=== PATIENT | male | born 1970 | race Caucasian/White ===

== ENCOUNTER 2023-12-13 17:15 | Inpatient (IN) ==
--- NOTE | 2023-12-13 17:50 | Emergency Department Note ---
Impression & Plan Acute upper GI bleed, Abdominal pain, Anemia ED Provider Note NAME: LAVERN COHEN AGE: 53 SEX: M : 1970 ARRIVES VIA: Walk-In INFORMANT: Patient ED PROVIDER(S): Luis Orantes DO CHIEF COMPLAINT: abdominal pain HPI: Patient is a 53-year-old male with a past medical history of alcohol abuse and he drinks 6-10 beers per day for the past 30 years that presents the to ER for nausea, vomiting, or diarrhea which has been present for the past 2 days associated with black/dark tarry stools. Additional history is obtained from who notes that he has been vomiting up dark material as well. No headache or change in vision. No chest pain or shortness of breath. No dysuria urgency or frequency. No history of varices that he is aware of. He has not seen a GI doctor recently. No blood thinners. No other exacerbating or remitting factors. ADDITIONAL HISTORY OBTAINED: Per HPI Chronic Medical/Social Conditions Affecting Care: Per HPI PAST MEDICAL HISTORY:See Below PAST SURGICAL HISTORY:See Below FAMILY HISTORY:See Below SOCIAL HISTORY:See Below HOME MEDICATIONS:See Below ALLERGIES:See Below VITALS:See Below PHYSICAL EXAMINATION: GENERAL: Sitting up in bed, alert, well appearing, well nourished, no distress, non-toxic EYE EXAM: normal conjunctiva. OROPHARYNX: no exudate, no erythema, lips, buccal mucosa, and tongue normal and mucous membranes are moist NECK: supple, no nuchal rigidity, no adenopathy, non-tender LUNGS: Clear to auscultation. Normal chest wall mechanics HEART: no murmurs, S1 normal and S2 normal ABDOMEN: abdomen soft, non-tender, normo-active bowel sounds, no masses, no rebound or guarding. RECTAL: Dark/tarry heme positive UPPER EXTREMITIES: upper extremities are grossly normal. LOWER EXTREMITIES: No pitting edema. NEURO EXAM: Normal sensorium, cranial nerves II-XII grossly intact, normal speech, no gross weakness of arms, no gross weakness of legs. MEDICAL DECISION MAKING: Patient is a 53-year-old male who presents ER for above-stated complaint. IV was established blood was obtained. Labs show no significant leukocytosis but a mild anemia at 11.8. This is a small drop from 14 which was his previous. Rectally heme positive. He was given IV fluids and heart rate trended down. BMP with mild hyponatremia. LFTs bilirubin was unremarkable. BUN was elevated consistent with an upper GI bleed. He was given 2 L of IV fluids, Protonix drip and bolus and typed and screened. CT abdomen pelvis was unremarkable. He was discussed with the hospitalist admitted for further workup of his upper GI bleed. He remained hemodynamically stable in the ER. No history of varices. He was also given IV thiamine, folate and Ativan. Consults/Care Managements Discussions: Per [facility] Triage Nursing notes reviewed. Limited review of prior medical records performed Vital Signs: reviewed and remarkable for no significant abnormalities Differential diagnosis: Differential diagnoses includes but is not limited to gastritis, peptic ulcer disease, GERD, gallbladder disease, pancreatitis, small bowel obstruction, appendicitis, diverticulitis, hernia, urinary tract infection, torsion, perforation, trauma, infectious. ER treatment provided: See below Diagnostics interpreted by me include EKG and cardiac monitoring as listed below: -Cardiac Monitoring: An order was placed for continuous cardiac monitoring. The monitor shows a rate of 120 with sinus rhythm. -ECG: none -Laboratory studies:Interpreted by me as stated above in MDM and shown below. Imaging studies: Xrays: As interpreted by me:none CTs show: CT abdomen pelvis showed no acute pathology per radiology Procedures:none Critical Care: None Past Med/Surg History Medical History (Updated 12/13/23 @ 22:15 by Luis Orantes DO) Hemochromatosis Open fracture of left toe Family History (Updated 09/19/18 @ 21:55 by Tiffany Alex) Other Kidney stones Social History (Updated 09/19/18 @ 21:56 by Tiffany Alex) Smoking Status: Never smoker Preferred Language: Palauan marital status: Current Living Situation: Family current occupational status: employed Feels Safe at Home: Yes Allergies Allergies Allergy/AdvReac Type Severity Reaction Status Date / Time No Known Allergies Allergy Verified 12/13/23 21:31 Home Meds Home Medications Medication Instructions Recorded Confirmed naproxen sodium 220 mg tablet 440 mg PO BID PRN Pain 12/13/23 12/13/23 (Aleve) Results & Data (ED) Vital Signs Vital Signs - 24 hr 12/13/23 17:23 12/13/23 17:37 12/13/23 20:00 Pulse Rate 129 H Pulse Rhythm Regular Pulse Strength Normal Respiratory Rate 20 Respiratory Effort / Characteristics Non-Labored Spontaneous Respiratory Depth Normal Respiratory Pattern Regular Blood Pressure 111/81 139/92 Blood Pressure Mean 91 107 Pulse Oximetry 99 97 Oxygen Delivery Method Room Air Room Air Sepsis Recent Fever Within 48 Hours No Sepsis New/Unexplained Change in Mental Status No Sepsis Action Taken by Nursing No Action Required 12/13/23 21:00 12/13/23 21:10 Pulse Rate 95 H 93 H Pulse Rhythm Pulse Strength Respiratory Rate 23 Respiratory Effort / Characteristics Respiratory Depth Respiratory Pattern Blood Pressure 87/58 L Blood Pressure Mean 67 Pulse Oximetry Oxygen Delivery Method Sepsis Recent Fever Within 48 Hours Sepsis New/Unexplained Change in Mental Status Sepsis Action Taken by Nursing Laboratory Data 12/13/23 21:34 12/13/23 17:35 Lab Results 12/13/23 12/13/23 12/13/23 Range/Units 17:35 18:47 21:34 WBC 9.72 (4.8-10.8) K/ul RBC 3.52 L (4.70-6.10) M/uL Hgb 11.8 L 9.6 L (14.0-18.0) g/dl Hct 34.3 L 28.2 L (42.0-52.0) % MCV 97.4 (80.0-100.0) fL MCH 33.5 (25.0-34.0) pg MCHC 34.4 (32.0-36.0) g/dL RDW Std Deviation 43.2 (36.4-46.3) fL RDW Coeff of Edith 12.1 (11.5-14.5) % Plt Count 323 (130-400) K/uL MPV 8.7 L (9.4-12.4) fL Immature Gran % (Auto) 1.0 % Neut % (Auto) 72.0 % Lymph % (Auto) 18.5 % [place] % (Auto) 7.8 % Eos % (Auto) 0.3 % Baso % (Auto) 0.4 % Neut # (Auto) 6.99 H (1.40-6.50) K/uL Lymph # (Auto) 1.80 (1.20-3.40) K/uL [place] # (Auto) 0.76 H (0.11-0.59) K/uL Eos # (Auto) 0.03 (0.00-0.50) K/uL Baso # (Auto) 0.04 (0.00-0.20) K/uL Immature Gran # (Auto) 0.10 (0.01-0.20) K/uL PT 10.5 (9.0-12.0) Seconds INR 1.0 (0.9-1.1) Sodium 132 L (136-145) mmol/L Potassium 3.9 (3.5-5.1) mmol/L Chloride 98 (98-107) mmol/L Carbon Dioxide 25 (21-32) mmol/L Anion Gap 9 (3-11) BUN 32 H (6-23) mg/dl Creatinine 0.83 (0.6-1.4) mg/dl Est Cr Clr Drug Dosing 99.6 ml/min Est GFR ( Amer) 116.4 ml/min Est GFR (Non-Af Amer) 100.5 ml/min BUN/Creatinine Ratio 38.6 H (10-20) Glucose 107 H (70-99(Fasting)) mg/dl Osmolality 294 (280-300) mOsm/kg Lactate (0.4-2.0) mmol/L Calcium 9.0 (8.6-10.3) mg/dl Magnesium 2.2 (1.7-2.4) mg/dl Total Bilirubin 0.6 (0.2-1.0) mg/dl AST 43 H (13-39) U/L ALT 62 H (7-52) U/L Alkaline Phosphatase 50 (34-104) U/L Total Protein 6.7 (6.0-8.3) gm/dl Albumin 4.6 (3.4-5.0) gm/dl Globulin 2.1 L (2.5-4.0) gm/dl Albumin/Globulin Ratio 2.2 H (0.9-2) Lipase 8 L (11-82) U/L TSH 2.147 (0.300-4.500) uIu/ml Blood Type O Negative Antibody Screen NEGATIVE 12/13/23 Range/Units 21:45 WBC (4.8-10.8) K/ul RBC (4.70-6.10) M/uL Hgb (14.0-18.0) g/dl Hct (42.0-52.0) % MCV (80.0-100.0) fL MCH (25.0-34.0) pg MCHC (32.0-36.0) g/dL RDW Std Deviation (36.4-46.3) fL RDW Coeff of Edith (11.5-14.5) % Plt Count (130-400) K/uL MPV (9.4-12.4) fL Immature Gran % (Auto) % Neut % (Auto) % Lymph % (Auto) % [place] % (Auto) % Eos % (Auto) % Baso % (Auto) % Neut # (Auto) (1.40-6.50) K/uL Lymph # (Auto) (1.20-3.40) K/uL [place] # (Auto) (0.11-0.59) K/uL Eos # (Auto) (0.00-0.50) K/uL Baso # (Auto) (0.00-0.20) K/uL Immature Gran # (Auto) (0.01-0.20) K/uL PT (9.0-12.0) Seconds INR (0.9-1.1) Sodium (136-145) mmol/L Potassium (3.5-5.1) mmol/L Chloride (98-107) mmol/L Carbon Dioxide (21-32) mmol/L Anion Gap (3-11) BUN (6-23) mg/dl Creatinine (0.6-1.4) mg/dl Est Cr Clr Drug Dosing ml/min Est GFR ( Amer) ml/min Est GFR (Non-Af Amer) ml/min BUN/Creatinine Ratio (10-20) Glucose (70-99(Fasting)) mg/dl Osmolality (280-300) mOsm/kg Lactate 0.8 (0.4-2.0) mmol/L Calcium (8.6-10.3) mg/dl Magnesium (1.7-2.4) mg/dl Total Bilirubin (0.2-1.0) mg/dl AST (13-39) U/L ALT (7-52) U/L Alkaline Phosphatase (34-104) U/L Total Protein (6.0-8.3) gm/dl Albumin (3.4-5.0) gm/dl Globulin (2.5-4.0) gm/dl Albumin/Globulin Ratio (0.9-2) Lipase (11-82) U/L TSH (0.300-4.500) uIu/ml Blood Type Antibody Screen Administered Medications Pantoprazole Sodium 40 mg/ (Dextrose) 100 mls @ 20 mls/hr IV Q5H DELORES Stop: 01/12/24 18:14 Last Admin: 12/13/23 18:34 Dose: 8 mg/hr, 20 mls/hr Documented By: OSWALD Discontinued Medications Pantoprazole Sodium 80 mg/ (Dextrose) 120 mls @ 480 mls/hr IV NOW ONE Stop: 12/13/23 18:00 Last Infusion: 12/13/23 18:38 Dose: Infused Documented By: Admin: 12/13/23 18:17 Dose: 480 mls/hr Documented By: OSWALD Sodium Chloride (Nss) 1,000 mls @ 999 mls/hr IV .Q1H1M [facility] Stop: 12/13/23 20:00 Last Admin: 12/13/23 21:21 Dose: 999 mls/hr Documented By: Infusion: 12/13/23 21:01 Dose: Infused Documented By: Admin: 12/13/23 18:10 Dose: 999 mls/hr Documented By: OSWALD Thiamine HCl 100 mg/ Syringe 10 mls @ 2 mls/min IV NOW STA Stop: 12/13/23 17:50 Last Admin: 12/13/23 18:16 Dose: 2 mls/min Documented By: OSWALD Folic Acid 1 mg/ Syringe 10 mls @ 5 mls/min IV NOW STA Stop: 12/13/23 17:47 Last Admin: 12/13/23 18:13 Dose: 5 mls/min Documented By: OSWALD Ioversol (Optiray 320 100ml) 92 ml IV ONCE ONE Stop: 12/13/23 18:41 Last Admin: 12/13/23 18:40 Dose: 92 ml Documented By: ZACK Lorazepam (Lorazepam 1 Mg/1 Ml Syr Ed Inj Use) 1 mg IV ONE STA Stop: 12/13/23 17:47 Last Admin: 12/13/23 18:12 Dose: 1 mg Documented By: OSWALD Pantoprazole Sodium (Pantoprazole Bolus/Drip) 1 each IV NOW STA Stop: 12/13/23 17:47 Last Admin: 12/13/23 18:36 Dose: Not Given Documented By: OSWALD Imaging Data Radiologist's Impression: Abdomen/Pelvis CT 12/13/23 17:46 CT abd pelvis IV con only CLINICAL HISTORY: abd pain gi bleed TECHNIQUE: Helical axial images of the abdomen and pelvis were obtained and displayed. Automated dose lowering techniques and/or adjustment according to patient size were utilized for this exam. This exam was performed with intravenous contrast. CT DOSE: 677.59 mGy.cm COMPARISON: Comparison is made to CT abdomen pelvis 09/19/2018 FINDINGS: Lower chest: No acute abnormality. Liver: Hepatic steatosis is noted. Gallbladder and biliary tree: Density seen in the gallbladder likely represent tiny polyps. No intra- or extrahepatic biliary ductal dilation. Pancreas: Unremarkable, no focal lesions. Spleen: Splenule is incidentally noted. Adrenals: Unremarkable. Kidneys and ureters: Unremarkable. Bladder: Diffuse homogeneous wall thickening is seen. Reproductive organs: Unremarkable. Bowel: The appendix is normal. Lymph nodes Retroperitoneal: Unremarkable. Pelvic: Unremarkable. Mesenteric: Unremarkable. Peritoneum: Normal. Vessels: Unremarkable. Abdominal wall: Right fat-containing inguinal hernia. Bones: Degenerative changes in the visualized spine. IMPRESSION: 1. Hepatic steatosis is seen. 2. No acute abnormalities to explain GI bleed. 3. Likely tiny gallbladder polyps, stable from prior exam. ACT 112: Negative or not required by law. Electronically signed by: Niko Orona M.D. 12/13/2023 7:14 PM Chest X-Ray 12/13/23 19:43 XR chest 1V portable CLINICAL HISTORY: hyponatremia TECHNIQUE: Single frontal radiograph of the chest was obtained. Comparison: None available at the time of this dictation. FINDINGS: No lines and tubes are seen. The cardiomediastinal silhouette is normal. The lungs are clear. No evidence of pleural effusion or pneumothorax. IMPRESSION: No acute chest disease. ACT 112: Negative or not required by law. Electronically signed by: Niko Orona M.D. 12/13/2023 7:59 PM Discharge Plan Visit Data Chief Complaint: GI Assessment Stated Complaint: VOMITING,BLACK STOOL,WEAKNESS,CLAMMY ED Provider: Luis Orantes Discharge Problem: Acute upper GI bleed, Abdominal pain, Anemia Forms Stand Alone Forms: [facility] Prescriptions Prescriptions: No Action naproxen sodium [Aleve] 220 mg Tablet 440 mg PO BID PRN (Reason: Pain) Referrals Referrals: PCP,NO [Primary Care Provider] - Discharge Problem: Abdominal pain Qualifiers: Abdominal location: unspecified location Qualified Code(s): R10.9 - Unspecified abdominal pain Anemia Qualifiers: Anemia type: unspecified type Qualified Code(s): D64.9 - Anemia, unspecified
[2023-12-13 17:54] LABS: Basophils # (auto) 0.04 K/uL (0.00-0.20); Basophils % (auto) 0.4 %; Eosinophils # (auto) 0.03 K/uL (0.00-0.50); Eosinophils % (auto) 0.3 %; Hematocrit (blood only) 34.3 % (42.0-52.0); Hemoglobin 11.8 g/dl (14.0-18.0); Lymphocytes % (auto) 18.5 %; Mean Corpuscular Hemoglobin 33.5 pg (25.0-34.0); Mean Corpuscular Hgb Conc 34.4 g/dL (32.0-36.0); Mean Corpuscular Volume 97.4 fL (80.0-100.0); Mean Platelet Volume 8.7 fL (9.4-12.4); Monocytes # (auto) 0.76 K/uL (0.11-0.59); Monocytes % (auto) 7.8 %; Neutrophils # (auto) 6.99 K/uL (1.40-6.50); Platelet Count 323 K/uL (130-400); RDW Coefficient of Variation 12.1 % (11.5-14.5); RDW Standard Deviation 43.2 fL (36.4-46.3); Red Blood Count 3.52 M/uL (4.70-6.10); White Blood Count 9.72 K/ul (4.8-10.8)
[2023-12-13 18:06] LABS: Albumin Globulin Ratio 2.2 (0.9-2); Albumin Level 4.6 gm/dl (3.4-5.0); BUN Creatinine Ratio 38.6 (10-20); Bilirubin,Total 0.6 mg/dl (0.2-1.0); Creatinine Clr Calc Pharmacy 99.6 ml/min; Est GFR (African American) 116.4 ml/min; Est GFR (Non-African American) 100.5 ml/min; Globulin 2.1 gm/dl (2.5-4.0); Potassium 3.9 mmol/L (3.5-5.1); Total Protein 6.7 gm/dl (6.0-8.3)
[2023-12-13] MEDS: SODIUM CHLORIDE 0.9% 1,000 ML IV SCH (18:10)
[2023-12-13] MEDS: LORazepam 1 MG/1 ML SYR ED Inj Use IV STA (18:12)
[2023-12-13] MEDS: FOLIC ACID 1 MG in SYRINGE 9.8 ML IV STA (18:13)
[2023-12-13] MEDS: THIAMINE HCL 100 MG in SYRINGE 9 ML IV STA (18:16)
[2023-12-13 18:17] LABS: Prothrombin Time 10.5 Seconds (9.0-12.0)
[2023-12-13] MEDS: PANTOprazole 80 MG in DEXTROSE 5% 100 ML IV ONE (18:17)
[2023-12-13] MEDS: PANTOprazole 40 MG in DEXTROSE 5% MINI-B 100 ML IV SCH (18:34)
[2023-12-13] MEDS: PANTOPRAZOLE BOLUS/DRIP IV STA (18:36)
[2023-12-13] MEDS: OPTIRAY 320 100ml IV ONE (18:40)
--- NOTE | 2023-12-13 19:16 | CT Scan Report ---
CT abd pelvis IV con only CLINICAL HISTORY: abd pain gi bleed TECHNIQUE: Helical axial images of the abdomen and pelvis were obtained and displayed. Automated dose lowering techniques and/or adjustment according to patient size were utilized for this exam. This e xam was performed with intravenous contrast. CT DOSE: 677.59 mGy.cm COMPARISON: Comparison is made to CT abdomen pelvis 09/19/2018 FINDINGS: Lower chest: No acute abnormality. Liver: Hepatic steatosis is noted. Gallbladder and biliary tree: Density seen in the gallbladder likely represent tiny polyps. No intra- or extrahepatic biliary ductal dilation. Pancreas: Unremarkable, no focal lesions. Spleen: Splenule is incidentally noted. Adrenals: Unremarkable. Kidneys and ureters: Unremarkable. Bladder: Diffuse homogeneous wall thickening is seen. Reproductive organs: Unremarkable. Bowel: The appendix is normal. Lymph nodes Retroperitoneal: Unremarkable. Pelvic: Unremarkable. Mesenteric: Unremarkable. Peritoneum: Normal. Vessels: Unremarkable. Abdominal wall: Right fat-containing inguinal hernia. Bones: Degenerative changes in the visualized spine. IMPRESSION: 1. Hepatic steatosis is seen. 2. No acute abnormalities to explain GI bleed. 3. Likely tiny gallbladder polyps, stable from prior exam. ACT 112: Negative or not required by law. Electronically signed by: Niko Orona M.D. 12/13/2023 7:14 PM
--- NOTE | 2023-12-13 20:01 | XRay Report ---
XR chest 1V portable CLINICAL HISTORY: hyponatremia TECHNIQUE: Single frontal radiograph of the chest was obtained. Comparison: None available at the time of this dictation. FINDINGS: No lines and tubes are seen. The cardiomediastinal silhouette is normal. The lungs are clear. No evid ence of pleural effusion or pneumothorax. IMPRESSION: No acute chest disease. ACT 112: Negative or not required by law. Electronically signed by: Niko Orona M.D. 12/13/2023 7:59 PM
[2023-12-13 20:05] LABS: Magnesium 2.2 mg/dl (1.7-2.4)
[2023-12-13 20:21] LABS: Thyroid Stimulating Hormone 2.147 uIu/ml (0.300-4.500)
--- NOTE | 2023-12-13 20:33 | History & Physical Report ---
Date of Service December 13, 2023 Assessment & Plan (1) UGIB (upper gastrointestinal bleed): Plan: History of alcohol abuse Differentials include esophagitis, gastritis, PUD, tumor Anemia secondary to above Hyponatremia, history of alcohol abuse Abnormal LFTs, hepatic steatosis on imaging in the setting of alcohol abuse, hereditary hemochromatosis Past tobacco abuse Medical telemetry IV PPI GI consult re: UGIB N.p.o. in anticipation of endoscopy Follow H&H, transfuse PRBC if hemoglobin less than 7 and or from symptomatic anemia IGNAICO S at risk protocol for now, DT precautions Hyponatremia workup DVT prophylaxis. SCDs Re: GI bleed Full code Patient requesting updates providers. Ms. Ama Warner, contact #[phone]. Text document was generated using [employer] voice recognition software. It may contain grammatical or spelling errors. Kindly contact undersigned for clarification of any documentation item in question. History of Present Illness Chief Complaint: Melena Primary Care Provider: NO PCP Patient would like patient to see Dr. Yumiko Peter of [facility] upon discharge. History obtained from patient, family, and records. Medical history significant for hereditary hemochromatosis, alcohol use, past tobacco abuse. 2 days history of coffee-ground emesis, melena and achy central abdominal pain. No prior episodes. Admits to daily EtOH intake which patient family thinks is excessive. No inordinate OTC NSAID intake. No fever, no chills. Headache, dizziness from vomiting. No chest pain, no SOB. IV Protonix initiated at the ER for UGIB. 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 Allergies Allergy/AdvReac Type Severity Reaction Status Date / Time No Known Allergies Allergy Verified 09/19/18 20:38 Home Medications Medication Instructions Recorded Confirmed Type dicyclomine 20 mg tablet 20 mg PO TID PRN abdominal 09/19/18 Rx discomfort #10 tabs Past Med/Surg History Medical History (Updated 12/13/23 @ 21:07 by Nick Mclain MD) Hemochromatosis Open fracture of left toe Family History (Updated 09/19/18 @ 21:55 by Tiffany Alex) Other Kidney stones Social History (Updated 09/19/18 @ 21:56 by Tiffany Alex) Smoking Status: Never smoker Preferred Language: Irish marital status: Current Living Situation: Family current occupational status: employed Feels Safe at Home: Yes Review of Systems Review of Systems: As per HPI, all other systems reviewed and negative Physical Exam Physical Exam: GENERAL: Slightly uncomfortable, no respiratory distress SKIN: Pallor, warm HEENT: Partial alopecia, pale palpebral conjunctivae, no ptosis, dry buccal mucosa NECK : Supple, no tenderness CHEST : CTA, no tenderness HEART : Tachycardic, no obvious murmurs ABDOMEN: Some distention, minimal epigastric tenderness EXTREMITIES : No LE swelling/tenderness, no other conspicuous deformities noted NEUROLOGIC : Coherent, no facial asymmetry, no other gross focality Results & Data Results & Data Vital Signs (Past 12 Hours) Vital Signs Pulse Resp BP Pulse Ox O2 Del Method 12/13/23 17:37 97 Room Air 12/13/23 17:23 129 H 20 111/81 99 Room Air Laboratory Results Laboratory Results WBC 9.72 K/ul (4.8-10.8) 12/13/23 17:35 RBC 3.52 M/uL (4.70-6.10) L 12/13/23 17:35 Hgb 11.8 g/dl (14.0-18.0) L 12/13/23 17:35 Hct 34.3 % (42.0-52.0) L 12/13/23 17:35 MCV 97.4 fL (80.0-100.0) 12/13/23 17:35 MCH 33.5 pg (25.0-34.0) 12/13/23 17:35 MCHC 34.4 g/dL (32.0-36.0) 12/13/23 17:35 RDW Std Deviation 43.2 fL (36.4-46.3) 12/13/23 17:35 RDW Coeff of Edith 12.1 % (11.5-14.5) 12/13/23 17:35 Plt Count 323 K/uL (130-400) 12/13/23 17:35 MPV 8.7 fL (9.4-12.4) L 12/13/23 17:35 Immature Gran % (Auto) 1.0 % 12/13/23 17:35 Neut % (Auto) 72.0 % 12/13/23 17:35 Lymph % (Auto) 18.5 % 12/13/23 17:35 [place] % (Auto) 7.8 % 12/13/23 17:35 Eos % (Auto) 0.3 % 12/13/23 17:35 Baso % (Auto) 0.4 % 12/13/23 17:35 Neut # (Auto) 6.99 K/uL (1.40-6.50) H 12/13/23 17:35 Lymph # (Auto) 1.80 K/uL (1.20-3.40) 12/13/23 17:35 [place] # (Auto) 0.76 K/uL (0.11-0.59) H 12/13/23 17:35 Eos # (Auto) 0.03 K/uL (0.00-0.50) 12/13/23 17:35 Baso # (Auto) 0.04 K/uL (0.00-0.20) 12/13/23 17:35 Immature Gran # (Auto) 0.10 K/uL (0.01-0.20) 12/13/23 17:35 PT 10.5 Seconds (9.0-12.0) 12/13/23 17:35 INR 1.0 (0.9-1.1) 12/13/23 17:35 Sodium 132 mmol/L (136-145) L 12/13/23 17:35 Potassium 3.9 mmol/L (3.5-5.1) 12/13/23 17:35 Chloride 98 mmol/L (98-107) 12/13/23 17:35 Carbon Dioxide 25 mmol/L (21-32) 12/13/23 17:35 Anion Gap 9 (3-11) 12/13/23 17:35 BUN 32 mg/dl (6-23) H 12/13/23 17:35 Creatinine 0.83 mg/dl (0.6-1.4) 12/13/23 17:35 Est Cr Clr Drug Dosing 99.6 ml/min 12/13/23 17:35 Est GFR ( Amer) 116.4 ml/min 12/13/23 17:35 Est GFR (Non-Af Amer) 100.5 ml/min 12/13/23 17:35 BUN/Creatinine Ratio 38.6 (10-20) H 12/13/23 17:35 Glucose 107 mg/dl (70-99(Fasting)) H 12/13/23 17:35 Osmolality 294 mOsm/kg (280-300) 12/13/23 17:35 Calcium 9.0 mg/dl (8.6-10.3) 12/13/23 17:35 Magnesium 2.2 mg/dl (1.7-2.4) 12/13/23 17:35 Total Bilirubin 0.6 mg/dl (0.2-1.0) 12/13/23 17:35 AST 43 U/L (13-39) H 12/13/23 17:35 ALT 62 U/L (7-52) H 12/13/23 17:35 Alkaline Phosphatase 50 U/L (34-104) 12/13/23 17:35 Total Protein 6.7 gm/dl (6.0-8.3) 12/13/23 17:35 Albumin 4.6 gm/dl (3.4-5.0) 12/13/23 17:35 Globulin 2.1 gm/dl (2.5-4.0) L 12/13/23 17:35 Albumin/Globulin Ratio 2.2 (0.9-2) H 12/13/23 17:35 Lipase 8 U/L (11-82) L 12/13/23 17:35 TSH 2.147 uIu/ml (0.300-4.500) 12/13/23 17:35 Blood Type O Negative 12/13/23 18:47 Antibody Screen NEGATIVE 12/13/23 18:47 Impressions Abdomen/Pelvis CT 12/13/23 17:46 CT abd pelvis IV con only CLINICAL HISTORY: abd pain gi bleed TECHNIQUE: Helical axial images of the abdomen and pelvis were obtained and displayed. Automated dose lowering techniques and/or adjustment according to patient size were utilized for this exam. This exam was performed with intravenous contrast. CT DOSE: 677.59 mGy.cm COMPARISON: Comparison is made to CT abdomen pelvis 09/19/2018 FINDINGS: Lower chest: No acute abnormality. Liver: Hepatic steatosis is noted. Gallbladder and biliary tree: Density seen in the gallbladder likely represent tiny polyps. No intra- or extrahepatic biliary ductal dilation. Pancreas: Unremarkable, no focal lesions. Spleen: Splenule is incidentally noted. Adrenals: Unremarkable. Kidneys and ureters: Unremarkable. Bladder: Diffuse homogeneous wall thickening is seen. Reproductive organs: Unremarkable. Bowel: The appendix is normal. Lymph nodes Retroperitoneal: Unremarkable. Pelvic: Unremarkable. Mesenteric: Unremarkable. Peritoneum: Normal. Vessels: Unremarkable. Abdominal wall: Right fat-containing inguinal hernia. Bones: Degenerative changes in the visualized spine. IMPRESSION: 1. Hepatic steatosis is seen. 2. No acute abnormalities to explain GI bleed. 3. Likely tiny gallbladder polyps, stable from prior exam. ACT 112: Negative or not required by law. Electronically signed by: Niko Orona M.D. 12/13/2023 7:14 PM Chest X-Ray 12/13/23 19:43 XR chest 1V portable CLINICAL HISTORY: hyponatremia TECHNIQUE: Single frontal radiograph of the chest was obtained. Comparison: None available at the time of this dictation. FINDINGS: No lines and tubes are seen. The cardiomediastinal silhouette is normal. The bartolome gs are clear. No evidence of pleural effusion or pneumothorax. IMPRESSION: No acute chest disease. ACT 112: Negative or not required by law. Electronically signed by: Niko Orona M.D. 12/13/2023 7:59 PM Diagnostic Findings EKG as per my interpretation :
[2023-12-13] MEDS ORDERED: ACETAMINOPHEN 500 MG TAB PO PRN (20:36)
[2023-12-13] MEDS ORDERED: LORazepam 1 MG in SYRINGE 0.5 ML IV PRN (20:36)
[2023-12-13] MEDS ORDERED: PROMETHAZINE HCL 6.25 MG in SODIUM CHLORIDE 0.9% 50 ML IV PRN (20:36)
[2023-12-13] MEDS ORDERED: oxyCODONE HCL IR 5 MG TAB (IMMEDIATE RELEASE) PO PRN (20:36)
[2023-12-13 22:03] LABS: Hematocrit (blood only) 28.2 % (42.0-52.0); Hemoglobin 9.6 g/dl (14.0-18.0)
[2023-12-13 23:44] LABS: Appearance Urine Clear (Clear); Bilirubin Urine Negative (Negative); Blood Urine Negative (Negative); Color Urine Yellow; Glucose Urine UA Negative (Negative); Ketones Urine Negative (Negative); Leukocyte Esterase Urine Negative (Negative); Nitrite Urine Negative (Negative); Protein Urine Negative (Negative); Specific Gravity Urine 1.039 (1.000-1.030); Urobilinogen Urine Negative (Negative)
[2023-12-14] MEDS: NSS + 20MEQ KCL 20 MEQ/1,000 ML BAG IV STA (00:06)
[2023-12-14 01:09] LABS: Hematocrit (blood only) 26.7 % (42.0-52.0)
[2023-12-14 06:36] LABS: Basophils # (auto) 0.04 K/uL (0.00-0.20); Basophils % (auto) 0.6 %; Eosinophils % (auto) 1.5 %; Hematocrit (blood only) 25.1 % (42.0-52.0); Hemoglobin 8.6 g/dl (14.0-18.0); Immature Granulocytes # (auto) 0.07 K/uL (0.01-0.20); Immature Granulocytes % (auto) 1.1 %; Lymphocytes # (auto) 2.46 K/uL (1.20-3.40); Lymphocytes % (auto) 37.7 %; Mean Corpuscular Hemoglobin 33.1 pg (25.0-34.0); Mean Corpuscular Hgb Conc 34.3 g/dL (32.0-36.0); Mean Corpuscular Volume 96.5 fL (80.0-100.0); Mean Platelet Volume 8.8 fL (9.4-12.4); Monocytes % (auto) 7.7 %; Neutrophils # (auto) 3.35 K/uL (1.40-6.50); Neutrophils % (auto) 51.4 %; Platelet Count 222 K/uL (130-400); RDW Standard Deviation 42.3 fL (36.4-46.3); White Blood Count 6.52 K/ul (4.8-10.8)
[2023-12-14 06:55] LABS: Albumin Globulin Ratio 2.5 (0.9-2); Albumin Level 3.5 gm/dl (3.4-5.0); Bilirubin,Total 0.7 mg/dl (0.2-1.0); Calcium 7.9 mg/dl (8.6-10.3); Creatinine Clr Calc Pharmacy 110.2 ml/min; Est GFR (African American) 121.4 ml/min; Est GFR (Non-African American) 104.7 ml/min; Globulin 1.4 gm/dl (2.5-4.0); Potassium 4.1 mmol/L (3.5-5.1); Total Protein 4.9 gm/dl (6.0-8.3)
--- NOTE | 2023-12-14 08:07 | Electrocardiogram Report ---
Test Reason : Blood Pressure : / mmHG Vent. Rate : 094 BPM Atrial Rate : 094 BPM P-R Int : 170 ms QRS Dur : 094 ms QT Int : 366 ms P-R-T Axes : 060 009 014 degrees QTc Int : 457 ms Normal sinus rhythm Incomplete right bundle branch block Borderline ECG No previous ECGs available Confirmed by Mehdi Gilmore ([id number]) on 12/14/2023 8:07:07 AM Referred By: REFERRED SELF Confirmed By:Mehdi Gilmore
[2023-12-14] MEDS: FOLIC ACID 1 MG TAB PO SCH (08:19)
[2023-12-14] MEDS: THIAMINE HCL 100 MG TAB PO SCH (08:20)
[2023-12-14] MEDS: MULTIVITAMIN TAB PO SCH (08:20)
--- NOTE | 2023-12-14 10:38 | Gastrointestinal Consultation ---
Date of Consultation December 14, 2023 Assessment & Plan (1) Acute upper GI bleed: Upper GI bleeding with hematemesis and melena that has resolved. He has had a significant drop in his H/H but that seems to be leveling off as well. He does need EGD. Since he is drinking liquids as I am talking to him we will plan EGD for tomorrow. CT does not show worrisome changes to worry about varices. I suspect he has alcoholic gastritis or perhaps NSAID induced ulcer disease if he takes more aleve than he lets on. If he does have hemochromatosis and on top of that drinks as much or more than he says it is possible he has varices although his labs do not look worrisome for cirrhosis. History of Present Illness Reason for Consultation: gi bleed Attending Physician: Teena Coulter MD History of Present Illness 53 year old man who tells me he started having problems with his bowels on Friday. He describes having multiple black stools that day. He said he also "vomited coffee grounds". He was having some pain in his stomach on Friday but that pain is gone now. He vomited once yesterday and none since. He had black stools yesterday but his bowel movement today he said is clearing up. He has never had problems like this before. He says he has never had an EGD or a colonoscopy. He admits to taking aleve on occasion and said he probably took it 4 times last week but that is more than normal. He does admit to drinking 6-10 beers per day. He carries the diagnosis of hemochromatosis. Allergies Allergy/AdvReac Type Severity Reaction Status Date / Time No Known Allergies Allergy Verified 12/13/23 21:31 Home Medications Medication Instructions Recorded Confirmed Type naproxen sodium 220 mg tablet 440 mg PO BID PRN Pain 12/13/23 12/13/23 History (Aleve) Patient History Medical History Hemochromatosis Open fracture of left toe Family History Other Kidney stones Social History Smoking Status: Never smoker Tobacco Type: Smokeless Tobacco (Dip or Chew) Second Hand Exposure: No; Do You Dip or Chew Tobacco: Yes; Tobacco Cessation Education Requested by Patient: No Hx Alcohol Use: Yes Alcohol type: beer Hx Substance Use: No Preferred Language: Persian Communication Ability: Effective Logistics 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 Required: No Beliefs That Will Affect Care: None marital status: Current Living Situation: Alone current occupational status: employed Other Information That Helps Us Care for You: No Feels Safe at Home: Yes Safety Concerns: Feels Safe At This Time Review of Systems Review of Systems: All systems reviewed & are unremarkable except as noted in HPI & below Physical Exam Constitutional: WD/WN, vitals as above no acute distress Eyes: PERRL, conjunctivae normal, anicteric sclerae ENMT: external ear and nose normal, oropharynx normal Neck: trachea midline, no thyromegaly Respiratory: normal respiratory effort, lungs clear to auscultation Cardiovascular: RRR, no murmur, no edema Gastrointestinal (Abdomen): normal bowel sounds, soft, nontender, no hepatosplenomegaly Musculoskeletal: Extremities: no cyanosis and no clubbing Skin: no rashes, warm and dry Neurologic: PERRL, EOMI, accommodation nl, no face palsy, no dysarthria Psychiatric: Orientation: alert and oriented x 3 Results & Data Vital Signs (Past 12 Hours) Vital Signs Temp Pulse Pulse Resp BP Pulse Ox O2 Del Method 12/14/23 09:42 104/63 12/14/23 08:10 99/72 L 12/14/23 07:46 72 12/14/23 07:45 36.3 C L 85 21 98/65 L 99 Room Air 12/14/23 03:03 36.9 C 88 20 120/65 96 Room Air 12/14/23 00:11 90 12/13/23 23:18 36.9 C 96 H 18 105/67 98 Room Air 12/13/23 22:23 Room Air Laboratory Results 12/14/23 12/14/23 12/13/23 Range/Units 06:06 00:34 23:30 WBC 6.52 (4.8-10.8) K/ul RBC 2.60 L (4.70-6.10) M/uL Hgb 8.6 L 9.0 L (14.0-18.0) g/dl Hct 25.1 L 26.7 L (42.0-52.0) % MCV 96.5 (80.0-100.0) fL MCH 33.1 (25.0-34.0) pg MCHC 34.3 (32.0-36.0) g/dL RDW Std Deviation 42.3 (36.4-46.3) fL RDW Coeff of Edith 12.0 (11.5-14.5) % Plt Count 222 (130-400) K/uL MPV 8.8 L (9.4-12.4) fL Immature Gran % (Auto) 1.1 % Neut % (Auto) 51.4 % Lymph % (Auto) 37.7 % Evangeline % (Auto) 7.7 % Eos % (Auto) 1.5 % Baso % (Auto) 0.6 % Neut # (Auto) 3.35 (1.40-6.50) K/uL Lymph # (Auto) 2.46 (1.20-3.40) K/uL Evangeline # (Auto) 0.50 (0.11-0.59) K/uL Eos # (Auto) 0.10 (0.00-0.50) K/uL Baso # (Auto) 0.04 (0.00-0.20) K/uL Immature Gran # (Auto) 0.07 (0.01-0.20) K/uL PT (9.0-12.0) Seconds INR (0.9-1.1) Sodium 137 (136-145) mmol/L Potassium 4.1 (3.5-5.1) mmol/L Chloride 110 H (98-107) mmol/L Carbon Dioxide 23 (21-32) mmol/L Anion Gap 4 (3-11) BUN 21 (6-23) mg/dl Creatinine 0.75 (0.6-1.4) mg/dl Est Cr Clr Drug Dosing 110.2 ml/min Est GFR ( Amer) 121.4 ml/min Est GFR (Non-Af Amer) 104.7 ml/min BUN/Creatinine Ratio 28.0 H (10-20) Glucose 96 (70-99(Fasting)) mg/dl Osmolality (280-300) mOsm/kg Lactate (0.4-2.0) mmol/L Calcium 7.9 L (8.6-10.3) mg/dl Magnesium (1.7-2.4) mg/dl Total Bilirubin 0.7 (0.2-1.0) mg/dl AST 26 (13-39) U/L ALT 41 (7-52) U/L Alkaline Phosphatase 37 (34-104) U/L Total Protein 4.9 L D (6.0-8.3) gm/dl Albumin 3.5 (3.4-5.0) gm/dl Globulin 1.4 L (2.5-4.0) gm/dl Albumin/Globulin Ratio 2.5 H (0.9-2) Lipase (11-82) U/L TSH (0.300-4.500) uIu/ml Urine Color Yellow Urine Appearance Clear (Clear) Urine pH 6.0 (4.5-7.5) Ur Specific [place] 1.039 H (1.000-1.030) Urine Protein Negative (Negative) Urine Glucose (UA) Negative (Negative) Urine Ketones Negative (Negative) Urine Blood Negative (Negative) Urine Nitrite Negative (Negative) Urine Bilirubin Negative (Negative) Urine Urobilinogen Negative (Negative) Ur Leukocyte Esterase Negative (Negative) Urine Osmolality 582 (500-800) mOsm/kg Ur Random Sodium 39 mmol/L Ethyl Alcohol mg/dL (<10.0) mg/dl Blood Type Antibody Screen 12/13/23 12/13/23 12/13/23 Range/Units 21:45 21:34 18:47 WBC (4.8-10.8) K/ul RBC (4.70-6.10) M/uL Hgb 9.6 L (14.0-18.0) g/dl Hct 28.2 L (42.0-52.0) % MCV (80.0-100.0) fL MCH (25.0-34.0) pg MCHC (32.0-36.0) g/dL RDW Std Deviation (36.4-46.3) fL RDW Coeff of Edith (11.5-14.5) % Plt Count (130-400) K/uL MPV (9.4-12.4) fL Immature Gran % (Auto) % Neut % (Auto) % Lymph % (Auto) % Evangeline % (Auto) % Eos % (Auto) % Baso % (Auto) % Neut # (Auto) (1.40-6.50) K/uL Lymph # (Auto) (1.20-3.40) K/uL Evangeline # (Auto) (0.11-0.59) K/uL Eos # (Auto) (0.00-0.50) K/uL Baso # (Auto) (0.00-0.20) K/uL Immature Gran # (Auto) (0.01-0.20) K/uL PT (9.0-12.0) Seconds INR (0.9-1.1) Sodium 135 L (136-145) mmol/L Potassium (3.5-5.1) mmol/L Chloride (98-107) mmol/L Carbon Dioxide (21-32) mmol/L Anion Gap (3-11) BUN (6-23) mg/dl Creatinine (0.6-1.4) mg/dl Est Cr Clr Drug Dosing ml/min Est GFR ( Amer) ml/min Est GFR (Non-Af Amer) ml/min BUN/Creatinine Ratio (10-20) Glucose (70-99(Fasting)) mg/dl Osmolality (280-300) mOsm/kg Lactate 0.8 (0.4-2.0) mmol/L Calcium (8.6-10.3) mg/dl Magnesium (1.7-2.4) mg/dl Total Bilirubin (0.2-1.0) mg/dl AST (13-39) U/L ALT (7-52) U/L Alkaline Phosphatase (34-104) U/L Total Protein (6.0-8.3) gm/dl Albumin (3.4-5.0) gm/dl Globulin (2.5-4.0) gm/dl Albumin/Globulin Ratio (0.9-2) Lipase (11-82) U/L TSH (0.300-4.500) uIu/ml Urine Color Urine Appearance (Clear) Urine pH (4.5-7.5) Ur Specific [place] (1.000-1.030) Urine Protein (Negative) Urine Glucose (UA) (Negative) Urine Ketones (Negative) Urine Blood (Negative) Urine Nitrite (Negative) Urine Bilirubin (Negative) Urine Urobilinogen (Negative) Ur Leukocyte Esterase (Negative) Urine Osmolality (500-800) mOsm/kg Ur Random Sodium mmol/L Ethyl Alcohol mg/dL < 10.0 (<10.0) mg/dl Blood Type O Negative Antibody Screen NEGATIVE 12/13/23 Range/Units 17:35 WBC 9.72 (4.8-10.8) K/ul RBC 3.52 L (4.70-6.10) M/uL Hgb 11.8 L (14.0-18.0) g/dl Hct 34.3 L (42.0-52.0) % MCV 97.4 (80.0-100.0) fL MCH 33.5 (25.0-34.0) pg MCHC 34.4 (32.0-36.0) g/dL RDW Std Deviation 43.2 (36.4-46.3) fL RDW Coeff of Edith 12.1 (11.5-14.5) % Plt Count 323 (130-400) K/uL MPV 8.7 L (9.4-12.4) fL Immature Gran % (Auto) 1.0 % Neut % (Auto) 72.0 % Lymph % (Auto) 18.5 % Evangeline % (Auto) 7.8 % Eos % (Auto) 0.3 % Baso % (Auto) 0.4 % Neut # (Auto) 6.99 H (1.40-6.50) K/uL Lymph # (Auto) 1.80 (1.20-3.40) K/uL Evangeline # (Auto) 0.76 H (0.11-0.59) K/uL Eos # (Auto) 0.03 (0.00-0.50) K/uL Baso # (Auto) 0.04 (0.00-0.20) K/uL Immature Gran # (Auto) 0.10 (0.01-0.20) K/uL PT 10.5 (9.0-12.0) Seconds INR 1.0 (0.9-1.1) Sodium 132 L (136-145) mmol/L Potassium 3.9 (3.5-5.1) mmol/L Chloride 98 (98-107) mmol/L Carbon Dioxide 25 (21-32) mmol/L Anion Gap 9 (3-11) BUN 32 H (6-23) mg/dl Creatinine 0.83 (0.6-1.4) mg/dl Est Cr Clr Drug Dosing 99.6 ml/min Est GFR ( Amer) 116.4 ml/min Est GFR (Non-Af Amer) 100.5 ml/min BUN/Creatinine Ratio 38.6 H (10-20) Glucose 107 H (70-99(Fasting)) mg/dl Osmolality 294 (280-300) mOsm/kg Lactate (0.4-2.0) mmol/L Calcium 9.0 (8.6-10.3) mg/dl Magnesium 2.2 (1.7-2.4) mg/dl Total Bilirubin 0.6 (0.2-1.0) mg/dl AST 43 H (13-39) U/L ALT 62 H (7-52) U/L Alkaline Phosphatase 50 (34-104) U/L Total Protein 6.7 (6.0-8.3) gm/dl Albumin 4.6 (3.4-5.0) gm/dl Globulin 2.1 L (2.5-4.0) gm/dl Albumin/Globulin Ratio 2.2 H (0.9-2) Lipase 8 L (11-82) U/L TSH 2.147 (0.300-4.500) uIu/ml Urine Color Urine Appearance (Clear) Urine pH (4.5-7.5) Ur Specific [place] (1.000-1.030) Urine Protein (Negative) Urine Glucose (UA) (Negative) Urine Ketones (Negative) Urine Blood (Negative) Urine Nitrite (Negative) Urine Bilirubin (Negative) Urine Urobilinogen (Negative) Ur Leukocyte Esterase (Negative) Urine Osmolality (500-800) mOsm/kg Ur Random Sodium mmol/L Ethyl Alcohol mg/dL (<10.0) mg/dl Blood Type Antibody Screen Diagnostic Findings Abdomen/Pelvis CT 12/13/23 17:46 CT abd pelvis IV con only CLINICAL HISTORY: abd pain gi bleed TECHNIQUE: Helical axial images of the abdomen and pelvis were obtained and displayed. Automated dose lowering techniques and/or adjustment according to patient size were utilized for this exam. This exam was performed with intravenous contrast. CT DOSE: 677.59 mGy.cm COMPARISON: Comparison is made to CT abdomen pelvis 09/19/2018 FINDINGS: Lower chest: No acute abnormality. Liver: Hepatic steatosis is noted. Gallbladder and biliary tree: Density seen in the gallbladder likely represent tiny polyps. No intra- or extrahepatic biliary ductal dilation. Pancreas: Unremarkable, no focal lesions. Spleen: Splenule is incidentally noted. Adrenals: Unremarkable. Kidneys and ureters: Unremarkable. Bladder: Diffuse homogeneous wall thickening is seen. Reproductive organs: Unremarkable. Bowel: The appendix is normal. Lymph nodes Retroperitoneal: Unremarkable. Pelvic: Unremarkable. Mesenteric: Unremarkable. Peritoneum: Normal. Vessels: Unremarkable. Abdominal wall: Right fat-containing inguinal hernia. Bones: Degenerative changes in the visualized spine. IMPRESSION: 1. Hepatic steatosis is seen. 2. No acute abnormalities to explain GI bleed. 3. Likely tiny gallbladder polyps, stable from prior exam. ACT 112: Negative or not required by law. Electronically signed by: Niko Orona M.D. 12/13/2023 7:14 PM Chest X-Ray 12/13/23 19:43 XR chest 1V portable CLINICAL HISTORY: hyponatremia TECHNIQUE: Single frontal radiograph of the chest was obtained. Comparison: None available at the time of this dictation. FINDINGS: No lines and tubes are seen. The cardiomediastinal silhouette is normal. The lungs are clear. No evidence of pleural effusion or pneumothorax. IMPRESSION: No acute chest disease. ACT 112: Negative or not required by law. Electronically signed by: Niko Orona M.D. 12/13/2023 7:59 PM
[2023-12-14 12:45] LABS: Hematocrit (blood only) 25.1 % (42.0-52.0); Hemoglobin 8.6 g/dl (14.0-18.0)
--- NOTE | 2023-12-14 13:27 | Hospitalist Progress Note ---
Date of Service December 14, 2023 Assessment & Plan (1) UGIB (upper gastrointestinal bleed): Plan: 53-year-old male with PMH of hereditary hemochromatosis, alcohol abuse, past tobacco abuse presented to the ED 12/12 with complaint of 2-day history of coffee- ground emesis and melena associated with abdominal pain. Denies any febrile illness. He is being managed for the following: UGI bleed: Presented with coffee-ground emesis and melena iso ongoing alc abuse status. Associated abdominal pain present at presentation. Acute blood loss anemia: Likely secondary to upper GI bleed. Differential diagnosis include esophagitis, gastritis, PUD, tumor, varices. Admitting hemoglobin of 11.8, admitting CTAP with no acute abnormalities to explain GI bleed. Tiny gallbladder polyp is stable from prior exam. 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 Hemoglobin has a stalled around 8.6. Monitor H&H every 6 hours. N.p.o., IV PPI. Avoid NSAID. GI evaluated, likely scope tomorrow. Follow H&H, transfuse PRBC if hemoglobin less than 7 or for symptomatic anemia. Hold any form of anticoagulation for now. Continue telemetry. Alcohol abuse: Admits to daily EtOH intake which patient family thinks is excessive. Patient counseled about alcohol cessation and rehab possibility, patient denies rehab. Risks of delirium/seizure. IGNACIO S protocol. Thiamine and folic acid. Hyponatremia: Likely secondary to poor solute intake secondary to alcoholic history. Resolved. Abnormal LFT: Likely secondary to alcohol use and hepatic steatosis on imaging. Resolved. Other chronic medical conditions: Continue with/resume home meds as and when able History of hemochromatosis Past tobacco abuse DVT prophylaxis. SCDs Re: GI bleed Full code Patient's Ms. Ama Warner, contact #[phone]. Patient's would like patient to see Dr. Yumiko Peter of [facility] upon discharge. Text document was generated using [employer] voice recognition software. It may contain grammatical or spelling errors. Kindly contact undersigned for clarification of any documentation item in question. Admission and Anticipated Discharge Date Admission Date: December 13, 2023 Subjective Patient was seen and examined at bedside. Patient was lying in bed, on room air, NAD, reports no new acute event overnight. 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 Patient denies any abdominal pain or febrile illness or chest pain or lightheadedness. He is n.p.o., for possible scope tomorrow. GI following. Physical Exam Physical Exam: GENERAL: On room air, NAD, alert and oriented. SKIN: Pallor, warm HEENT: Partial alopecia, pale palpebral conjunctivae, no ptosis, dry buccal mucosa NECK : Supple, no tenderness CHEST : CTA, no tenderness HEART : RRR, no obvious murmurs ABDOMEN: Some distention, minimal epigastric tenderness EXTREMITIES : No LE swelling/tenderness, no other conspicuous deformities noted NEUROLOGIC : Coherent, no facial asymmetry, no other gross focality Results & Data Results & Data Vital Signs (Past 12 Hours) Vital Signs Temp Pulse Pulse Resp BP Pulse Ox O2 Del Method 12/14/23 10:55 36.5 C 84 21 121/81 100 Room Air 12/14/23 09:42 104/63 12/14/23 08:10 99/72 L 12/14/23 07:46 72 12/14/23 07:45 36.3 C L 85 21 98/65 L 99 Room Air 12/14/23 03:03 36.9 C 88 20 120/65 96 Room Air
[2023-12-14] MEDS: FOLIC ACID 1 MG in SYRINGE 9.8 ML IV STA (13:43)
[2023-12-14] MEDS: SODIUM CHLORIDE 0.9% 1,000 ML IV SCH (14:31)
[2023-12-14 19:15] LABS: Hematocrit (blood only) 27.5 % (42.0-52.0); Hemoglobin 9.3 g/dl (14.0-18.0)
[2023-12-15 00:41] LABS: Hematocrit (blood only) 25.1 % (42.0-52.0); Hemoglobin 8.5 g/dl (14.0-18.0)
[2023-12-15 07:18] LABS: Hematocrit (blood only) 23.1 % (42.0-52.0)
--- NOTE | 2023-12-15 08:08 | History & Physical Report ---
Date of Service December 15, 2023 Assessment & Plan (1) Anemia: Plan: Proceed with planned EGD. Admission and Anticipated Discharge Date Admission Date: December 13, 2023 History of Present Illness Chief Complaint: here for EGD Primary Care Provider: NO PCP 53 y/o M here today for EGD for hematemesis and melena. Allergies Allergy/AdvReac Type Severity Reaction Status Date / Time No Known Allergies Allergy Verified 12/13/23 21:31 Home Medications Medication Instructions Recorded Confirmed Type naproxen sodium 220 mg tablet 440 mg PO BID PRN Pain 12/13/23 12/13/23 History (Aleve) Past Med/Surg History Medical History Hemochromatosis Open fracture of left toe Family History Other Kidney stones Social History Smoking Status: Never smoker Tobacco Type: Smokeless Tobacco (Dip or Chew) Second Hand Exposure: No; Do You Dip or Chew Tobacco: Yes; Tobacco Cessation Education Requested by Patient: No Hx Alcohol Use: Yes Alcohol type: beer Hx Substance Use: No Preferred Language: Kinyarwanda Communication Ability: Effective Embedder Required: No Beliefs That Will Affect Care: None marital status: Current Living Situation: Alone current occupational status: employed Other Information That Helps Us Care for You: No Feels Safe at Home: Yes Safety Concerns: Feels Safe At This Time Review of Systems All systems reviewed & are unremarkable except as noted in HPI & below Physical Exam Constitutional: WD/WN, vitals as above Respiratory: normal respiratory effort, lungs clear to auscultation Cardiovascular: RRR, no murmur, no edema Gastrointestinal (Abdomen): normal bowel sounds, soft, nontender, no hepatosplenomegaly Psychiatric: A+Ox3, euthymic affect Results & Data Vital Signs (Past 12 Hours) Vital Signs Temp Pulse Pulse Resp BP Pulse Ox O2 Del Method 12/15/23 07:25 76 12/15/23 04:11 36.7 C 96 H 18 118/83 98 Room Air 12/14/23 23:29 36.5 C 94 H 18 121/90 98 Room Air 12/14/23 23:12 84 Code Status & VTE Plan VTE Prophylaxis Plan VTE Prophylaxis will be ordered: Yes (1) Anemia Anemia type: unspecified type Qualified Code(s): D64.9 - Anemia, unspecified
--- NOTE | 2023-12-15 08:43 | Anesthesiology Consultation ---
Date of Service December 15, 2023 History Surgery Operation Date: 12/15/23 16:30 Proposed Procedures p Esophagogastroduodenoscopy Jj Gardner, Height/Weight Height: 5 ft 8 in Weight: 69.853 kg Allergies Allergy/AdvReac Type Severity Reaction Status Date / Time No Known Allergies Allergy Verified 12/13/23 21:31 Medications Home Medications Medication Instructions Recorded Confirmed Last Taken naproxen sodium 220 mg tablet 440 mg PO BID PRN Pain 12/13/23 12/13/23 12/12/23 (Aleve) Active Medications Generic Name Dose Route Start Last Admin Trade Name Freq PRN Reason Stop Dose Admin Pantoprazole Sodium 40 mg/ 100 mls @ 20 mls/hr 12/13/23 18:15 12/15/23 08:05 Dextrose IV 01/12/24 18:14 0 mg/hr Q5H DELORES 0 mls/hr Infusion 8 MG/HR Sodium Chloride 1,000 mls @ 65 mls/hr 12/14/23 14:30 12/15/23 08:05 Nss IV 12/15/23 21:16 0 mls/hr .[id number] DELORES Infusion Multivitamins 1 tab 12/14/23 09:00 12/14/23 08:20 Multivitamin Tab PO 01/13/24 08:59 1 tab QAM DELORES Administration NPO Date Last Intake of Fluids: 12/14/23 Time Last Intake of Fluids: 23:55 Date Last Intake of Solids: 12/18/23 Time Last Intake of Solids: 18:00 Past Medical History Medical History Hemochromatosis Open fracture of left toe Past Family History Family History Other Kidney stones Social History Smoking Status: Never smoker Do You Dip or Chew Tobacco: Yes Hx Alcohol Use: Yes Alcohol type: beer alcohol intake frequency: 3 or more drinks per day Hx Substance Use: No substance use type: does not use Physical Exam Vital Signs Last Vital Signs Temp 36.5 C 12/15/23 08:23 Pulse 88 12/15/23 08:23 Resp 16 12/15/23 08:23 BP 124/82 03/11/24 08:23 Pulse Ox 99 12/15/23 08:23 O2 Del Method Room Air 12/15/23 08:23 Testing Laboratory Results 12/15/23 06:48 12/14/23 06:06 PT 10.5 Seconds (9.0-12.0) 12/13/23 17:35 INR 1.0 (0.9-1.1) 12/13/23 17:35 Urine Color Yellow 12/13/23 23:30 Urine Appearance Clear (Clear) 12/13/23 23:30 Urine pH 6.0 (4.5-7.5) 12/13/23 23:30 Ur Specific [place] 1.039 (1.000-1.030) H 12/13/23 23:30 Urine Protein Negative (Negative) 12/13/23 23:30 Urine Glucose (UA) Negative (Negative) 12/13/23 23:30 Urine Ketones Negative (Negative) 12/13/23 23:30 Urine Nitrite Negative (Negative) 12/13/23 23:30 Ur Leukocyte Esterase Negative (Negative) 12/13/23 23:30 Blood Type O Negative 12/13/23 18:47 Antibody Screen NEGATIVE 12/13/23 18:47
--- NOTE | 2023-12-15 09:01 | GI REPORT ---
Patient Name: Johnathon Warner Procedure Date: 12/15/2023 8:48 AM Date of : 1970 Admit Type: Inpatient Age: 53 Gender: Male Attending MD: Sherita Gardner DO, Procedure: Upper GI endoscopy Providers: Sherita Gardner DO Referring MD: Referred Self Indications: Coffee-ground emesis, Melena Patient Profile: This is a 53 year old male. Refer to note in patient chart for documentation of history and physical. Medicines: Monitored Anesthesia Care Complications: No immediate complications. Estimated Blood Loss: Estimated blood loss was minimal. Procedure: Pre-Anesthesia Assessment: - Prior to the procedure, a History and Physical was performed, and patient medications and allergies were reviewed. The risks and benefits of the procedure and the sedation options and risks were discussed with the patient. All questions were answered and informed consent was obtained. Patient identification and proposed procedure were verified by the physician, the nurse and the engineering mathematician in the procedure room. Mental Status Examination: alert and oriented. Airway Examination: Mallampati Class II (the uvula but not tonsillar pillars visualized). Respiratory Examination: clear to auscultation. CV Examination: RRR, no murmurs, no S3 or S4. Prophylactic Antibiotics: The patient does not require prophylactic antibiotics. Prior Anticoagulants: The patient has taken no anticoagulant or antiplatelet agents. ASA Grade Assessment: III - A patient with severe systemic disease. After reviewing the risks and benefits, the patient was deemed in satisfactory condition to undergo the procedure. The anesthesia plan was to use monitored anesthesia care (MAC). Immediately prior to administration of medications, the patient was re-assessed for adequacy to receive sedatives. The physical status of the patient was re-assessed after the procedure. After obtaining informed consent, the endoscope was passed under direct vision. Throughout the procedure, the patient's blood pressure, pulse, and oxygen saturations were monitored continuously. The Endoscope was introduced through the mouth, and advanced to the second part of duodenum. The upper GI endoscopy was accomplished without difficulty. The patient tolerated the procedure well. Findings: The Z-line was regular and was found 38 cm from the incisors. The examined esophagus was normal. Moderate inflammation characterized by erythema was found in the gastric body. Biopsies were taken with a cold forceps for Helicobacter pylori testing. Verification of patient identification for the specimen was done by the physician and nurse using the patient's name and date. One non-bleeding cratered gastric ulcer with a clean ulcer base (Kin Class III) was found in the gastric body. The lesion was 3 mm in largest dimension. Mildly erythematous mucosa without active bleeding and with no stigmata of bleeding was found in the duodenal bulb. The exam of the duodenum was otherwise normal. Impression: - Z-line regular, 38 cm from the incisors. - Normal esophagus. - Gastritis. Biopsied. - Non-bleeding gastric ulcer with a clean ulcer base (Kin Class III). - Erythematous duodenopathy. Recommendation: - Return patient to [facility] for ongoing care. - Resume previous diet. - Continue present medications. - Await pathology results. - Repeat EGD in 12 weeks to assess for gastric ulcer healing. Suspect ulcer is related to NSAID use (report he was taking ibuprofen 3-4 x weekly) or possibly alcohol as he drinks 6-10 beers daily. Recommend avoiding all NSAIDs and complete cessation of alcohol moving forward. - He has a history of hereditary hemochromatosis and has not followed up or had phlebotomy in 5 years. Needs to follow back up with Dr. Sargent in hematology. Sherita Gardner, 12/15/2023 9:00:18 AM Note Initiated On: 12/15/2023 8:48 AM Number of Addenda: 0 I attest to the content of the Intraoperative Record and orders documented therein, exceptions below {[id number]}
--- NOTE | 2023-12-15 09:05 | Communication Note ---
Date of Service: December 15, 2023 EGD completed today with findings below: Impression: - Z-line regular, 38 cm from the incisors. - Normal esophagus. - Gastritis. Biopsied. - Non-bleeding gastric ulcer with a clean ulcer base (Kin Class III). This is the likely source of his hematemesis and melena. - Erythematous duodenopathy. Recommendation: - Return patient to hospital reese for ongoing care. - Resume previous diet. Ok to start diet from GI standpoint. - Continue present medications. He will need to be on PPI 40 mg BID until follow up EGD to ensure gastric ulcer heals. - Await pathology results. - Repeat EGD in 12 weeks to assess for gastric ulcer healing. We have already ordered this and our office will call him to schedule. Suspect ulcer is related to NSAID use (report he was taking ibuprofen 3-4 x weekly) or possibly alcohol as he drinks 6-10 beers daily. Recommend avoiding all NSAIDs and complete cessation of alcohol moving forward. - He has a history of hereditary hemochromatosis and has not followed up or had phlebotomy in 5 years. Needs to follow back up with Dr. Sargent in hematology. GI will sign off. Call back with questions. Sherita Gardner, DO Gastroenterology and Hepatology
--- NOTE | 2023-12-15 09:23 | Anesthesiology Progress Note ---
Date of Service December 15, 2023 Anesthesia Post Procedure Vital Signs Vital Signs: Temp Pulse Pulse Pulse Resp BP Pulse Ox 12/15/23 09:14 71 16 99/66 L 96 12/15/23 08:59 74 14 109/72 99 12/15/23 08:23 36.5 C 88 16 124/82 99 12/15/23 08:10 36.5 C 83 19 131/83 97 12/15/23 07:25 76 12/15/23 04:11 36.7 C 96 H 18 118/83 98 12/14/23 23:29 36.5 C 94 H 18 121/90 98 12/14/23 23:12 84 12/14/23 19:47 36.5 C 86 18 103/82 100 12/14/23 15:54 36.6 C 87 20 113/80 100 12/14/23 14:55 85 12/14/23 10:55 36.5 C 84 21 121/81 100 12/14/23 09:42 104/63 O2 Del Method 12/15/23 09:14 Room Air 12/15/23 08:59 Room Air 12/15/23 08:23 Room Air 12/15/23 08:10 Room Air 12/15/23 07:25 12/15/23 04:11 Room Air 12/14/23 23:29 Room Air 12/14/23 23:12 12/14/23 19:47 Room Air 12/14/23 15:54 Room Air 12/14/23 14:55 12/14/23 10:55 Room Air 12/14/23 09:42 Transfer of Care Handoff Completed per policy Notes Mental Status: alert / awake / arousable and participated in evaluation Nausea / Vomiting: adequately controlled Pain: adequately controlled Airway Patency, RR, SpO2: stable & adequate BP & HR: stable & adequate Hydration State: stable & adequate Anesthetic Complications: no major complications apparent and Pt Satisfied with anesthetic care
[2023-12-15] MEDS: THIAMINE HCL 100 MG in SYRINGE 9 ML IV SCH (09:45)
--- NOTE | 2023-12-15 14:40 | Hospitalist Progress Note ---
Date of Service December 15, 2023 Assessment & Plan (1) UGIB (upper gastrointestinal bleed): Plan: 53-year-old male with PMH of hereditary hemochromatosis, alcohol abuse, past tobacco abuse presented to the ED 12/12 with complaint of 2-day history of coffee- ground emesis and melena associated with abdominal pain. Denies any febrile illness. He is being managed for the following: UGI bleed: Presented with coffee-ground emesis and melena iso ongoing alc abuse status. Associated abdominal pain present at presentation. Acute blood loss anemia: Likely secondary to upper GI bleed. Differential diagnosis include esophagitis, gastritis, PUD, tumor, varices. Admitting hemoglobin of 11.8, admitting CTAP with no acute abnormalities to explain GI bleed. Tiny gallbladder polyp is stable from prior exam. Patient with no further hematemesis, reports stools getting remote coders in color. Hemoglobin has a stalled around 8.0. Monitor H&H in the afternoon and daily/prn. GI evaluated, status post EGD 12/14normal esophagus, gastritis noted and biopsied, nonbleeding gastric ulcer with a clean ulcer base noted, erythematous duodenopathy noted. Diet resumed, will continue to monitor H&H, patient to be on p.o. PPI 40 mg twice daily until follow-up EGD to ensure gastric ulcer heals. Patient will need repeat EGD in 12 weeks to assess for gastric ulcer. Avoid NSAIDs, avoid alcohol. Follow H&H, transfuse PRBC if hemoglobin less than 7 or for symptomatic anemia. Hold any form of anticoagulation for now. Continue telemetry. Encourage ambulation. Alcohol abuse: Admits to daily EtOH intake which patient family thinks is excessive. Patient counseled about alcohol cessation and rehab possibility, patient denies rehab. Risks of delirium/seizure. IGNACIO S protocol. Thiamine and folic acid. Pt states he would like to speak w/ CM regarding alc rehab. Hyponatremia: Likely secondary to poor solute intake secondary to alcoholic history. Resolved. Abnormal LFT: Likely secondary to alcohol use and hepatic steatosis on imaging. Resolved. Other chronic medical conditions: Continue with/resume home meds as and when able History of hemochromatosis - f/u w/ hematology upon DC Past tobacco abuse DVT prophylaxis. ambulation, SCDs Re: GI bleed Full code Patient's Ms. Ama Warner, contact #[phone]. Patient's would like patient to see Dr. Yumiko Peter of [facility] upon discharge. Text document was generated using [employer] voice recognition software. It may contain grammatical or spelling errors. Kindly contact undersigned for clarification of any documentation item in question. Admission and Anticipated Discharge Date Admission Date: December 13, 2023 Subjective Patient was seen and examined at bedside. Patient was lying in bed, on room air, NAD, reports no new acute event overnight. Patient denies any further hematemesis since presentation, reports more remote coders colored stools now. Patient denies any abdominal pain or febrile illness or chest pain or lightheadedness. Status post EGD today, will advance diet as tolerated, will repeat H&H in the afternoon. If H&H is stable, RN communicated to advance the diet to soft diet. Physical Exam Physical Exam: GENERAL: On room air, NAD, alert and oriented. SKIN: Pallor, warm HEENT: Partial alopecia, pale palpebral conjunctivae, no ptosis, moist buccal mucosa NECK : Supple, no tenderness CHEST : CTA, no tenderness HEART : RRR, no obvious murmurs ABDOMEN: Some distention, no epigastric tenderness EXTREMITIES : No LE swelling/tenderness, no other conspicuous deformities noted NEUROLOGIC : Coherent, no facial asymmetry, no other gross focality Results & Data Results & Data Vital Signs (Past 12 Hours) Vital Signs Temp Pulse Pulse Pulse Resp BP Pulse Ox 12/15/23 10:57 36.6 C 81 21 105/73 100 12/15/23 09:29 78 16 110/73 97 12/15/23 09:14 71 16 99/66 L 96 12/15/23 08:59 74 14 109/72 99 12/15/23 08:23 36.5 C 88 16 124/82 99 12/15/23 08:10 36.5 C 83 19 131/83 97 12/15/23 07:25 76 12/15/23 04:11 36.7 C 96 H 18 118/83 98 O2 Del Method 12/15/23 10:57 Room Air 12/15/23 09:29 Room Air 12/15/23 09:14 Room Air 12/15/23 08:59 Room Air 12/15/23 08:23 Room Air 12/15/23 08:10 Room Air 12/15/23 07:25 12/15/23 04:11 Room Air
[2023-12-15 14:48] LABS: Hematocrit (blood only) 26.5 % (42.0-52.0); Hemoglobin 9.3 g/dl (14.0-18.0)
[2023-12-15] MEDS: PROPOFOL IV EMULSION 10 MG/ML 20 ML VIAL IV ONE (19:43)
[2023-12-15] MEDS: LIDOCAINE 2% 2 ML VIAL/AMP(20MG/ML) INFIL ONE (19:43)
[2023-12-15] MEDS: fentaNYL citrate PF 100 MCG/2 ML VIAL ONE (19:43)
[2023-12-16 06:40] LABS: Hematocrit (blood only) 25.1 % (42.0-52.0); Hemoglobin 8.8 g/dl (14.0-18.0); Mean Corpuscular Hemoglobin 34.2 pg (25.0-34.0); Mean Corpuscular Hgb Conc 35.1 g/dL (32.0-36.0); Mean Corpuscular Volume 97.7 fL (80.0-100.0); Mean Platelet Volume 8.7 fL (9.4-12.4); Platelet Count 268 K/uL (130-400); RDW Coefficient of Variation 12.2 % (11.5-14.5); RDW Standard Deviation 43.2 fL (36.4-46.3); Red Blood Count 2.57 M/uL (4.70-6.10); White Blood Count 4.51 K/ul (4.8-10.8)
[2023-12-16 06:58] LABS: BUN Creatinine Ratio 8.2 (10-20); Calcium 8.6 mg/dl (8.6-10.3); Creatinine Clr Calc Pharmacy 97.2 ml/min; Est GFR (African American) 115.3 ml/min; Est GFR (Non-African American) 99.5 ml/min; Magnesium 2.1 mg/dl (1.7-2.4); Phosphorus 4.5 mg/dl (2.5-4.9); Potassium 3.8 mmol/L (3.5-5.1)
[2023-12-16] MEDS: PANTOprazole 40 MG TAB PO SCH (08:56)
--- NOTE | 2023-12-16 12:05 | Discharge Summary ---
Date of Service December 16, 2023 Admission HPI Per Admitting Provider NO PCP Patient would like patient to see Dr. Yumiko Peter of [facility] upon discharge. History obtained from patient, family, and records. Medical history significant for hereditary hemochromatosis, alcohol use, past tobacco abuse. 2 days history of coffee-ground emesis, melena and achy central abdominal pain. No prior episodes. Admits to daily EtOH intake which patient family thinks is excessive. No inordinate OTC NSAID intake. No fever, no chills. Headache, dizziness from vomiting. No chest pain, no SOB. IV Protonix initiated at the ER for UGIB. 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 Allergies Admission Exam Per Admitting Provider GENERAL: Slightly uncomfortable, no respiratory distress SKIN: Pallor, warm HEENT: Partial alopecia, pale palpebral conjunctivae, no ptosis, dry buccal mucosa NECK : Supple, no tenderness CHEST : CTA, no tenderness HEART : Tachycardic, no obvious murmurs ABDOMEN: Some distention, minimal epigastric tenderness EXTREMITIES : No LE swelling/tenderness, no other conspicuous deformities noted NEUROLOGIC : Coherent, no facial asymmetry, no other gross focality Principal Diagnosis alcohol intoxication GI bleed Discharge Exam GENERAL: On room air, NAD, alert and oriented. SKIN: Pallor, warm HEENT: Partial alopecia, pale palpebral conjunctivae, no ptosis, moist buccal mucosa NECK : Supple, no tenderness CHEST : CTA, no tenderness HEART : RRR, no obvious murmurs ABDOMEN: Some distention, no epigastric tenderness EXTREMITIES : No LE swelling/tenderness, no other conspicuous deformities noted NEUROLOGIC : Coherent, no facial asymmetry, no other gross focality Discharge Data Allergies Allergy/AdvReac Type Severity Reaction Status Date / Time No Known Allergies Allergy Verified 12/13/23 21:31 Consultations 12/13/23 19:24 ED Decision to Admit Stat 12/13/23 23:18 Consult Gastroenterology Routine Procedures Performed Operation Date: 12/15/23 16:30 Actual Procedures p EGD Biopsy Cytology - Sherita Gardner, Ordered Studies 12/13/23 17:46 CT Abd and Pelvis [CT abd pelvis IV con only] Stat Hospital Course (1) UGIB (upper gastrointestinal bleed): 53-year-old male with PMH of hereditary hemochromatosis, alcohol abuse, past tobacco abuse presented to the ED 12/12 with complaint of 2-day history of coffee- ground emesis and melena associated with abdominal pain. Denies any febrile illness. He was managed for the following: UGI bleed: Presented with coffee-ground emesis and melena iso ongoing alc abuse status. Associated abdominal pain present at presentation. Acute blood loss anemia: Likely secondary to upper GI bleed. Differential diagnosis include esophagitis, gastritis, PUD, tumor, varices. Admitting hemoglobin of 11.8, admitting CTAP with no acute abnormalities to explain GI bleed. Tiny gallbladder polyp is stable from prior exam. 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 Hemoglobin has been stable. GI evaluated, status post EGD 12/14normal esophagus, gastritis noted and biopsied, nonbleeding gastric ulcer with a clean ulcer base noted, erythematous duodenopathy noted. Tolerating advancement of diet well, H&H has been stable. Patient to continue pantoprazole 40 mg twice daily until repeat EGD is done to ensure gastric ulcer healing. Patient has been made aware of this, patient has been made aware to follow-up with GI office in about a month time to set up the test. Patient will need repeat EGD in 12 weeks to assess for gastric ulcer. Avoid NSAIDs, avoid alcohol. Patient was made aware of this. Patient was also made aware to follow-up with PCP in a week time upon leaving hospital. Alcohol abuse/risk of worse withdrawal reaction: Admits to daily EtOH intake which patient family thinks is excessive. Last drink was Friday morning on the day of arrival. Patient counseled about alcohol cessation and rehab possibility, patient denies inpatient rehab. Risks of delirium/seizure higher. IGNACIO S protocol. Thiamine and folic acid. Patient would like to go home today, he has been explained regarding risks of severe alcohol withdrawal including arrhythmia/seizures/. Communicated by discussion with the patient to pt's RN. Pt understands the risks and he will sign AMA to leave. Patient's brother Sergio was present at bedside. Patient is alert and oriented and can make his own decision. Patient made aware that if he has any concerns/worsening withdrawal symptoms he can report back to emergency immediately. Patient states that he is not going to drink any alcohol moving forward. Though he is leaving AMA, will prescribe him tapering dose of Librium to prevent any severe withdrawal reaction. But patient has been made aware and has been reemphasized multiple times that if he has worsening withdrawal symptoms/tremor/chest pain/sweating/nausea/anxiety/hallucinations/seizure, he need to report to emergency immediately. Hyponatremia: Likely secondary to poor solute intake secondary to alcoholic history. Resolved. Abnormal LFT: Likely secondary to alcohol use and hepatic steatosis on imaging. Resolved. Other chronic medical conditions: Continue with/resume home meds as and when able History of hemochromatosis - f/u w/ hematology upon DC. Pt has been made aware. Past tobacco abuse DVT prophylaxis. ambulation, SCDs Re: GI bleed Full code Patient's Ms. Ama Warner, contact #[phone]. Patient's would like patient to see Dr. Yumiko Peter of [facility] upon discharge. Patient is signing out AMA. Text document was generated using [employer] voice recognition software. It may contain grammatical or spelling errors. Kindly contact undersigned for clarification of any documentation item in question. Home Health Attestation I certify that this patient is under my care and that I, or a physicians printer floor covering assistant working with me, had a face to-face encounter that meets the home health huia-ho-gysl encounter requirements with this patient. The encounter with the patient was in whole, or in part, for the following medical condition, which is the primary reason for home health care (list medical condition): I certify that, based on my findings, the following services are medically necessary home health services: My clinical findings support the need for the above services because: Further, I certify that my clinical findings support that this patient is homebound (i.e. absences from home require considerable and taxing effort and are for medical reasons or jain services or infrequently or of short duration when for other reasons) because: Certification for Home Health Services: Based on the above findings, I certify that this patient is confined to the home and needs intermittent long term care, physical therapy and/or speech therapy or continues to need occupational therapy. The patient is under my care, and I have initiated the establishment of the plan of care. This patient will be followed by a physician who will periodically review the plan of care. Total Time Total Time Spent Total Time Spent (In Minutes): 45 Discharge Plan Discharge Items Patient Disposition: Against Medical Advice Reason For Visit: UGIB Activity: Resume your previous activity Non-emergency contact: Primary Care Provider Follow-up/Referrals: PCP,AARON [Primary Care Provider] - Pending Studies at Discharge: No Stand-Alone Forms: [facility], Smoking Cessation Medications and DC Order Prescriptions: New pantoprazole 40 mg Tablet,Delayed Release (Dr/Ec) 40 mg PO BID Qty: 60 0RF multivitamin with folic acid [Daily-Lila (with folic acid)] 400 mcg Tablet 1 tab PO QAM Qty: 30 0RF thiamine mononitrate (vit B1) 100 mg tablet 100 mg PO DAILY Qty: 30 0RF chlordiazepoxide HCl 25 mg capsule 25 mg PO UD Qty: 7 0RF Rx Instructions: 1 cap every 8 hours x 1 day, then 1 cap every 12 hrs x 1 day, then 1 tab at bedtime x 2 days. Discontinued naproxen sodium [Aleve] 220 mg Tablet 440 mg PO BID PRN (Reason: Pain) Discharge Orders: Left Against Medical Advice (Routine); Ordered 12/16/23 Ordered By: Teena Coulter Admission Data Admit Date/Time: 12/13/23 20:34 Attending Provider: Teena Coulter Admit Provider: Nick Mclain Primary Care Provider: PCP,NO Other Providers: Nick Mclain; Eugenio Fontenot; Natan Ellington; Marlen Crawford; Brenda Daniel; Alessandra Broderick; Elis Allen; Marah,Toro; Paresh Cha; Nakia Clements; Charley Cain; Simon Zelaya; Anum Shearer; Bárbara Robles; Enma Durán; Nicci Langston; Yeny Case; Johnathon Kaplan; Kalyan Mendoza; Sherita Gardner; Tatiana Corbin Jr
== END 2023-12-16 12:50 | disposition left against medical advice (07) | DRG 378 ==
LOC: ED 17:15 → 2E 20:34 → SUATTDRO 20:34 → 2E 22:23

== ENCOUNTER 2024-07-16 12:06 | Inpatient (IN) ==
[2024-07-16 13:29] LABS: Appearance Urine Clear (Clear); Bilirubin Urine Negative (Negative); Blood Urine Negative (Negative); Color Urine Yellow; Glucose Urine UA Negative (Negative); Ketones Urine Negative (Negative); Leukocyte Esterase Urine Negative (Negative); Nitrite Urine Negative (Negative); Protein Urine Negative (Negative); Specific Gravity Urine 1.013 (1.000-1.030); Urobilinogen Urine Negative (Negative); pH Urine 6.5 (4.5-7.5)
[2024-07-16 14:05] LABS: Albumin Globulin Ratio 1.4 (0.9-2); Albumin Level 3.3 gm/dl (3.4-5.0); BUN Creatinine Ratio 8.6 (10-20); Bilirubin,Total 1.2 mg/dl (0.2-1.0); Creatinine Clr Calc Pharmacy 82.9 ml/min; Globulin 2.3 gm/dl (2.5-4.0); Total Protein 5.6 gm/dl (6.0-8.3)
[2024-07-16 14:12] LABS: Hematocrit (blood only) 35.5 % (42.0-52.0); Hemoglobin 13.4 g/dl (14.0-18.0); Mean Corpuscular Hemoglobin 33.8 pg (25.0-34.0); Mean Corpuscular Hgb Conc 37.7 g/dL (32.0-36.0); Mean Corpuscular Volume 89.6 fL (80.0-100.0); Mean Platelet Volume 9.2 fL (9.4-12.4); Platelet Count 213 K/uL (130-400); RDW Coefficient of Variation 11.8 % (11.5-14.5); RDW Standard Deviation 38.5 fL (36.4-46.3); Red Blood Count 3.96 M/uL (4.70-6.10); White Blood Count 5.36 K/ul (4.8-10.8)
[2024-07-16 14:16] LABS: INR 1.2 (0.9-1.1); Prothrombin Time 12.8 Seconds (9.0-12.0)
[2024-07-16 14:17] LABS: Basophils # (auto) 0.03 K/uL (0.00-0.20); Basophils % (auto) 0.6 %; Immature Granulocytes # (auto) 0.03 K/uL (0.01-0.20); Immature Granulocytes % (auto) 0.6 %; Lymphocytes # (auto) 1.41 K/uL (1.20-3.40); Lymphocytes % (auto) 26.3 %; Monocytes # (auto) 0.41 K/uL (0.11-0.59); Monocytes % (auto) 7.6 %; Neutrophils # (auto) 3.48 K/uL (1.40-6.50); Neutrophils % (auto) 64.9 %
[2024-07-16 14:23] LABS: Adenovirus PCR Not Detected (NotDetected); Bordetella parapertussis PCR Not Detected (NotDetected); Bordetella pertussis PCR Not Detected (NotDetected); Chlamydia pneumoniae PCR Not Detected (NotDetected); Coronavirus 229E PCR Not Detected (NotDetected); Coronavirus CoV-2 (COVID19)PCR Not Detected (NotDetected); Coronavirus HKU1 PCR Not Detected (NotDetected); Coronavirus NL63 PCR Not Detected (NotDetected); Coronavirus OC43PCR Not Detected (NotDetected); Human Metapneumovirus PCR Not Detected (NotDetected); Influenza A PCR Not Detected (NotDetected); Influenza B PCR Not Detected (NotDetected); Mycoplasma pneumoniae PCR Not Detected (NotDetected); Parainfluenza Virus 1 PCR Not Detected (NotDetected); Parainfluenza Virus 2 PCR Not Detected (NotDetected); Parainfluenza Virus 3 PCR Not Detected (NotDetected); Parainfluenza Virus 4 PCR Not Detected (NotDetected); Respiratory Syncytial VirusPCR Not Detected (NotDetected); Rhinovirus/Enterovirus PCR Not Detected (NotDetected)
[2024-07-16 14:35] LABS: Potassium 3.5 mmol/L (3.5-5.1)
[2024-07-16 14:39] LABS: Bilirubin Direct 0.4 mg/dl (0-0.2)
[2024-07-16] MEDS: OPTIRAY 320 100ml IV ONE (14:41)
--- NOTE | 2024-07-16 14:58 | Electrocardiogram Report ---
Test Reason : Blood Pressure : */* mmHG Vent. Rate : 95 BPM Atrial Rate : 95 BPM P-R Int : 164 ms QRS Dur : 80 ms QT Int : 336 ms P-R-T Axes : 44 -8 37 degrees QTcB Int : 422 ms Normal sinus rhythm Normal ECG When compared with ECG of 13-Dec-2023 21:36, Incomplete right bundle branch block is no longer Present Confirmed by Nhan Moss ([id number]) on 07/16/2024 2:58:20 PM Referred By: Confirmed By: Nhan Moss
--- NOTE | 2024-07-16 15:04 | CT Scan Report ---
ABDOMEN AND PELVIS CT WITH IV CONTRAST CT DOSE: 718.21 mGy.cm HISTORY: Acute onset abdominal pain with diarrhea abd pain, diarrhea, hemochromatosis, etoh depend TECHNIQUE: Multiaxial CT images of the abdomen and pelvis were performed following the IV administrat ion of 94 cc of Optiray, A dose lowering technique was utilized adhering to the principles of ALARA. COMPARISON STUDY: 12/13/2023 FINDINGS: Clear lung bases. No free air. Unremarkable spleen, pancreas and adrenal glands. There are numerous subcentimeter foci of increased attenuation within the gallbladder which involve both the de pendent and nondependent margins measuring up to [address] evidence of acute cholecystitis. Severe hepatic steatosis. Mild hepatomegaly with patency of the hepatic and portal veins. Unremarkable kidneys without hydronephrosis. Decompressed bladder with wall thickening and mucosal hy peremia. Mild prostatomegaly. No abdominal aortic aneurysm or lymphadenopathy. Small moderate fat bertin led right inguinal hernia. No bowel obstruction. No definite bowel wall thickening identified. Normal appendix. 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 No acute fracture. IMPRESSION: 1. No bowel obstruction or bowel wall thickening. Normal appendix. 2. Hepatomegaly with severe hepatic steatosis. 3. Urinary bladder wall thickening with partial distention. Correlate with urinalysis. ACT 112: Negative or not required by law. The above report was generated using voice recognition software. It may contain grammatical, syntax o r spelling errors. Electronically signed by: Noah Flores M.D. 07/16/2024 3:02 PM
--- NOTE | 2024-07-16 15:12 | Emergency Department Note ---
Impression & Plan Transaminitis, Alcoholism, Hyponatremia, Hemochromatosis ED Provider Note NAME: LAVERN COHEN AGE: 53 SEX: M : 1970 ARRIVES VIA: Walk-In INFORMANT: Patient ED PROVIDER(S): Gee Foley MD CHIEF COMPLAINT: Hemochromatosis, elevated LFTs, diarrhea. PLAN: Disposition: Admit MEDICAL DECISION MAKING: The patient is a 53-year-old gentleman with a past medical history of alcoholism/dependence, hemochromatosis who presents to the Emergency Department via walk-in referred by his oncology office for worsening liver function testing in the setting of recent outpatient blood work that demonstrated ferritin in the 7000 range where he was treated with phlebotomy 2 days ago on initial assessment. The patient was seen in follow-up for symptoms of abdominal cramping and diarrhea that has been ongoing for the past month. He reports up to 10 episodes of watery brown stool daily. Reports his has had similar "GI bug symptoms". [facility] discussed lab results with the patient's who are described that the patient often will have no recollection of certain events. She does acknowledge that he continues to drink alcohol daily which the patient also corroborates and reports drinking 8 beers or hard ice teas a day. He admits he does have a history of withdrawal but denies history of alcohol drawl seizures. He denies any recent cough, congestion, chest pain, shortness of breath. He denies any urinary symptoms. On evaluation patient no distress, afebrile with heart in the 100s and vital signs otherwise stable. Abdomen is nontender. He exhibits no tremulousness. Speech is fluent without overt evidence of intoxication despite medical alcohol of 159. WBC 5K wnl without neutrophilia or left shift. H/H 13.4/35.5 improved from prior. Platelets within normal limits. INR is 1.2. Sodium is 129 with glucose of 174. Chemistry with bicarbonate of 20 and anion gap of 21. Serum osmolality is 321 and so suggestive of component of dehydration in setting of the patient's hemochromatosis. AST and ALT are elevated at 1.2 and 0.4, respectively. AST and ALT are 372 and 178, respectively. Alk phos is 183. Results are increased from baseline values. Lipase is not elevated. UA without evidence of infection. CT of the on pelvis was performed and demonstrates no evidence of obstruction or acute intra-abdominal process otherwise. Hepatomegaly and severe hepatic steatosis is described. Of note, while the patient did have negative stool studies earlier this week through his outpatient provider repeat stool studies were ordered and are pending. The patient does agree with plan for admission for further management. Case was discussed with Mell [facility] who will evaluate the patient for admission. Of note, subsequently stool studies were collected and resulted positive for Campylobacter and EPEC. Further management per admitting team. Triage Nursing notes reviewed and agree them. Prior/external medical records reviewed Vital Signs: reviewed Differential diagnosis: Gastroenteritis, food borne illness, infections, appendicitis, diverticulitis, inflammatory bowel disease, obstruction, GI bleed, biliary pathology, volvulus, as well as other pathologies. ER treatment provided: See below. Diagnostics interpreted by me: ECG: Normal sinus rhythm, 95 bpm, no ectopy, no overt ST ovation or depression, QTc 422, QRS 80. Cardiac Monitoring: An order for continuous cardiac monitoring was placed and demonstrated sinus tachycardia, 102 bpm, no ectopy. Laboratory studies: See below Imaging studies: See below Consultation(s): Mell [facility] HPI: The patient is a 53-year-old gentleman with a past medical history of alcoholism/dependence, hemochromatosis who presents to the Emergency Department via walk-in referred by his oncology office for worsening liver function testing in the setting of recent outpatient blood work that demonstrated ferritin in the 7000 range where he was treated with phlebotomy 2 days ago on initial assessment. The patient was seen in follow-up for symptoms of abdominal cramping and diarrhea that has been ongoing for the past month. He reports up to 10 episodes of watery brown stool daily. Reports his has had similar "GI bug symptoms". Per review of [facility] record RN discussed lab results with the patient's who are described that the patient often will have no recollection of certain events. She does acknowledge that he continues to drink alcohol daily which the patient also corroborates and reports drinking 8 beers or hard ice teas a day. He admits he does have a history of withdrawal but denies history of alcohol drawl seizures. He denies any recent cough, congestion, chest pain, shortness of breath. He denies any urinary symptoms. ROS: See above HPI for pertinent positives & negatives. A total of 10 systems reviewed and were otherwise negative. VITALS:See Below PHYSICAL EXAMINATION: GENERAL: Awake, alert, in no distress HENT: Normocephalic, atraumatic. Oropharynx with dry mucous membranes and otherwise unremarkable. EYES: Normal conjunctiva. Sclera non-icteric. EOMI. No nystamgus. PEARRL. NECK: Supple. No nuchal rigidity. FROM. No JVD. RESPIRATORY: Clear to auscultation. CARDIAC: Regular rate, normal rhythm. Extremities warm and well perfused. Pulses equal. ABDOMEN: Soft, non-distended. No tenderness to palpation. No rebound or guarding. No masses. MUSCULOSKELETAL: Chest examination reveals no tenderness. The back is symmetrical on inspection without obvious abnormality. There is no CVA tenderness to palpation. No joint edema. LOWER EXTREMITIES: Calves are equal size bilaterally and non-tender. No edema. No discoloration. NEURO: Normal sensorium. No sensory or motor deficits noted. No tremulousness. SKIN: No rash or jaundice noted. Gee Foley MD Past Med/Surg History Problem List (Updated 07/18/24 @ 12:53 by Gee Foley MD) Transaminitis (Acute) Elevated transaminase level Hyponatremia (Acute) Alcoholism (Acute) Hereditary hemochromatosis Anemia (Acute) Abdominal pain (Acute) Acute upper GI bleed (Acute) UGIB (upper gastrointestinal bleed) Hemochromatosis (Acute) Open fracture of left toe (Acute) Toe fracture, left (Acute) Family History Other Kidney stones Social History Smoking Status: Never smoker Tobacco Type: Smokeless Tobacco (Dip or Chew) Second Hand Exposure: No; Do You Dip or Chew Tobacco: Yes; Hx Alcohol Use: Yes Alcohol type: beer Hx Substance Use: No Preferred Language: Irish Communication Ability: Effective Chain Offbearer Required: No Beliefs That Will Affect Care: None marital status: Current Living Situation: Spouse and Family current occupational status: employed Feels Safe at Home: Yes Safety Concerns: Feels Safe At This Time Assistive Devices: None Allergies Allergies Allergy/AdvReac Type Severity Reaction Status Date / Time No Known Allergies Allergy Verified 12/13/23 21:31 Home Meds Home Medications Medication Instructions Recorded Confirmed pantoprazole 40 mg tablet,delayed 40 mg PO DAILY 07/16/24 07/16/24 release Previous Rx's Medication Instructions Recorded thiamine mononitrate (vit B1) 100 100 mg PO DAILY #30 tabs 12/16/23 mg tablet Results & Data (ED) Vital Signs Vital Signs - 24 hr 07/16/24 12:06 07/16/24 12:06 07/16/24 12:30 Temperature 36.6 C Temperature Source Temporal Artery Scan Pulse Rate 119 H 102 H Pulse Rate from SpO2 Sensor Respiratory Rate 18 18 14 Blood Pressure 133/89 136/105 H Blood Pressure Mean 103 115 Pulse Oximetry 97 97 Oxygen Delivery Method Sepsis Recent Fever Within 48 Hours No Sepsis New/Unexplained Change in Mental Status N/A Sepsis Action Taken by Nursing No Action Required 07/16/24 12:34 07/16/24 13:00 07/16/24 13:30 Temperature Temperature Source Pulse Rate 102 H 101 H 101 H Pulse Rate from SpO2 Sensor 100 H Respiratory Rate 20 22 Blood Pressure 147/110 H 134/98 Blood Pressure Mean 120 110 Pulse Oximetry 97 96 Oxygen Delivery Method Sepsis Recent Fever Within 48 Hours Sepsis New/Unexplained Change in Mental Status Sepsis Action Taken by Nursing 07/16/24 13:42 07/16/24 15:00 Temperature Temperature Source Pulse Rate 111 H 91 H Pulse Rate from SpO2 Sensor Respiratory Rate 15 18 Blood Pressure 131/101 H Blood Pressure Mean 114 Pulse Oximetry 98 96 Oxygen Delivery Method Room Air Sepsis Recent Fever Within 48 Hours Sepsis New/Unexplained Change in Mental Status Sepsis Action Taken by Nursing Laboratory Data Attestation: I reviewed the patient's lab results. 07/18/24 05:34 07/18/24 05:34 Lab Results 07/16/24 07/16/24 Range/Units 12:25 13:13 WBC 5.36 (4.8-10.8) K/ul RBC 3.96 L (4.70-6.10) M/uL Hgb 13.4 L (14.0-18.0) g/dl Hct 35.5 L (42.0-52.0) % MCV 89.6 (80.0-100.0) fL MCH 33.8 (25.0-34.0) pg MCHC 37.7 H (32.0-36.0) g/dL RDW Std Deviation 38.5 (36.4-46.3) fL RDW Coeff of Edith 11.8 (11.5-14.5) % Plt Count 213 (130-400) K/uL MPV 9.2 L (9.4-12.4) fL Immature Gran % (Auto) 0.6 % Neut % (Auto) 64.9 % Lymph % (Auto) 26.3 % Steele % (Auto) 7.6 % Eos % (Auto) 0.0 % Baso % (Auto) 0.6 % Neut # (Auto) 3.48 (1.40-6.50) K/uL Lymph # (Auto) 1.41 (1.20-3.40) K/uL Steele # (Auto) 0.41 (0.11-0.59) K/uL Eos # (Auto) 0.00 (0.00-0.50) K/uL Baso # (Auto) 0.03 (0.00-0.20) K/uL Immature Gran # (Auto) 0.03 (0.01-0.20) K/uL PT 12.8 H (9.0-12.0) Seconds INR 1.2 H (0.9-1.1) Sodium 129 L (136-145) mmol/L Potassium 3.5 (3.5-5.1) mmol/L Chloride 88 L (98-107) mmol/L Carbon Dioxide 20 L (21-32) mmol/L Anion Gap 21 H (3-11) BUN 8 (6-23) mg/dl Creatinine 0.93 (0.6-1.4) mg/dl Est Cr Clr Drug Dosing 82.9 ml/min eGFR 98.18 BUN/Creatinine Ratio 8.6 L (10-20) Glucose 174 H (70-99(Fasting)) mg/dl Osmolality 321 H (280-300) mOsm/kg Calcium 8.0 L (8.6-10.3) mg/dl Total Bilirubin 1.2 H (0.2-1.0) mg/dl Direct Bilirubin 0.4 H (0-0.2) mg/dl AST 372 H (13-39) U/L ALT 178 H (7-52) U/L Alkaline Phosphatase 183 H (34-104) U/L Troponin I High Sens 12.0 (0-20) pg/ml Total Protein 5.6 L (6.0-8.3) gm/dl Albumin 3.3 L (3.4-5.0) gm/dl Globulin 2.3 L (2.5-4.0) gm/dl Albumin/Globulin Ratio 1.4 (0.9-2) Lipase 82 (11-82) U/L Urine Color Yellow Urine Appearance Clear (Clear) Urine pH 6.5 (4.5-7.5) Ur Specific [place] 1.013 (1.000-1.030) Urine Protein Negative (Negative) Urine Glucose (UA) Negative (Negative) Urine Ketones Negative (Negative) Urine Blood Negative (Negative) Urine Nitrite Negative (Negative) Urine Bilirubin Negative (Negative) Urine Urobilinogen Negative (Negative) Ur Leukocyte Esterase Negative (Negative) Urine Osmolality 393 L (500-800) mOsm/kg Ur Random Sodium 27 mmol/L Ethyl Alcohol mg/dL 159.4 H (<10.0) mg/dl Adenovirus (PCR) Not Detected (NotDetected) B. pertussis DNA (PCR) Not Detected (NotDetected) B.parapertussis DNA PCR Not Detected (NotDetected) C. pneumoniae DNA (PCR) Not Detected (NotDetected) Coronavirus OC43 (PCR) Not Detected (NotDetected) Coronavirus HKU1 (PCR) Not Detected (NotDetected) Coronavirus 229E (PCR) Not Detected (NotDetected) SARS-CoV-2 (PCR) Not Detected (NotDetected) Coronavirus NL63 (PCR) Not Detected (NotDetected) Human Metapneumovir PCR Not Detected (NotDetected) Influenza Type A (PCR) Not Detected (NotDetected) Influenza Type B (PCR) Not Detected (NotDetected) M. pneumoniae (PCR) Not Detected (NotDetected) Parainfluenza 1 (PCR) Not Detected (NotDetected) Parainfluenza 2 (PCR) Not Detected (NotDetected) Parainfluenza 3 (PCR) Not Detected (NotDetected) Parainfluenza 4 (PCR) Not Detected (NotDetected) RSV (PCR) Not Detected (NotDetected) Entero/Rhino (PCR) Not Detected (NotDetected) Administered Medications Azithromycin (Azithromycin 250 Mg Tab) 500 mg PO QPM DELORES Stop: 07/19/24 19:59 Last Admin: 07/17/24 22:05 Dose: 500 mg Documented By: MARGO Folic Acid (Folic Acid 1 Mg Tab) 1 mg PO QAM DELORES Stop: 08/16/24 08:59 Last Admin: 07/18/24 09:03 Dose: 1 mg Documented By: Admin: 07/17/24 08:33 Dose: 1 mg Documented By: NAINA Lactobacillus Acidophilus (Advanced Probiotic 625 Mg Capsule) 1,250 mg PO DAILY DELORES Stop: 08/16/24 11:44 Last Admin: 07/18/24 09:03 Dose: 1,250 mg Documented By: Admin: 07/17/24 12:11 Dose: 1,250 mg Documented By: NAINA Pantoprazole Sodium (Pantoprazole 40 Mg Tab) 40 mg PO DAILY DELORES Stop: 08/16/24 08:59 Last Admin: 07/18/24 09:02 Dose: 40 mg Documented By: Admin: 07/17/24 08:34 Dose: 40 mg Documented By: NAINA Potassium Phosphate (Pot Phosphate Monobasic W/ Sod Tab) 1 tab PO Q8H DELORES Stop: 07/18/24 19:46 Last Admin: 07/18/24 11:17 Dose: 1 tab Documented By: Admin: 07/18/24 03:44 Dose: 1 tab Documented By: Admin: 07/17/24 20:20 Dose: 1 tab Documented By: MARGO Thiamine HCl (Thiamine Hcl 100 Mg Tab) 100 mg PO DAILY DELORES Stop: 08/16/24 08:59 Last Admin: 07/18/24 09:03 Dose: 100 mg Documented By: Admin: 07/17/24 08:34 Dose: 100 mg Documented By: NAINA Discontinued Medications Azithromycin (Azithromycin 250 Mg Tab) 500 mg PO NOW ONE Stop: 07/16/24 21:15 Last Admin: 07/16/24 21:52 Dose: 500 mg Documented By: MARGO Gabapentin (Gabapentin 600 Mg Tab) 1,200 mg PO NOW ONE Stop: 07/16/24 18:01 Last Admin: 07/16/24 20:48 Dose: 1,200 mg Documented By: MARGO Gabapentin (Gabapentin 600 Mg Tab) 600 mg PO Q6H DELORES Stop: 07/17/24 06:01 Last Admin: 07/17/24 06:19 Dose: 600 mg Documented By: Admin: 07/17/24 00:19 Dose: 600 mg Documented By: MARGO Gabapentin (Gabapentin 600 Mg Tab) 600 mg PO Q8H DELOR[facility] Stop: 07/18/24 06:01 Last Admin: 07/18/24 05:43 Dose: 600 mg Documented By: Admin: 07/17/24 22:05 Dose: 600 mg Documented By: Admin: 07/17/24 13:25 Dose: 600 mg Documented By: NAINA Sodium Chloride (Nss) 1,000 mls @ 125 mls/hr IV .Q8H [facility] Stop: 07/17/24 15:22 Last Infusion: 07/17/24 19:25 Dose: Infused Documented By: Infusion: 07/17/24 18:13 Dose: 125 mls/hr Documented By: Infusion: 07/17/24 18:10 Dose: 0 mls/hr Documented By: Admin: 07/17/24 06:20 Dose: 80 mls/hr Documented By: Infusion: 07/17/24 06:20 Dose: Infused Documented By: Admin: 07/16/24 17:54 Dose: 80 mls/hr Documented By: XANDER Thiamine HCl 200 mg/ Sodium (Chloride) 52 mls @ 210 mls/hr IV NOW STA Stop: 07/16/24 19:01 Last Infusion: 07/16/24 21:09 Dose: Infused Documented By: Admin: 07/16/24 20:41 Dose: 210 mls/hr Documented By: MARGO Magnesium Sulfate/Dextrose (Magnesium Sulfate / D5w) 1 gm in 100 mls @ 50 mls/hr IV ONE ONE Stop: 07/17/24 12:58 Last Infusion: 07/17/24 13:24 Dose: Infused Documented By: Infusion: 07/17/24 13:24 Dose: 0 mls/hr Documented By: Admin: 07/17/24 11:30 Dose: 50 mls/hr Documented By: NAINA Magnesium Sulfate/Dextrose (Magnesium Sulfate / D5w) 1 gm in 100 mls @ 50 mls/hr IV ONE ONE Stop: 07/18/24 09:14 Last Infusion: 07/18/24 11:17 Dose: Infused Documented By: Admin: 07/18/24 09:12 Dose: 50 mls/hr Documented By: NAINA Ioversol (Optiray 320 100ml) 94 ml IV ONCE ONE Stop: 07/16/24 14:42 Last Admin: 07/16/24 14:41 Dose: 94 ml Documented By: ZACK Lorazepam (Lorazepam 0.5 Mg Tab) 0.5 mg PO NOW STA Stop: 07/17/24 13:04 Last Admin: 07/17/24 13:22 Dose: 0.5 mg Documented By: NAINA Lorazepam (Lorazepam 1 Mg Tab) 1 mg PO NOW STA Stop: 07/17/24 17:16 Last Admin: 07/17/24 17:25 Dose: 1 mg Documented By: NAINA Magnesium Oxide (Magnesium Oxide 400 Mg Tab) 400 mg PO BID [facility]OR[facility] Stop: 07/21/24 20:59 Last Admin: 07/17/24 22:05 Dose: 400 mg Documented By: MARGO Metoprolol Tartrate (Metoprolol Tartrate 1 Mg/Ml Vial) 5 mg IV NOW STA Stop: 07/17/24 19:27 Last Admin: 07/17/24 20:18 Dose: 5 mg Documented By: MARGO Potassium Chloride (Potassium Chloride Crtab 20 Meq Tabcr) 40 meq PO NOW STA Stop: 07/17/24 19:27 Last Admin: 07/17/24 20:20 Dose: 40 meq Documented By: MARGO Potassium Chloride (Potassium Chloride Crtab 20 Meq Tabcr) 40 meq PO NOW STA Stop: 07/18/24 07:16 Last Admin: 07/18/24 09:12 Dose: 40 meq Documented By: NAINA Imaging Data Radiologist's Impression: Abdomen/Pelvis CT 07/16/24 14:[address] WITH IV CONTRAST CT DOSE: 718.21 mGy.cm HISTORY: Acute onset abdominal pain with diarrhea abd pain, diarrhea, hemochromatosis, etoh depend TECHNIQUE: Multiaxial CT images of the abdomen and pelvis were performed following the IV administration of 94 cc of Optiray, A dose lowering technique was utilized adhering to the principles of ALARA. COMPARISON STUDY: 12/13/2023 FINDINGS: Clear lung bases. No free air. Unremarkable spleen, pancreas and adrenal glands. There are numerous subcentimeter foci of increased attenuation within the gallbladder which involve both the dependent and nondependent margins measuring up to [address] evidence of acute cholecystitis. Severe hepatic steatosis. Mild hepatomegaly with patency of the hepatic and portal veins. Unremarkable kidneys without hydronephrosis. Decompressed bladder with wall thickening and mucosal hyperemia. Mild prostatomegaly. No abdominal aortic aneurysm or lymphadenopathy. Small moderate fat filled right inguinal hernia. No bowel obstruction. No definite bowel wall thickening identified. Normal appendix. 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 No acute fracture. IMPRESSION: 1. No bowel obstruction or bowel wall thickening. Normal appendix. 2. Hepatomegaly with severe hepatic steatosis. 3. Urinary bladder wall thickening with partial distention. Correlate with urinalysis. ACT 112: Negative or not required by law. The above report was generated using voice recognition software. It may contain grammatical, syntax or spelling errors. Electronically signed by: Noah Flores M.D. 07/16/2024 3:02 PM Discharge Plan Visit Data Chief Complaint: Abnormal Labs/Diagnostic Testing Stated Complaint: ABN LAB RESULTS ED Provider: Gee Foley Discharge Problem: Transaminitis, Alcoholism, Hyponatremia, Hemochromatosis Patient Disposition: Admitted As Inpatient Discharge Instructions Interventions: ED Discharge Assessment Last Done: 07/16/24 16:38 Discharge Problem: Hemochromatosis Qualifiers: Hemochromatosis type: unspecified Qualified Code(s): E83.119 - Hemochromatosis, unspecified
--- NOTE | 2024-07-16 15:14 | History & Physical Report ---
Date of Service July 16, 2024 Assessment & Plan (1) Hereditary hemochromatosis: (2) Alcoholism: (3) Hyponatremia: (4) Elevated transaminase level: Plan: Hereditary Hemochromatosis - Ad[facility] to [facility] -Outpatient ferritin of 7776 on 07/13, pt following with hematology as outpt. Underwent phelbotomy on 07/13, was scheduled to have weekly phlebotomy x 1 hr for the next 4 weeks per outpatient EPIC -Elevated liver transaminases: 07/13 vs on admission AST: 559 --> 376 ALT: 224--> 178 Alk phos: 189-->183 Bili 1.3 -->1.2, direct 0.4 INR 1.2 - Consult GI for hepatology involvement - outpatient appointment has already been requested - Stool cultures and c diff were negative on recent outpatient workup, repeat pending - Reports diarrhea upwards of 10x per day associated with abdominal cramping - Check A1C with am labs Alcoholism -Reported that he drinks 6-8beers per day, last drink was last evening around midnight and 3am, EtOH level was 159.4 on admission -Cessation encouraged at bedside -Noted that increased alcohol use increases mortality risk associated with hereditary hemochromatosis -Interested in inpatient rehab- previously stayed in [place] at [facility] - to assist with dc planning Hyponatremia -129 on admission, trend with BMPs Q6H, NSS -Urine osm 393, serum blood osmolarity 321 -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 with excess drinking 6-8 beers daily - Allow diet and encourage po intake DVT ppx: teds, scds Lines: PIV x 1 FEN/GI: Heart healthy for now CODE: Full code Dispo: From home, likely to remain in the hospital x 1-2 days A total of 77 minutes were spent with greater than 50% of that time face to face with the patient, personally reviewing all current laboratories, imaging studies, past medication reconciliation, outpatient chart review, and discussion with specialists to collaborate care for the patient with attending. Please see attending documentation for corrections and/or additions. History of Present Illness Chief Complaint: Abnormal labs Primary Care Provider: Selina Miller MD This is a 53-year-old male with PMHx of hereditary hemochromatosis, active alcoholism, who was seen at [facility] hematology clinic on 07/13. There he had iron panel, ferritin, CBC with differential drawn and CMP. Results showed his ferritin is elevated at 7776, AST 559, ALT 224, alk phos 189. He was referred today after reviewing results to the ER. Patient has been following with hematology as an outpatient but has been referred to hepatology. Patient reports that he has had approximately 6-week timeframe of issues with bowel habits. Initially patient's spouse caught GI bug from her job, and then he did, however his symptoms have continued over the past 6 weeks with sometimes 10 times bowel movements daily along with abdominal cramping. This has been slightly improved in the past 3 to 4 days. He denies any blood, dark tarry sticky bowel movements, denies nausea, but has occasionally vomited, last time was last evening x 1. He denies any hematemesis and states that vomitus was clear. He states that he was seen and underwent phlebotomy x 1 hour on 07/13 and has been set up for outpatient phlebotomy on a weekly basis for the next 4 weeks. He was previously referred to hematology in April however due to scheduling conflicts did not actually get seen by their team. Patient admits that he did leave one of his appointments due to prolonged wait time in May. Patient is taking pantoprazole daily, along with B1 vitamin routinely. Family history: Patient reports has 2 brothers with hereditary hematochromatosis as well. Social: Admits to daily alcohol use, denies smoking, admits to chewing tobacco use, no illicit drug use. Currently unemployed, was looking into obtaining disability. Previously worked with [email or web address]. Allergies Allergy/AdvReac Type Severity Reaction Status Date / Time No Known Allergies Allergy Verified 12/13/23 21:31 Home Medications Medication Instructions Recorded Confirmed Type thiamine mononitrate (vit B1) 100 100 mg PO DAILY #30 tabs 12/16/23 07/16/24 Rx mg tablet pantoprazole 40 mg tablet,delayed 40 mg PO DAILY 07/16/24 07/16/24 History release Past Med/Surg History Problem List (Updated 07/16/24 @ 16:06 by Gee Foley MD) Transaminitis (Acute) Elevated transaminase level Hyponatremia (Acute) Alcoholism (Acute) Hereditary hemochromatosis Anemia (Acute) Abdominal pain (Acute) Acute upper GI bleed (Acute) UGIB (upper gastrointestinal bleed) Hemochromatosis (Acute) Open fracture of left toe (Acute) Toe fracture, left (Acute) Medical History Hemochromatosis Open fracture of left toe Family History Other Kidney stones Social History Smoking Status: Never smoker Tobacco Type: Smokeless Tobacco (Dip or Chew) Second Hand Exposure: No; Do You Dip or Chew Tobacco: Yes; Hx Alcohol Use: Yes Alcohol type: beer Hx Substance Use: No Preferred Language: Hebrew Communication Ability: Effective Quotation Clerk Required: No Beliefs That Will Affect Care: None marital status: Current Living Situation: Spouse and Family current occupational status: employed Feels Safe at Home: Yes Safety Concerns: Feels Safe At This Time Assistive Devices: None Review of Systems Review of Systems: Constitutional: No fever, sweats or chills Eyes: No diplopia, no worsening or blurred vision ENT: normal hearing, no trouble swallowing Respiratory: No cough, sputum, dyspnea at rest or on exertion Cardiovascular: No chest pain, tightness or palpitations Abdomen: As per HPI Musculoskeletal: No joint pain, calf pain, swelling Neurologic: No weakness, numbness/tingling, or balance problems Psychiatric: No anxiety or depression Skin: No rash or itch Physical Exam Physical Exam: General: awake, alert, no apparent distress Head: Normocephalic, atraumatic ENT: PERRL, EOMI, no pharyngeal exudate, mucous membranes moist Chest: Clear to auscultation, on room air, no adventitious breath sounds Cardiac: Regular rate and rhythm, HR in mid 90s at bedside, no murmur, no JVD, normal peripheral pulses, good capillary refill Abdominal: NABS x 4 quadrants, soft, nondistended, nontender to palpation, no rebound or guarding Extremities: Normal inspection, no peripheral edema or erythema, calfs nontender to palpation Psych: Normal mood and affect Skin: hyperpigmentation throughout Neuro: AAO x 3, strength intact bilaterally and rated 5/5, no motor deficits, speech is clear, no peripheral sensory deficits Results & Data Results & Data Vital Signs (Past 12 Hours) Vital Signs Temp Pulse Resp BP Pulse Ox O2 Del Method 07/16/24 15:00 91 H 18 131/101 H 96 07/16/24 13:42 111 H 15 98 Room Air 07/16/24 13:30 101 H 22 134/98 96 07/16/24 13:00 101 H 20 147/110 H 97 07/16/24 12:34 102 H 07/16/24 12:30 102 H 14 136/105 H 97 07/16/24 12:06 18 07/16/24 12:06 36.6 C 119 H 18 133/89 97 Laboratory Results 07/16/24 07/16/24 13:13 12:25 WBC 5.36 RBC 3.96 L Hgb 13.4 L Hct 35.5 L MCV 89.6 MCH 33.8 MCHC 37.7 H RDW Std Deviation 38.5 RDW Coeff of Edith 11.8 Plt Count 213 MPV 9.2 L Immature Gran % (Auto) 0.6 Neut % (Auto) 64.9 Lymph % (Auto) 26.3 Gibson % (Auto) 7.6 Eos % (Auto) 0.0 Baso % (Auto) 0.6 Neut # (Auto) 3.48 Lymph # (Auto) 1.41 Gibson # (Auto) 0.41 Eos # (Auto) 0.00 Baso # (Auto) 0.03 Immature Gran # (Auto) 0.03 PT 12.8 H INR 1.2 H Sodium 129 L Potassium 3.5 Chloride 88 L Carbon Dioxide 20 L Anion Gap 21 H BUN 8 Creatinine 0.93 Est Cr Clr Drug Dosing 82.9 eGFR 98.18 BUN/Creatinine Ratio 8.6 L Glucose 174 H Osmolality 321 H Calcium 8.0 L Total Bilirubin 1.2 H Direct Bilirubin 0.4 H AST 372 H ALT 178 H Alkaline Phosphatase 183 H Troponin I High Sens 12.0 Total Protein 5.6 L Albumin 3.3 L Globulin 2.3 L Albumin/Globulin Ratio 1.4 Lipase 82 Urine Color Yellow Urine Appearance Clear Urine pH 6.5 Ur Specific [place] 1.013 Urine Protein Negative Urine Glucose (UA) Negative Urine Ketones Negative Urine Blood Negative Urine Nitrite Negative Urine Bilirubin Negative Urine Urobilinogen Negative Ur Leukocyte Esterase Negative Urine Osmolality 393 L Ur Random Sodium 27 Ethyl Alcohol mg/dL 159.4 H Adenovirus (PCR) Not Detected B. pertussis DNA (PCR) Not Detected B.parapertussis DNA PCR Not Detected C. pneumoniae DNA (PCR) Not Detected Coronavirus OC43 (PCR) Not Detected Coronavirus HKU1 (PCR) Not Detected Coronavirus 229E (PCR) Not Detected SARS-CoV-2 (PCR) Not Detected Coronavirus NL63 (PCR) Not Detected Human Metapneumovir PCR Not Detected Influenza Type A (PCR) Not Detected Influenza Type B (PCR) Not Detected M. pneumoniae (PCR) Not Detected Parainfluenza 1 (PCR) Not Detected Parainfluenza 2 (PCR) Not Detected Parainfluenza 3 (PCR) Not Detected Parainfluenza 4 (PCR) Not Detected RSV (PCR) Not Detected Entero/Rhino (PCR) Not Detected Diagnostic Findings Abdomen/Pelvis CT 07/16/24 14:[address] WITH IV CONTRAST CT DOSE: 718.21 mGy.cm HISTORY: Acute onset abdominal pain with diarrhea abd pain, diarrhea, hemochromatosis, etoh depend TECHNIQUE: Multiaxial CT images of the abdomen and pelvis were performed following the IV administration of 94 cc of Optiray, A dose lowering technique was utilized adhering to the principles of ALARA. COMPARISON STUDY: 12/13/2023 FINDINGS: Clear lung bases. No free air. Unremarkable spleen, pancreas and adrenal glands. There are numerous subcentimeter foci of increased attenuation within the gallbladder which involve both the dependent and nondependent margins measuring up to [address] evidence of acute cholecystitis. Severe hepatic steatosis. Mild hepatomegaly with patency of the hepatic and portal veins. Unremarkable kidneys without hydronephrosis. Decompressed bladder with wall thickening and mucosal hyperemia. Mild prostatomegaly. No abdominal aortic aneurysm or lymphadenopathy. Small moderate fat filled right inguinal hernia. No bowel obstruction. No definite bowel wall thickening identified. Normal appendix. 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 No acute fracture. IMPRESSION: 1. No bowel obstruction or bowel wall thickening. Normal appendix. 2. Hepatomegaly with severe hepatic steatosis. 3. Urinary bladder wall thickening with partial distention. Correlate with urinalysis. ACT 112: Negative or not required by law. The above report was generated using voice recognition software. It may contain grammatical, syntax or spelling errors. Electronically signed by: Noah Flores M.D. 07/16/2024 3:02 PM ECG Additional Comments: Reviewed personally, showing NSR, no acute ST wave changes Code Status & VTE Plan Code Status Full code - discussed with pt at bedside Supervising Physician Co-Signing Physician Notes 53-year-old male with PMHx of hereditary hemochromatosis, active alcoholism (last drink last evening) who has recently evaled at hematology office, labs were obtained which showed elevated liver enzymes and high level of ferritin and low Na level. Hence he was referred to the ED. His last alcohol was last night around 3 am, he drinks 6-12 bottles of beer a day. He reports loose stools 5-10 x /day for about 6 weeks, reports poor appetite about the same time. He denies pain or burn w/ urine, denies fever/sore throat/cough/chest pain/palpitation. Labs reviewed, Hb 12.4, Na 129, LFT elevated, UA neg for UTI, alc level elevated. Resp panel neg. CTAP w/ hepatic steatosis. Problems: Hereditary hemochromatosis: Hb 13.4, recently had phebotomy as OP. f/u OP for freq phlebotomy, f/u OP hematology for ongoing w/u. Loose stool: repeat stool studies. ivf. Transaminitis: labs in AM, gi consult. Alc intoxication: thiamine, folic acid, awss protocol and gabapentin protocol. Hyponatremia: mild, likely d/t decrease solute intake iso chronic alcoholism. expect to improve w/ nutrition while in hospital. On Exam: GENERAL: Alert and oriented x3. NAD, on RA. flushed face. HEENT: No pallor, no icterus. Pupils equal, round and reactive to light. Oral mucosa moist. NECK: No JVD, no neck masses. HEART: S1 and S2 heard. Regular rate and rhythm. tachy in low 100s. No murmur, no gallop. RESPIRATORY SYSTEM: Normal AP diameter. No accessory muscle use. No wheezing, no crackles. ABDOMEN: Soft, bowel sounds present, nontender, no distention. CENTRAL NERVOUS SYSTEM: No facial droop. Speech is clear. Obeys simple commands. Moves extremities. EXTREMITIES: No edema, no erythema seen. I have seen and examined the patient and have discussed the case with the provider above. I agree with the assessment and plan as stated. Time spent: 35 min.
[2024-07-16] MEDS ORDERED: ACETAMINOPHEN 325 MG TAB PO PRN (17:01)
[2024-07-16] MEDS ORDERED: ONDANSETRON INJ 2 MG/ML 2 ML VIAL IV PRN (17:01)
[2024-07-16] MEDS ORDERED: GABAPENTIN 1200MG ALCOHOL WITHDRAWAL LOAD PO STA (17:29)
[2024-07-16] MEDS: SODIUM CHLORIDE 0.9% 1,000 ML IV SCH (17:54)
[2024-07-16] MEDS: THIAMINE HCL 200 MG in SODIUM CHLORIDE 0.9% 50 ML IV STA (20:41)
[2024-07-16 20:42] LABS: Adenovirus F 40/41 PCR Not Detected (NotDetected); Astrovirus PCR Not Detected (NotDetected); Cryptosporidium PCR Not Detected (NotDetected); Cyclospora cayetanensis PCR Not Detected (NotDetected); Entamoeba histolytica PCR Not Detected (NotDetected); Enteroaggregative E.coli(EAEC) Not Detected (NotDetected); Enterotoxigenic E.coli (ETEC) Not Detected (NotDetected); Giardia lamblia PCR Not Detected (NotDetected); Norovirus GI/GII PCR Not Detected (NotDetected); Plesiomonas shigelloides PCR Not Detected (NotDetected); Rotavirus A PCR Not Detected (NotDetected); Salmonella PCR Not Detected (NotDetected); Sapovirus PCR Not Detected (NotDetected); Shiga-like Toxin E.coli (STEC) Not Detected (NotDetected); Shigella/Enteroinvasive E.coli Not Detected (NotDetected); Vibrio cholerae PCR Not Detected (NotDetected); Vibrio species PCR Not Detected (NotDetected); Yersinia enterocolitica PCR Not Detected (NotDetected)
[2024-07-16] MEDS: GABAPENTIN 600 MG TAB PO ONE (20:48)
[2024-07-16 21:00] LABS: Campylobacter PCR DETECTED (NotDetected); Enteropathogenic E.coli (EPEC) DETECTED (NotDetected)
[2024-07-16] MEDS: AZITHROMYCIN 250 MG TAB PO ONE (21:52)
[2024-07-16 22:02] LABS: Anion Gap 10 (3-11); Calcium 7.9 mg/dl (8.6-10.3); Carbon Dioxide 26 mmol/L (21-32); Chloride 93 mmol/L (98-107); Creatinine Clr Calc Pharmacy 76.3 ml/min; Glucose 189 mg/dl (70-99(Fasting)); Sodium 129 mmol/L (136-145)
[2024-07-16 23:11] LABS: Potassium 3.2 mmol/L (3.5-5.1)
[2024-07-17] MEDS: GABAPENTIN 600 MG TAB PO SCH ×2 (00:19→13:25)
--- OUTSIDE RECORDS SUMMARY | 2024-07-17 00:42 | External Medical Summary | Summary of Care ---
Author Name Unknown Organization [facility] Address [address] [place] [address] Phone [phone] Care Team Providers Care Health Safety Specialist Name Role Phone Selina Miller MD Primary Care Provider [phone] Reason for Visit * Reason Onset Date Comments Test Results Lab 07/15/2024 Encounter Details Date Type Department Care Team (Late st Contact Info) Description 07/15/2024 Telephone Hematology/Oncology [facility] [place] [address] [facility] [place] [address] Olivia Fontenot CRNP [address] [place] [address] Test Results Lab Allergies No known active allergiesdocumented as of this encounter (statuses as of 07/15/2024) Medications Medication Sig Dispensed Refills Start Date End Date Status Thiamine HCl 100 MG Oral Tablet (vitamin B-1)Indications:Alc ohol use disorder,Macrocytos is without anemia Take 1 Tablet by mouth in the morning. 90 Tablet 1 05/05/2024 Active Selenium Sulfide 2.25 % External ShampooIndications: Tinea versicolor Apply to affected areas , leave on for 10 minutes then rinse off , use daily x 7 days, then as needed 180 mL 1 05/05/2024 Active Additional Information Patient not taking.Reported on 07/13/2024 Pantoprazole Sodium 20 MG Oral Tablet Delayed Release (Protonix)Indicatio ns:History of gastric ulcer,Alcohol use disorder Take 1 Tablet by mouth in the morning. 90 Tablet 06/14/2024 Active documented as of this encounter (statuses as of 07/15/2024) Active Problems Problem Noted Date Diagnosed Date FH: prostate cancer 05/05/2024 Screening for prostate cancer 05/05/2024 Tinea versicolor 05/05/2024 Macrocytosis without anemia 05/05/2024 Abnormal AST and ALT 05/05/2024 Hereditary hemochromatosis 11/26/2016 Overview: HFE 08/21-Homozygosity for C282Y , neg H63D an dS 65C--st phlebotomy 08/30/16 FH: hemochromatosis 2016 Tobacco use disorder 2016 Overview: 07/21-smoked 1p q2wks x 1yr, chews 2 can/d x 34 yrs Alcohol use disorder 2016 Overview: 08/21-none since 07/21--4-6beers daily x 15 yrs, cut back to 3-6 beers 2/wk-is getting counseling at [facility] 05/21, had DUI 02/18 documented as of this encounter (statuses as of 07/15/2024) Immunizations Name Administration Dates Next Due Hepatitis B, 20+ yrs 01/28/2024 Pneumococcal Conjugate Vaccine, 20-valent (Prevn ar20) 05/05/2024 Seasonal Influenza, Quadrivalent, No Preserve, I M 08/20/2016 TDAP (age 10 and older)(Boostrix) 01/28/2024 Zoster Vaccine Recombinant (Shingrix) 05/05/2024 documented as of this encounter Social History Tobacco Use Types Packs/Day Years Used Date Smoking Tobacco: Former Smokeless Tobacco: Current Chew Comments:11/22-1.5c/d;07/21-s moked 1p q2wks x 1yr, chews 2 can/d x 34 yrs Alcohol Use Standard Drinks/Week Comments Yes 20 (1 standard drink = 0.6 oz pure alcohol) quit mid aug 2016>07/21--4-6 beers daily x 15 yrs, cut back to 3-6 beers 2/wk-is getting counseling at [facility] 05/21 Utilities Answer Date Recorded Do you have trouble paying y our heating, water, or electric bill? (Adult - for ages 18 years and over) Not on file 03/23/2024 Is your family able to pay t he heat, water, or electric bill? (Household - for ages 0-17 years) Not on file 03/23/2024 Does your family have access to good internet? (Household - for ages 0-17 years) Not on file 03/23/2024 Social Connections Answer Date Recorded How often do you feel lonely or isolated from those around you? (Adult - for ages 18 years and over) Not on file 03/23/2024 Sex and Gender Information Value Date Recorded Sex Assigned at Not on file Gender Identity Not on file Sexual Orientation Not on file Job Start Date Occupation Industry Not on file Not on file Not on file documented as of this encounter Miscellaneous Notes * Telephone Encounter - Olivia Fontenot CRNP - 07/15/2024 10:51 AM EDT Results for orders placed or performed in visit on 07/13/24 FERRITIN Result Value Ref Range Ferritin 7,776 (H) 30 - 400 ng/mL CBC Result Value Ref Range WBC 4.71 4.00 - 10.80 K/uL RBC 4.66 4.50 - 5.25 M/uL HGB 16.1 14.0 - 16.8 g/dL HCT 44.7 40.0 - 48.4 % MCV 95.9 82.0 - 99.5 fL MCH 34.5 27.0 - 34.0 pg MCHC 36.0 32.0 - 36.0 g/dL RDW 12.5 11.5 - 15.5 % PLT 239 140 - 400 K/uL MPV 8.5 6.6 - 11.1 fL DIFFERENTIAL, AUTOMATED Result Value Ref Range WBC 4.71 4.00 - 10.80 K/uL Neutrophils % 57.0 40.0 - 75.0 % Lymphocytes % 29.1 18.0 - 42.0 % Monocytes % 12.7 (H) 1.0 - 11.0 % Eosinophils % 0.4 0.0 - 6.0 % Basophils % 0.8 0.0 - 2.0 % Absolute Neutrophils 2.68 1.80 - 7.70 K/uL Absolute Lymphocytes 1.37 1.00 - 4.80 K/ul Absolute Monocytes 0.60 0.00 - 1.10 K/uL Absolute Eosinophils 0.02 0.00 - 0.70 K/uL Absolute Basophils 0.04 0.00 - 0.20 K/uL Component Latest Ref Rng 07/13/2024 BUN 6 - 20 mg/dL 9 CREATININE 0.6 - 1.2 mg/dL 0.9 EGFR >=60 mL/min >90 SODIUM 135 - 146 mmol/L 125 (L) POTASSIUM 3.5 - 5.1 mmol/L 3.7 CHLORIDE 98 - 107 mmol/L 86 (L) CO2 22 - 32 mmol/L 26 ANION GAP 7 - 15 mmol/L 13 GLUCOSE 70 - 120 mg/dL 110 Albumin 3.8 - 5.0 g/dL 3.6 (L) AST 10 - 50 U/L 559 (H) Alkaline Phosphatase 35 - 130 U/L 189 (H) Bilirubin, Total <=1.2 mg/dL 1.3 (H) CALCIUM 8.4 - 10.2 mg/dL 8.4 Protein 6.0 - 8.3 g/dL 6.2 ALT 10 - 50 U/L 224 (H) Concerned about hyponatremia and increasing LFTs in the setting of active alcoholism. Would recommend patient present to [facility] ED. Left message for patient and spouse to return call. documented in this encounter Plan of Treatment Upcoming Encounters Date Type Department Care Team (Late st Contact Info) Description 07/19/2024 11:00 AM EDT Laboratory Laboratory [facility] [place] [address] [place] [address] Darcie Lab Scen[address] [facility] [place] [address] 07/20/2024 9:00 AM EDT Hem/Onc Treatment Hematology/Oncology Treatment, [place] [address] [place] [address] Darcie Chair 9 Hem Onc Scene [address] [place] [address] 07/26/2024 11:00 AM EDT Laboratory Laboratory [facility] [address] [place], [place] [address] [place], Lab Scenery [address] [place] [address] 07/27/2024 11:00 AM EDT [facility] [address] [place] [address] Darcie, Chair 11 Hem Onc Scenery [address] [place], [place] [address] 08/02/2024 11:00 AM EDT Laboratory Laboratory [facility] [place] [address] [place], [place] [address] Darcie, Lab Scenery [address] [facility] [place] [address] 08/03/2024 11:00 AM EDT [facility] [address] [facility] [place] [address] Darcie, Chair 5 Hem Onc Scenery [address] [place], [place] [address] 08/09/2024 11:00 AM EST Laboratory Laboratory [facility] [address] [place], [place] [address] Darcie, Lab Scenery [address] [place] [address] 08/10/2024 11:15 AM EST Hem/Onc Treatment Hematology/Oncology Treatment, [place] [address] [place] [address] Darcie, Chair 8 Hem Onc Scenery [address] [place] [address] 08/10/2024 4:00 PM EST Office Visit General Internal Medicine [facility] [address] [place], [place] [address] Selina Miller MD [address] [place] [address] 10/12/2024 3:00 PM EST Office Visit Hematology/Oncology [facility] [address] [place] [address] [phone] Olivia Fontenot CRNP [address] [facility] [place] [address] Scheduled Procedures Name Priority Associated Diagnoses Date/Ti me COLONOSCOPY FLEXIBLE PROXIMA L DIAGNOSTIC Recall History of colonic polyps Health Maintenance Due Date Last Done Comments HIV Screening 1985 Cologuard 2015 Fecal Occult Blood Test 2015 Sigmoidoscopy 2015 Depression Screening 04/24/2018 04/24/2017 Hepatitis B Vaccine (2 of 3 - 19+ 3-dose series) 02/25/2024 01/28/2024 COVID-19 Vaccine (1 - 2023-2 5 season) 2024 Influenza Vaccine (FLU shot) (#1) 2024 08/20/2016 Zoster Vaccines (2 of 2) 06/30/2024 05/05/2024 Lipid Panel 04/13/2029 04/13/2024, 08/01/2016 Colonoscopy 04/14/2029 04/14/2024, 04/14/2024 Colorectal Cancer Screening 04/14/2029 DTap/Tdap Vaccines (2 - Td o r Tdap) 01/27/2034 01/28/2024 Pneumococcal Vaccine: Pediatrics (0 to 5 Years) and At-Risk Patients (6 to 64 Years) Aged Out 05/05/2024 No longer eligible b ased on patient's age to complete this topic Hepatitis C Screening Completed 07/13/2024 HPV (Gardasil) Vaccine Aged Out No lo nger eligible based on patient's age to complete this topic MENINGOCOCCAL (MENACTRA/MENVEO) Aged Out No longer eligible b ased on patient's age to complete this topic documented as of this encounter Medical Devices Not on filedocumented as of this encounter Care Teams Health Safety Specialist Relationship Specialty Start Date End Date Selina Miller MD [address] [place] [address] [address] PCP - General Internal Medicine 08/22/16 documented as of this encounter
--- OUTSIDE RECORDS SUMMARY | 2024-07-17 00:42 | External Medical Summary | Summary of Care ---
Author Name Unknown Organization [facility] Address [address] [place] [address] Phone [phone] Care Team Providers Care School Secretary Name Role Phone Selina Miller MD Primary Care Provider [phone] Reason for Visit * Reason Onset Date Comments Test Results Lab 07/15/2024 Encounter Details Date Type Department Care Team (Late st Contact Info) Description 07/15/2024 Telephone Hematology/Oncology [facility] [place] 200 [facility] [place] [address] Olivia Fontenot CRNP [address] [place] [address] Test Results Lab Allergies No [...] active alcoholism. Would recommend patient present to [facility] ED. Left message for patient and spouse to return call. documented in this encounter Plan of Treatment Upcoming Encounters Date Type Department Care Team (Late st Contact Info) Description 07/19/2024 11:00 AM EDT Laboratory Laboratory [facility] [place] [address] [place] [address] Darcie Lab Scenery [address] [facility] [place] [address] 07/20/2024 9:00 AM EDT Hem/Onc Treatment Hematology/Oncology Treatment, [place] [address] [place] [address] Darcie Chair 9 Hem Onc Scene [address] [place] [address] 07/26/2024 11:00 AM EDT Laboratory Laboratory [facility] [address] [place], [place] [address] Park, Lab Scenery [address] [place] [address] 07/27/2024 11:00 AM EDT [facility] 200 [facility] [address] Darcie, Chair 11 Hem Onc Scenery [address] [place], [place] [address] 08/02/2024 11:00 AM EDT Laboratory Laboratory [facility] [place] [address] [place], [place] [address] Darcie, Lab Scenery [address] [facility] [place], [place] [address] 08/03/2024 11:00 AM EDT [facility] 200 [facility], [place] [address] Darcie, Chair 5 Hem Onc Scenery [address] [place], [place] [address] 08/09/2024 11:00 AM EST Laboratory Laboratory [facility] [address] [place], [place] [address] Darcie, Lab Scenery [address] [facility] [place] [address] 08/10/2024 11:15 AM EST Hem/Onc Treatment Hematology/Oncology Treatment, [place] 200 [facility] [address] Darcie, Chair 8 Hem Onc Scenery 200 [place] [address] 08/10/2024 4:00 PM EST Office Visit General Internal Medicine [facility] [address] [place], [place] [address] Selina Miller MD [address] [place] [address] [address] 10/12/2024 3:00 PM EST Office Visit Hematology/Oncology [facility] [address] [place] [phone] [facility] [place] [address] Scheduled Procedures Name Priority Associated Diagnoses Date/Ti [...] filedocumented as of this encounter Care Teams School Secretary Relationship Specialty Start Date End Date Selina Miller MD [address] [place] [address] PCP - General Internal Medicine 08/22/16 documented as of this encounter
--- OUTSIDE RECORDS SUMMARY | 2024-07-17 00:42 | External Medical Summary | Summary of Care ---
Author Name Unknown Organization [facility] Address [address] [place] [address] Phone [phone] Care Team Providers Care Mobile Application Tester Name Role Phone Selina Miller MD Primary Care Provider [phone] Reason for Visit * Reason Onset Date Comments Test Results Lab 07/15/2024 Encounter Details Date Type Department Care Team (Late st Contact Info) Description 07/15/2024 Telephone Hematology/Oncology [facility] [place] 200 [facility] [place] [address] Olivia Fontenot CRNP [address] [place] [address] Test Results Lab Allergies No [...] encounter Miscellaneous Notes * Telephone Encounter - Alessandra Balderrama RN - 07/15/2024 1:46 PM EDT Left message #2 for return call. Also called patients alternate listed mobile number- no answer. * Telephone Encounter - Olivia Fontenot CRNP [...] active alcoholism. Would recommend patient present to [facility] ED. Left message for patient and spouse to return call. documented in this encounter Plan of Treatment Upcoming Encounters Date Type Department Care Team (Late st Contact Info) Description 07/19/2024 11:00 AM EDT Laboratory Laboratory [facility] Darcie [place] [address] [place], [place] [phone] Darcie Lab Scenery [address] [place], [place] [address] 07/20/2024 9:00 AM EDT Hem/Onc Treatment Hematology/Oncology Treatment, [place] 200 [place] [address] Park, Chair 9 Hem Onc Scenery [address] [place] [address] 07/26/2024 11:00 AM EDT Laboratory Laboratory Scenery [facility] [address] [place] [address] Darcie, Lab Scenery [address] [place] [address] 07/27/2024 11:00 AM EDT Hem/Onc Treatment Hematology/Oncology Treatment, [place] 200 [place] [address] Darcie, Chair 11 Hem Onc Scenery [address] [place] [address] 08/02/2024 11:00 AM EDT Laboratory Laboratory Scenery [facility] [address] [place] [address] Darcie, Lab Scenery [address] [place] [address] 08/03/2024 11:00 AM EDT Hem/Onc Treatment Hematology/Oncology Treatment, [place] 200 [place] [address] Darcie, Chair 5 Hem Onc Scenery [address] [place] [address] 08/09/2024 11:00 AM EST Laboratory Laboratory Scenery [facility] [address] [place] [address] Darcie, Lab Scenery [address] [place] [address] 08/10/2024 11:15 AM EST Hem/Onc Treatment Hematology/Oncology Treatment, [place] 200 [place] [address] Darcie, Chair 8 Hem Onc Scenery [address] [place] [address] 08/10/2024 4:00 PM EST Office Visit General Internal Medicine [facility] 200 [facility] [place] [address] Selina Miller MD 200 [facility] [place] [address] 10/12/2024 3:00 PM EST Office Visit Hematology/Oncology [facility] 200 [facility] [place] [phone] Olivia Fontenot CRNP 400 [facility] [place] [address] Scheduled Procedures Name Priority Associated Diagnoses Date/Ti [...] filedocumented as of this encounter Care Teams Mobile Application Tester Relationship Specialty Start Date End Date Selina Miller MD 200 [facility] [place] [address] PCP - General Internal Medicine 08/22/16 documented as of this encounter
--- OUTSIDE RECORDS SUMMARY | 2024-07-17 00:42 | External Medical Summary | Summary of Care ---
Author Name Unknown Organization [facility] Address [address] [place] [address] Phone [phone] Care Team Providers Care Histotechnologist Supervisor Name Role Phone Selina Miller MD Primary Care Provider [phone] Reason for Visit * Reason Onset Date Comments Test Results Lab 07/15/2024 Encounter Details Date Type Department Care Team (Late st Contact Info) Description 07/15/2024 Telephone Hematology/Oncology [facility] [place] 200 [facility] [place] [address] Olivia Fontenot CRNP [address] [place] [address] Test Results Lab Allergies No known active allergiesdocumented as of this encounter (statuses as of 07/16/2024) Medications Medication Sig Dispensed Refills Start Date [...] as of this encounter (statuses as of 07/16/2024) Active Problems Problem Noted Date Diagnosed Date [...] as of this encounter (statuses as of 07/16/2024) Immunizations Name Administration Dates Next Due Hepatitis [...] encounter Miscellaneous Notes * Telephone Encounter - Raman [place] RN - 07/16/2024 9:28 AM EDT Tried calling mobile # [phone], no answer, LMOM with return #. * Telephone Encounter - Alessandra Balderrama RN - 07/16/2024 9:21 AM EDT Left message for patient/ to call back, advised in message that this is regarding urgent test results. Again could not get through on alternate listed number. * Telephone Encounter - Alessandra Balderrama RN - 07/15/2024 1:46 PM EDT Left message #2 for return call. Also called patients alternate listed mobile number- no answer. * Telephone Encounter - Olivia Fontenot CRNP - 07/15/2024 10:51 AM EDT Results for orders placed or performed in visit on 10/08/24 FERRITIN Result Value Ref Range Ferritin 7,776 [...] 0.00 - 0.20 K/uL Component Latest Ref Rn 07/13/2024 BUN 6 - 20 mg/dL 9 [...] active alcoholism. Would recommend patient present to [facility] ED. Left message for patient and spouse to return call. documented in this encounter Plan of Treatment Upcoming Encounters Date Type Department Care Team (Late st Contact Info) Description 07/19/2024 11:00 AM EDT Laboratory Laboratory [facility] [place] [address] [place], [place] [address] Darcie, Lab Scenery [address] [place] [address] 07/20/2024 9:00 AM EDT Hem/Onc Treatment Hematology/Oncology Treatment, [address], [place] [address] Darcie, Chair 9 Hem Onc Scenery [address] [place], [place] [address] 07/26/2024 11:00 AM EDT Laboratory Laboratory [facility] [place] [address] [place], [place] [address] Darcie, Lab Scenery [address] [place] [address] 07/27/2024 11:00 AM EDT Hem/Onc Treatment Hematology/Oncology Treatment, [place] 200 [facility], [place] [address] Darcie, Chair 11 Hem Onc Scenery [address] [place] [address] 08/02/2024 11:00 AM EDT Laboratory Laboratory [facility] [place] [address] [place], [place] [address] Darcie, Lab Scenery [address] [place] [address] 08/03/2024 11:00 AM EDT Hem/Onc Treatment Hematology/Oncology Treatment, [address], [place] [phone] Darcie, Chair 5 Hem Onc [facility] 200 [facility] [place] [address] 08/09/2024 11:00 AM EST Laboratory Laboratory [facility] [place] [address] [place] [phone] Darcie, Lab [facility] 200 [facility] [place] [address] 08/10/2024 11:15 AM EST [facility] [address] Darcie, Chair 8 Hem Onc [facility] 200 [facility] [place] [address] 08/10/2024 4:00 PM EST Office Visit General Internal Medicine [facility] [place] 200 [facility] [place] [address] Selina Miller MD [address] [facility] [address] [place], [place] [address] 10/12/2024 3:00 PM EST Office Visit Hematology/Oncology [facility] [place] 200 [facility] [place] [phone] Olivia Fontenot CRNP [address] [place] [address] Scheduled Procedures Name Priority Associated Diagnoses Date/Ti me COLONOSCOPY FLEXIBLE PROXIMA L DIAGNOSTIC Recall History of colonic polyps Health Maintenance Due Date Last Done Comments HIV Screening 1985 Cologuard 2015 Fecal Occult Blood Test 2015 Sigmoidoscopy 2015 Depression Screening 04/24/2018 04/24/2017 Hepatitis B Vaccine (2 of 3 - 19+ 3-dose series) 02/25/2024 01/28/2024 COVID-19 Vaccine ( - 2023-2 5 season) 2024 Influenza Vaccine [...] filedocumented as of this encounter Care Teams Histotechnologist Supervisor Relationship Specialty Start Date End Date Selina Miller MD [address] [place] [address] PCP - General Internal Medicine 08/22/16 documented as of this encounter
--- OUTSIDE RECORDS SUMMARY | 2024-07-17 00:42 | External Medical Summary | Summary of Care ---
Author Name Unknown Organization [facility] Address [address] [place] [address] Phone [phone] Care Team Providers Care Sand Operator Name Role Phone Selina Miller MD Primary Care Provider [phone] Reason for Visit * Reason Onset Date Comments Test Results Lab 07/15/2024 Encounter Details Date Type Department Care Team (Late st Contact Info) Description 07/15/2024 Telephone Hematology/Oncology [facility] [place] 200 [facility] [place] [address] Olivia Fontenot CRNP 400 [place] [address] Test Results Lab Allergies No [...] active alcoholism. Would recommend patient present to [facility]. Left message for patient and spouse to return call. documented in this encounter Plan of Treatment Upcoming Encounters Date Type Department Care Team (Late st Contact Info) Description 07/19/2024 11:00 AM EDT Laboratory Laboratory [facility] [place] [address] [place], [place] [address] Darcie, Lab Scenery [address] [facility] [place] [address] 07/20/2024 9:00 AM EDT Hem/Onc Treatment Hematology/Oncology Treatment, [place] 200 [facility], [place] [address] Darcie, Chair 9 Hem Onc Scenery [address] [place] [address] 07/26/2024 11:00 AM EDT Laboratory Laboratory [facility] [place] [address] [place], [place] [address] Darcie, Lab Scenery [address] [facility] [place] [address] 07/27/2024 11:00 AM EDT Hem/Onc Treatment Hematology/Oncology Treatment, [place] 200 [facility] [place], [place] [address] Darcie, Chair 11 Hem Onc Scenery [address] [place], [place] [address] 08/02/2024 11:00 AM EDT Laboratory Laboratory [facility] Darcie [place] [address] [place], [place] [address] Darcie, Lab Scenery [address] [place] [address] 08/03/2024 11:00 AM EDT Hem/Onc Treatment Hematology/Oncology Treatment, [place] 200 [facility], [place] [address] Darcie, Chair 5 Hem Onc Scenery [address] [place], [place] [address] 08/09/2024 11:00 AM EST Laboratory Laboratory [facility] [place] [address] [place] [address] Darcie, Lab Scenery 200 [facility] [place] [address] 08/10/2024 11:15 AM EST Hem/Onc Treatment Hematology/Oncology Treatment, [place] [address] [place] [address] Darcie, Chair 8 Hem Onc [facility] 200 [facility] [place] [address] 08/10/2024 4:00 PM EST Office Visit General Internal Medicine [facility] [place] 200 [facility] [place] [address] Selina Miller MD 200 [facility] [place] [address] 10/12/2024 3:00 PM EST Office Visit Hematology/Oncology [facility] [place] [address] [place] [phone] Olivia Fontenot [facility]NP 400 [facility] [place] [address] Scheduled Procedures Name Priority Associated Diagnoses Date/Ti [...] filedocumented as of this encounter Care Teams Sand Operator Relationship Specialty Start Date End Date Selina Miller MD 200 [facility] [place] [address] PCP - General Internal Medicine 08/22/16 documented as of this encounter
--- OUTSIDE RECORDS SUMMARY | 2024-07-17 00:43 | External Medical Summary ---
Author Name Unknown Address Unknown Organization K01:[facility] - [address] [place] [address] Laboratory Report Ordering Provider Test Date Status KIP HARDING 07/13/2024 10:30:41 Final Observation Date Value Abnormality Reference (Units ) Status Ferritin 07/13/2024 10:30:41 7776 Above high normal 30 -400 (ng/mL) Final Performing Location [facility] - [address] [place] [address]
--- OUTSIDE RECORDS SUMMARY | 2024-07-17 00:43 | External Medical Summary | Summary of Care ---
Author Name Unknown Organization [facility] Address [address] [place] [address] Phone [phone] Care Team Providers Care Material Loader Name Role Phone Selina Miller MD Primary Care Provider [phone] Reason for Visit * Reason Onset Date Comments No Show 05/18/2024 Encounter Details Date Type Department Care Team (Late st Contact Info) Description 05/18/2024 Telephone Hematology/Oncology [facility] [place] 200 [facility] [place] [address] Olivia Fontenot CRNP [address] [place] [address] No Show Allergies No known active allergiesdocumented as of this encounter (statuses as of 05/19/2024) Medications Medication Sig Dispensed Refills Start Date End Date Status Pantoprazole Sodium 40 MG Oral Tablet Delayed Release (Protonix)Indication s:History of gastric ulcer,Alcohol use disorder Take 1 Tablet by mouth in the morning. One pill by mouth once a day 1 hour before the first meal of the day--till done with 40 mg and then dec to 20mg daily. 05/05/2024 Active Thiamine HCl 100 MG Oral Tablet (vitamin B-1)Indications:Alco hol use disorder,Macrocytosi s without anemia Take 1 Tablet by mouth in the morning. 90 Tablet 1 05/05/2024 Active Selenium Sulfide 2.25 % External ShampooIndications:T inea versicolor Apply to affected areas , leave on for 10 minutes then rinse off , use daily x 7 days, then as needed 180 mL 1 05/05/2024 Active documented as of this encounter (statuses as of 05/19/2024) Active Problems Problem Noted Date Diagnosed Date [...] to 3-6 beers 2/wk-is getting counseling at [facility] 05/21, had DUI 02/18 documented as of this encounter (statuses as of 05/19/2024) Immunizations Name Administration Dates Next Due Hepatitis [...] encounter Miscellaneous Notes * Telephone Encounter - Sherita Moreira OSA - 05/19/2024 10:03 AM EDT Left message * Telephone Encounter - Anna Arreaga MED ASSIST - 05/18/2024 1:41 PM EDT Please contact patient in regards to no show appt today with Olivia Fontenot. Thank you. documented in this encounter Plan of Treatment Upcoming Encounters Date Type Department Care Team (Late st Contact Info) Description 08/10/2024 4:40 PM EST Office Visit General Internal Medicine [facility] [place] [address] [place] [address] Selina Miller MD [address] [place] [address] Scheduled Procedures Name Priority Associated Diagnoses Date/Ti me COLONOSCOPY FLEXIBLE PROXIMA L DIAGNOSTIC Recall History of colonic polyps Health Maintenance Due Date Last Done Comments HIV Screening 1985 Hepatitis C Screening 1988 Cologuard 2015 Fecal Occult Blood Test 2015 Sigmoidoscopy 2015 Depression Screening 04/24/2018 04/24/2017 COVID-19 Vaccine (1 - 2022-2 4 season) 2023 Hepatitis B Vaccine (2 of 3 - 19+ 3-dose series) 02/25/2024 01/28/2024 Influenza Vaccine (FLU shot) (#1) 2024 08/20/2016 Zoster Vaccines (2 of 2) 06/30/2024 05/05/2024 Diabetes Screening 04/13/2027 04/13/2024, 09/22/2018, 08/01/2016 Lipid Panel 04/13/2029 04/13/2024, 08/01/2016 Colonoscopy 04/14/2029 04/14/2024, 04/14/2024 Colorectal Cancer Screening 04/14/2029 DTaP,Tdap,and Td Vaccines (2 - Td or Tdap) 01/27/2034 01/28/2024 Pneumococcal Vaccine: Pediatrics (0 to 5 Years) and At-Risk Patients (6 to 64 Years) Aged Out 05/05/2024 No longer eligible b ased on patient's age to complete this topic HPV (Gardasil) Vaccine Aged Out No lo nger eligible based on patient's age to complete this topic MENINGOCOCCAL (MENACTRA/MENVEO) Aged Out No longer eligible b ased on patient's age to complete this topic documented as of this encounter Medical Devices Not on filedocumented as of this encounter Care Teams Material Loader Relationship Specialty Start Date End Date Selina Miller MD [address] [place] [address] PCP - General Internal Medicine 08/22/16 documented as of this encounter
--- OUTSIDE RECORDS SUMMARY | 2024-07-17 00:43 | External Medical Summary | Summary of Care ---
Author Name Unknown Organization [facility] Address [address] [place] [address] Phone [phone] Care Team Providers Care Retail Furniture Sales Name Role Phone Selina Miller MD Primary Care Provider [phone] Reason for Visit * Reason Onset Date Comments No Show 05/18/2024 Encounter Details Date Type Department Care Team (Late st Contact Info) Description 05/18/2024 Telephone Hematology/Oncology [facility] [place] 200 [facility] [place] [address] Olivia Fontenot CRNP [address] [place] [address] No Show Allergies No known active allergiesdocumented as of this encounter (statuses as of 05/20/2024) Medications Medication Sig Dispensed Refills Start Date [...] as of this encounter (statuses as of 05/20/2024) Active Problems Problem Noted Date Diagnosed Date [...] to 3-6 beers 2/wk-is getting counseling at [facility] 05/21, had DUI 02/18 documented as of this encounter (statuses as of 05/20/2024) Immunizations Name Administration Dates Next Due Hepatitis [...] Telephone Encounter - Sherita Moreira OSA - 05/20/2024 8:24 AM EDT My g sent and left another VM * Telephone Encounter - Sherita Moreira OSA [...] Office Visit General Internal Medicine [facility] [place] [address] [place] [address] Selina Miller MD [address] [place] [address] Scheduled Procedures Name Priority Associated Diagnoses Date/Ti [...] filedocumented as of this encounter Care Teams Retail Furniture Sales Relationship Specialty Start Date End Date Selina Miller MD 200 [facility] [place] [address] PCP - General Internal Medicine 08/22/16 documented as of this encounter
--- OUTSIDE RECORDS SUMMARY | 2024-07-17 00:43 | External Medical Summary | Summary of Care ---
Author Name Unknown Organization [facility] Address [address] [place] [address] Phone [phone] Care Team Providers Care Stove Mechanic Name Role Phone Selina Miller MD Primary Care Provider [phone] Reason for Visit * Reason Comments Procedure Infusion IV hydration/Phlebot rush Encounter Details Date Type Department Care Team (Latest Contact Info) Description 07/13/2024 11:00 AM EDT Hem/Onc Treatment Hematology/Oncolog y Treatment, [place] [address] [place] [address] Darcie, Chair 1 Hem On[address] [address] Hereditary hemochromatosis (HCC)*; Dehydration; Diarrhea, unspecified type Allergies No known active allergiesdocumented as of this encounter (statuses as of 07/13/2024) Medications Medication Sig Dispensed Refills Start Date [...] as of this encounter (statuses as of 07/13/2024) Active Problems Problem Noted Date Diagnosed Date [...] to 3-6 beers 2/wk-is getting counseling at [facility] 05/21, had DUI 02/18 documented as of this encounter (statuses as of 07/13/2024) Immunizations Name Administration Dates Next Due Hepatitis [...] on file documented as of this encounter Last Filed Vital Signs Vital Sign Reading Time Taken Comments Blood Pressure 145/99 07/13/2024 2:14 PM EDT Pulse - - Temperature - - Respiratory Rate - - Oxygen Saturation - - Inhaled Oxygen Concentration - - Weight - - Height - - Body Mass Index - - documented in this encounter Nursing Notes * Eda Solorzano RN - 07/13/2024 12:46 PM EDT Patient ambulatory to chair 1 Patient states she has had abdomen pain with diarrhea for the last 6 weeks, Olivia aware and ordered fluids with phlebotomy Safety and Risk for Injury Patient will remain free from injury. Ensure appropriate safety devices are available. Provide and maintain safe environment. Patient instructed on use of heat and massage functions where applicable. Patient shown how to operate the heat function of the chair and to alert nursing staff if the chair feels too warm. Patient instructed on the risk of potential guerra while using the heat function. Goals: patient will remain free of injury Possible barriers to meeting goals: weakness due to fluid and blood loss, increase risk of fall Stability of the patient: Moderately stable - low risk of patient condition declining or worsening Summary regarding today's goals: Met: patient remained free of injury #18G Instye with t-extension inserted into the left AC without difficulty. Therapeutic phlebotomy performed per order. Patient tolerated procedure well. Drank cup of fluid post procedure plus 500 ml NSS IV per order. Encouraged to increase fluid intake. IV discontinued intact and patient discharged in stable condition. Patient gave stool specimen specimen, walked to lab. documented in this encounter Plan of Treatment Upcoming Encounters Date Type Department Care Team (Late st Contact Info) Description 07/19/2024 11:00 AM EDT Laboratory Laboratory [place] [address] [place] [address] Darcie, Lab [place] [address] [facility] [place] [address] 07/20/2024 9:00 AM EDT Hem/Onc Treatment Hematology/Oncology Treatment, [place] 200 [facility] [address] Darcie, Chair 9 Hem Onc [place] [address] [place] [address] 07/26/2024 11:00 AM EDT Laboratory Laboratory [facility] [place]ie [place] [address] [place] [address] Darcie, Lab [place]enery [address] [facility] [place] [address] 07/27/2024 11:00 AM EDT Hem/Onc Treatment Hematology/Oncology Treatment, [place] 200 [facility] [place] [address] Darcie, Chair 11 Hem Onc [place] [address] [place] [address] 08/02/2024 11:00 AM EDT Laboratory Laboratory [facility] Darcie [place] [address] [place] [address] Darcie, Lab [place]enery [address] [place] [address] 08/03/2024 11:00 AM EDT Hem/Onc Treatment Hematology/Oncology Treatment, [place] 200 [facility] [address] Darcie, Chair 5 Hem Onc [place] [address] [place], [place] [address] 08/09/2024 11:00 AM EST Laboratory Laboratory [facility] [place] [address] [place] [phone] Darcie, Lab [facility] 200 [facility] [place] [address] 08/10/2024 11:15 AM EST [facility] [address] [place], [place] [phone] Darcie, Chair 8 Hem Onc [place] 200 [facility] [place] [address] 08/10/2024 4:00 PM EST Office Visit General Internal Medicine [facility] [place] [address] [place] [address] Selina Miller MD [address] [place] [address] 10/12/2024 3:00 PM EST Office Visit Hematology/Oncology [facility] [place] 200 [facility] [place] [address] Olivia Fontenot CRNP [address] [place] [address] Pending Results Name Type Priority Associated Diagnoses Date /Time GASTROINTESTINAL PATHOGEN PANEL, STOOL Lab Routine Diarrhea, unspecified type 07/13/2024 1:49 PM EDT CLOSTRIDIUM DIFFICILE, PCR Lab Routine Diarrhea, unspecified type 07/13/2024 1:49 PM EDT GASTROINTESTINAL PATHOGEN PANEL PCR Lab Routine Diarrhea, unspecified type 07/13/2024 1:49 PM EDT GASTROINTESTINAL PATHOGEN PANEL CULTURE Lab Routine Diarrhea, unspecified type 07/13/2024 1:49 PM EDT Scheduled Procedures Name Priority Associated Diagnoses Date/Ti [...] Not on filedocumented as of this encounter Visit Diagnoses Diagnosis Hereditary hemochromatosis (HCC)- Primary Hereditary hemochromatosis Dehydration Diarrhea, unspecified type documented in this encounter Administered Medications Active Administered Medications - up to 3 most recent administrations Medication Order MAR Action Action Date Dose Rate Site NSS infusion 500 mL, Intravenous, at 1,000 mL/hr Administer over 30 Minutes, PRN, Starting on Fri07/13/24 at 1232, Until Discontinued, Hypotension Start Infusion 07/13/2024 12:35 PM EDT 500 mL 1000 mL/hr documented in this encounter Additional Health Concerns Infection Onset Date Last Indicated Resolved Time Gastrointestinal Rule-Out 07/13/2024 07/13/2024 C. difficile Rule-Out 07/13/2024 07/13/2024 documented as of this encounter Care Teams Stove Mechanic Relationship Specialty Start Date End Date Selina Miller MD [address] [facility] [place] [address] PCP - General Internal Medicine 08/22/16 documented as of this encounter
--- OUTSIDE RECORDS SUMMARY | 2024-07-17 00:43 | External Medical Summary | Summary of Care ---
Author Name Unknown Organization [facility] Address [address] [place] [address] Phone [phone] Care Team Providers Care Biometrics Consultant Name Role Phone Selina Miller MD Primary Care Provider [phone] Reason for Visit * Reason Onset Date Comments Appointment 07/13/2024 Encounter Details Date Type Department Care Team (Late st Contact Info) Description 07/13/2024 Telephone Hematology/Oncology [facility] [place] 200 [facility] [place] [address] Olivia Fontenot CRNP [address] [place] [address] Appointment Allergies No known active allergiesdocumented as of [...] encounter Miscellaneous Notes * Telephone Encounter - Paul Myers OSA - 07/13/2024 11:41 AM EDT Pt needs to schedule Hepatology Associated Diagnoses Hereditary hemochromatosis (HCC) [E83.110] - Primary Please contact patient to schedule. documented in this encounter Plan of Treatment Upcoming Encounters Date Type Department Care Team (Latest Contact Info) Description 07/13/2024 12:00 PM EDT Laboratory [place] [address] Rosalba Sprague [place] [address] [place] [address] Hereditary hemochromatosis (HCC) 08/10/2024 4:00 PM EST Office Visit General Internal Medicine Carm[facility] Spr[place] [address] [place] [address] Selina Miller MD 200 [facility] [place] [address] Scheduled Procedures Name Priority Associated Diagnoses Date/Ti [...] filedocumented as of this encounter Care Teams Biometrics Consultant Relationship Specialty Start Date End Date Selina Miller MD 200 [facility] [place] [address] PCP - General Internal Medicine 08/22/16 documented as of this encounter
--- OUTSIDE RECORDS SUMMARY | 2024-07-17 00:43 | External Medical Summary ---
Author Name Unknown Address Unknown Organization [id number][facility] [place] [address] Laboratory Report Ordering Provider Test Date Status KIP HARDING 05/19/2024 13:01:22 Final Observation Date Value Abnormality Reference (Units ) Status WBC, Total 05/19/2024 13:01:22 4.41 4.00-10.8 0 (K/uL) Final RBC 05/19/2024 13:01:22 4.70 4.50-5.25 (M/uL) Final Hemoglobin 05/19/2024 13:01:22 16.5 14.0-16.8 (g/dL) Final HCT 05/19/2024 13:01:22 46.7 40.0-48.4 (%) Final MCV 05/19/2024 13:01:22 99.4 82.0-99.5 (fL) Final MCH 05/19/2024 13:01:22 35.1 27.0-34.0 (pg) Final MCHC 05/19/2024 13:01:22 35.3 32.0-36.0 (g/dL) Final RDW 05/19/2024 13:01:22 12.3 11.5-15.5 (%) Final Platelets 05/19/2024 13:01:22 275 140-400 (K /uL) Final MPV 05/19/2024 13:01:22 8.6 6.6-11.1 ( fL) Final Performing Location [facility] [place] [address]
--- OUTSIDE RECORDS SUMMARY | 2024-07-17 00:43 | External Medical Summary | Summary of Care ---
Author Name Unknown Organization [facility] Address [address] [place] [address] Phone [phone] Care Team Providers Care New Patient Escort Name Role Phone Selina Miller MD Primary Care Provider [phone] Reason for Visit * Reason Onset Date Comments Advice 06/12/2024 Encounter Details Date Type Department Care Team (Late st Contact Info) Description 06/12/2024 Telephone General Internal Medicine 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 90 Tablet 1 05/05/2024 Active Selenium Sulfide 2.25 % External ShampooIndication s:Tinea versicolor Apply to affected areas , leave on for 10 minutes then rinse off , use daily x 7 days, then as needed 180 mL 1 05/05/2024 Active Pantoprazole Sodium 40 MG Oral Tablet Delayed Release (Protonix)Indicat ions:History of gastric ulcer,Alcohol use disorder Take 1 Tablet by mouth in the morning. One pill by mouth once a day 1 hour before the first meal of the day--till done with 40 mg and then dec to 20mg daily. 05/05/2024 06/14/2024 Discontinued documented as of this encounter (statuses as of 06/15/2024) Active Problems Problem Noted Date Diagnosed Date [...] as of this encounter (statuses as of 06/15/2024) Immunizations Name Administration Dates Next Due Hepatitis [...] encounter Miscellaneous Notes * Telephone Encounter - Vy Guillen LPN - 06/15/2024 10:02 AM EDT Sent my g * Telephone Encounter - Aniyah Pollard CRNP - 06/12/2024 4:05 PM EDT Agree with advice given-ER if s/s of dehydration or severe pain or inability to tolerate fluids. Ifrecurrent issue needs follow up with pcp * Telephone Encounter - Brianna Pérez RN - 06/12/2024 3:20 PM EDT Called and spoke with pt's . She had similar virus a few weeks ago. Pt has been having diarrhea and fatigue. No fever mentioned. He is drinking small amounts and keeping broth down. Still urinating well. We discussed concern about dehydration. Instructed her to take pt to ER if he is not able to keep fluids down or urinary output decreases. said she will take to ER for fluids if no improvement soon. * Telephone Encounter - Alda Gordon OSA - 06/12/2024 1:36 PM EDT Patient called stated patient is currently having severe stomach pain lethargy no energy vomiting diarrhea. Patient would would like to speak with a medical professional before scheduling acute appt. documented in this encounter Plan of Treatment Upcoming Encounters Date Type Department Care Team (Late st Contact Info) Description 08/10/2024 4:40 PM EST Office Visit General Internal Medicine [facility] Spr[place] [facility] [place] [address] Selina Miller MD 200 [facility] [place] [address] Scheduled Procedures Name Priority Associated Diagnoses Date/Ti me COLONOSCOPY FLEXIBLE PROXIMA L DIAGNOSTIC Recall History of colonic polyps Health Maintenance Due Date Last Done Comments HIV Screening 1985 Hepatitis C Screening 1988 Cologuard 2015 Fecal Occult Blood Test 2015 Sigmoidoscopy 2015 Depression Screening 04/24/2018 04/24/2017 Hepatitis B Vaccine (2 of 3 - 19+ 3-dose series) 02/25/2024 01/28/2024 COVID-19 Vaccine (1 - 2022-2 4 season) 2024 Influenza Vaccine (FLU shot) (#1) [...] filedocumented as of this encounter Care Teams New Patient Escort Relationship Specialty Start Date End Date Selina Miller MD 200 [facility] [place] [address] PCP - General Internal Medicine 08/22/16 documented as of this encounter
--- OUTSIDE RECORDS SUMMARY | 2024-07-17 00:43 | External Medical Summary ---
Author Name Unknown Address Unknown Organization [id number][facility] [place] [address] [place] [address] Laboratory Report Ordering Provider Test Date Status KIP HARDING 07/13/2024 10:30:41 Final Observation Date Value Abnormality Reference (Units ) Status BUN 07/13/2024 10:30:41 9 6-20 (mg/dL) Final Creatinine 07/13/2024 10:30:41 0.9 0.6-1.2 (mg/dL) Final Glomerular filtration rate/1.73 sq M.predicted [Volume Rate/Area] in Serum, Plasma or Blood by Creatinine-based formula (CKD-EPI) 07/13/2024 10:30:41 >90 >=60 (mL/min) Final eGFR is calculated based on the CKD-EPI 2020 equation. Sodium 07/13/2024 10:30:41 125 Below low normal 135 -146 (mmol/L) Final Potassium 07/13/2024 10:30:41 3.7 3.5-5.1 (m mol/L) Final Results may be falsely eleva ghassan due to hemolysis. Cl 07/13/2024 10:30:41 86 Below low normal 98- 107 (mmol/L) Final CO2 07/13/2024 10:30:41 26 22-32 (mmo l/L) Final Anion gap 07/13/2024 10:30:41 13 7-15 (mmol /L) Final Glucose 07/13/2024 10:30:41 110 70-120 (mg /dL) Final Albumin 07/13/2024 10:30:41 3.6 Below low normal 3.8 -5.0 (g/dL) Final AST (Aspartate aminotransferase) 07/13/2024 10:30:41 559 Above high normal 10-50 (U/L) Final Results may be falsely eleva ghassan due to hemolysis. Alk Phos 07/13/2024 10:30:41 189 Above high normal 35 -130 (U/L) Final Bilirubin, Total 07/13/2024 10:30:41 1.3 Above high no rmal <=1.2 (mg/dL) Final Calcium 07/13/2024 10:30:41 8.4 8.4-10.2 ( mg/dL) Final Protein 07/13/2024 10:30:41 6.2 6.0-8.3 (g /dL) Final ALT (Alanine aminotransferase) 07/13/2024 10:30:41 224 Above high normal 10-50 (U/L) Final Results may be falsely eleva ghassan due to hemolysis. Performing Location [facility] [address] [facility] [address]
--- OUTSIDE RECORDS SUMMARY | 2024-07-17 00:43 | External Medical Summary ---
Author Name Unknown Address Unknown Organization [id number]:[facility] [place] - [address] [facility] [address] Laboratory Report Ordering Provider Test Date Status KIP HARDING 07/13/2024 10:30:41 Final Observation Date Value Abnormality Reference (Units ) Status Iron 07/13/2024 10:30:41 147 45-176 (ug/dL) Final Iron-binding capacity 07/13/2024 10:30:41 188 Below low normal 250-425 (ug/dL) Final Transferrin Sat % 07/13/2024 10:30:41 78 Above high normal 15-55 (%) Final Performing Location [facility] - [address] [facility] [address]
--- OUTSIDE RECORDS SUMMARY | 2024-07-17 00:43 | External Medical Summary | Summary of Care ---
Author Name Unknown Organization [facility] Address [address] [place] [address] Phone [phone] Care Team Providers Care Wall Covering Contractor Name Role Phone Selina Miller MD Primary Care Provider [phone] Reason for Visit * Reason Comments Outpatient Testing Encounter Details Date Type Department Care Team (Latest Contact Info) Description 07/13/2024 12:00 PM EDT Laboratory Laboratory [facility] [address] [place] [address] [facility] Lab [facility] 200 [facility] [place] [address] Hereditary hemochromatosis (HCC) Allergies No known active allergiesdocumented as of [...] 180 mL 1 05/05/2024 Active Pantoprazole Sodium 20 MG Oral Tablet Delayed Release (Protonix)Indication s:History [...] to 3-6 beers 2/wk-is getting counseling at [facility] 05/21, had DUI 02/18 documented as of [...] on file documented as of this encounter Plan of Treatment Upcoming Encounters Date Type Department Care Team (Late st Contact Info) Description 07/13/2024 11:00 AM EDT Hem/Onc Treatment Hematology/Oncology Treatment, [place] 200 [place] [address] Darcie, Chair [address] Hem On[address] [place] [address] Arrived 08/10/2024 4:00 PM EST Office Visit General Internal Medicine [facility] [place] 200 [facility] [place] [address] Selina Miller MD 200 [facility] [place] [address] Pending Results Name Type Priority Associated Diagnoses Date /Time FERRITIN Lab STAT Hereditary hemochromatosis (HCC) 07/13/2024 10:30 AM EDT Scheduled Procedures Name Priority Associated Diagnoses [...] Not on filedocumented as of this encounter Procedures Procedure Name Priority Date/Time Associated Diagnosis Comments DIFFERENTIAL, AUTOMATED STAT 07/13/2024 10:30 AM EDT Hereditary hemochromatosis (HCC) CBC STAT 07/13/2024 10:30 AM EDT Hereditary hemochromatosis (HCC) CBC STAT 07/13/2024 10:30 AM EDT Hereditary hemochromatosis (HCC) documented in this encounter Results * (ABNORMAL) DIFFERENTIAL, AUTOMATED (07/13/2024 10:30 AM EDT) WBC 4.71 4.00 - 10.80 K/uL 07/13/2024 10:36 AM EDT [facility] 56-02 Neutrophils % 57.0 40.0 - 75.0 % 07/13/2024 10:36 AM EDT [facility] 56-02 Lymphocytes % 29.1 18.0 - 42.0 % 07/13/2024 10:36 AM EDT [facility] 56-02 Monocytes % 12.7(H) 1.0 - 11.0 % 07/13/2024 10:36 AM EDT [facility] 56- Eosinophils % 0.4 0.0 - 6.0 % 07/13/2024 10:36 AM EDT [facility] 56 Basophils % 0.8 0.0 - 2.0 % 07/13/2024 10:36 AM EDT [facility] 56- Absolute Neutrophils 2.68 1.80 - 7.70 K/uL 07/13/2024 10:36 AM EDT [facility] 56 Absolute Lymphocytes 1.37 1.00 - 4.80 K/ul 07/13/2024 10:36 AM EDT [facility] 56- Absolute Monocytes 0.60 0.00 - 1.10 K/uL 07/13/2024 10:36 AM EDT [facility] 56- Absolute Eosinophils 0.02 0.00 - 0.70 K/uL 07/13/2024 10:36 AM EDT [facility] 56- Absolute Basophils 0.04 0.00 - 0.20 K/uL 07/13/2024 10:36 AM EDT [facility] 56 Blood Venous blood specimen / Unknown Venipuncture / Unknown 07/13/2024 10:30 AM EDT 07/13/2024 10:30 AM EDT Olivia DWYER LAB BLOOD ORDER MAX [facility] [address] [place] [address] * CBC (07/13/2024 10:30 AM EDT) WBC 4.71 4.00 - 10.80 K/uL 07/13/2024 10:36 AM EDT [facility] 56- RBC 4.66 4.50 - 5.25 M/uL 07/13/2024 10:36 AM EDT [facility] 56 HGB 16.1 14.0 - 16.8 g/dL 07/13/2024 10:36 AM EDT [facility] 56- HCT 44.7 40.0 - 48.4 % 07/13/2024 10:36 AM EDT [facility] 56 MCV 95.9 82.0 - 99.5 fL 07/13/2024 10:36 AM EDT [facility] 56 MCH 34.5 27.0 - 34.0 pg 07/13/2024 10:36 AM EDT [facility] 56 MCHC 36.0 32.0 - 36.0 g/dL 07/13/2024 10:36 AM EDT [facility] 56 RDW 12.5 11.5 - 15.5 % 07/13/2024 10:36 AM EDT [facility] 56 PLT 239 140 - 400 K/uL 07/13/2024 10:36 AM T [facility] 56 MPV 8.5 6.6 - 11.1 fL 07/13/2024 10:36 AM T [facility] 56 Blood Venous blood specimen / Unknown Venipuncture / Unknown 07/13/2024 10:30 AM EDT 07/13/2024 10:30 AM EDT Olivia DWYER LAB BLOOD ORDER MAX [facility] 56 200 [place] [address] documented in this encounter Visit Diagnoses Diagnosis Hereditary hemochromatosis (HCC) Hereditary hemochromatosis documented in this encounter Care Teams Wall Covering Contractor Relationship Specialty Start Date End Date [facility]ina Miller MD [facility] [address] PCP - General Internal Medicine 08/22/16 documented as of this encounter
--- OUTSIDE RECORDS SUMMARY | 2024-07-17 00:43 | External Medical Summary ---
Author Name Unknown Address Unknown Organization K01:[facility] - [address] [place] [address] Laboratory Report Ordering Provider Test Date Status KIP HARDING 07/13/2024 10:30:41 Final Observation Date Value Abnormality Reference (Units ) Status Hep A IgM 07/13/2024 10:30:41 Negative Negative Final Hep B Core IgM 07/13/2024 10:30:41 Negative Negat alvaro Final Hep B surface Ag 07/13/2024 10:30:41 Negative Neg ative Final Hep C Ab 07/13/2024 10:30:41 Negative Negative Final Performing Location [facility] - [address] [place] [address]
--- OUTSIDE RECORDS SUMMARY | 2024-07-17 00:43 | External Medical Summary | Summary of Care ---
Author Name Unknown Organization [facility] Address [address] [place] [address] Phone [phone] Care Team Providers Care Upper And Bottom Lacer Hand Name Role Phone Selina Miller MD Primary Care Provider [phone] Reason for Visit * Reason Onset Date Comments No Show 05/18/2024 Encounter Details Date Type Department Care Team (Late st Contact Info) Description 05/18/2024 Telephone Hematology/Oncology [facility] [place] 200 [facility] [place] [address] Olivia Fontenot CRNP [address] [place] [address] No Show Allergies No known [...] to 3-6 beers 2/wk-is getting counseling at [facility] 05/21, had DUI 02/18 documented as of [...] My g sent and left another VM This is 3rd attempt Letter sent and this is 2nd no show * Telephone Encounter - Sherita Moreira OSA [...] Office Visit General Internal Medicine Carmen Spr[place] [address] [place] [place] [address] Selina Miller MD [address] [place] [place] [address] Scheduled Procedures Name Priority Associated Diagnoses Date/Ti [...] filedocumented as of this encounter Care Teams Upper And Bottom Lacer Hand Relationship Specialty Start Date End Date Selina Miller MD [address] [place] [address] PCP - General Internal Medicine 08/22/16 documented as of this encounter
--- OUTSIDE RECORDS SUMMARY | 2024-07-17 00:43 | External Medical Summary ---
Author Name Unknown Address Unknown Organization [id number]:[facility] [place] [address] Laboratory Report Ordering Provider Test Date Status KIP HARDING 07/13/2024 10:30:41 Final Observation Date Value Abnormality Reference (Units ) Status SYNC LEUKOCYTES IN BLOOD BY AUTOMATED COUNT 07/13/2024 10:30:41 4.71 4.00-10.80 (K/uL) Final Segs 07/13/2024 10:30:41 57.0 40.0-75.0 (%) Final Lymphs % 07/13/2024 10:30:41 29.1 18.0-42.0 (%) Final Monos 07/13/2024 10:30:41 12.7 Above high normal 1.0-11.0 (%) Final Eosinophils 07/13/2024 10:30:41 0.4 0.0-6.0 (%) Final Basos 07/13/2024 10:30:41 0.8 0.0-2.0 (%) Final Absolute Segs 07/13/2024 10:30:41 2.68 1.80-7.70 (K/uL) Final Lymphs, absolute 07/13/2024 10:30:41 1.37 1.00-4.80 (K/ul) Final Monos, Abs 07/13/2024 10:30:41 0.60 0.00-1.10 (K/uL) Final Eos, Abs 07/13/2024 10:30:41 0.02 0.00-0.70 (K/uL) Final Basos, Abs 07/13/2024 10:30:41 0.04 0.00-0.20 (K/uL) Final Performing Location [facility] [place] [address]
--- OUTSIDE RECORDS SUMMARY | 2024-07-17 00:43 | External Medical Summary ---
Author Name Unknown Address Unknown Organization [id number]:[facility] [place] [address] [facility] [address] Laboratory Report Ordering Provider Test Date Status KIP HARDING 07/13/2024 13:49:49 Final Observation Date Value Abnormality Reference (Units ) Status Campylobacter sp DNA.diarrheagenic [Presence] in Stool by CRISTINA with probe detection 07/13/2024 13:49:49 Negative Negative Final Salmonella sp rpoD gene [Presence] in Stool by CRISTINA with probe detection 07/13/2024 13:49:49 Negative Negative Final Shigella species+EIEC invasion plasmid antigen H ipaH gene [Presence] in Stool by CRISTINA with probe detection 07/13/2024 13:49:49 Negative Negative Final Vibrio sp DNA [Identifier] in Specimen by CRISTINA with probe detection 07/13/2024 13:49:49 Negative Negative Final Yersinia enterocolitica recN gene [Presence] in Stool by CRISTINA with probe detection 07/13/2024 13:49:49 Negative Negative Final Escherichia coli Stx1 toxin stx1 gene [Presence] in Stool by CRISTINA with probe detection 07/13/2024 13:49:49 Negative Negative Final Escherichia coli Stx2 toxin stx2 gene [Presence] in Stool by CRISTINA with probe detection 07/13/2024 13:49:49 Negative Negative Final Norovirus genogroups I and II RNA panel - Stool by CRISTINA with probe detection 07/13/2024 13:49:49 Negative Negative Final Rotavirus A RNA [Presence] in Stool by CRISTINA with probe detection 07/13/2024 13:49:49 Negative Negative Final Performing Location [facility] [place] [address] [facility] [address]
--- OUTSIDE RECORDS SUMMARY | 2024-07-17 00:43 | External Medical Summary ---
Author Name Unknown Address Unknown Organization [id number]:[facility] [place] [address] [place] [address] Laboratory Report Ordering Provider Test Date Status KIP HARDING 07/13/2024 13:49:49 Final Observation Date Value Abnormality Reference (Units) Status Bacteria identified in Specimen by Culture 07/13/2024 13:49:49 No Aeromonas species or Plesiomonas species isolated. Final Test: Gastrointestinal Patho gen Panel Culture
Specimen Source: Stool
Specimen Type: Stool
Specimen Date: 07/13/2024 1349
Result Date: 07/16/2024 1134
Result Status: Final result
Resulting Lab: [facility] [place]
[address]
[place] [id number]

CULTURE

No Aeromonas species or Plesiomonas species isolated.

null Performing Location [facility] [place] [address] [place] [phone]
--- OUTSIDE RECORDS SUMMARY | 2024-07-17 00:43 | External Medical Summary ---
Author Name Unknown Address Unknown Organization K09:[facility] [place] [address] Laboratory Report Ordering Provider Test Date Status KIP HARDING 07/13/2024 10:30:41 Final Observation Date Value Abnormality Reference (Units ) Status WBC, Total 07/13/2024 10:30:41 4.71 4.00-10.8 0 (K/uL) Final RBC 07/13/2024 10:30:41 4.66 4.50-5.25 (M/uL) Final Hemoglobin 07/13/2024 10:30:41 16.1 14.0-16.8 (g/dL) Final HCT 07/13/2024 10:30:41 44.7 40.0-48.4 (%) Final MCV 07/13/2024 10:30:41 95.9 82.0-99.5 (fL) Final MCH 07/13/2024 10:30:41 34.5 27.0-34.0 (pg) Final MCHC 07/13/2024 10:30:41 36.0 32.0-36.0 (g/dL) Final RDW 07/13/2024 10:30:41 12.5 11.5-15.5 (%) Final Platelets 07/13/2024 10:30:41 239 140-400 (K /uL) Final MPV 07/13/2024 10:30:41 8.5 6.6-11.1 ( fL) Final Performing Location [facility] [place] [address]
--- OUTSIDE RECORDS SUMMARY | 2024-07-17 00:43 | External Medical Summary ---
Author Name Unknown Address Unknown Organization K01:[facility] [place] - [address] [place] [address] Laboratory Report Ordering Provider Test Date Status KIP HARDING 07/13/2024 10:30:41 Final Observation Date Value Abnormality Reference (Units ) Status Alpha-Fetoprotein 07/13/2024 10:30:41 6.7 0. 0-8.3 (ng/mL) Final Performing Location [facility] - [address] [place] [address]
--- OUTSIDE RECORDS SUMMARY | 2024-07-17 00:43 | External Medical Summary | Summary of Care ---
Author Name Unknown Organization [facility] Address [address] [place] [address] Phone [phone] Care Team Providers Care Loss Prevention Research Engineer Name Role Phone Selina Miller MD Primary Care Provider [phone] Reason for Visit * Reason Onset Date Comments Appointment 07/07/2024 Phlebotomy Encounter Details Date Type Department Care Team (Late st Contact Info) Description 07/07/2024 Telephone Hematology/Oncology [facility] [place] [address] [place] [address] Services, Scheduling [address] [place] [address] Appointment (Phlebotomy) Allergies No known active allergiesdocumented as of this encounter (statuses as of 07/08/2024) Medications Medication Sig Dispensed Refills Start Date [...] as of this encounter (statuses as of 07/08/2024) Active Problems Problem Noted Date Diagnosed Date [...] as of this encounter (statuses as of 07/08/2024) Immunizations Name Administration Dates Next Due Hepatitis [...] Telephone Encounter - Paul Myers OSA - 07/08/2024 8:12 AM EDT Patient scheduled. aware * Telephone Encounter - Raman [place] RN - 07/07/2024 4:02 PM EDT Scheduling- please call patients to reschedule follow up with Gabriela pascual to schedule phlebotomy the same day or separate day per patient preference --- 1 hour treatment "phlebotomy" (Fátima Fontenot). * Telephone Encounter - Melvi Seymour OSA - 07/07/2024 3:47 PM EDT We received a call from Johnathon's Ama. She was asking him to get rescheduled for his New Returnappointment as well has the Phlebotomy he missed back on 05/18/24. Please give Ama a call back at your earliest convenience. She can be reached at [phone]. Thank you! documented in this encounter Plan of Treatment Upcoming Encounters Date Type Department Care Team (Late st Contact Info) Description 07/13/2024 10:00 AM EDT Office Visit Hematology/Oncology [address] [place] [phone] Olivia Fontenot CRNP [address] [facility] [place] [address] 07/13/2024 11:00 AM EDT Hem/Onc Treatment Hematology/Oncology Treatment, [place] [address] [place] [phone] Darcie, Chair 1 Hem Onc [facility] [address] [facility] [place] [address] 08/10/2024 4:00 PM EST Office Visit General Internal Medicine [facility] [place] [address] [facility] [address] [place] [address] Selina Miller MD [address] [facility] [place] [id number] Scheduled Procedures Name Priority Associated Diagnoses Date/Ti [...] filedocumented as of this encounter Care Teams Loss Prevention Research Engineer Relationship Specialty Start Date End Date Selina Miller MD [address] [facility] [place] [address] PCP - General Internal Medicine 08/22/16 documented as of this encounter
--- OUTSIDE RECORDS SUMMARY | 2024-07-17 00:43 | External Medical Summary | Summary of Care ---
Author Name Unknown Organization [facility] Address [address] [place] [address] Phone [phone] Care Team Providers Care Roastmaster Name Role Phone Selina Miller MD Primary Care Provider [phone] Reason for Visit * Reason Comments Physical-Exam Encounter Details Date Type Department Care Team (Latest Contact Info) Description 05/05/2024 3:20 PM EDT Office Visit General Internal Medicine [address] [address] [place] [address] [place] [address] Selina Miller MD [address] [place] [address] Routine medical exam*; History of gastric ulcer; Alcohol use disorder; Hereditary hemochromatosis (HCC); FH: hemochromatosis; History of colonoscopy with polypectomy; Need for hepatitis C screening test; Tobacco use disorder; FH: prostate cancer; Screening for prostate cancer; Need for pneumococcal vaccination; Need for shingles vaccine; Hepatitis B vaccination status unknown; Hyponatremia; Abnormal AST and ALT; Macrocytosis without anemia; Tinea versicolor; Abnormal breath sounds; Multiple joint pain Allergies No known active allergiesdocumented as of this encounter (statuses as of 05/23/2024) Medications Medication Sig Dispensed Refills Start Date End Date Status Pantoprazole Sodium 40 MG Oral Tablet Delayed Release (Protonix)Indica tions:History of gastric ulcer,Alcohol use disorder Take 1 Tablet by mouth in the morning. One pill by mouth once a day 1 hour before the first meal of the day--till done with 40 mg and then dec to 20mg daily. 05/05/2024 Active Thiamine HCl 100 MG Oral Tablet (vitamin B-1)Indications: Alcohol use disorder,Macrocy tosis without anemia Take 1 Tablet by mouth in the morning. 90 Tablet 1 05/05/2024 Active Selenium Sulfide 2.25 % External ShampooIndicatio ns:Tinea versicolor Apply to affected areas , leave on for 10 minutes then rinse off , use daily x 7 days, then as needed 180 mL 1 05/05/2024 Active Pantoprazole Sodium 40 MG Oral Tablet Delayed Release (Protonix) TAKE 1 TABLET BY MOUTH TWICE DAILY 60 Tablet 1 03/21/2024 4 Discontinued Thiamine HCl 100 MG Oral Tablet (vitamin B-1) Take 1 Tablet by mouth in the morning. 30 Tablet 04/09/2024 4 Discontinued(Refi ll) documented as of this encounter (statuses as of 05/23/2024) Active Problems Problem Noted Date Diagnosed Date [...] as of this encounter (statuses as of 05/23/2024) Immunizations Name Administration Dates Next Due Hepatitis [...] to 3-6 beers 2/wk-is getting counseling at [facility] 05/21 Utilities Answer Date Recorded Do you [...] Sign Reading Time Taken Comments Blood Pressure 118/78 05/05/2024 3:13 PM EDT Pulse 89 05/05/2024 3:13 PM EDT Temperature 36.7 C (98 F) 05/05/2024 3:13 PM EDT Respiratory Rate 18 05/05/2024 3:13 PM EDT Oxygen Saturation 97% 05/05/2024 3:13 PM EDT Inhaled Oxygen Concentration - - Weight 73 kg (161 lb) 05/05/2024 3:13 PM EDT Height - - Body Mass Index 25.6 04/01/2024 2:55 PM EDT documented in this encounter Progress Notes * Selina Miller MD - 05/05/2024 3:24 PM EDT SUBJECTIVE: Johnathon Warner is a 53 year old male. Chief Complaint Patient presents with Physical-Exam HPI: Patient presents today for reestablish care Wt Readings from Last 4 Encounters: 05/05/24 73 kg (161 lb) 04/01/24 79.4 kg (175 lb) 01/28/24 73.3 kg (161 lb 8 oz) 09/22/18 68.2 kg (150 lb 6.4 oz) BP Readings from Last 4 Encounters: 05/05/24 118/78 04/14/24 126/84 01/28/24 130/80 09/22/18 139/95 Patient was last seen by me in November 2016. Seen 01/28/24 hospital f/u 12/13/2023-12/16/2023 for alcohol intoxication, GI bleed Patient with a history of hemochromatosis, family history of hemochromatosis;alcohol abuse disorder, tobacco use disorder, history of hypertriglyceridemia. Presented to the hospital with 2 days of coffee-ground emesis, melena, abdominal pain. He had been drinking from 6-10 beers a day, was also taking ibuprofen for some back pain, not had a phlebotomy in the last 5 years Initial hemoglobin was 11.8 dropped to 7, CT abdomen and pelvis showed no acute findings, tiny gallbladder polyp unchanged from prior, elevated LFT and hyponatremia which resolved at the time of leaving the hospital,he left AMA . EGD 12/15/2023 esophagus was normal, evidence of gastritis which was biopsied, nonbleeding gastric ulcer and erythema of the duodenum, recommended GI follow-up in one-month, repeat EGD in 12 weeks- biopsy showed mild chronic gastritis H pylori negative. Also to follow up with Hematology Oncology after discharge Discharged on Protonix 40 mg twice a day, multivitamin folic acid, thiamine 100 mg, Librium 25 mg three times daily for 1 day twice a day for 1 day and 1 for 2 days. Alcohol cessation counseling was given, patient had refused inpatient rehab. She is self-pay but states currently in the process of applying for assistance. Currently with no abdominal pain, tolerating a regular diet no blood in the stool or black stools discussed joining AA and attending meetings, to also call the local drug and alcohol rehab for additional assistance. 04/14/2024-Colonoscopy- 5 mm polyp transverse colon,-TAP- internal hemorrhoids, repeat in 5 years 04/14/2425-KDP-cclasj, may reduce Protonix to 20 mg daily 04/13/24-Iron stores very very high with ferritin 2037, saturation iron 100%, abnormal AST/ALT 118/102,-appointment with Hematology Oncology was canceled in February, reschedule [facility] and schedule phlebotomy. Normal CBC with MCV 100.9,nml B12, folate, lipids, - BMP with sodium 134 Was in rehab in 2019 and had followed up with [facility], advised to reschedule appointment there Appetite is good.Weight stable No headache,URI symptoms, vision changes No neck pain/swelling, chest pain, palpitations, shortness of breath, leg edema No nausea,vomiting,heartburn, constipation or diarrhea, blood in the stool or black stool, abdominal pain. No blood in the urine, no urinary problems. No night sweats, no unusual bleeding/bruising, and no swollen nodes. No excessive thirst Or urination . Noted skin lesion during exam, says had for many yrs, worsens in summer C/o joint pain or swelling. -hands, knees.-likely from untreated HC, discussed risk of CM Denies feelings of depression or anxiety, sleeps good. No snoring/ physician office specialist headache/excessive daytime sleepiness or fatigue Hemoglobin Results: Lab Results Component Value Date/Time HGB 15.2 04/13/2024 11:38 AM HGB 15.3 09/22/2018 01:43 PM HGB 14.6 09/16/2017 03:22 PM HGB 14.1 08/19/2017 03:29 PM TSH Results: Lab Results Component Value Date/Time TSH - [facility] 1.28 08/01/2016 04:00 PM Lipid Panel Results: Results for orders placed or performed in visit on 08/01/16 LIPID PANEL Result Value Ref Range HOURS FASTING 12 hours Triglycerides 211 (H) <200 mg/dL Cholesterol 213 (H) <200 mg/dL HDL Cholesterol 89 >39 mg/dL Cholesterol-HDL Ratio 2.4 LDL Cholesterol 82 0 - 129 mg/dL Results for orders placed or performed in visit on 04/13/24 LIPID PANEL WITH DIRECT LDL IF TG IS HIGH Result Value Ref Range Triglycerides 95 <=174 mg/dL Cholesterol 179 <200 mg/dL HDL Cholesterol 100 >39 mg/dL Non-HDL Cholesterol 79 <=159 mg/dL LDL Cholesterol 60 <=129 mg/dL ALT Results: Lab Results Component Value Date/Time ALT - [facility] 102 (H) 04/13/2024 11:38 AM ALT - [facility] 9 (L) 09/22/2018 01:43 PM ALT - [facility] 31 08/01/2016 04:00 PM AST Results: Lab Results Component Value Date/Time AST - [facility] 118 (H) 04/13/2024 11:38 AM AST - [facility] 20 09/22/2018 01:43 PM AST - [facility] 42 08/01/2016 04:00 PM Component Latest Ref Rng 09/22/2018 04/13/2024 BUN 6 - 20 mg/dL 5 (L) Creatinine 0.6 - 1.2 mg/dL 0.8 Estimated Glomerular Filtration Rate >=60 mL/min >90 Sodium 135 - 146 mmol/L 134 (L) Potassium 3.5 - 5.1 mmol/L 4.5 Chloride 98 - 107 mmol/L 94 (L) CO2 22 - 32 mmol/L 24 Anion Gap 7 - 15 mmol/L 16 (H) Glucose 70 - 120 mg/dL 93 Albumin 3.8 - 5.0 g/dL 4.8 AST 10 - 50 U/L 118 (H) Alkaline Phosphatase 35 - 130 U/L 103 Bilirubin, Total <=1.2 mg/dL 1.0 Calcium 8.4 - 10.2 mg/dL 9.9 Protein 6.0 - 8.3 g/dL 7.3 ALT 10 - 50 U/L 102 (H) Iron 45 - 176 ug/dL 249 (H) Iron Binding Capacity 250 - 425 ug/dL 249 (L) Transferrin Saturation Percent 15 - 55 % 100 (H) Ferritin 30 - 400 ng/mL 183.8 2,038 (H) Vitamin B12 232 - 1,245 pg/mL 802 Folic Acid >4.5 ng/mL >20.0 CBC Results: Results for orders placed or performed in visit on 04/13/24 CBC Result Value Ref Range WBC 5.89 4.00 - 10.80 K/uL RBC 4.43 4.50 - 5.25 M/uL HGB 15.2 14.0 - 16.8 g/dL HCT 44.7 40.0 - 48.4 % MCV 100.9 82.0 - 99.5 fL MCH 34.3 27.0 - 34.0 pg MCHC 34.0 32.0 - 36.0 g/dL RDW 12.6 11.5 - 15.5 % PLT 345 140 - 400 K/uL MPV 8.9 6.6 - 11.1 fL nRBCs 0 <=0 /100 WBCs Discussed reg shingrix vaccine- -it is a series of 2 shots -1 now and 2nd in 60- 180 days. ---willing to get Discussed prevnar-willing Discussed about covid booster, flu vaccine this fall. Willing to have hep B S Ab, HCV screening Immunization History Administered Date(s) Administered Hepatitis B, 20+ yrs 01/28/2024 Seasonal Influenza, Quadrivalent, No Preserve, IM 08/20/2016 TDAP (age 10 and older)(Boostrix) 01/28/2024 Patient Active Problem List Diagnosis FH: hemochromatosis Tobacco use disorder Alcohol use disorder Hereditary hemochromatosis (HCC) Current Outpatient Medications Medication Sig Dispense Refill Pantoprazole Sodium 40 MG Oral Tablet Delayed Release (Protonix) TAKE 1 TABLET BY MOUTH TWICE DAILY(Patient taking differently: Take 1 Tablet by mouth in the morning.) 60 Tablet 1 Thiamine HCl 100 MG Oral Tablet (vitamin B-1) Take 1 Tablet by mouth in the morning. 30 Tablet 0 No current facility-administered medications for this visit. Review of patient's allergies indicates: No Known Allergies --per nursing notes patient had refused hepatitis-B vaccine, to correct immunization history Immunization History Administered Date(s) Administered Hepatitis B, 20+ yrs 01/28/2024 Seasonal Influenza, Quadrivalent, No Preserve, IM 08/20/2016 TDAP (age 10 and older)(Boostrix) 01/28/2024 OBJECTIVE: BP 118/78 | Pulse 89 | Temp 36.7 C (98 F) (Tympanic) | Resp 18 | Wt 73 kg (161 lb) | SpO2 97% |BMI 25.60 kg/m | BSA 1.85 m PHYSICAL EXAM: General: alert, healthy, no distress, well nourished and well developed Head: Normocephalic, atraumatic Eye Exam: PERRLA, EOMI, Conjunctiva are pink and non-injected, sclera clear Ears: External ears normal, Canal clear, TM nml Nose: no mucosal erythema, no mucosal edema, no purulent discharge Oropharynx: no exudate and no erythema Neck: supple, no adenopathy, no bruits, no JVD, thyroid normal size, non-tender, without nodularity Lymph: No palpable lymphadenopathy. Heart: regular Rhythm and rate, no murmurs. Lungs: lungs clear to auscultation ex dec BS rt lower lung Abdomen: soft, non-tender, normal bowel sounds, no masses or organomegaly, no bruits Extremities: no edema, no clubbing, no cyanosis Sl enlarged swelling 2,3rd MCP jts Neuro Exam: alert & oriented x 3 with fluent speech, no focal motor/sensory deficits, gait normal Skin: skin color, texture, turgor are normal, Rash c/w TV upper back, mid chest, cubital fossa ASSESSMENT/PLAN: Routine medical exam History of gastric ulcer (Primary) Alcohol use disorder - BASIC METABOLIC PANEL; Future; Expected date: 05/12/2024 - AST; Future; Expected date: 05/12/2024 - ALT; Future; Expected date: 05/12/2024 - HEPATITIS B SURFACE ANTIBODY; Future; Expected date: 05/12/2024 - HEPATITIS C ANTIBODY SCREEN WITH PROGRESSION TO HEPATITIS C RNA QUANTITATIVE; Future; Expected date: 05/12/2024 - Thiamine HCl 100 MG Oral Tablet (vitamin B-1); Take 1 Tablet by mouth in the morning. Hereditary hemochromatosis (HCC) FH: hemochromatosis History of colonoscopy with polypectomy Need for hepatitis C screening test - HEPATITIS C ANTIBODY SCREEN WITH PROGRESSION TO HEPATITIS C RNA QUANTITATIVE; Future; Expected date: 05/12/2024 Tobacco use disorder FH: prostate cancer - PSA; Future; Expected date: 05/12/2024 Screening for prostate cancer - PSA; Future; Expected date: 05/12/2024 Need for pneumococcal vaccination - PNEUMOCOCCAL VACC, PCV20, IM ([id number]); Future; Expected date: 05/12/2024 Need for shingles vaccine - ZOSTER VACCINE RECOMB, 2 DOSE, IM (SHINGRIX); Future; Expected date: 05/12/2024 Hepatitis B vaccination status unknown - HEPATITIS B SURFACE ANTIBODY; Future; Expected date: 05/12/2024 Hyponatremia - BASIC METABOLIC PANEL; Future; Expected date: 05/12/2024 Abnormal AST and ALT - BASIC METABOLIC PANEL; Future; Expected date: 05/12/2024 - AST; Future; Expected date: 05/12/2024 - ALT; Future; Expected date: 05/12/2024 Macrocytosis without anemia - Thiamine HCl 100 MG Oral Tablet (vitamin B-1); Take 1 Tablet by mouth in the morning. Tinea versicolor - Selenium Sulfide 2.25 % External Shampoo; Apply to affected areas , leave on for 10 minutes thenrinse off , use daily x 7 days, then as needed Abnormal breath sounds - XR CHEST 2 VIEWS; Future; Expected date: 05/05/2024 Multiple joint pain Advised to follow healthy diet, and to exercise regularly atleast 30 minutes 3 x/wk . Apply suncreen SPF>30; 30 min prior to going out in sun Recommend annual flu vaccine in the fall and being uptodate on adult immunizations. Vaccines as above Ct PPI daily, thiamine, to stop drinking etoh, f/u at [facility] to consider medications for alc abuse and ongoing counseling Jt pain Likely sec to untreated HC, discussed importance of phlebotomy and f/u hem onc Labs in 1 week. Cxr today Rx TV as above Follow Up: Return in about 3 months (around 08/05/2024), or if symptoms worsen or fail to improve, for Return with Physician. | For: Return with Physician | Check-out note: NF labs in 1 week Nohelia appt hemonc COURTNEY Sign ROR all labs, CT scan, EKG tracing [facility] december admission (This note was completed using the dictation program Fluency Direct. As such, there may be misspellings, word substitutions, or other variations that should not change the essence of the clinical content of this encounter note. If there is need for further clarification, please direct questions to the provider listed above.) Patient and / caregiver verbalizes understanding of above instructions and agrees with plan of care. Selina Miller MD 05/05/2024 documented in this encounter Nursing Notes * Alessandra Albright LPN - 05/05/2024 3:10 PM EDT Johnathon Warner presents for annual physical exam. Medications & HM reviewed. Discuss if there is any health maintenance things he needs to do now being over 50 Parents and several aunts and uncles have had different forms of cancer. He is wondering if he soulbe concerned about cancer as he gets older. documented in this encounter Plan of Treatment Upcoming Encounters Date Type Department Care Team (Late st Contact Info) Description 08/10/2024 4:40 PM EST Office Visit General Internal Medicine [facility] [place] [address] [place] [address] Selina Miller MD [address] [facility] [place] [address] Scheduled Orders Name Type Priority Associated Diagnoses Orde r Schedule BASIC METABOLIC PANEL Lab Routine Alcohol use disorder Hyponatremia Abnormal AST and ALT Expected: 05/12/2024 (Approximate), Expires: 05/05/2025 PSA Lab Routine FH: prostate cancer Screening for prostate cancer Expected: 05/12/2024 (Approximate), Expires: 05/05/2025 AST Lab Routine Alcohol use disorder Abnormal AST and ALT Expected: 05/12/2024 (Approximate), Expires: 05/05/2025 ALT Lab Routine Alcohol use disorder Abnormal AST and ALT Expected: 05/12/2024 (Approximate), Expires: 05/05/2025 HEPATITIS B SURFACE ANTIBODY Lab Routine Alcohol use disorder Hepatitis B vaccination status unknown Expected: 05/12/2024 (Approximate), Expires: 05/05/2025 HEPATITIS C ANTIBODY SCREEN WITH PROGRESSION TO HEPATITIS C RNA QUANTITATIVE Lab Routine Alcohol use disorder Need for hepatitis C screening test Expected: 05/12/2024 (Approximate), Expires: 06/05/2025 Scheduled Procedures Name Priority Associated Diagnoses Date/Ti me COLONOSCOPY FLEXIBLE PROXIMA L DIAGNOSTIC Recall History of colonic polyps Health Maintenance Due Date Last Done Comments HIV Screening 1985 Hepatitis C Screening 1988 Cologuard 2015 Fecal Occult Blood Test 2015 Sigmoidoscopy 2015 Depression Screening 04/24/2018 04/24/2017 COVID-19 Vaccine (2022-2 4 season) 2023 Hepatitis B Vaccine (2 [...] Not on filedocumented as of this encounter Results * XR CHEST 2 VIEWS (05/05/2024 4:43 PM EDT) Anatomical Region Laterality Modality Chest Computed Radiogr aphy 05/06/2024 6:17 PM EDT Impressions 05/06/2024 6:14 PM EDT IMPRESSION No active disease. Narrative 05/06/2024 6:14 PM EDT EXAM XR CHEST 2 VIEWS - 05/05/2024 4:43 pm HISTORY "dec bs rt base" TECHNIQUE Frontal and lateral views of the chest were obtained. COMPARISON None. FINDINGS The lungs are clear. There is no pleural effusion or pneumothorax. The cardiomediastinal silhouette is within normal limits. Procedure Note René Acharya MD - 05/06/2024 EXAM XR CHEST 2 VIEWS - 05/05/2024 4:43 pm HISTORY "dec bs rt base" TECHNIQUE Frontal and lateral views of the chest were obtained. COMPARISON None. FINDINGS The lungs are clear. There is no pleural effusion or pneumothorax. Thecardiomediastinal silhouette is within normal limits. IMPRESSION IMPRESSION No active disease. Selina Miller MD RADIOLOGY (RAD GENER AL) documented in this encounter Visit Diagnoses Diagnosis Routine medical exam- Primary Routine general medical examination at a health care facility History of gastric ulcer Personal history of other diseases of digestive system Alcohol use disorder Hereditary hemochromatosis (HCC) Hereditary hemochromatosis FH: hemochromatosis Family history of other endocrine and metabolic diseases History of colonoscopy with polypectomy Other postprocedural status Need for hepatitis C screening test Special screening examination for other specified viral diseases Tobacco use disorder FH: prostate cancer Family history of malignant neoplasm of prostate Screening for prostate cancer Special screening for malignant neoplasm of prostate Need for pneumococcal vaccination Need for prophylactic vaccination against streptococcus pneumoniae (pneumococcus) Need for shingles vaccine Need for prophylactic vaccination and inoculation against other viral diseases Hepatitis B vaccination status unknown Hyponatremia Hyposmolality and/or hyponatremia Abnormal AST and ALT Nonspecific elevation of levels of transaminase or lactic acid dehydrogenase (LDH) Macrocytosis without anemia Other specified diseases of blood and blood-forming organs Tinea versicolor Pityriasis versicolor Abnormal breath sounds Abnormal chest sounds Multiple joint pain Pain in joint, multiple sites Abnormal breath sounds Abnormal chest sounds documented in this encounter Care Teams Roastmaster Relationship Specialty Start Date End Date Selina Miller MD [address] [place] [address] [place] [address] PCP - General Internal Medicine 08/22/16 documented as of this encounter
--- OUTSIDE RECORDS SUMMARY | 2024-07-17 00:43 | External Medical Summary | Summary of Care ---
Author Name Unknown Organization [facility] Address [address] [place] [address] Phone [phone] Care Team Providers Care Panel Installer Name Role Phone Selina Miller MD Primary Care Provider [phone] Reason for Visit * Reason Comments Outpatient Testing Encounter Details Date Type Department Care Team (Latest Contact Info) Description 05/19/2024 1:00 PM EDT Laboratory Laboratory [facility] [address] [place] [id number] [facility] Lab [facility] [address] [facility] [place] [address] Hereditary hemochromatosis (HCC) Allergies No known active [...] Office Visit General Internal Medicine [address] [place] [address] [facility] [place] [address] Selina Miller MD 200 [facility] [place] [address] Pending Results Name Type Priority Associated Diagnoses Date /Time FERRITIN Lab STAT Hereditary hemochromatosis (HCC) 05/19/2024 1:01 PM EDT Scheduled Procedures Name Priority Associated [...] Date/Time Associated Diagnosis Comments DIFFERENTIAL, AUTOMATED STAT 05/19/2024 1:01 PM EDT Hereditary hemochromatosis (HCC) CBC STAT 05/19/2024 1:01 PM EDT Hereditary hemochromatosis (HCC) CBC STAT 05/19/2024 1:01 PM EDT Hereditary hemochromatosis (HCC) documented in this encounter Results * (ABNORMAL) DIFFERENTIAL, AUTOMATED (05/19/2024 1:01 PM EDT) WBC 4.41 4.00 - 10.80 K/uL 05/19/2024 1:09 PM EDT [facility] 56-02 Neutrophils % 55.3 40.0 - 75.0 % 05/19/2024 1:09 PM EDT [facility] 56-02 Lymphocytes % 25.2 18.0 - 42.0 % 05/19/2024 1:09 PM EDT [facility] 56-02 Monocytes % 18.1(H) 1.0 - 11.0 % 05/19/2024 1:09 PM EDT [facility] 56-02 Eosinophils % 0.5 0.0 - 6.0 % 05/19/2024 1:09 PM EDT [facility] 56- Basophils % 0.9 0.0 - 2.0 % 05/19/2024 1:09 PM EDT [facility] 56- Absolute Neutrophils 2.44 1.80 - 7.70 K/uL 05/19/2024 1:09 PM EDT [facility] 56- Absolute Lymphocytes 1.11 1.00 - 4.80 K/ul 05/19/2024 1:09 PM EDT [facility] 56- Absolute Monocytes 0.80 0.00 - 1.10 K/uL 05/19/2024 1:09 PM EDT [facility] 56- Absolute Eosinophils 0.02 0.00 - 0.70 K/uL 05/19/2024 1:09 PM EDT [facility] 56- Absolute Basophils 0.04 0.00 - 0.20 K/uL 05/19/2024 1:09 PM EDT [facility] 56 Blood Venous blood specimen / Unknown Venipuncture / Unknown 05/19/2024 1:01 PM EDT 05/19/2024 1:01 PM EDT Olivia [facility] LAB BLOOD ORDER MAX [facility] [address] [place] [address] * CBC (05/19/2024 1:01 PM EDT) WBC 4.41 4.00 - 10.80 K/uL 05/19/2024 1:09 PM EDT [facility] 56 RBC 4.70 4.50 - 5.25 M/uL 05/19/2024 1:09 PM EDT [facility] 56- HGB 16.5 14.0 - 16.8 g/dL 05/19/2024 1:09 PM EDT [facility] 56 HCT 46.7 40.0 - 48.4 % 05/19/2024 1:09 PM EDT [facility] 56 MCV 99.4 82.0 - 99.5 fL 05/19/2024 1:09 PM EDT [facility] 56- MCH 35.1 27.0 - 34.0 pg 05/19/2024 1:09 PM EDT [facility] 56 MCHC 35.3 32.0 - 36.0 g/dL 05/19/2024 1:09 PM EDT [facility] 56 RDW 12.3 11.5 - 15.5 % 05/19/2024 1:09 PM EDT [facility] 56 PLT 275 140 - 400 K/uL 05/19/2024 1:09 PM EDT [facility] 56 MPV 8.6 6.6 - 11.1 fL 05/19/2024 1:09 PM EDT [facility] 56 Blood Venous blood specimen / Unknown Venipuncture / Unknown 05/19/2024 1:01 PM EDT 05/19/2024 1:01 PM EDT Olivia [facility]ER LAB BLOOD ORDER MAX [facility] [address] [facility] [address] documented in this encounter Visit Diagnoses Diagnosis Hereditary hemochromatosis (HCC) Hereditary hemochromatosis documented in this encounter Care Teams Panel Installer Relationship Specialty Start Date End Date Selina Miller MD [address] [facility] [place] [address] PCP - General Internal Medicine 08/22/16 documented as of this encounter
--- OUTSIDE RECORDS SUMMARY | 2024-07-17 00:43 | External Medical Summary | Summary of Care ---
Author Name Unknown Organization [facility] Address [address] [place] [address] Phone [phone] Care Team Providers Care Clinic Office Assistant Name Role Phone Selina Miller MD Primary Care Provider [phone] Reason for Visit * Reason Comments Procedure Infusion IV hydration/Phlebot rush Encounter Details Date Type Department Care Team (Latest Contact Info) Description 07/13/2024 11:00 AM EDT Hem/Onc Treatment Hematology/Oncolog y Treatment, [place] [address] [place] [address] Darcie, Chair [address] [address] Hereditary hemochromatosis (HCC)*; Dehydration; Diarrhea, [...] to 3-6 beers 2/wk-is getting counseling at [facility] 05/21, had DUI 02/18 documented as [...] 07/19/2024 11:00 AM EDT Laboratory Laboratory [facility] [place] [address] [place] [address] Darcie, Lab Scenery [address] [facility] [place] [address] 07/20/2024 9:00 AM EDT Hem/Onc Treatment [facility], [place] [facility] [address] Darcie, Chair 9 Hem Onc Scenery [address] [place] [address] 07/26/2024 11:00 AM EDT Laboratory Laboratory [facility] Darcie [place] [address] [place] [address] Darcie, Lab Scenery [address] [facility] [place], [place] [address] 07/27/2024 11:00 AM EDT Hem/Onc Treatment Hematology/Oncology Treatment, [place] 200 [facility] [place] [address] Darcie, Chair 11 Hem Onc Scenery [address] [place] [address] 08/02/2024 11:00 AM EDT Laboratory Laboratory [facility] Darcie [place] [address] [place] [address] Darcie, Lab Scenery [address] [facility] [address] 08/03/2024 11:00 AM EDT Hem/Onc Treatment Hematology/Oncology Treatment, [place] [facility] [address] Darcie, Chair 5 Hem Onc Scenery [address] [place], [place] [address] 08/09/2024 11:00 AM EST Laboratory Laboratory [facility] [place] [address] [place] [phone] Darcie, Lab [facility] 200 [facility] [place] [address] 08/10/2024 11:15 AM EST [facility] [address] [place], [place] [address] Darcie, Chair 8 Hem Onc Scenery 200 [facility] [place] [address] 08/10/2024 4:00 PM EST Office Visit General Internal Medicine [facility] [place] [address] [place] [address] Selina Miller MD [address] [place] [address] 10/12/2024 3:00 PM EST Office Visit Hematology/Oncology [facility] [place] 200 [facility] [place] [address] Olivia Fontenot CRNP [address] [place] [address] Pending Results Name Type Priority Associated Diagnoses [...] documented as of this encounter Care Teams Clinic Office Assistant Relationship Specialty Start Date End Date Selina Miller MD [address] [facility] [place] [address] PCP - General Internal Medicine 08/22/16 documented as of this encounter
--- OUTSIDE RECORDS SUMMARY | 2024-07-17 00:43 | External Medical Summary ---
Author Name Unknown Address Unknown Organization K01:[facility] - [address] [place] [place] [address] Laboratory Report Ordering Provider Test Date Status KIP HARDING 07/13/2024 13:49:49 Final Observation Date Value Abnormality Reference (Units) Status Source 07/13/2024 13:49:49 Liquid Final Clostridioides difficile toxin and [id number] strain DNA panel - Stool by CRISTINA with probe detection 07/13/2024 13:49:49 Negative. No C. difficile toxin B gene DNA detected by PCR (Amplified Probe). Negative Final Performing Location [facility] - [address] [place] [address]
--- OUTSIDE RECORDS SUMMARY | 2024-07-17 00:43 | External Medical Summary | Summary of Care ---
Author Name Unknown Organization [facility] Address [address] [facility] [address] Phone [phone] Care Team Providers Care Toolroom Checker Name Role Phone Selina Miller MD Primary Care Provider [phone] Reason for Visit * Reason Onset Date Comments Pre Op Discussion 02/23/2024 Encounter Details Date Type Department Care Team (Late st Contact Info) Description 02/23/2024 Telephone OR [facility], Operating Room [facility] [address] [place] [phone] Nakia Clements DO [address] [place] [address] Pre Op Discussion Allergies No known active allergiesdocumented as of this encounter (statuses as of 05/24/2024) Medications No known medicationsdocumented as of this encounter (statuses as of 05/24/2024) Active Problems Problem Noted Date Diagnosed Date [...] as of this encounter (statuses as of 05/24/2024) Immunizations Name Administration Dates Next Due Hepatitis B, 20+ yrs 01/28/2024 Seasonal Influenza, Quadrivalent, No Preserve, I M 08/20/2016 TDAP (age 10 and older)(Boostrix) 01/28/2024 documented as of this encounter Social History Tobacco Use Types Packs/Day Years Used Date Smoking Tobacco: Former Smokeless Tobacco: Current Chew Comments:11/22-1.5c/d;07/21-s moked 1p q2wks x 1yr, chews 2 can/d x 34 yrs Alcohol Use Standard Drinks/Week Comments No 0 (1 standard drink = 0.6 oz pure [...] encounter Miscellaneous Notes * Telephone Encounter - Doris Bhatti RN - 02/23/2024 3:30 PM EDT Called patient for pre anesthesia evaluation for upcoming procedure ,no answer. Left message on machine /request return call documented in this encounter Plan of Treatment Upcoming Encounters Date Type Department Care Team (Late st Contact Info) Description 08/10/2024 4:40 PM EST Office Visit General Internal Medicine [facility] [place] [place] 200 [facility] [place] [address] Selina Miller MD 200 [place] [address] Scheduled Procedures Name Priority Associated Diagnoses Date/Ti [...] filedocumented as of this encounter Care Teams Toolroom Checker Relationship Specialty Start Date End Date Selina Miller MD 200 [facility] [place] [address] PCP - General Internal Medicine 08/22/16 documented as of this encounter
--- OUTSIDE RECORDS SUMMARY | 2024-07-17 00:43 | External Medical Summary | Summary of Care ---
Author Name Unknown Organization [facility] Address [address] [facility] [address] Phone [phone] Care Team Providers Care Account Executive Healthcare Name Role Phone Selina Miller MD Primary Care Provider [phone] Reason for Visit * Reason Onset Date Comments Pre Op Discussion 04/01/2024 Encounter Details Date Type Department Care Team (Late st Contact Info) Description 04/01/2024 Telephone OR [facility], Operating Room [facility] [address] [place] [phone] Nakia Clements DO [address] [place] [address] Pre Op Discussion Allergies No known active allergiesdocumented as of this encounter (statuses as of 07/01/2024) Medications No known medicationsdocumented as of this encounter (statuses as of 07/01/2024) Active Problems Problem Noted Date Diagnosed Date [...] as of this encounter (statuses as of 07/01/2024) Immunizations Name Administration Dates Next Due Hepatitis [...] Telephone Encounter - Doris Bhatti RN - 04/01/2024 12:21 PM EDT Called patient for pre anesthesia evaluation for upcoming procedure ,no answer. Left message on machine /request return call /sent My G documented in this encounter Plan of Treatment Upcoming Encounters Date Type Department Care Team (Late st Contact Info) Description 08/10/2024 4:00 PM EST Office Visit General Internal Medicine [place] 200 [place] [address] Selina Miller MD 200 [facility] [place] [address] Scheduled Procedures Name Priority Associated Diagnoses Date/Ti [...] filedocumented as of this encounter Care Teams Account Executive Healthcare Relationship Specialty Start Date End Date Selina Miller MD 200 [facility] [place] [address] PCP - General Internal Medicine 08/22/16 documented as of this encounter
--- OUTSIDE RECORDS SUMMARY | 2024-07-17 00:44 | External Medical Summary | Summary of Care ---
Author Name Unknown Organization [facility] Address [address] [place] [address] Phone [phone] Care Team Providers Care Reaming Machine Operator For Plastic Name Role Phone Selina Miller MD Primary Care Provider [phone] Reason for Visit * Reason Onset Date Comments No Show 05/07/2024 Encounter Details Date Type Department Care Team (Late st Contact Info) Description 05/07/2024 Telephone Hematology/Oncology [facility] [place] 200 [facility] [place] [address] Olivia Fontenot CRNP [address] [place] [address] No Show Allergies No known active allergiesdocumented as of this encounter (statuses as of 05/10/2024) Medications Medication Sig Dispensed Refills Start Date [...] as of this encounter (statuses as of 05/10/2024) Active Problems Problem Noted Date Diagnosed Date [...] to 3-6 beers 2/wk-[facility], had DUI 02/18 documented as of this encounter (statuses as of 05/10/2024) Immunizations Name Administration Dates Next Due Hepatitis [...] encounter Miscellaneous Notes * Telephone Encounter - Sandy Arenas OSA - 05/10/2024 11:19 AM EDT Giselle pt returning call to schedule his phlebotomy appt Please give him a return call at [phone] Thank you * Telephone Encounter - Sherita Moreira OSA - 05/10/2024 9:17 AM EDT Called number in chart and spouse answered and stated" I am pissed that he thinks he can just walk in for this, please call Him to reschedule" She gave me his number Called number provided [phone] Left message * Telephone Encounter - Sherita Moreira OSA - 05/07/2024 11:50 AM EDT My g sent Pt also needs scheduled for Phleb * Telephone Encounter - Anna Arreaga MED ASSIST - 05/07/2024 10:40 AM EDT Please contact patient to reschedule no show appt today with Olivia Fontenot. Thank you. documented in this encounter Plan of Treatment Upcoming Encounters Date Type Department Care Team (Late st Contact Info) Description 08/10/2024 4:40 PM EST Office Visit General Internal Medicine [place] [address] [place] [address] Selina Miller MD 200 [facility] [place] [address] Scheduled Procedures Name Priority Associated Diagnoses Date/Ti [...] filedocumented as of this encounter Care Teams Reaming Machine Operator For Plastic Relationship Specialty Start Date End Date Selina Miller MD 200 [facility] [place] [address] PCP - General Internal Medicine 08/22/16 documented as of this encounter
--- OUTSIDE RECORDS SUMMARY | 2024-07-17 00:44 | External Medical Summary | Summary of Care ---
Author Name Unknown Organization [facility] Address [address] [place] [address] Phone [phone] Care Team Providers Care Crushing Mill Operator Name Role Phone Selina Miller MD Primary Care Provider [phone] Reason for Referral * Evaluate & Treat - Unlimited Visits (Within 10 days (routine)) - Pending Review Specialty Diagnoses / Procedures Referred By Contac t Referred To Contact Hematology/Oncology / Hematology Oncology Diagnoses Hereditary hemochromatosis (HCC) FH: hemochromatosis Selina Miller MD [address] [place] [address] Referral ID Status Reason Start Date Expiration Date Visits Requested Visits Authorized [id number] Pending Review Specialty Services Required 05/03/[phone] Question Answer Referral Priority Within 10 days (routine) Where should this appointment be scheduled? [facility] Reason for Referral Elevated or Low Iron Reason for Visit * Reason Onset Date Comments Appointment 04/17/2024 Encounter Details Date Type Department Care Team (Late st Contact Info) Description 04/17/2024 Telephone Family Practice [facility] 132 [facility] [place] [address] Selina Miller MD [address] [place] [address] Appointment Allergies No known active allergiesdocumented as of this encounter (statuses as of 05/06/2024) Medications Medication Sig Dispensed Refills Start Date End Date Status Pantoprazole Sodium 40 MG Oral Tablet Delayed Release (Protonix) TAKE 1 TABLET BY MOUTH TWICE DAILY 60 Tablet 1 03/21/2024 4 Discontinued Thiamine HCl 100 MG Oral Tablet (vitamin B-1) Take 1 Tablet by mouth in the morning. 30 Tablet 04/09/2024 4 Discontinued(Refi ll) documented as of this encounter (statuses as of 05/06/2024) Active Problems Problem Noted Date Diagnosed Date [...] beers 2/wk-is [facility] 05/21, had DUI 02/18 documented as of this encounter (statuses as of 05/06/2024) Immunizations Name Administration Dates Next Due Hepatitis [...] encounter Miscellaneous Notes * Telephone Encounter - Selina Miller MD - 05/06/2024 11:24 AM EDT Thanks Alessandra. He and his were advised when seen yesterday to schedule appointment with Heme-Onc COURTNEY at checkout. Routing to [facility] * Telephone Encounter - Alessandra Balderrama RN - 05/06/2024 9:[address] Miller: REENA. If patient wants to schedule, he can call us at [phone]. * Telephone Encounter - Sherita Moreira OSA - 05/05/2024 9:23 AM EDT Left message x 3 Again unable to reach pt * Telephone Encounter - Sherita Moreira OSA - 05/04/2024 8:34 AM EDT Left message on both numbers in chart and emergency contact My g sent as well * Telephone Encounter - Sherita Moreira OSA - 05/03/2024 1:50 PM EDT Left message * Addendum Note - Selina Miller MD - 05/03/2024 11:48 AM EDTAddended by: SELINA MILLER on: 05/03/2024 11:48 AM Modules accepted: Orders * Telephone Encounter - Selina Miller MD - 05/03/2024 11:48 AM EDT New referral placed, please try again to schedule * Telephone Encounter - Sherita Moreira OSA - 04/21/2024 8:52 AM EDT 3rd attempt my g sent Letter sent * Telephone Encounter - Sherita Moreira OSA - 04/20/2024 9:03 AM EDT Left message * Telephone Encounter - Sherita Faulkner OSA - 04/19/2024 9:10 AM EDT lmom * Telephone Encounter - Alessandra Balderrama RN - 04/19/2024 7:56 AM EDT Patient last seen 2017. This will need to be scheduled as new patient appt. Scheduling: please call patient to schedule new patient appt- can be with Olivia or any MD (used to see Dr Sargetn, so if MD please offer with him first). Thanks! Patient will need new consent/ phlebotomy order before phlebotomy can be scheduled. * Telephone Encounter - Selina Miller MD - 04/17/2024 3:45 PM EDT Iron stores very very high with ferritin 2037, saturation iron 100%, abnormal AST/ALT-appointment with Hematology Oncology was canceled in February, reschedule COURTNEY and schedule phlebotomy. Normal CBC with MCV 100.9,nml B12, folate, lipids, - BMP with sodium 134, check if he is still drinking alcohol. documented in this encounter Plan of Treatment Upcoming Encounters Date Type Department Care Team (Late st Contact Info) Description 08/10/2024 4:40 PM EST Office Visit General Internal Medicine [facility] 200 [facility] [place] [address] Selina Miller MD 200 [place] [address] Scheduled Procedures Name Priority Associated Diagnoses Date/Ti me COLONOSCOPY FLEXIBLE PROXIMA L DIAGNOSTIC Recall History of colonic polyps Scheduled Referrals Name Type Priority Associated Diagnoses Orde r Schedule HEMATOLOGY/ONCOLOG Y REFERRAL OP Referral Within 10 days (routine) Hereditary hemochromatosis (HCC) FH: hemochromatosis Ordered: 05/03/2024 Health Maintenance Due Date Last Done Comments [...] Diagnosis Hereditary hemochromatosis (HCC)- Primary Hereditary hemochromatosis FH: hemochromatosis Family history of other endocrine and metabolic diseases documented in this encounter Care Teams Crushing Mill Operator Relationship Specialty Start Date End Date Selina Miller MD [address] [place] [address] PCP - General Internal Medicine 08/22/16 documented as of this encounter
--- OUTSIDE RECORDS SUMMARY | 2024-07-17 00:44 | External Medical Summary | Summary of Care ---
Author Name Unknown Organization [facility] Address [address] [place] [address] Phone [phone] Care Team Providers Care Rubber Calender Helper Name Role Phone Selina Miller MD Primary Care Provider [phone] Reason for Visit * Reason Onset Date Comments No Show 05/07/2024 Encounter Details Date Type Department Care Team (Late st Contact Info) Description 05/07/2024 Telephone Hematology/Oncology [facility] [place] 200 [facility] [place] [address] Olivia Fontenot CRNP [address] [place] [address] No Show Allergies No known active allergiesdocumented as of this encounter (statuses as of 05/11/2024) Medications Medication Sig Dispensed Refills Start Date [...] as of this encounter (statuses as of 05/11/2024) Active Problems Problem Noted Date Diagnosed Date [...] to 3-6 beers 2/wk-is getting counseling at [facility] 05/21, had DUI 02/18 documented as of this encounter (statuses as of 05/11/2024) Immunizations Name Administration Dates Next Due Hepatitis [...] Telephone Encounter - Sherita Moreira OSA - 05/11/2024 10:16 AM EDT Pt called back and scheduled provider apt and tx * Telephone Encounter - Sherita Moreira OSA - 05/11/2024 9:18 AM EDT Left message x2 * Telephone Encounter - Sherita Moreira OSA - 05/10/2024 11:50 AM EDT Left message * Telephone Encounter - Sandy Arenas OSA - 05/10/2024 11:19 AM EDT Giselle pt returning call to schedule his phlebotomy appt Please give him a return call at [phone] Thank you * Telephone Encounter - Sherita Moreira OSA - 05/10/2024 9:17 AM EDT Called number in chart and spouse answered and stated" I am pissed that he thinks he can just walk in for this, please call Him to reschedule" She gave me his number Called number provided [phone] Left message * Telephone Encounter - Sherita [...] Team (Late st Contact Info) Description 05/18/2024 1:00 PM EDT Office Visit Hematology/Oncology [address] [place] [phone] Olivia Fontenot CRNP [address] [place] [address] [place] [address] 05/18/2024 2:30 PM EDT Hem/Onc Treatment Hematology[facility], [place] [facility] [address] Darcie, Chair [address] Hem On[address] [place] [address] 08/10/2024 4:40 PM EST Office Visit General Internal Medicine [address] [place] [address] Selina Miller MD [address] [place], [place] [address] [address] Scheduled Procedures Name Priority Associated Diagnoses Date/Ti [...] filedocumented as of this encounter Care Teams Rubber Calender Helper Relationship Specialty Start Date End Date Selina Miller MD [address] [place] [address] PCP - General Internal Medicine 08/22/16 documented as of this encounter
--- OUTSIDE RECORDS SUMMARY | 2024-07-17 00:44 | External Medical Summary | Summary of Care ---
Author Name Unknown Organization [facility] Address [address] [place] [address] Phone [phone] Care Team Providers Care Plumber Supervisor Name Role Phone Selina Miller MD Primary Care Provider [phone] Reason for Visit * Reason Onset Date Comments No Show 05/07/2024 Encounter Details Date Type Department Care Team (Late st Contact Info) Description 05/07/2024 Telephone Hematology/Oncology [facility] [place] [address] [place] [address] Olivia Fontenot CRNP [address] [place] [address] No Show Allergies No known active allergiesdocumented as of this encounter (statuses as of 05/07/2024) Medications Medication Sig Dispensed Refills Start Date [...] as of this encounter (statuses as of 05/07/2024) Active Problems Problem Noted Date Diagnosed Date [...] as of this encounter (statuses as of 05/07/2024) Immunizations Name Administration Dates Next Due Hepatitis [...] encounter Miscellaneous Notes * Telephone Encounter - Anna Arreaga MED ASSIST - 05/07/2024 10:40 AM EDT Please contact patient to reschedule no show appt today with Olivia Fontenot. Thank you. documented in this encounter Plan of Treatment Upcoming Encounters Date Type Department Care Team (Late st Contact Info) Description 05/07/2024 11:00 AM EDT Hem/Onc Treatment Hematology/Oncology Treatment, [address] [place] [address] [place], Chair 4 Hem On[address] [place] [address] 08/10/2024 4:40 PM EST Office Visit General Internal Medicine [facility] [address] [place] [address] Selina Miller MD [address] [place] [address] [place] [address] Scheduled Procedures Name Priority Associated Diagnoses Date/Ti [...] filedocumented as of this encounter Care Teams Plumber Supervisor Relationship Specialty Start Date End Date Selina Miller MD 200 [facility] [place] [address] PCP - General Internal Medicine 08/22/16 documented as of this encounter
--- OUTSIDE RECORDS SUMMARY | 2024-07-17 00:44 | External Medical Summary | Summary of Care ---
Author Name Unknown Organization [facility] Address [address] [place] [address] Phone [phone] Care Team Providers Care Employee Benefits Specialist Name Role Phone Selina Miller MD Primary Care Provider [phone] Reason for Visit * Reason Onset Date Comments Referral 05/03/2024 SP 10-Day Encounter Details Date Type Department Care Team (Late st Contact Info) Description 05/03/2024 New Patient Triage (KEYSEATING MACHINE SET UP OPERATOR USE ONLY) Hematology/Oncology [facility] [address] [place] [address] Olivia Fontenot CRNP [address] [place] [address] Referral (SP 10-Day) Allergies No known active allergiesdocumented as of [...] on file documented as of this encounter Progress Notes * Bettye Roman LPN - 05/06/2024 12:04 PM EDT 2nd attempt to contact patient; unable to leave a message today due to the voicemail box "being full". My G sent. * Bettye Roman LPN - 05/05/2024 12:42 PM EDT Discussed care plan with patient or proxy?: Yes Left message on patient's voicemail. Return number provided. Re: To discuss lab orders and phlebotomy order when scheduling patient. Communicated with patient on Date (mm/dd/yyyy): 05/05/2024 at Time ([facility]): 12:43 PM Additional imaging needed: No Additional imaging orders pended: No Further labs recommended and ordered: Yes Bone Marrow biopsy recommended:No [facility] clinic review recommended: No * Alessandra Balderrama RN - 05/05/2024 9:39 AM EDT [place] plan for phlebotomy built and routed for signature. Labs orders placed. Patient will need labs "CBCd, ferritin" at least 1 day prior to new patient appt/ phlebotomy. * Olivia Fontenot CRNP - 05/04/2024 4:49 PM EDT Hematology New Referral Triage Note 53 y/o male referred for hereditary hemochromatosis. Previous patient of Dr. Sargent. 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 Last seen in 2018. Currently ferritin 2,038 and TSAT 100%. LFTs elevated. Admitted to [facility] in December for alcohol intoxication and GI bleed. He left AMA.No longer anemic. Does patient need to be seen?: Yes Modality: Office visit Urgency: Within 10 days (routine) Can the patient be seen by an advanced practitioner? Yes Are additional labs or studies needed prior to initial visit? Please update CBCd and Ferritin Is an infusion appointment needed after initial visit? Please schedule for therapeutic phlebotomy following new patient visit. Order placed. Will consent patient at appointment. Discussed care plan with patient or proxy?: No Nurse to call. REYMUNDO Schmidt * Bettye Roman LPN - 05/03/2024 12:45 PM EDT Images from the original note were not included. New Patient Triage What is the diagnosis/reason for referral?: Hereditary Hemochromatosis Enter order ID here: [id number] Specialty specific documentation: Hematology/Oncology NEW PATIENT - HEMATOLOGY/ONCOLOGY SPECIALTY TRIAGE Triage needed?: Yes Referring provider name: Dr. Miller Confirmation of diagnosis: Yes TRIAGE PLAN: Baseline/staging imaging complete: No Labs available: Yes Referral to other specialty recommended (ie. Surgery, outpatient infusion): No Additional triage comments: Please review TE from 04/17/2024, Dr. Miller. documented in this encounter Miscellaneous Notes * Addendum Note - Olivia Fontenot CRNP - 05/04/2024 5:02 PM EDTAddended by: OLIVIA FONTENOT on: 05/04/2024 05:02 PM Modules accepted: Orders documented in this encounter Plan of Treatment Upcoming Encounters Date Type Department Care Team (Late st Contact Info) Description 08/10/2024 4:40 PM EST Office Visit General Internal Medicine [place] [address] [facility] [place] [address] Selina Miller MD [address] [facility] [place] [address] Scheduled Procedures Name Priority Associated Diagnoses Date/Ti [...] Diagnosis Hereditary hemochromatosis (HCC)- Primary Hereditary hemochromatosis documented in this encounter Care Teams Employee Benefits Specialist Relationship Specialty Start Date End Date Selina Miller MD [address] [place] [address] PCP - General Internal Medicine 08/22/16 documented as of this encounter
--- OUTSIDE RECORDS SUMMARY | 2024-07-17 00:44 | External Medical Summary | Summary of Care ---
Author Name Unknown Organization [facility] Address [address] [place] [address] Phone [phone] Care Team Providers Care Meat Carver Name Role Phone Selina Miller MD Primary Care Provider [phone] Reason for Visit * Reason Onset Date Comments No Show 05/07/2024 Encounter Details Date Type Department Care Team (Late st Contact Info) Description 05/07/2024 Telephone Hematology/Oncology [facility] [place] 200 [facility] [place] [address] Olivia Fontenot CRNP [address] [place] [address] No Show Allergies No known [...] to 3-6 beers 2/wk-is getting counseling at [facility] 05/21, had DUI 02/18 documented as [...] General Internal Medicine [place] [address] [place] [address] Selina Miller MD [address] [facility] [place] [address] Scheduled Procedures Name Priority Associated Diagnoses Date/Ti [...] filedocumented as of this encounter Care Teams Meat Carver Relationship Specialty Start Date End Date Selina Miller MD [address] [place] [address] PCP - General Internal Medicine 08/22/16 documented as of this encounter
--- OUTSIDE RECORDS SUMMARY | 2024-07-17 00:44 | External Medical Summary ---
Author Name Unknown Address Unknown Organization [facility] - [address] [place] [address] Laboratory Report Ordering Provider Test Date Status MEHDIKIP 05/19/2024 13:01:22 Final Observation Date Value Abnormality Reference (Units ) Status Ferritin 05/19/2024 13:01:22 4394 Above high normal 30 -400 (ng/mL) Final Performing Location [facility] [address] [place] [address]
--- OUTSIDE RECORDS SUMMARY | 2024-07-17 00:44 | External Medical Summary ---
Author Name Unknown Address Unknown Organization [facility] [place] [address] Laboratory Report Ordering Provider Test Date Status KIP HARDING 05/19/2024 13:01:22 Final Observation Date Value Abnormality Reference (Units ) Status SYNC LEUKOCYTES IN BLOOD BY AUTOMATED COUNT 05/19/2024 13:01:22 4.41 4.00-10.80 (K/uL) Final Segs 05/19/2024 13:01:22 55.3 40.0-75.0 (%) Final Lymphs % 05/19/2024 13:01:22 25.2 18.0-42.0 (%) Final Monos 05/19/2024 13:01:22 18.1 Above high normal 1.0-11.0 (%) Final Eosinophils 05/19/2024 13:01:22 0.5 0.0-6.0 (%) Final Basos 05/19/2024 13:01:22 0.9 0.0-2.0 (%) Final Absolute Segs 05/19/2024 13:01:22 2.44 1.80-7.70 (K/uL) Final Lymphs, absolute 05/19/2024 13:01:22 1.11 1.00-4.80 (K/ul) Final Monos, Abs 05/19/2024 13:01:22 0.80 0.00-1.10 (K/uL) Final Eos, Abs 05/19/2024 13:01:22 0.02 0.00-0.70 (K/uL) Final Basos, Abs 05/19/2024 13:01:22 0.04 0.00-0.20 (K/uL) Final Performing Location [facility] [place] [address]
--- OUTSIDE RECORDS SUMMARY | 2024-07-17 00:44 | External Medical Summary | Summary of Care ---
Author Name Unknown Organization [facility] Address [address] [place] [address] Phone [phone] Care Team Providers Care Pilot Supervisor Name Role Phone Selina Miller MD Primary Care Provider [phone] Reason for Visit * Reason Onset Date Comments No Show 05/07/2024 Encounter Details Date Type Department Care Team (Late st Contact Info) Description 05/07/2024 Telephone Hematology/Oncology [facility] [place] [facility] [place] [address] Olivia Fontenot CRNP [address] [place] [address] No Show Allergies No known [...] 2/wk-is getting counseling [facility] 05/21, had DUI 02/18 documented as of [...] Please give him a return call at [phone] Thank you * Telephone Encounter - Sherita Moreira OSA - 05/10/2024 9:17 AM EDT Called number in chart and spouse answered and stated" I am pissed that he thinks he can just walk in for this, please call Him to reschedule" She gave me his number Called number provided [phone] Left message * Telephone Encounter - Sherita [...] PM EST Office Visit General Internal [facility] [place] 200 [facility] [place] [address] Selina Miller MD 200 [facility] [place] [address] Scheduled Procedures Name Priority Associated Diagnoses Date/Ti [...] filedocumented as of this encounter Care Teams Pilot Supervisor Relationship Specialty Start Date End Date Selina Miller MD 200 [facility] [place] [address] PCP - General Internal Medicine 08/22/16 documented as of this encounter
--- OUTSIDE RECORDS SUMMARY | 2024-07-17 00:44 | External Medical Summary | Summary of Care ---
Author Name Unknown Organization [facility] Address [address] [place] [address] Phone [phone] Care Team Providers Care Escapement Matcher Name Role Phone Selina Miller MD Primary Care Provider [phone] Reason for Visit * Reason Onset Date Comments No Show 05/18/2024 Encounter Details Date Type Department Care Team (Late st Contact Info) Description 05/18/2024 Telephone Hematology/Oncology [facility] [place] 200 [facility] [place] [address] Olivia Fontenot CRNP [address] [place] [address] No Show Allergies No known active allergiesdocumented as of this encounter (statuses as of 05/18/2024) Medications Medication Sig Dispensed Refills Start Date [...] as of this encounter (statuses as of 05/18/2024) Active Problems Problem Noted Date Diagnosed Date [...] as of this encounter (statuses as of 05/18/2024) Immunizations Name Administration Dates Next Due Hepatitis [...] Team (Late st Contact Info) Description 05/18/2024 2:30 PM EDT Hem/Onc Treatment Hematology/Oncology Treatment, [address] [place] [address] Darcie, Chair 4 Hem Onc [place] [address] [address] [place] [address] 08/10/2024 4:40 PM EST Office Visit General Internal Medicine [facility] D[place] [place] [address] [address] [place] [address] Selina Miller MD [address] [place] [address] [place] [address] Scheduled Procedures Name Priority Associated Diagnoses Date/Ti [...] filedocumented as of this encounter Care Teams Escapement Matcher Relationship Specialty Start Date End Date Selina Miller MD 200 [facility] [place] [address] PCP - General Internal Medicine 08/22/16 documented as of this encounter
--- OUTSIDE RECORDS SUMMARY | 2024-07-17 00:44 | External Medical Summary | Summary of Care ---
Author Name Unknown Organization [facility] Address [address] [place] [address] Phone [phone] Care Team Providers Care Neuroscientist Name Role Phone Selina Miller MD Primary Care Provider [phone] Reason for Visit * Reason Onset Date Comments Referral 05/03/2024 SP 10-Day Encounter Details Date Type Department Care Team (Late st Contact Info) Description 05/03/2024 New Patient Triage (DIGESTION OPERATOR USE ONLY) Hematology/Oncology [facility] [address] [place] [address] Olivia Fontenot CRNP [address] [place] [address] Referral (SP 10-Day) Allergies No [...] Notes * Bettye Roman LPN - 05/06/2024 2:52 PM EDT Patient's , Ama returned phone call. She states the patient has a history of non-compliance in his care, she reports the patient will not do recommended lab work prior to being seen. She reports the patient is having difficulty "remembering things". She denies the patient has any history of dementia. She is requesting patient be seen "COURTNEY". Offered patient's appointment for tomorrow with REYMUNDO Schmidt at 10:00 am and the Phlebotomy at 11:00 am. Provided her with directions tot SP office, she verbalized understanding. She states she will not be able to come to the appointment with the patient tomorrow. Offered her appointments for Friday05/10/2024, she refused. She states the patient does not require a guardian orcaretaker. She states patient is not cognitively impaired. * Bettye Roman LPN - 05/06/2024 12:04 [...] patient on Date (mm/dd/yyyy): 05/05/2024 at Time ([facility]): 12:43 PM Additional imaging needed: No Additional imaging orders pended: No Further labs recommended and ordered: Yes Bone Marrow biopsy recommended:No [facility] clinic review recommended: No * Alessandra Balderrama RN - 05/05/2024 9:39 AM EDT [place] plan for phlebotomy built and routed for [...] and TSAT 100%. LFTs elevated. Admitted to [facility] in December for alcohol intoxication and GI [...] referral?: Hereditary Hemochromatosis Enter order ID here: [id number] Specialty specific documentation: Hematology/Oncology NEW PATIENT - [...] Team (Late st Contact Info) Description 05/07/2024 10:00 AM EDT Office Visit Hematology/Oncology [address] [place] [address] Olivia Fontenot CRNP [address] [place], [place] [address] [address] 05/07/2024 11:00 AM EDT Hem/Onc Treatment Hematology/Oncology [address], [address] [address] Darcie, Chair [address] Hem On[address] [place] [address] 08/10/2024 4:40 PM EST Office Visit General Internal Medicine [address] [place] [address] Selina Miller MD [address] [place] [address] [place] [address] Scheduled Procedures Name Priority Associated Diagnoses Date/Ti me COLONOSCOPY FLEXIBLE PROXIMA L DIAGNOSTIC Recall History of colonic polyps Health Maintenance Due Date Last Done Comments HIV Screening 1985 Hepatitis C Screening 1988 Cologuard 2015 Fecal Occult Blood Test 2015 Sigmoidoscopy 2015 Depression Screening 04/24/2018 04/24/2017 COVID-19 Vaccine (1 - 2023-2 4 season) 2023 Hepatitis B Vaccine (2 [...] hemochromatosis documented in this encounter Care Teams Neuroscientist Relationship Specialty Start Date End Date Selina Miller MD 200 [facility] [place] [address] PCP - General Internal Medicine 08/22/16 documented as of this encounter
--- OUTSIDE RECORDS SUMMARY | 2024-07-17 00:44 | External Medical Summary | Summary of Care ---
Author Name Unknown Organization [facility] Address [address] [place] [address] Phone [phone] Care Team Providers Care Glass Mould Cleaner Name Role Phone Selina Miller MD Primary Care Provider [phone] Reason for Visit * Reason Onset Date Comments No Show 05/07/2024 Encounter Details Date Type Department Care Team (Late st Contact Info) Description 05/07/2024 Telephone Hematology/Oncology [facility] Darcie [place] [address] [place] [address] Olivia Fontenot CRNP [address] [place] [address] No Show Allergies No known [...] 05/07/2024 11:50 AM EDT My g sent * Telephone Encounter - Anna Arreaga MED ASSIST - 05/07/2024 10:40 AM EDT Please contact patient to reschedule no show appt today with Olivia Fontenot. Thank you. documented in this encounter Plan of Treatment Upcoming Encounters Date Type Department Care Team (Late st Contact Info) Description 08/10/2024 4:40 PM EST Office [facility] [place] [address] [place] [address] Selina Miller MD [address] [place] [address] Scheduled Procedures Name Priority Associated Diagnoses Date/Ti [...] filedocumented as of this encounter Care Teams Glass Mould Cleaner Relationship Specialty Start Date End Date Selina Miller MD [address] [place] [address] PCP - General Internal Medicine 08/22/16 documented as of this encounter
--- OUTSIDE RECORDS SUMMARY | 2024-07-17 00:44 | External Medical Summary | Summary of Care ---
Author Name Unknown Organization [facility] Address [address] [place] [address] Phone [phone] Care Team Providers Care Vocational Training Teacher Name Role Phone Selina Miller MD Primary Care Provider [phone] Reason for Referral * Evaluate & Treat - Unlimited Visits (Within 10 days (routine)) - Pending Review Specialty Diagnoses / Procedures Referred By Contac t Referred To Contact Hematology/Oncology / Hematology Oncology Diagnoses Hereditary hemochromatosis (HCC) FH: hemochromatosis Selina Miller MD [address] [place] [address] Referral ID Status Reason Start Date Expiration Date Visits Requested Visits Authorized [id number] Pending Review Specialty Services Required 05/03/2024 999 [id number] Question Answer Referral Priority Within 10 days (routine) Where should this appointment be scheduled? [facility] Reason for Referral Elevated or [place] Reason for Visit * Reason Onset Date Comments Appointment 04/17/2024 Encounter Details Date Type Department Care Team (Late st Contact Info) Description 04/17/2024 Telephone Family Practice [facility] [address] [facility] [place] [address] Selina Miller MD [address] [place] [address] Appointment Allergies No known active allergiesdocumented as [...] to 3-6 beers 2/wk-is getting counseling at [facility] 05/21, had DUI 02/18 documented as [...] with Heme-Onc COURTNEY at checkout. [facility] * Telephone Encounter - Alessandra Balderrama RN - 05/06/2024 9:[address] Miller: REENA. If patient wants to schedule, he can call us at [phone]. * Telephone Encounter - Sherita Moreira OSA [...] or any MD (used to see Dr Sargent, so if MD please offer with him [...] PM EST Office Visit General Internal Medicine [facility] 200 [facility] [place] [address] Selina Miller MD [address] [place] [address] Scheduled Procedures Name Priority Associated Diagnoses Date/Ti [...] diseases documented in this encounter Care Teams Vocational Training Teacher Relationship Specialty Start Date End Date Selina Miller MD [address] [place] [address] PCP - General Internal Medicine 08/22/16 documented as of this encounter
--- OUTSIDE RECORDS SUMMARY | 2024-07-17 00:44 | External Medical Summary | Summary of Care ---
Author Name Unknown Organization [facility] Address [address] [place] [address] Phone [phone] Care Team Providers Care Customs Compliance Specialist Name Role Phone Selina Miller MD Primary Care Provider [phone] Reason for Referral * Evaluate & Treat - Unlimited Visits (Within 10 days (routine)) - Pending Review Specialty Diagnoses / Procedures Referred By Contac t Referred To Contact Hematology/Oncology / Hematology Oncology Diagnoses Hereditary hemochromatosis (HCC) FH: hemochromatosis Selina Miller MD [address] [place] [address] Referral ID Status Reason Start Date Expiration Date Visits Requested Visits Authorized [id number] Pending Review Specialty Services Required 05/03/[phone] Question Answer Referral Priority Within 10 days (routine) Where should this appointment be scheduled? [facility] Reason for Referral Elevated or Low [place] Reason for Visit * Reason Onset Date Comments Appointment 04/17/2024 Encounter Details Date Type Department Care Team (Late st Contact Info) Description 04/17/2024 Telephone Family Practice [facility] [address] [facility] [place] [address] Selina Miller MD [address] [place] [address] Appointment Allergies No known active allergiesdocumented as [...] to 3-6 beers 2/wk-is getting counseling at [facility] 05/21, had DUI 02/18 documented as [...] encounter Miscellaneous Notes * Telephone Encounter - Yumi Booth MED ASSIST - 05/06/2024 12:28 PM EDT Sherita Moreira sent an unable to reach letter [phone]. * Telephone Encounter - Selina Miller MD - 05/06/2024 11:24 AM EDT Thanks Alessandra. He and his were advised when seen yesterday to schedule appointment with Heme-Onc COURTNEY at checkout. Routing to [facility] * Telephone Encounter - Alessandra Balderrama RN - 05/06/2024 9:[address] Miller: REENA. If patient wants to schedule, he can call us at [phone]. * Telephone Encounter - Sherita Moreira OSA [...] General Internal Medicine [place] [address] [place] [address] [address] Selina Miller MD [address] [place] [address] Scheduled Procedures Name Priority Associated Diagnoses Date/Ti [...] diseases documented in this encounter Care Teams Customs Compliance Specialist Relationship Specialty Start Date End Date Selina Miller MD [address] [place] [address] PCP - General Internal Medicine 08/22/16 documented as of this encounter
--- OUTSIDE RECORDS SUMMARY | 2024-07-17 00:44 | External Medical Summary | Summary of Care ---
Author Name Unknown Organization [facility] Address [address] [place] [address] Phone [phone] Care Team Providers Care Steam Table Attendant Name Role Phone Selina Miller MD Primary Care Provider [phone] Reason for Visit * Reason Onset Date Comments No Show 05/07/2024 Encounter Details Date Type Department Care Team (Late st Contact Info) Description 05/07/2024 Telephone Hematology/Oncology [facility] Darcie [place] [address] [place] [address] Olivia Fontenot CRNP [address] [place] [address] No Show Allergies No known [...] Office Visit General Internal Medicine Carmen [place] [address] [place], [place] [address] Selina Miller MD [address] [place] [address] Scheduled Procedures Name Priority Associated Diagnoses Date/Ti [...] filedocumented as of this encounter Care Teams Steam Table Attendant Relationship Specialty Start Date End Date Selina Miller MD [facility] [place] [address] PCP - General Internal Medicine 08/22/16 documented as of this encounter
--- OUTSIDE RECORDS SUMMARY | 2024-07-17 00:44 | External Medical Summary | Summary of Care ---
Author Name Unknown Organization [facility] Address [address] [place] [address] Phone [phone] Care Team Providers Care Tank Cleaner Name Role Phone Selina Miller MD Primary Care Provider [phone] Reason for Referral * Evaluate & Treat - Unlimited Visits (Within 10 days (routine)) - Pending Review Specialty Diagnoses / Procedures Referred By Contac t Referred To Contact Hematology/Oncology / Hematology Oncology Diagnoses Hereditary hemochromatosis (HCC) FH: hemochromatosis Selina Miller MD [address] [place] [address] Referral ID Status Reason Start Date Expiration Date Visits Requested Visits Authorized [id number] Pending Review Specialty Services Required 05/03/[phone] Question Answer Referral Priority Within 10 days (routine) Where should this appointment be scheduled? [facility] Reason for Referral Elevated or Low Iron Reason for Visit * Reason Onset Date Comments Appointment 04/17/2024 Encounter Details Date Type Department Care Team (Late st Contact Info) Description 04/17/2024 Telephone Family Practice [facility] [address] [facility] [place] [address] Selina Miller MD [address] [place] [address] Appointment Allergies No known active allergiesdocumented as [...] to 3-6 beers 2/wk-is getting counseling at [facility] 05/21, had DUI 02/18 documented as [...] to schedule, he can call us at [phone]. * Telephone Encounter - Sherita Moreira OSA [...] 04/19/2024 7:56 AM EDT Patient last seen 2018. This will need to be scheduled as [...] PM EST Office Visit General Internal Medicine [address] [place] [address] Selina Miller MD 200 [place] [address] Scheduled Procedures Name Priority Associated Diagnoses Date/Ti [...] diseases documented in this encounter Care Teams Tank Cleaner Relationship Specialty Start Date End Date Selina Miller MD 200 [place] [address] PCP - General Internal Medicine 08/22/16 documented as of this encounter
--- OUTSIDE RECORDS SUMMARY | 2024-07-17 00:44 | External Medical Summary | Summary of Care ---
Author Name Unknown Organization [facility] Address [address] [place] [address] Phone [phone] Care Team Providers Care Chain Testing Machine Operator Name Role Phone Selina Miller MD Primary Care Provider [phone] Reason for Visit * Reason Onset Date Comments No Show 05/07/2024 Encounter Details Date Type Department Care Team (Late st Contact Info) Description 05/07/2024 Telephone Hematology/Oncology [facility] [place] [address] [facility] [place] [address] Olivia Fontenot CRNP [address] [place] [address] No Show Allergies No known [...] to 3-6 beers 2/wk-is getting counseling at [facility] 05/21, had DUI 02/18 documented [...] Please give him a return call at [phone] Thank you * Telephone Encounter - Sherita Mroeira OSA - 05/10/2024 9:17 AM EDT Called number in chart and spouse answered and stated" I am pissed that he thinks he can just walk in for this, please call Him to reschedule" She gave me his number Called number provided [phone] Left message * Telephone Encounter - Sherita [...] PM EST Office Visit General Internal [facility] [place] [address] [facility] [place] [address] Selina Miller MD [address] [facility] [place] [address] Scheduled Procedures Name Priority Associated Diagnoses Date/Ti [...] filedocumented as of this encounter Care Teams Chain Testing Machine Operator Relationship Specialty Start Date End Date Selina Miller MD 200 [facility] [place] [address] PCP - General Internal Medicine 08/22/16 documented as of this encounter
--- OUTSIDE RECORDS SUMMARY | 2024-07-17 00:44 | External Medical Summary | Summary of Care ---
Author Name Unknown Organization [facility] Address [address] [place] [address] Phone [phone] Care Team Providers Care Supervisor Rose Grading Name Role Phone Selina Miller MD Primary Care Provider [phone] Reason for Referral * Evaluate & Treat - Unlimited Visits (Within 10 days (routine)) - Pending Review Specialty Diagnoses / Procedures Referred By Contac t Referred To Contact Hematology/Oncology / Hematology Oncology Diagnoses Hereditary hemochromatosis (HCC) FH: hemochromatosis Selina Miller MD [address] [place] [address] Referral ID Status Reason Start Date Expiration Date Visits Requested Visits Authorized [id number] Pending Review Specialty Services Required 05/03/2024 [id number] Question Answer Referral Priority Within 10 days (routine) Where should this appointment be scheduled? [facility] Reason for Referral Elevated or Low Iron Reason for Visit * Reason Onset Date Comments Appointment 04/17/2024 Encounter Details Date Type Department Care Team (Late st Contact Info) Description 04/17/2024 Telephone Family Practice [facility] [address] [facility] [place] [address] Selina Miller MD [address] [place] [address] Appointment Allergies No known active allergiesdocumented as [...] to schedule, he can call us at [phone]. * Telephone Encounter - Sherita Moreira OSA [...] PM EST Office Visit General Internal Medicine [address] [place] [address] Selina Miller MD 200 [place] [address] Scheduled Procedures Name Priority Associated Diagnoses Date/Ti [...] diseases documented in this encounter Care Teams Supervisor Rose Grading Relationship Specialty Start Date End Date Selina Miller MD 200 [place] [address] PCP - General Internal Medicine 08/22/16 documented as of this encounter
--- OUTSIDE RECORDS SUMMARY | 2024-07-17 00:44 | External Medical Summary | Summary of Care ---
Author Name Unknown Organization [facility] Address [address] [place] [address] Phone [phone] Care Team Providers Care Webbing Tacker Name Role Phone Selina Miller MD Primary Care Provider [phone] Reason for Visit * Reason Onset Date Comments No Show 05/07/2024 Encounter Details Date Type Department Care Team (Late st Contact Info) Description 05/07/2024 Telephone Hematology/Oncology [facility] [place] 200 [facility] [place] [address] Olivia Fontenot CRNP [address] [place] [address] No Show Allergies No known [...] to 3-6 beers 2/wk-is getting counseling at [facility] 05/21, had DUI 02/18 documented as [...] Please give him a return call at [phone] Thank you * Telephone Encounter - Sherita [...] EST Office Visit General Internal Medicine [address] [place] [address] Selina Miller MD 200 [place] [address] Scheduled Procedures Name Priority Associated Diagnoses Date/Ti [...] filedocumented as of this encounter Care Teams Webbing Tacker Relationship Specialty Start Date End Date Selina Miller MD 200 [facility] [place] [address] PCP - General Internal Medicine 08/22/16 documented as of this encounter
--- OUTSIDE RECORDS SUMMARY | 2024-07-17 00:44 | External Medical Summary | Summary of Care ---
Author Name Unknown Organization [facility] Address [address] [place] [address] Phone [phone] Care Team Providers Care Front Office Developer Name Role Phone Selina Miller MD Primary Care Provider [phone] Encounter Details Date Type Department Care Team (Late st Contact Info) Description 05/07/2024 Telephone Hematology/Oncology Treatment, [place] [address] [place] [address] Olivia Fontenot CRNP [address] [place] [address] Allergies No known active allergiesdocumented as of [...] Encounter - Sherita Moreira OSA - 05/07/2024 2:21 PM EDT See other tele enc for the other apt that was missed * Telephone Encounter - Eda Solorzano RN - 05/07/2024 1:46 PM EDT Johnathon was scheduled for Phlebotomy today and was a no-show. Attempted both numbers on chart without any answer. [phone] (Johnathon) [phone] ( Ama) documented in this encounter Plan of Treatment Upcoming Encounters Date Type Department Care Team (Late st Contact Info) Description 08/10/2024 4:40 PM EST Office Visit General Internal Medicine [facility] [place] [address] [place], [place] [address] Selina Miller MD [address] [place] [address] Scheduled Procedures Name Priority Associated Diagnoses Date/Ti [...] filedocumented as of this encounter Care Teams Front Office Developer Relationship Specialty Start Date End Date Selina Miller MD 200 [facility] [place] [address] PCP - General Internal Medicine 08/22/16 documented as of this encounter
--- OUTSIDE RECORDS SUMMARY | 2024-07-17 00:45 | External Medical Summary | Summary of Care ---
Author Name Unknown Organization [facility] Address [address] [place] [address] Phone [phone] Care Team Providers Care Time Lock Expert Name Role Phone Selina Miller MD Primary Care Provider [phone] Reason for Referral * Evaluate & Treat - Unlimited Visits (Within 10 days (routine)) - Pending Review Specialty Diagnoses / Procedures Referred By Contac t Referred To Contact Hematology/Oncology / Hematology Oncology Diagnoses Hereditary hemochromatosis (HCC) FH: hemochromatosis Selina Miller MD [address] [place] [address] Referral ID Status Reason Start Date Expiration Date Visits Requested Visits Authorized [id number] Pending Review Specialty Services Required 05/03/[phone] Question Answer Referral Priority Within 10 days (routine) Where should this appointment be scheduled? [facility] Reason for Referral Elevated or Low Iron Reason for Visit * Reason Onset Date Comments Appointment 04/17/2024 Encounter Details Date Type Department Care Team (Late st Contact Info) Description 04/17/2024 Telephone Family Practice [facility] 132 [facility] [place] [address] Selina Miller MD [address] [place] [address] Appointment Allergies No known active allergiesdocumented as of this encounter (statuses as of 05/03/2024) Medications Medication Sig Dispensed Refills Start Date End Date Status Pantoprazole Sodium 40 MG Oral Tablet Delayed Release (Protonix) TAKE 1 TABLET BY MOUTH TWICE DAILY 60 Tablet 1 03/21/2024 Active Thiamine HCl 100 MG Oral Tablet (vitamin B-1) Take 1 Tablet by mouth in the morning. 30 Tablet 04/09/2024 Active documented as of this encounter (statuses as of 05/03/2024) Active Problems Problem Noted Date Diagnosed Date Hereditary hemochromatosis 11/26/2016 Overview: HFE 08/21-Homozygosity for [...] as of this encounter (statuses as of 05/03/2024) Immunizations Name Administration Dates Next Due Hepatitis [...] Care Team (Late st Contact Info) Description 05/05/2024 3:20 PM EDT Office Visit General Internal Medicine [place] [address] [place] [address] [address] Selina Miller MD [address] [place] [address] [address] Scheduled Procedures Name Priority Associated Diagnoses Date/Ti [...] 2015 Sigmoidoscopy 2015 Depression Screening 04/24/2018 04/24/2017 Zoster Vaccines (1 of 2) 2020 COVID-19 Vaccine (1 - 2022-2 4 season) 2023 Hepatitis B Vaccine (2 of 3 - 19+ 3-dose series) 02/25/2024 01/28/2024 Influenza Vaccine (FLU shot) (#1) 2024 08/20/2016 Diabetes Screening 04/13/2027 04/13/2024, 09/22/2018, 08/01/2016 Lipid Panel 04/13/2029 04/13/2024, 08/01/2016 Colonoscopy 04/14/2029 04/14/2024, 04/14/2024 Colorectal Cancer Screening 04/14/2029 DTaP,Tdap,and Td Vaccines (2 - Td or Tdap) 01/27/2034 01/28/2024 HPV (Gardasil) Vaccine Aged Out No lo nger eligible based on patient's age to complete this topic MENINGOCOCCAL (MENACTRA/MENVEO) Aged Out No longer eligible b ased on patient's age to complete this topic Pneumococcal Vaccine: Pediatrics (0 to 5 Years) and At-Risk Patients (6 to 64 Years) Aged Out No longer eligible b ased on patient's age to complete this topic documented as of this encounter Medical Devices Not on filedocumented as of this encounter Visit Diagnoses Diagnosis Hereditary hemochromatosis (HCC)- Primary Hereditary hemochromatosis FH: hemochromatosis Family history of other endocrine and metabolic diseases documented in this encounter Care Teams Time Lock Expert Relationship Specialty Start Date End Date Selina Miller MD 200 [place] [address] PCP - General Internal Medicine 08/22/16 documented as of this encounter
--- OUTSIDE RECORDS SUMMARY | 2024-07-17 00:45 | External Medical Summary | Summary of Care ---
Author Name Unknown Organization [facility] Address [address] [place] [address] Phone [phone] Care Team Providers Care Dynamite Packing Machine Feeder Name Role Phone Selina Miller MD Primary Care Provider [phone] Reason for Referral * Evaluate & Treat - Unlimited Visits (Within 10 days (routine)) - Pending Review Specialty Diagnoses / Procedures Referred By Contac t Referred To Contact Hematology/Oncology / Hematology Oncology Diagnoses Hereditary hemochromatosis (HCC) FH: hemochromatosis Selina Miller MD [address] [place] [address] Referral ID Status Reason Start Date Expiration Date Visits Requested Visits Authorized [id number] Pending Review Specialty Services Required 05/03/[phone] Question Answer Referral Priority Within 10 days (routine) Where should this appointment be scheduled? [facility] Reason for Referral Elevated or Low Iron Reason for Visit * Reason Onset Date Comments Appointment 04/17/2024 Encounter Details Date Type Department Care Team (Late st Contact Info) Description 04/17/2024 Telephone Family Practice [facility] 132 [facility] [place] [address] Selina Miller MD [address] [place] [address] Appointment Allergies No known active allergiesdocumented as [...] [place] [address] [place] [address] Selina Miller MD [address] [place] [address] [address] Scheduled Procedures Name Priority Associated Diagnoses Date/Ti [...] diseases documented in this encounter Care Teams Dynamite Packing Machine Feeder Relationship Specialty Start Date End Date Selina Miller MD 200 [place] [address] PCP - General Internal Medicine 08/22/16 documented as of this encounter
--- OUTSIDE RECORDS SUMMARY | 2024-07-17 00:45 | External Medical Summary | Summary of Care ---
Author Name Unknown Organization [facility] Address [address] [place] [address] Phone [phone] Care Team Providers Care Tieing Machine Operator Name Role Phone Selina Miller MD Primary Care Provider [phone] Reason for Visit * Reason Onset Date Comments Referral 05/03/2024 SP 10-Day Encounter Details Date Type Department Care Team (Late st Contact Info) Description 05/03/2024 New Patient Triage (PORTRAIT CONSULTANT USE ONLY) Hematology/Oncology [facility] [address] [place] [address] Olivia Fontenot CRNP [address] [place] [address] Referral (SP 10-Day) Allergies No known active allergiesdocumented as of this encounter (statuses as of 05/04/2024) Medications Medication Sig Dispensed Refills Start Date End Date Status Pantoprazole Sodium 40 MG Oral Tablet Delayed Release (Protonix) TAKE 1 TABLET BY MOUTH TWICE DAILY 60 Tablet 1 03/21/2024 Active Thiamine HCl 100 MG Oral Tablet (vitamin B-1) Take 1 Tablet by mouth in the morning. 30 Tablet 04/09/2024 Active documented as of this encounter (statuses as of 05/04/2024) Active Problems Problem Noted Date Diagnosed Date [...] as of this encounter (statuses as of 05/04/2024) Immunizations Name Administration Dates Next Due Hepatitis [...] as of this encounter Progress Notes * Olivia Fontenot CRNP - 05/04/2024 4:49 PM EDT Hematology New Referral Triage Note 53 y/o male referred for hereditary hemochromatosis. Previous patient of Dr. Sargent. 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 Last seen in 2018. Currently ferritin 2,038 and TSAT 100%. LFTs elevated. Admitted to [facility] in December for alcohol intoxication and GI [...] referral?: Hereditary Hemochromatosis Enter order ID here: [id number] Specialty specific documentation: Hematology/Oncology NEW PATIENT - [...] General Internal Medicine [place] 200 [facility] [place] [address] Selina Miller MD 200 [facility] [place] [address] Scheduled Procedures Name Priority Associated Diagnoses Date/Ti [...] hemochromatosis documented in this encounter Care Teams Tieing Machine Operator Relationship Specialty Start Date End Date Selina Miller MD [address] [place] [address] PCP - General Internal Medicine 08/22/16 documented as of this encounter
--- OUTSIDE RECORDS SUMMARY | 2024-07-17 00:45 | External Medical Summary | Summary of Care ---
Author Name Unknown Organization [facility] Address [address] [place] [address] Phone [phone] Care Team Providers Care Structural Steel Engineer Name Role Phone Selina Miller MD Primary Care Provider [phone] Reason for Referral * Evaluate & Treat - Unlimited Visits (Within 10 days (routine)) - Pending Review Specialty Diagnoses / Procedures Referred By Contac t Referred To Contact Hematology/Oncology / Hematology Oncology Diagnoses Hereditary hemochromatosis (HCC) FH: hemochromatosis Selina Miller MD [address] [place] [address] Referral ID Status Reason Start Date Expiration Date Visits Requested Visits Authorized [id number] Pending Review Specialty Services Required 05/03/[phone] Question Answer Referral Priority Within 10 days (routine) Where should this appointment be scheduled? [facility] Reason for Referral Elevated or Low Iron Reason for Visit * Reason Onset Date Comments Appointment 04/17/2024 Encounter Details Date Type Department Care Team (Late st Contact Info) Description 04/17/2024 Telephone Family Practice [facility] 132 [facility] [place] [address] Selina Miller MD [address] [place] [address] Appointment Allergies No known active allergiesdocumented as [...] as of this encounter Miscellaneous Notes * Addendum Note - Selina Miller MD [...] PM EDT Office Visit General Internal Medicine [facility] 200 [facility] [place] [address] Selina Miller MD 200 [facility] [place] [address] Scheduled Procedures Name Priority Associated Diagnoses Date/Ti [...] diseases documented in this encounter Care Teams Structural Steel Engineer Relationship Specialty Start Date End Date Selina Miller MD 200 [facility] [place] [address] PCP - General Internal Medicine 08/22/16 documented as of this encounter
--- OUTSIDE RECORDS SUMMARY | 2024-07-17 00:45 | External Medical Summary | Summary of Care ---
Author Name Unknown Organization [facility] Address [address] [place] [address] Phone [phone] Care Team Providers Care Shade Matcher Name Role Phone Selina Miller MD Primary Care Provider [phone] Reason for Visit * Reason Onset Date Comments Referral 05/03/2024 SP 10-Day Encounter Details Date Type Department Care Team (Late st Contact Info) Description 05/03/2024 New Patient Triage (DISPLAY CARD WRITER USE ONLY) Hematology/Oncology [facility] [address] [place] [address] Olivia Fontenot CRNP [address] [place] [address] Referral (SP 10-Day) Allergies No known active allergiesdocumented as of this encounter (statuses as of 05/05/2024) Medications Medication Sig Dispensed Refills Start Date End Date Status Pantoprazole Sodium 40 MG Oral Tablet Delayed Release (Protonix) TAKE 1 TABLET BY MOUTH TWICE DAILY 60 Tablet 1 03/21/2024 Active Thiamine HCl 100 MG Oral Tablet (vitamin B-1) Take 1 Tablet by mouth in the morning. 30 Tablet 04/09/2024 Active documented as of this encounter (statuses as of 05/05/2024) Active Problems Problem Noted Date Diagnosed Date [...] as of this encounter (statuses as of 05/05/2024) Immunizations Name Administration Dates Next Due Hepatitis [...] Progress Notes * Bettye Roman LPN - 05/05/2024 12:42 PM EDT Discussed care plan with patient or proxy?: Yes Left message on patient's voicemail. Return number provided. Re: To discuss lab orders and phlebotomy order when scheduling patient. 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 Last seen in 2017. Currently ferritin 2,038 and TSAT 100%. LFTs elevated. Admitted to [facility] in December for alcohol intoxication and [...] referral?: Hereditary Hemochromatosis Enter order ID here: [id number] Specialty specific documentation: Hematology/Oncology NEW PATIENT - [...] PM EDT Office Visit General Internal Medicine [facility] 200 [facility] [place] [address] Selina Miller MD 200 [place] [address] Scheduled Procedures Name Priority Associated Diagnoses Date/Ti me COLONOSCOPY FLEXIBLE PROXIMA L DIAGNOSTIC Recall History of colonic polyps Health Maintenance Due Date Last Done Comments HIV Screening 1985 Hepatitis C Screening 1988 Cologuard 2015 Fecal Occult Blood Test 2015 Sigmoidoscopy 2015 Depression Screening 04/24/2018 04/24/2017 Zoster Vaccines (1 of 2) 2020 COVID-19 Vaccine ( - 2022-2 4 season) 2023 Hepatitis B [...] hemochromatosis documented in this encounter Care Teams Shade Matcher Relationship Specialty Start Date End Date Selina Miller MD 200 [facility] [place] [address] PCP - General Internal Medicine 08/22/16 documented as of this encounter
--- OUTSIDE RECORDS SUMMARY | 2024-07-17 00:45 | External Medical Summary | Summary of Care ---
Author Name Unknown Organization [facility] Address [address] [place] [address] Phone [phone] Care Team Providers Care Equity Trader Name Role Phone Selina Miller MD Primary Care Provider [phone] Reason for Visit * Reason Onset Date Comments Referral 05/03/2024 SP 10-Day Encounter Details Date Type Department Care Team (Late st Contact Info) Description 05/03/2024 New Patient Triage (SKIMMER SCOOP OPERATOR USE ONLY) Hematology/Oncology [facility] 200 [place] [address] Olivia Fontenot CRNP [address] [place] [address] Referral (SP 10-Day) Allergies No [...] as of this encounter Progress Notes * Alessandra Balderrama RN - 05/05/2024 9:39 AM EDT [place] plan for phlebotomy built and routed for [...] and TSAT 100%. LFTs elevated. Admitted to [facility] in December for alcohol intoxication and [...] referral?: Hereditary Hemochromatosis Enter order ID here: [id number] Specialty specific documentation: Hematology/Oncology NEW PATIENT - [...] PM EDT Office Visit General Internal Medicine [facility] [place] 200 [facility] [place] [address] Selina Miller MD 200 [facility] [place] [address] Scheduled Procedures Name Priority Associated Diagnoses Date/Ti [...] hemochromatosis documented in this encounter Care Teams Equity Trader Relationship Specialty Start Date End Date Selina Miller MD 200 [facility] [place] [address] PCP - General Internal Medicine 08/22/16 documented as of this encounter
--- OUTSIDE RECORDS SUMMARY | 2024-07-17 00:45 | External Medical Summary | Summary of Care ---
Author Name Unknown Organization [facility] Address [address] [place] [address] Phone [phone] Care Team Providers Care Process Mechanic Name Role Phone Selina Miller MD Primary Care Provider [phone] Reason for Visit * Reason Onset Date Comments Referral 05/03/2024 SP 10-Day Encounter Details Date Type Department Care Team (Late st Contact Info) Description 05/03/2024 New Patient Triage (SKETCHER USE ONLY) Hematology/Oncology [facility] [address] [place] [address] Olivia Fontenot CRNP [address] [place] [address] Referral (SP 10-Day) Allergies No [...] message on patient's voicemail. Return number provided. Communicated with patient on Date (mm/dd/yyyy): 05/05/2024 at Time ([facility]): 12:43 PM Additional imaging needed: No Additional imaging orders pended: No Further labs recommended and ordered: Yes Bone Marrow biopsy recommended:No [facility] clinic review recommended: No * Alessandra Balderrama RN - 05/05/2024 9:39 AM EDT [place] plan for phlebotomy built and routed for [...] and TSAT 100%. LFTs elevated. Admitted to [facility] in December for alcohol intoxication and [...] referral?: Hereditary Hemochromatosis Enter order ID here: [id number] Specialty specific documentation: Hematology/Oncology NEW PATIENT - [...] PM EDT Office Visit General Internal Medicine [facility] 200 [facility] [place] [address] Selina Miller MD [address] [facility] [place] [address] Scheduled Procedures Name Priority Associated Diagnoses Date/Ti [...] hemochromatosis documented in this encounter Care Teams Process Mechanic Relationship Specialty Start Date End Date Selina Miller MD [address] [place] [address], [place] [address] PCP - General Internal Medicine 08/22/16 documented as of this encounter
--- OUTSIDE RECORDS SUMMARY | 2024-07-17 00:45 | External Medical Summary | Summary of Care ---
Author Name Unknown Organization [facility] Address [address] [place] [address] Phone [phone] Care Team Providers Care Operations Intelligence Name Role Phone Selina Miller MD Primary Care Provider [phone] Reason for Visit * Reason Onset Date Comments Referral 05/03/2024 SP 10-Day Encounter Details Date Type Department Care Team (Late st Contact Info) Description 05/03/2024 New Patient Triage (SPORTS ACTIVITIES FOUL JUDGE USE ONLY) Hematology/Oncology [facility] [address] [place] [address] Olivia Fontenot CRNP [address] [place] [address] Referral (SP 10-Day) Allergies No [...] Progress Notes * Bettye Roman LPN - 05/03/2024 12:45 PM EDT Images from the original note were not included. New Patient Triage What is the diagnosis/reason for referral?: Hereditary Hemochromatosis Enter order ID here: [id number] Specialty specific documentation: Hematology/Oncology NEW PATIENT - HEMATOLOGY/ONCOLOGY SPECIALTY TRIAGE Triage needed?: Yes Referring provider name: Dr. Miller Confirmation of diagnosis: Yes TRIAGE PLAN: Baseline/staging imaging complete: No Labs available: Yes Referral to other specialty recommended (ie. Surgery, outpatient infusion): No Additional triage comments: Please review TE from 04/17/2024, Dr. Miller. documented in this encounter Plan of Treatment Upcoming Encounters Date Type Department Care Team (Late st Contact Info) Description 05/05/2024 3:20 PM EDT Office Visit General Internal [facility] [place] [address] [facility] [place] [address] Selina Miller MD 200 [facility] [place] [address] Scheduled Procedures Name Priority Associated Diagnoses Date/Ti [...] filedocumented as of this encounter Care Teams Operations Intelligence Relationship Specialty Start Date End Date Selina Miller MD [address] [place] [address] PCP - General Internal Medicine 08/22/16 documented as of this encounter
--- OUTSIDE RECORDS SUMMARY | 2024-07-17 00:45 | External Medical Summary | Summary of Care ---
Author Name Unknown Organization [facility] Address [address] [place] [address] Phone [phone] Care Team Providers Care Hardwood Floor Layer Name Role Phone Selina Miller MD Primary Care Provider [phone] Reason for Visit * Reason Onset Date Comments Referral 05/03/2024 SP 10-Day Encounter Details Date Type Department Care Team (Late st Contact Info) Description 05/03/2024 New Patient Triage (SPINNING FRAME FIXER USE ONLY) Hematology/Oncology [facility] [address] [place] [address] Olivia Fontenot CRNP [address] [place] [address] Referral (SP 10-Day) Allergies No [...] Balderrama RN - 05/05/2024 9:39 AM EDT [place] plan for phlebotomy built and routed for [...] and TSAT 100%. LFTs elevated. Admitted to [facility] in December for alcohol intoxication and [...] referral?: Hereditary Hemochromatosis Enter order ID here: [id number] Specialty specific documentation: Hematology/Oncology NEW PATIENT - [...] PM EDT Office Visit General Internal Medicine [facility] [place] 200 [facility] [place] [address] Selina Miller MD 200 [facility] [place] [address] Scheduled Procedures Name Priority Associated Diagnoses Date/Ti [...] hemochromatosis documented in this encounter Care Teams Hardwood Floor Layer Relationship Specialty Start Date End Date Selina Miller MD 200 [facility] [place] [address] PCP - General Internal Medicine 08/22/16 documented as of this encounter
--- OUTSIDE RECORDS SUMMARY | 2024-07-17 00:45 | External Medical Summary | Summary of Care ---
Author Name Unknown Organization [facility] Address [address] [place] [address] Phone [phone] Care Team Providers Care Bobbin Winder Name Role Phone Selina Miller MD Primary Care Provider [phone] Reason for Referral * Evaluate & Treat - Unlimited Visits (Within 10 days (routine)) - Pending Review Specialty Diagnoses / Procedures Referred By Contac t Referred To Contact Hematology/Oncology / Hematology Oncology Diagnoses Hereditary hemochromatosis (HCC) FH: hemochromatosis Selina Miller MD [address] [place] [address] Referral ID Status Reason Start Date Expiration Date Visits Requested Visits Authorized [id number] Pending Review Specialty Services Required 05/03/[phone] Question Answer Referral Priority Within 10 days (routine) Where should this appointment be scheduled? [facility] Reason for Referral Elevated or Low Iron Reason for Visit * Reason Onset Date Comments Appointment 04/17/2024 Encounter Details Date Type Department Care Team (Late st Contact Info) Description 04/17/2024 Telephone Family Practice [facility] [address] [facility] [place] [address] Selina Miller MD [address] [place] [address] Appointment Allergies No known active allergiesdocumented as [...] PM EDT Office Visit General Internal Medicine [facility] 200 [facility] [place] [address] Selina Miller MD 200 [facility] [place] [address] Scheduled Procedures Name Priority Associated Diagnoses Date/Ti [...] diseases documented in this encounter Care Teams Bobbin Winder Relationship Specialty Start Date End Date Selina Miller MD 200 [facility] [place] [address] PCP - General Internal Medicine 08/22/16 documented as of this encounter
--- OUTSIDE RECORDS SUMMARY | 2024-07-17 00:45 | External Medical Summary | Summary of Care ---
Author Name Unknown Organization [facility] Address [address] [place] [address] Phone [phone] Care Team Providers Care Press Catcher Name Role Phone Selina Miller MD Primary Care Provider [phone] Reason for Referral * Evaluate & Treat - Unlimited Visits (Within 10 days (routine)) - Pending Review Specialty Diagnoses / Procedures Referred By Contac t Referred To Contact Hematology/Oncology / Hematology Oncology Diagnoses Hereditary hemochromatosis (HCC) FH: hemochromatosis Selina Miller MD [address] [place] [address] Referral ID Status Reason Start Date Expiration Date Visits Requested Visits Authorized [id number] Pending Review Specialty Services Required 05/03/[phone] Question Answer Referral Priority Within 10 days (routine) Where should this appointment be scheduled? [facility] Reason for Referral Elevated or Low Iron Reason for Visit * Reason Onset Date Comments Appointment 04/17/2024 Encounter Details Date Type Department Care Team (Late st Contact Info) Description 04/17/2024 Telephone Family Practice [facility] 132 [facility] [place] [address] Selina Miller MD [address] [place] [address] Appointment Allergies No known active allergiesdocumented as [...] Upcoming Encounters Date Type Department Care Team (Halina Contact Info) Description 05/05/2024 3:20 PM EDT Office Visit General Internal Medicine [place] [address] [place] [address] Selina Miller MD 200 [facility] [place] [address] Scheduled Procedures Name Priority Associated Diagnoses Date/Ti [...] diseases documented in this encounter Care Teams Press Catcher Relationship Specialty Start Date End Date Selina Miller MD 200 [place] [address] PCP - General Internal Medicine 08/22/16 documented as of this encounter
--- OUTSIDE RECORDS SUMMARY | 2024-07-17 00:45 | External Medical Summary | Summary of Care ---
Author Name Unknown Organization [facility] Address [address] [place] [address] Phone [phone] Care Team Providers Care Shaper Hand Name Role Phone Selina Miller MD Primary Care Provider Reason for Visit * Reason Onset Date Comments Encounter Created in Error 05/05/2024 Encounter Details Date Type Department Care Team (Late st Contact Info) Description 05/05/2024 Telephone Hematology/Oncology Treatment, [place] [address] [place] [address] Olivia Fontenot CRNP [address] [place] [address] Encounter Created in Error Allergies No known active allergiesdocumented as of [...] [place] [address] [place] [address] [address] Selina Miller MD [address] [place] [address] [address] Scheduled Procedures Name Priority Associated Diagnoses Date/Ti [...] filedocumented as of this encounter Care Teams Shaper Hand Relationship Specialty Start Date End Date Selina Miller MD [address] [place] [address] [address] PCP - General Internal Medicine 08/22/16 documented as of this encounter
--- OUTSIDE RECORDS SUMMARY | 2024-07-17 00:45 | External Medical Summary | Summary of Care ---
Author Name Unknown Organization [facility] Address [address] [place] [address] Phone [phone] Care Team Providers Care Personnel Assistant Name Role Phone Selina Miller MD Primary Care Provider [phone] Reason for Referral * Evaluate & Treat - Unlimited Visits (Within 10 days (routine)) - Pending Review Specialty Diagnoses / Procedures Referred By Contac t Referred To Contact Hematology/Oncology / Hematology Oncology Diagnoses Hereditary hemochromatosis (HCC) FH: hemochromatosis Selina Miller MD [address] [place] [address] Referral ID Status Reason Start Date Expiration Date Visits Requested Visits Authorized [id number] Pending Review Specialty Services Required 05/03/[phone] Question Answer Referral Priority Within 10 days (routine) Where should this appointment be scheduled? [facility] Reason for Referral Elevated or Low Iron Reason for Visit * Reason Onset Date Comments Appointment 04/17/2024 Encounter Details Date Type Department Care Team (Late st Contact Info) Description 04/17/2024 Telephone Family Practice [facility] 132 [facility] [place] [address] Selina Miller MD [address] [place] [address] Appointment Allergies No known active allergiesdocumented as [...] EDT Office Visit General Internal Medicine [facility] 200 [facility] [address] Selina Miller MD [address] [facility] [place] [address] Scheduled Procedures Name Priority Associated Diagnoses Date/Ti [...] diseases documented in this encounter Care Teams Personnel Assistant Relationship Specialty Start Date End Date Selina Miller MD [address] [facility] [address] PCP - General Internal Medicine 08/22/16 documented as of this encounter
--- OUTSIDE RECORDS SUMMARY | 2024-07-17 00:45 | External Medical Summary | Summary of Care ---
Author Name Unknown Organization [facility] Address [address] [place] [address] Phone [phone] Care Team Providers Care Cook Ship Name Role Phone Selina Miller MD Primary Care Provider [phone] Reason for Referral * Evaluate & Treat - Unlimited Visits (Within 10 days (routine)) - Pending Review Specialty Diagnoses / Procedures Referred By Contac t Referred To Contact Hematology/Oncology / Hematology Oncology Diagnoses Hereditary hemochromatosis (HCC) FH: hemochromatosis Selina Miller MD [address] [place] [address] Referral ID Status Reason Start Date Expiration Date Visits Requested Visits Authorized [id number] Pending Review Specialty Services Required 05/03/[phone] Question Answer Referral Priority Within 10 days (routine) Where should this appointment be scheduled? [facility] Reason for Referral Elevated or Low Iron Reason for Visit * Reason Onset Date Comments Appointment 04/17/2024 Encounter Details Date Type Department Care Team (Late st Contact Info) Description 04/17/2024 Telephone Family Practice [facility] 132 [facility] [place] [address] Selina Miller MD [address] [place] [address] Appointment Allergies No known active allergiesdocumented as [...] Office Visit General Internal Medicine [place] 200 [facility] [place] [address] Selina Miller MD 200 [facility] [place] [address] Scheduled Procedures Name Priority Associated Diagnoses Date/Ti [...] diseases documented in this encounter Care Teams Cook Ship Relationship Specialty Start Date End Date Selina Miller MD [address] [place] [address], [place] [address] PCP - General Internal Medicine 08/22/16 documented as of this encounter
--- OUTSIDE RECORDS SUMMARY | 2024-07-17 00:45 | External Medical Summary | Summary of Care ---
Author Name Unknown Organization [facility] Address [address] [place] [address] Phone [phone] Care Team Providers Care Rehab Director Name Role Phone Selina Miller MD Primary Care Provider [phone] Encounter Details Date Type Department Care Team (Late st Contact Info) Description 05/05/2024 Orders Only Hematology/Oncology Treatment, [place] [address] [place] [address] Olivia Fontenot CRNP [address] [place], [place] [id number] Hereditary hemochromatosis (HCC)* Allergies No known active allergiesdocumented as of [...] Medicine [place] [address] [place], [place] [address] Selina Miller MD [address] [place] [address] Scheduled Orders Name Type Priority Associated Diagnoses Orde r Schedule CBC WITH WBC DIFFERENTIAL Lab STAT Hereditary hemochromatosis (HCC) Every Week for 52 Occurrences starting 05/05/2024 until 05/05/2025 FERRITIN Lab STAT Hereditary hemochromatosis (HCC) Every Week for 52 Occurrences starting 05/05/2024 until 05/05/2025 Scheduled Procedures Name Priority Associated Diagnoses Date/Ti [...] hemochromatosis documented in this encounter Care Teams Rehab Director Relationship Specialty Start Date End Date Selina Miller MD 200 [facility] [place] [address] PCP - General Internal Medicine 08/22/16 documented as of this encounter
[2024-07-17 03:27] LABS: Calcium 7.4 mg/dl (8.6-10.3)
[2024-07-17 03:32] LABS: Creatinine Clr Calc Pharmacy 97.6 ml/min
[2024-07-17 03:39] LABS: Potassium 3.8 mmol/L (3.5-5.1)
[2024-07-17 08:15] LABS: Hematocrit (blood only) 38.1 % (42.0-52.0); Hemoglobin 14.4 g/dl (14.0-18.0); Mean Corpuscular Hemoglobin 35.6 pg (25.0-34.0); Mean Corpuscular Hgb Conc 37.8 g/dL (32.0-36.0); Mean Corpuscular Volume 94.1 fL (80.0-100.0); Mean Platelet Volume 8.8 fL (9.4-12.4); Platelet Count 192 K/uL (130-400); RDW Coefficient of Variation 12.2 % (11.5-14.5); RDW Standard Deviation 42.5 fL (36.4-46.3); Red Blood Count 4.05 M/uL (4.70-6.10); White Blood Count 5.59 K/ul (4.8-10.8)
[2024-07-17] MEDS: FOLIC ACID 1 MG TAB PO SCH (08:33)
[2024-07-17] MEDS: PANTOprazole 40 MG TAB PO SCH (08:34)
[2024-07-17] MEDS: THIAMINE HCL 100 MG TAB PO SCH (08:34)
--- OUTSIDE RECORDS SUMMARY | 2024-07-17 08:44 | External Medical Summary | Summary of Care ---
Author Name Unknown Organization [facility] Address [address] [place] [address] Phone [phone] Care Team Providers Care Warehouse Distribution Specialist Name Role Phone Selina Miller MD Primary Care Provider [phone] Reason for Visit * Reason Onset Date Comments Test Results Lab 07/15/2024 Encounter Details Date Type Department Care Team (Late st Contact Info) Description 07/15/2024 Telephone Hematology/Oncology [facility] [place] [address] [place] [address] Olivia Fontenot CRNP [address] [place] [address] Test Results Lab Allergies No [...] Encounter - Raman Angeles RN - 07/16/2024 11:03 AM EDT Pt's Marisa returned our call. I reviewed Johnathon's lab work with her in regards to low sodium andelevated liver function tests. She advises that there's periods of time Johnathon will forget whole dayshad happened. She states he drinks but is unsure of how much, estimates anywhere between 6-12 beers/twisted tea's per day. Advised that he should be seen in the ER for further evaluation and care at this time. She is agreeable to this and is leaving work to take him to [facility] ER. I called [facility] ER to advise regarding patient status and will fax lab work and office visit notes lou. Spoke with Tita, she is aware. * Telephone Encounter - Raman Angeles RN - 07/16/2024 9:28 AM EDT Tried calling mobile # [phone], no answer, LMOM with return #. * [...] active alcoholism. Would recommend patient present to [facility] ED. Left message for patient and spouse to return call. documented in this encounter Plan of Treatment Upcoming Encounters Date Type Department Care Team (Late st Contact Info) Description 07/19/2024 11:00 AM EDT Laboratory Laboratory [facility] [place] [address] [place] [id number] Darcie Lab Scenery [address] [facility] [place] [address] 07/20/2024 9:00 AM EDT Hem/Onc Treatment Hematology/Oncology Treatment, [place] [address] [place] [phone] Darcie, Chair 9 Hem Onc Scenery [address] [place] [address] 07/26/2024 11:00 AM EDT Laboratory Laboratory [facility] [place] [address] [place] [address] Darcie, Lab Scenery [address] [facility] [place] [address] 07/27/2024 11:00 AM EDT Hem/Onc Treatment Hematology/Oncology Treatment, [place] 200 [facility] [place] [address] Darcie, Chair 11 Hem Onc Scenery [address] [place] [address] 08/02/2024 11:00 AM EDT Laboratory Laboratory [facility] [place] [address] [place] [address] Darcie, Lab Scenery [address] [place] [address] 08/03/2024 11:00 AM EDT Hem/Onc Treatment Hematology/Oncology Treatment, [place] [address] [facility], [place] [address] Darcie, Chair 5 Hem Onc Scenery [address] [place], [place] [address] 08/09/2024 11:00 AM EST Laboratory Laboratory [facility] [address] [place], [place] [address] Darcie, Lab Scenery [address] [place] [address] 08/10/2024 11:15 AM EST [facility] [address] [facility] [place] [address] Darcie, Chair 8 Hem Onc Scenery [address] [place] [address] 08/10/2024 4:00 PM EST Office Visit General Internal Medicine [facility] [place] [address] [place] [address] Selina Miller MD [address] [place] [address] 10/12/2024 3:00 PM EST Office Visit Hematology/Oncology [facility] [place] [address] [place] [phone] Olivia Fontenot CRNP [address] [place] [address] Scheduled Procedures Name Priority Associated Diagnoses Date/Ti [...] filedocumented as of this encounter Care Teams Warehouse Distribution Specialist Relationship Specialty Start Date End Date Selina Miller MD [address] [place] [address] [address] PCP - General Internal Medicine 08/22/16 documented as of this encounter
[2024-07-17 08:45] LABS: Estimated Average Glucose 134 mg/dl; Hemoglobin A1C 6.3 % (4.5-5.6)
--- NOTE | 2024-07-17 09:30 | Hospitalist Progress Note ---
Date of Service July 17, 2024 Assessment & Plan (1) Hereditary hemochromatosis: (2) Alcoholism: (3) Hyponatremia: (4) Elevated transaminase level: Plan: Hereditary Hemochromatosis - Admit to [facility] -Outpatient ferritin of [id number] on 07/13, pt following with hematology as outpt. Underwent phelbotomy on 07/13, was scheduled to have weekly phlebotomy x 1 hr for the next 4 weeks per outpatient EPIC -Elevated liver transaminases: 07/13 vs on admission AST: 559 --> 376 ALT: 224--> 178 Alk phos: 189-->183 Bili 1.3 -->1.2, direct 0.4 INR 1.2 - GI consulted for hepatology involvement - outpatient appointment has already been requested - Stool cultures and c diff were negative on recent outpatient workup, repeated now - positive for Campylobacter and EPEC, started on azithromycin overnight - Reports diarrhea upwards of 10x per day associated with abdominal cramping, now seems slightly improved - current A1C 6.3% Alcoholism -Reported that he drinks 6-8 beers per day (now decreased drinking d/t abdominal issues/ diarrhea), EtOH level was 159.4 on admission -Cessation encouraged at bedside -Noted that increased alcohol use increases mortality risk associated with h ereditary hemochromatosis -Interested in inpatient rehab- previously stayed in [facility] - to assist with dc planning Hyponatremia -129 on admission -Urine osm 393, serum blood osmolarity 321 -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 with excess drinking 6-8 beers daily - Allow diet and encourage po intake - monitor Na level DVT ppx: teds, scds CODE: Full code Dispo: From home, likely to remain in the hospital x 1-2 days Admission and Anticipated Discharge Date Admission Date: July 16, 2024 Subjective Pt seen in follow up of elevated LFTs, infectious diarrhea, alcoholism Started on azithromycin last night for positive stool studies Currently sitting up in bed, in no acute distress. Still has frequent diarrhea, however he says it is improving. No fevers chills chest pain shortness of breath. Positive tremor Review of Systems Review of Systems: All systems reviewed & are unremarkable except as noted in Subjective Physical Exam Physical Exam: GENERAL: well nourished M in NAD HEENT: NC/AT. Pupils equal, round and reactive to light. Oral mucosa moist. NECK: No JVD, no neck masses. HEART: S1 and S2 heard. + tachy in low 100s. No murmur, no gallop. RESPIRATORY SYSTEM: Normal AP diameter. No accessory muscle use. No wheezing, no crackles. ABDOMEN: Soft, bowel sounds present, nontender, no distention. NEURO: Awake, alert, answers simple questions appropriately, slowly answers , moves extremities. EXTREMITIES: No edema, no erythema seen. Results & Data Results & Data Vital Signs (Past 12 Hours) Vital Signs Temp Pulse Pulse Resp BP Pulse Ox O2 Del Method 07/17/24 07:53 36.7 C 105 H 16 165/105 H 96 Room Air 07/17/24 07:31 86 07/17/24 03:35 36.7 C 86 18 122/84 97 Room Air 07/16/24 23:19 105 H 07/16/24 22:59 36.6 C 92 H 20 127/86 98 Room Air Laboratory Results 07/17/24 07/17/24 07/16/24 Range/Units 07:21 01:50 22:30 WBC 5.59 (4.8-10.8) K/ul RBC 4.05 L (4.70-6.10) M/uL Hgb 14.4 (14.0-18.0) g/dl Hct 38.1 L (42.0-52.0) % MCV 94.1 D (80.0-100.0) fL MCH 35.6 H (25.0-34.0) pg MCHC 37.8 H (32.0-36.0) g/dL RDW Std Deviation 42.5 (36.4-46.3) fL RDW Coeff of Edith 12.2 (11.5-14.5) % Plt Count 192 (130-400) K/uL MPV 8.8 L (9.4-12.4) fL Immature Gran % (Auto) % Neut % (Auto) % Lymph % (Auto) % Weld % (Auto) % Eos % (Auto) % Baso % (Auto) % Neut # (Auto) (1.40-6.50) K/uL Lymph # (Auto) (1.20-3.40) K/uL Weld # (Auto) (0.11-0.59) K/uL Eos # (Auto) (0.00-0.50) K/uL Baso # (Auto) (0.00-0.20) K/uL Immature Gran # (Auto) (0.01-0.20) K/uL PT (9.0-12.0) Seconds INR (0.9-1.1) Sodium 125 L (136-145) mmol/L Potassium 3.8 3.2 L (3.5-5.1) mmol/L Chloride 92 L (98-107) mmol/L Carbon Dioxide 22 (21-32) mmol/L Anion Gap 11 (3-11) BUN 8 7 (6-23) mg/dl Creatinine 0.79 (0.6-1.4) mg/dl Est Cr Clr Drug Dosing 97.6 ml/min eGFR 106.23 BUN/Creatinine Ratio 10.0 (10-20) Glucose 122 H (70-99(Fasting)) mg/dl Estimat Average Glucose 134 mg/dl Hemoglobin A1c 6.3 H (4.5-5.6) % Osmolality (280-300) mOsm/kg Calcium 7.4 L (8.6-10.3) mg/dl Total Bilirubin (0.2-1.0) mg/dl Direct Bilirubin (0-0.2) mg/dl AST (13-39) U/L ALT (7-52) U/L Alkaline Phosphatase (34-104) U/L Troponin I High Sens (0-20) pg/ml Total Protein (6.0-8.3) gm/dl Albumin (3.4-5.0) gm/dl Globulin (2.5-4.0) gm/dl Albumin/Globulin Ratio (0.9-2) Lipase (11-82) U/L Urine Color Urine Appearance (Clear) Urine pH (4.5-7.5) Ur Specific [place] (1.000-1.030) Urine Protein (Negative) Urine Glucose (UA) (Negative) Urine Ketones (Negative) Urine Blood (Negative) Urine Nitrite (Negative) Urine Bilirubin (Negative) Urine Urobilinogen (Negative) Ur Leukocyte Esterase (Negative) Urine Osmolality (500-800) mOsm/kg Ur Random Sodium mmol/L Stl C. cayetanensis PCR (NotDetected) Stool Rotavirus A PCR (NotDetected) Stl Adenov F 40/41 PCR (NotDetected) Stool Astrovirus (PCR) (NotDetected) Stool Campylobacter PCR (NotDetected) Stl C. diff Tox B Gene (Neg) Stool Cryptosporidium PCR (NotDetected) Stl E.coli Shiga Tox PCR (NotDetected) Stl Enterotoxigenic E PCR (NotDetected) Stool EPEC (PCR) (NotDetected) Stool EAEC (PCR) (NotDetected) Stl E. histolytica PCR (NotDetected) Stool Giardia Lamblia PCR (NotDetected) Stool Salmonella PCR (NotDetected) Stool Sapovirus (PCR) (NotDetected) Stl P. shigelloides PCR (NotDetected) Stl Shigella/EIEC PCR (NotDetected) St Y.enterocolitica PCR (NotDetected) Stool Vibrio (PCR) (NotDetected) Stl Vibrio cholerae PCR (NotDetected) Stl Norovirus GI/GII PCR (NotDetected) Ethyl Alcohol mg/dL (<10.0) mg/dl Adenovirus (PCR) (NotDetected) B. pertussis DNA (PCR) (NotDetected) B.parapertussis DNA PCR (NotDetected) C. pneumoniae DNA (PCR) (NotDetected) Coronavirus OC43 (PCR) (NotDetected) Coronavirus HKU1 (PCR) (NotDetected) Coronavirus 229E (PCR) (NotDetected) SARS-CoV-2 (PCR) (NotDetected) Coronavirus NL63 (PCR) (NotDetected) Human Metapneumovir PCR (NotDetected) Influenza Type A (PCR) (NotDetected) Influenza Type B (PCR) (NotDetected) M. pneumoniae (PCR) (NotDetected) Parainfluenza 1 (PCR) (NotDetected) Parainfluenza 2 (PCR) (NotDetected) Parainfluenza 3 (PCR) (NotDetected) Parainfluenza 4 (PCR) (NotDetected) RSV (PCR) (NotDetected) Entero/Rhino (PCR) (NotDetected) 07/16/24 07/16/24 07/16/24 Range/Units 20:07 19:00 13:13 WBC (4.8-10.8) K/ul RBC (4.70-6.10) M/uL Hgb (14.0-18.0) g/dl Hct (42.0-52.0) % MCV (80.0-100.0) fL MCH (25.0-34.0) pg MCHC (32.0-36.0) g/dL RDW Std Deviation (36.4-46.3) fL RDW Coeff of Edith (11.5-14.5) % Plt Count (130-400) K/uL MPV (9.4-12.4) fL Immature Gran % (Auto) % Neut % (Auto) % Lymph % (Auto) % Weld % (Auto) % Eos % (Auto) % Baso % (Auto) % Neut # (Auto) (1.40-6.50) K/uL Lymph # (Auto) (1.20-3.40) K/uL Weld # (Auto) (0.11-0.59) K/uL Eos # (Auto) (0.00-0.50) K/uL Baso # (Auto) (0.00-0.20) K/uL Immature Gran # (Auto) (0.01-0.20) K/uL PT (9.0-12.0) Seconds INR (0.9-1.1) Sodium 129 L (136-145) mmol/L Potassium TNP (3.5-5.1) mmol/L Chloride 93 L (98-107) mmol/L Carbon Dioxide 26 (21-32) mmol/L Anion Gap 10 (3-11) BUN TNP (6-23) mg/dl Creatinine 1.01 (0.6-1.4) mg/dl Est Cr Clr Drug Dosing 76.3 ml/min eGFR 88.93 BUN/Creatinine Ratio TNP (10-20) Glucose 189 H (70-99(Fasting)) mg/dl Estimat Average Glucose mg/dl Hemoglobin A1c (4.5-5.6) % Osmolality (280-300) mOsm/kg Calcium 7.9 L (8.6-10.3) mg/dl Total Bilirubin (0.2-1.0) mg/dl Direct Bilirubin (0-0.2) mg/dl AST (13-39) U/L ALT (7-52) U/L Alkaline Phosphatase (34-104) U/L Troponin I High Sens (0-20) pg/ml Total Protein (6.0-8.3) gm/dl Albumin (3.4-5.0) gm/dl Globulin (2.5-4.0) gm/dl Albumin/Globulin Ratio (0.9-2) Lipase (11-82) U/L Urine Color Yellow Urine Appearance Clear (Clear) Urine pH 6.5 (4.5-7.5) Ur Specific [place] 1.013 (1.000-1.030) Urine Protein Negative (Negative) Urine Glucose (UA) Negative (Negative) Urine Ketones Negative (Negative) Urine Blood Negative (Negative) Urine Nitrite Negative (Negative) Urine Bilirubin Negative (Negative) Urine Urobilinogen Negative (Negative) Ur Leukocyte Esterase Negative (Negative) Urine Osmolality 393 L (500-800) mOsm/kg Ur Random Sodium 27 mmol/L Stl C. cayetanensis PCR Not Detected (NotDetected) Stool Rotavirus A PCR Not Detected (NotDetected) Stl Adenov F 40/41 PCR Not Detected (NotDetected) Stool Astrovirus (PCR) Not Detected (NotDetected) Stool Campylobacter PCR DETECTED A* (NotDetected) Stl C. diff Tox B Gene Negative Cdiff Gene (Neg) Stool Cryptosporidium PCR Not Detected (NotDetected) Stl E.coli Shiga Tox PCR Not Detected (NotDetected) Stl Enterotoxigenic E PCR Not Detected (NotDetected) Stool EPEC (PCR) DETECTED A* (NotDetected) Stool EAEC (PCR) Not Detected (NotDetected) Stl E. histolytica PCR Not Detected (NotDetected) Stool Giardia Lamblia PCR Not Detected (NotDetected) Stool Salmonella PCR Not Detected (NotDetected) Stool Sapovirus (PCR) Not Detected (NotDetected) Stl P. shigelloides PCR Not Detected (NotDetected) Stl Shigella/EIEC PCR Not Detected (NotDetected) St Y.enterocolitica PCR Not Detected (NotDetected) Stool Vibrio (PCR) Not Detected (NotDetected) Stl Vibrio cholerae PCR Not Detected (NotDetected) Stl Norovirus GI/GII PCR Not Detected (NotDetected) Ethyl Alcohol mg/dL (<10.0) mg/dl Adenovirus (PCR) Not Detected (NotDetected) B. pertussis DNA (PCR) Not Detected (NotDetected) B.parapertussis DNA PCR Not Detected (NotDetected) C. pneumoniae DNA (PCR) Not Detected (NotDetected) Coronavirus OC43 (PCR) Not Detected (NotDetected) Coronavirus HKU1 (PCR) Not Detected (NotDetected) Coronavirus 229E (PCR) Not Detected (NotDetected) SARS-CoV-2 (PCR) Not Detected (NotDetected) Coronavirus NL63 (PCR) Not Detected (NotDetected) Human Metapneumovir PCR Not Detected (NotDetected) Influenza Type A (PCR) Not Detected (NotDetected) Influenza Type B (PCR) Not Detected (NotDetected) M. pneumoniae (PCR) Not Detected (NotDetected) Parainfluenza 1 (PCR) Not Detected (NotDetected) Parainfluenza 2 (PCR) Not Detected (NotDetected) Parainfluenza 3 (PCR) Not Detected (NotDetected) Parainfluenza 4 (PCR) Not Detected (NotDetected) RSV (PCR) Not Detected (NotDetected) Entero/Rhino (PCR) Not Detected (NotDetected) 07/16/24 Range/Units 12:25 WBC 5.36 (4.8-10.8) K/ul RBC 3.96 L (4.70-6.10) M/uL Hgb 13.4 L (14.0-18.0) g/dl Hct 35.5 L (42.0-52.0) % MCV 89.6 (80.0-100.0) fL MCH 33.8 (25.0-34.0) pg MCHC 37.7 H (32.0-36.0) g/dL RDW Std Deviation 38.5 (36.4-46.3) fL RDW Coeff of Edith 11.8 (11.5-14.5) % Plt Count 213 (130-400) K/uL MPV 9.2 L (9.4-12.4) fL Immature Gran % (Auto) 0.6 % Neut % (Auto) 64.9 % Lymph % (Auto) 26.3 % Weld % (Auto) 7.6 % Eos % (Auto) 0.0 % Baso % (Auto) 0.6 % Neut # (Auto) 3.48 (1.40-6.50) K/uL Lymph # (Auto) 1.41 (1.20-3.40) K/uL Weld # (Auto) 0.41 (0.11-0.59) K/uL Eos # (Auto) 0.00 (0.00-0.50) K/uL Baso # (Auto) 0.03 (0.00-0.20) K/uL Immature Gran # (Auto) 0.03 (0.01-0.20) K/uL PT 12.8 H (9.0-12.0) Seconds INR 1.2 H (0.9-1.1) Sodium 129 L (136-145) mmol/L Potassium 3.5 (3.5-5.1) mmol/L Chloride 88 L (98-107) mmol/L Carbon Dioxide 20 L (21-32) mmol/L Anion Gap 21 H (3-11) BUN 8 (6-23) mg/dl Creatinine 0.93 (0.6-1.4) mg/dl Est Cr Clr Drug Dosing 82.9 ml/min eGFR 98.18 BUN/Creatinine Ratio 8.6 L (10-20) Glucose 174 H (70-99(Fasting)) mg/dl Estimat Average Glucose mg/dl Hemoglobin A1c (4.5-5.6) % Osmolality 321 H (280-300) mOsm/kg Calcium 8.0 L (8.6-10.3) mg/dl Total Bilirubin 1.2 H (0.2-1.0) mg/dl Direct Bilirubin 0.4 H (0-0.2) mg/dl AST 372 H (13-39) U/L ALT 178 H (7-52) U/L Alkaline Phosphatase 183 H (34-104) U/L Troponin I High Sens 12.0 (0-20) pg/ml Total Protein 5.6 L (6.0-8.3) gm/dl Albumin 3.3 L (3.4-5.0) gm/dl Globulin 2.3 L (2.5-4.0) gm/dl Albumin/Globulin Ratio 1.4 (0.9-2) Lipase 82 (11-82) U/L Urine Color Urine Appearance (Clear) Urine pH (4.5-7.5) Ur Specific [place] (1.000-1.030) Urine Protein (Negative) Urine Glucose (UA) (Negative) Urine Ketones (Negative) Urine Blood (Negative) Urine Nitrite (Negative) Urine Bilirubin (Negative) Urine Urobilinogen (Negative) Ur Leukocyte Esterase (Negative) Urine Osmolality (500-800) mOsm/kg Ur Random Sodium mmol/L Stl C. cayetanensis PCR (NotDetected) Stool Rotavirus A PCR (NotDetected) Stl Adenov F 40/41 PCR (NotDetected) Stool Astrovirus (PCR) (NotDetected) Stool Campylobacter PCR (NotDetected) Stl C. diff Tox B Gene (Neg) Stool Cryptosporidium PCR (NotDetected) Stl E.coli Shiga Tox PCR (NotDetected) Stl Enterotoxigenic E PCR (NotDetected) Stool EPEC (PCR) (NotDetected) Stool EAEC (PCR) (NotDetected) Stl E. histolytica PCR (NotDetected) Stool Giardia Lamblia PCR (NotDetected) Stool Salmonella PCR (NotDetected) Stool Sapovirus (PCR) (NotDetected) Stl P. shigelloides PCR (NotDetected) Stl Shigella/EIEC PCR (NotDetected) St Y.enterocolitica PCR (NotDetected) Stool Vibrio (PCR) (NotDetected) Stl Vibrio cholerae PCR (NotDetected) Stl Norovirus GI/GII PCR (NotDetected) Ethyl Alcohol mg/dL 159.4 H (<10.0) mg/dl Adenovirus (PCR) (NotDetected) B. pertussis DNA (PCR) (NotDetected) B.parapertussis DNA PCR (NotDetected) C. pneumoniae DNA (PCR) (NotDetected) Coronavirus OC43 (PCR) (NotDetected) Coronavirus HKU1 (PCR) (NotDetected) Coronavirus 229E (PCR) (NotDetected) SARS-CoV-2 (PCR) (NotDetected) Coronavirus NL63 (PCR) (NotDetected) Human Metapneumovir PCR (NotDetected) Influenza Type A (PCR) (NotDetected) Influenza Type B (PCR) (NotDetected) M. pneumoniae (PCR) (NotDetected) Parainfluenza 1 (PCR) (NotDetected) Parainfluenza 2 (PCR) (NotDetected) Parainfluenza 3 (PCR) (NotDetected) Parainfluenza 4 (PCR) (NotDetected) RSV (PCR) (NotDetected) Entero/Rhino (PCR) (NotDetected) Medications Administered Current Inpatient Medications Acetaminophen (Acetaminophen 325 Mg Tab) 650 mg PO Q4H PRN PRN Reason: Moderate Pain (Scale 4, 5, 6) Stop: 08/15/24 17:00 Azithromycin (Azithromycin 250 Mg Tab) 500 mg PO QPM [facility] Stop: 07/19/24 19:59 Folic Acid (Folic Acid 1 Mg Tab) 1 mg PO QAM [facility] Stop: 08/16/24 08:59 Last Admin: 07/17/24 08:33 Dose: 1 mg Gabapentin (Gabapentin 600 Mg Tab) 600 mg PO Q8H [facility] Stop: 07/18/24 06:01 Gabapentin (Gabapentin 600 Mg Tab) 600 mg PO Q12H [facility] Stop: 07/19/24 06:01 Gabapentin (Gabapentin 600 Mg Tab) 600 mg PO Q24H [facility] Stop: 07/20/24 06:01 Sodium Chloride (Nss) 1,000 mls @ 80 mls/hr IV .[id number] [facility] Stop: 07/17/24 18:29 Last Admin: 07/17/24 06:20 Dose: 80 mls/hr Ondansetron HCl (Ondansetron Inj 2 Mg/Ml 2 Ml Vial) 4 mg IV Q4H PRN PRN Reason: Nausea And Vomiting Stop: 08/15/24 17:00 Pantoprazole Sodium (Pantoprazole 40 Mg Tab) 40 mg PO DAILY [facility] Stop: 08/16/24 08:59 Last Admin: 07/17/24 08:34 Dose: 40 mg Thiamine HCl (Thiamine Hcl 100 Mg Tab) 100 mg PO DAILY [facility] Stop: 08/16/24 08:59 Last Admin: 07/17/24 08:34 Dose: 100 mg
[2024-07-17 09:55] LABS: Magnesium 1.7 mg/dl (1.7-2.4); Phosphorus 2.7 mg/dl (2.5-4.9)
--- NOTE | 2024-07-17 10:11 | Gastrointestinal Consultation ---
Date of Consultation July 17, 2024 Assessment & Plan (1) Elevated transaminase level: He has hemochromatosis which is a disease that is basically managed by hematology with phlebotomies. His LFT's are not a reason for him to be in the hospital. He drinks on top of having hemochromatosis. 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 Hematology can intervene with hemochromatosis but only he can intervene with his alcohol abuse. I discussed this with him and emphasized the fact that he MUST stop drinking. Nothing to do for him from a hepatology standpoint during this hospitalization. He is on antibiotics for his bacterial gut infection. History of Present Illness Reason for Consultation: hemochromatosis Attending Physician: Juanito Guido MD History of Present Illness 53 year old man whom I saw in the spring of this year for issues with his liver and bleeding. He carries the diagnosis of hemochromatosis and just started having phlebotomies done. His ferritin was found to be over 7000 with elevated LFT's of 559 for AST and 224 for ALT. Some improvement seen on admit labs from yesterday. On top of this he drinks 8-12 beers per day and on admit his etoh was 159.4. He also tells me he has had diarrhea for the past six weeks--his had a "GI bug" right before he got sick. She improved but he hasn't. He tells me he had a colonoscopy at [facility] a couple of months ago. Stool studies in hospital are positive for campylobacter and EPEC Allergies Allergy/AdvReac Type Severity Reaction Status Date / Time No Known Allergies Allergy Verified 12/13/23 21:31 Home Medications Medication Instructions Recorded Confirmed Type thiamine mononitrate (vit B1) 100 100 mg PO DAILY #30 tabs 12/16/23 07/16/24 Rx mg tablet pantoprazole 40 mg tablet,delayed 40 mg PO DAILY 07/16/24 07/16/24 History release Patient History Family History Other Kidney stones Social History Smoking Status: Never smoker Tobacco Type: Smokeless Tobacco (Dip or Chew) Second Hand Exposure: No; Do You Dip or Chew Tobacco: Yes; Hx Alcohol Use: Yes Alcohol type: beer Hx Substance Use: No Preferred Language: Cymraes Communication Ability: Effective Voltage Tester Required: No Beliefs That Will Affect Care: None marital status: Current Living Situation: Spouse and Family current occupational status: employed Feels Safe at Home: Yes Safety Concerns: Feels Safe At This Time Assistive Devices: None Review of Systems Review of Systems: All systems reviewed & are unremarkable except as noted in HPI & below Physical Exam Constitutional: WD/WN, vitals as above Neck: trachea midline, no thyromegaly Respiratory: normal respiratory effort, lungs clear to auscultation Cardiovascular: RRR, no murmur, no edema Gastrointestinal (Abdomen): normal bowel sounds, soft, nontender, no hepatosplenomegaly Results & Data Vital Signs (Past 12 Hours) Vital Signs Temp Pulse Pulse Resp BP Pulse Ox O2 Del Method 07/17/24 07:53 36.7 C 105 H 16 165/105 H 96 Room Air 07/17/24 07:31 86 07/17/24 03:35 36.7 C 86 18 122/84 97 Room Air 07/16/24 23:19 105 H 07/16/24 22:59 36.6 C 92 H 20 127/86 98 Room Air Laboratory Results 07/17/24 07/17/24 07/16/24 Range/Units 07:21 01:50 22:30 WBC 5.59 (4.8-10.8) K/ul RBC 4.05 L (4.70-6.10) M/uL Hgb 14.4 (14.0-18.0) g/dl Hct 38.1 L (42.0-52.0) % MCV 94.1 D (80.0-100.0) fL MCH 35.6 H (25.0-34.0) pg MCHC 37.8 H (32.0-36.0) g/dL RDW Std Deviation 42.5 (36.4-46.3) fL RDW Coeff of Edith 12.2 (11.5-14.5) % Plt Count 192 (130-400) K/uL MPV 8.8 L (9.4-12.4) fL Immature Gran % (Auto) % Neut % (Auto) % Lymph % (Auto) % Sawyer % (Auto) % Eos % (Auto) % Baso % (Auto) % Neut # (Auto) (1.40-6.50) K/uL Lymph # (Auto) (1.20-3.40) K/uL Sawyer # (Auto) (0.11-0.59) K/uL Eos # (Auto) (0.00-0.50) K/uL Baso # (Auto) (0.00-0.20) K/uL Immature Gran # (Auto) (0.01-0.20) K/uL PT (9.0-12.0) Seconds INR (0.9-1.1) Sodium 125 L (136-145) mmol/L Potassium 3.8 3.2 L (3.5-5.1) mmol/L Chloride 92 L (98-107) mmol/L Carbon Dioxide 22 (21-32) mmol/L Anion Gap 11 (3-11) BUN 8 7 (6-23) mg/dl Creatinine 0.79 (0.6-1.4) mg/dl Est Cr Clr Drug Dosing 97.6 ml/min eGFR 106.23 BUN/Creatinine Ratio 10.0 (10-20) Glucose 122 H (70-99(Fasting)) mg/dl Estimat Average Glucose 134 mg/dl Hemoglobin A1c 6.3 H (4.5-5.6) % Osmolality (280-300) mOsm/kg Calcium 7.4 L (8.6-10.3) mg/dl Phosphorus 2.7 (2.5-4.9) mg/dl Magnesium 1.7 (1.7-2.4) mg/dl Total Bilirubin (0.2-1.0) mg/dl Direct Bilirubin (0-0.2) mg/dl AST (13-39) U/L ALT (7-52) U/L Alkaline Phosphatase (34-104) U/L Troponin I High Sens (0-20) pg/ml Total Protein (6.0-8.3) gm/dl Albumin (3.4-5.0) gm/dl Globulin (2.5-4.0) gm/dl Albumin/Globulin Ratio (0.9-2) Lipase (11-82) U/L Urine Color Urine Appearance (Clear) Urine pH (4.5-7.5) Ur Specific [place] (1.000-1.030) Urine Protein (Negative) Urine Glucose (UA) (Negative) Urine Ketones (Negative) Urine Blood (Negative) Urine Nitrite (Negative) Urine Bilirubin (Negative) Urine Urobilinogen (Negative) Ur Leukocyte Esterase (Negative) Urine Osmolality (500-800) mOsm/kg Ur Random Sodium mmol/L Stl C. cayetanensis PCR (NotDetected) Stool Rotavirus A PCR (NotDetected) Stl Adenov F 40/41 PCR (NotDetected) Stool Astrovirus (PCR) (NotDetected) Stool Campylobacter PCR (NotDetected) Stl C. diff Tox B Gene (Neg) Stool Cryptosporidium PCR (NotDetected) Stl E.coli Shiga Tox PCR (NotDetected) Stl Enterotoxigenic E PCR (NotDetected) Stool EPEC (PCR) (NotDetected) Stool EAEC (PCR) (NotDetected) Stl E. histolytica PCR (NotDetected) Stool Giardia Lamblia PCR (NotDetected) Stool Salmonella PCR (NotDetected) Stool Sapovirus (PCR) (NotDetected) Stl P. shigelloides PCR (NotDetected) Stl Shigella/EIEC PCR (NotDetected) St Y.enterocolitica PCR (NotDetected) Stool Vibrio (PCR) (NotDetected) Stl Vibrio cholerae PCR (NotDetected) Stl Norovirus GI/GII PCR (NotDetected) Ethyl Alcohol mg/dL (<10.0) mg/dl Adenovirus (PCR) (NotDetected) B. pertussis DNA (PCR) (NotDetected) B.parapertussis DNA PCR (NotDetected) C. pneumoniae DNA (PCR) (NotDetected) Coronavirus OC43 (PCR) (NotDetected) Coronavirus HKU1 (PCR) (NotDetected) Coronavirus 229E (PCR) (NotDetected) SARS-CoV-2 (PCR) (NotDetected) Coronavirus NL63 (PCR) (NotDetected) Human Metapneumovir PCR (NotDetected) Influenza Type A (PCR) (NotDetected) Influenza Type B (PCR) (NotDetected) M. pneumoniae (PCR) (NotDetected) Parainfluenza 1 (PCR) (NotDetected) Parainfluenza 2 (PCR) (NotDetected) Parainfluenza 3 (PCR) (NotDetected) Parainfluenza 4 (PCR) (NotDetected) RSV (PCR) (NotDetected) Entero/Rhino (PCR) (NotDetected) 07/16/24 07/16/24 07/16/24 Range/Units 20:07 19:00 13:13 WBC (4.8-10.8) K/ul RBC (4.70-6.10) M/uL Hgb (14.0-18.0) g/dl Hct (42.0-52.0) % MCV (80.0-100.0) fL MCH (25.0-34.0) pg MCHC (32.0-36.0) g/dL RDW Std Deviation (36.4-46.3) fL RDW Coeff of Edith (11.5-14.5) % Plt Count (130-400) K/uL MPV (9.4-12.4) fL Immature Gran % (Auto) % Neut % (Auto) % Lymph % (Auto) % Sawyer % (Auto) % Eos % (Auto) % Baso % (Auto) % Neut # (Auto) (1.40-6.50) K/uL Lymph # (Auto) (1.20-3.40) K/uL Sawyer # (Auto) (0.11-0.59) K/uL Eos # (Auto) (0.00-0.50) K/uL Baso # (Auto) (0.00-0.20) K/uL Immature Gran # (Auto) (0.01-0.20) K/uL PT (9.0-12.0) Seconds INR (0.9-1.1) Sodium 129 L (136-145) mmol/L Potassium TNP (3.5-5.1) mmol/L Chloride 93 L (98-107) mmol/L Carbon Dioxide 26 (21-32) mmol/L Anion Gap 10 (3-11) BUN TNP (6-23) mg/dl Creatinine 1.01 (0.6-1.4) mg/dl Est Cr Clr Drug Dosing 76.3 ml/min eGFR 88.93 BUN/Creatinine Ratio TNP (10-20) Glucose 189 H (70-99(Fasting)) mg/dl Estimat Average Glucose mg/dl Hemoglobin A1c (4.5-5.6) % Osmolality (280-300) mOsm/kg Calcium 7.9 L (8.6-10.3) mg/dl Phosphorus (2.5-4.9) mg/dl Magnesium (1.7-2.4) mg/dl Total Bilirubin (0.2-1.0) mg/dl Direct Bilirubin (0-0.2) mg/dl AST (13-39) U/L ALT (7-52) U/L Alkaline Phosphatase (34-104) U/L Troponin I High Sens (0-20) pg/ml Total Protein (6.0-8.3) gm/dl Albumin (3.4-5.0) gm/dl Globulin (2.5-4.0) gm/dl Albumin/Globulin Ratio (0.9-2) Lipase (11-82) U/L Urine Color Yellow Urine Appearance Clear (Clear) Urine pH 6.5 (4.5-7.5) Ur Specific [place] 1.013 (1.000-1.030) Urine Protein Negative (Negative) Urine Glucose (UA) Negative (Negative) Urine Ketones Negative (Negative) Urine Blood Negative (Negative) Urine Nitrite Negative (Negative) Urine Bilirubin Negative (Negative) Urine Urobilinogen Negative (Negative) Ur Leukocyte Esterase Negative (Negative) Urine Osmolality 393 L (500-800) mOsm/kg Ur Random Sodium 27 mmol/L Stl C. cayetanensis PCR Not Detected (NotDetected) Stool Rotavirus A PCR Not Detected (NotDetected) Stl Adenov F 40/41 PCR Not Detected (NotDetected) Stool Astrovirus (PCR) Not Detected (NotDetected) Stool Campylobacter PCR DETECTED A* (NotDetected) Stl C. diff Tox B Gene Negative Cdiff Gene (Neg) Stool Cryptosporidium PCR Not Detected (NotDetected) Stl E.coli Shiga Tox PCR Not Detected (NotDetected) Stl Enterotoxigenic E PCR Not Detected (NotDetected) Stool EPEC (PCR) DETECTED A* (NotDetected) Stool EAEC (PCR) Not Detected (NotDetected) Stl E. histolytica PCR Not Detected (NotDetected) Stool Giardia Lamblia PCR Not Detected (NotDetected) Stool Salmonella PCR Not Detected (NotDetected) Stool Sapovirus (PCR) Not Detected (NotDetected) Stl P. shigelloides PCR Not Detected (NotDetected) Stl Shigella/EIEC PCR Not Detected (NotDetected) St Y.enterocolitica PCR Not Detected (NotDetected) Stool Vibrio (PCR) Not Detected (NotDetected) Stl Vibrio cholerae PCR Not Detected (NotDetected) Stl Norovirus GI/GII PCR Not Detected (NotDetected) Ethyl Alcohol mg/dL (<10.0) mg/dl Adenovirus (PCR) Not Detected (NotDetected) B. pertussis DNA (PCR) Not Detected (NotDetected) B.parapertussis DNA PCR Not Detected (NotDetected) C. pneumoniae DNA (PCR) Not Detected (NotDetected) Coronavirus OC43 (PCR) Not Detected (NotDetected) Coronavirus HKU1 (PCR) Not Detected (NotDetected) Coronavirus 229E (PCR) Not Detected (NotDetected) SARS-CoV-2 (PCR) Not Detected (NotDetected) Coronavirus NL63 (PCR) Not Detected (NotDetected) Human Metapneumovir PCR Not Detected (NotDetected) Influenza Type A (PCR) Not Detected (NotDetected) Influenza Type B (PCR) Not Detected (NotDetected) M. pneumoniae (PCR) Not Detected (NotDetected) Parainfluenza 1 (PCR) Not Detected (NotDetected) Parainfluenza 2 (PCR) Not Detected (NotDetected) Parainfluenza 3 (PCR) Not Detected (NotDetected) Parainfluenza 4 (PCR) Not Detected (NotDetected) RSV (PCR) Not Detected (NotDetected) Entero/Rhino (PCR) Not Detected (NotDetected) 07/16/24 Range/Units 12:25 WBC 5.36 (4.8-10.8) K/ul RBC 3.96 L (4.70-6.10) M/uL Hgb 13.4 L (14.0-18.0) g/dl Hct 35.5 L (42.0-52.0) % MCV 89.6 (80.0-100.0) fL MCH 33.8 (25.0-34.0) pg MCHC 37.7 H (32.0-36.0) g/dL RDW Std Deviation 38.5 (36.4-46.3) fL RDW Coeff of Edith 11.8 (11.5-14.5) % Plt Count 213 (130-400) K/uL MPV 9.2 L (9.4-12.4) fL Immature Gran % (Auto) 0.6 % Neut % (Auto) 64.9 % Lymph % (Auto) 26.3 % Sawyer % (Auto) 7.6 % Eos % (Auto) 0.0 % Baso % (Auto) 0.6 % Neut # (Auto) 3.48 (1.40-6.50) K/uL Lymph # (Auto) 1.41 (1.20-3.40) K/uL Sawyer # (Auto) 0.41 (0.11-0.59) K/uL Eos # (Auto) 0.00 (0.00-0.50) K/uL Baso # (Auto) 0.03 (0.00-0.20) K/uL Immature Gran # (Auto) 0.03 (0.01-0.20) K/uL PT 12.8 H (9.0-12.0) Seconds INR 1.2 H (0.9-1.1) Sodium 129 L (136-145) mmol/L Potassium 3.5 (3.5-5.1) mmol/L Chloride 88 L (98-107) mmol/L Carbon Dioxide 20 L (21-32) mmol/L Anion Gap 21 H (3-11) BUN 8 (6-23) mg/dl Creatinine 0.93 (0.6-1.4) mg/dl Est Cr Clr Drug Dosing 82.9 ml/min eGFR 98.18 BUN/Creatinine Ratio 8.6 L (10-20) Glucose 174 H (70-99(Fasting)) mg/dl Estimat Average Glucose mg/dl Hemoglobin A1c (4.5-5.6) % Osmolality 321 H (280-300) mOsm/kg Calcium 8.0 L (8.6-10.3) mg/dl Phosphorus (2.5-4.9) mg/dl Magnesium (1.7-2.4) mg/dl Total Bilirubin 1.2 H (0.2-1.0) mg/dl Direct Bilirubin 0.4 H (0-0.2) mg/dl AST 372 H (13-39) U/L ALT 178 H (7-52) U/L Alkaline Phosphatase 183 H (34-104) U/L Troponin I High Sens 12.0 (0-20) pg/ml Total Protein 5.6 L (6.0-8.3) gm/dl Albumin 3.3 L (3.4-5.0) gm/dl Globulin 2.3 L (2.5-4.0) gm/dl Albumin/Globulin Ratio 1.4 (0.9-2) Lipase 82 (11-82) U/L Urine Color Urine Appearance (Clear) Urine pH (4.5-7.5) Ur Specific [place] (1.000-1.030) Urine Protein (Negative) Urine Glucose (UA) (Negative) Urine Ketones (Negative) Urine Blood (Negative) Urine Nitrite (Negative) Urine Bilirubin (Negative) Urine Urobilinogen (Negative) Ur Leukocyte Esterase (Negative) Urine Osmolality (500-800) mOsm/kg Ur Random Sodium mmol/L Stl C. cayetanensis PCR (NotDetected) Stool Rotavirus A PCR (NotDetected) Stl Adenov F 40/41 PCR (NotDetected) Stool Astrovirus (PCR) (NotDetected) Stool Campylobacter PCR (NotDetected) Stl C. diff Tox B Gene (Neg) Stool Cryptosporidium PCR (NotDetected) Stl E.coli Shiga Tox PCR (NotDetected) Stl Enterotoxigenic E PCR (NotDetected) Stool EPEC (PCR) (NotDetected) Stool EAEC (PCR) (NotDetected) Stl E. histolytica PCR (NotDetected) Stool Giardia Lamblia PCR (NotDetected) Stool Salmonella PCR (NotDetected) Stool Sapovirus (PCR) (NotDetected) Stl P. shigelloides PCR (NotDetected) Stl Shigella/EIEC PCR (NotDetected) St Y.enterocolitica PCR (NotDetected) Stool Vibrio (PCR) (NotDetected) Stl Vibrio cholerae PCR (NotDetected) Stl Norovirus GI/GII PCR (NotDetected) Ethyl Alcohol mg/dL 159.4 H (<10.0) mg/dl Adenovirus (PCR) (NotDetected) B. pertussis DNA (PCR) (NotDetected) B.parapertussis DNA PCR (NotDetected) C. pneumoniae DNA (PCR) (NotDetected) Coronavirus OC43 (PCR) (NotDetected) Coronavirus HKU1 (PCR) (NotDetected) Coronavirus 229E (PCR) (NotDetected) SARS-CoV-2 (PCR) (NotDetected) Coronavirus NL63 (PCR) (NotDetected) Human Metapneumovir PCR (NotDetected) Influenza Type A (PCR) (NotDetected) Influenza Type B (PCR) (NotDetected) M. pneumoniae (PCR) (NotDetected) Parainfluenza 1 (PCR) (NotDetected) Parainfluenza 2 (PCR) (NotDetected) Parainfluenza 3 (PCR) (NotDetected) Parainfluenza 4 (PCR) (NotDetected) RSV (PCR) (NotDetected) Entero/Rhino (PCR) (NotDetected)
[2024-07-17] MEDS: MAGNESIUM SULFATE / D5W 1 GM/100 ML BAG IV ONE (11:30)
[2024-07-17] MEDS: ADVANCED PROBIOTIC 625 MG CAPSULE PO SCH (12:11)
[2024-07-17] MEDS: LORazepam 0.5 MG TAB PO STA (13:22)
[2024-07-17] MEDS: LORazepam 1 MG TAB PO STA (17:25)
[2024-07-17 18:45] LABS: Calcium 8.2 mg/dl (8.6-10.3); Magnesium 1.7 mg/dl (1.7-2.4)
[2024-07-17 19:01] LABS: BUN Creatinine Ratio 5.2 (10-20); Creatinine Clr Calc Pharmacy 79.5 ml/min; Phosphorus 1.5 mg/dl (2.5-4.9)
[2024-07-17] MEDS ORDERED: POTASSIUM PHOS 3 MMOL/1 ML INFUSION IV STA (19:25)
[2024-07-17] MEDS ORDERED: cloNIDine HCL 0.1 MG TAB PO PRN (19:27)
[2024-07-17] MEDS ORDERED: MAGNESIUM SULFATE / D5W 1 GM/100 ML BAG IV SCH (19:30)
[2024-07-17] MEDS: METOPROLOL TARTRATE 1 MG/ML VIAL IV STA (20:18)
[2024-07-17] MEDS: POTASSIUM CHLORIDE CRTAB 20 MEQ TABCR PO STA (20:20)
[2024-07-17] MEDS: POT PHOSPHATE MONOBASIC W/ SOD TAB PO SCH (20:20)
[2024-07-17] MEDS: MAGNESIUM OXIDE 400 MG TAB PO SCH (22:05)
[2024-07-17] MEDS: AZITHROMYCIN 250 MG TAB PO SCH (22:05)
[2024-07-18 05:52] LABS: Hematocrit (blood only) 32.7 % (42.0-52.0); Hemoglobin 11.7 g/dl (14.0-18.0); Mean Corpuscular Hemoglobin 33.6 pg (25.0-34.0); Mean Corpuscular Hgb Conc 35.8 g/dL (32.0-36.0); Mean Platelet Volume 8.9 fL (9.4-12.4); Platelet Count 138 K/uL (130-400); RDW Coefficient of Variation 12.3 % (11.5-14.5); RDW Standard Deviation 42.5 fL (36.4-46.3); Red Blood Count 3.48 M/uL (4.70-6.10); White Blood Count 3.55 K/ul (4.8-10.8)
[2024-07-18 06:44] LABS: Albumin Globulin Ratio 1.2 (0.9-2); Albumin Level 2.7 gm/dl (3.4-5.0); BUN Creatinine Ratio 2.5 (10-20); Bilirubin,Total 1.4 mg/dl (0.2-1.0); Calcium 7.4 mg/dl (8.6-10.3); Creatinine Clr Calc Pharmacy 97.6 ml/min; Globulin 2.2 gm/dl (2.5-4.0); Magnesium 1.5 mg/dl (1.7-2.4); Phosphorus 2.5 mg/dl (2.5-4.9); Potassium 3.3 mmol/L (3.5-5.1); Total Protein 4.9 gm/dl (6.0-8.3)
--- NOTE | 2024-07-18 07:18 | Hospitalist Progress Note ---
Date of Service July 18, 2024 Assessment & Plan (1) Hereditary hemochromatosis: (2) Alcoholism: (3) Hyponatremia: (4) Elevated transaminase level: Plan: Hereditary Hemochromatosis - Ad[facility] -Outpatient ferritin of [id number] on 07/13, pt following with hematology as outpt. Underwent phelbotomy on 07/13, was scheduled to have weekly phlebotomy x 1 hr for the next 4 weeks per outpatient EPIC -Elevated liver transaminases: 07/13 vs on admission AST: 559 --> 376 ALT: 224--> 178 Alk phos: 189-->183 Bili 1.3 -->1.2, direct 0.4 INR 1.2 - GI consulted for hepatology involvement - outpatient appointment has already been requested -> pt to follow up with hematology as well Infectious diarrhea - Stool cultures and c diff were negative on recent outpatient workup, repeated now - positive for Campylobacter and EPEC, started on azithromycin overnight - Reports diarrhea upwards of 10x per day associated with abdominal cramping, now seems somewhat improved Alcoholism -Reported that he drinks 6-8 beers per day (now decreased drinking d/t abdominal issues/ diarrhea), EtOH level was 159.4 on admission -Cessation encouraged at bedside -Noted that increased alcohol use increases mortality risk associated with hereditary hemochromatosis -Interested in inpatient rehab- previously stayed in [facility] - to assist with dc planning Hyponatremia -129 on admission -Urine osm 393, serum blood osmolarity 321 -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 with excess drinking 6-8 beers daily - Allow diet and encourage po intake - monitor Na level Hypomagnesemia, Hypokalemia, hypophosphatemia - secondary to poor oral intake, diarrhea, alcohol abuse - replace and monitor, treat above conditions as above DVT ppx: teds, scds CODE: Full code Dispo: From home, likely to remain in the hospital x 1-2 days Admission and Anticipated Discharge Date Admission Date: July 16, 2024 Subjective Pt seen in follow up of elevated LFTs, infectious diarrhea, alcoholism Started on azithromycin for positive stool studies Currently sitting up in bed, in no acute distress. Still has frequent diarrhea, however he says it is improving. No fevers chills chest pain shortness of breath. HR uncontrolled, and received metoprolol this AM tremor improved this AM Review of Systems Review of Systems: All systems reviewed & are unremarkable except as noted in Subjective Physical Exam Physical Exam: GENERAL: well nourished M in NAD HEENT: NC/AT. Pupils equal, round and reactive to light. Oral mucosa moist. NECK: No JVD, no neck masses. HEART: S1 and S2 heard. + tachy RESPIRATORY SYSTEM: Normal AP diameter. No accessory muscle use. No wheezing, no crackles. ABDOMEN: Soft, bowel sounds present, nontender, no distention. NEURO: Awake, alert, answers simple questions appropriately, moves extremities. EXTREMITIES: No edema, no erythema seen. Results & Data Results & Data Vital Signs (Past 12 Hours) Vital Signs Temp Pulse Pulse Resp BP BP Pulse Ox 07/18/24 03:19 36.8 C 79 16 130/93 98 07/17/24 23:45 105 H 07/17/24 22:09 36.4 C L 103 H 18 152/100 H 100 07/17/24 20:40 102 H 149/107 H 07/17/24 20:18 123 H 139/97 07/17/24 19:25 36.7 C 140 H 18 139/97 98 O2 Del Method 07/18/24 03:19 Room Air 07/17/24 23:45 07/17/24 22:09 Room Air 07/17/24 20:40 07/17/24 20:18 07/17/24 19:25 Room Air Laboratory Results 07/18/24 07/17/24 07/17/24 Range/Units 05:34 18:07 07:21 WBC 3.55 L 5.59 (4.8-10.8) K/ul RBC 3.48 L 4.05 L (4.70-6.10) M/uL Hgb 11.7 L 14.4 (14.0-18.0) g/dl Hct 32.7 L 38.1 L (42.0-52.0) % MCV 94.0 94.1 D (80.0-100.0) fL MCH 33.6 35.6 H (25.0-34.0) pg MCHC 35.8 37.8 H (32.0-36.0) g/dL RDW Std Deviation 42.5 42.5 (36.4-46.3) fL RDW Coeff of Edith 12.3 12.2 (11.5-14.5) % Plt Count 138 192 (130-400) K/uL MPV 8.9 L 8.8 L (9.4-12.4) fL Sodium 131 L 133 L (136-145) mmol/L Potassium 3.3 L 3.0 L D (3.5-5.1) mmol/L Chloride 97 L 96 L (98-107) mmol/L Carbon Dioxide 25 25 (21-32) mmol/L Anion Gap 9 12 H (3-11) BUN 2 L 5 L (6-23) mg/dl Creatinine 0.79 0.97 (0.6-1.4) mg/dl Est Cr Clr Drug Dosing 97.6 79.5 ml/min eGFR 106.23 93.35 BUN/Creatinine Ratio 2.5 L 5.2 L (10-20) Glucose 84 150 H (70-99(Fasting)) mg/dl Estimat Average Glucose 134 mg/dl Hemoglobin A1c 6.3 H (4.5-5.6) % Calcium 7.4 L 8.2 L (8.6-10.3) mg/dl Phosphorus 2.5 D 1.5 L* D (2.5-4.9) mg/dl Magnesium 1.5 L 1.7 (1.7-2.4) mg/dl Total Bilirubin 1.4 H (0.2-1.0) mg/dl AST 318 H (13-39) U/L ALT 160 H (7-52) U/L Alkaline Phosphatase 171 H (34-104) U/L Total Protein 4.9 L (6.0-8.3) gm/dl Albumin 2.7 L (3.4-5.0) gm/dl Globulin 2.2 L (2.5-4.0) gm/dl Albumin/Globulin Ratio 1.2 (0.9-2) 07/17/24 Range/Units 01:50 WBC (4.8-10.8) K/ul RBC (4.70-6.10) M/uL Hgb (14.0-18.0) g/dl Hct (42.0-52.0) % MCV (80.0-100.0) fL MCH (25.0-34.0) pg MCHC (32.0-36.0) g/dL RDW Std Deviation (36.4-46.3) fL RDW Coeff of Edith (11.5-14.5) % Plt Count (130-400) K/uL MPV (9.4-12.4) fL Sodium (136-145) mmol/L Potassium (3.5-5.1) mmol/L Chloride (98-107) mmol/L Carbon Dioxide (21-32) mmol/L Anion Gap (3-11) BUN (6-23) mg/dl Creatinine (0.6-1.4) mg/dl Est Cr Clr Drug Dosing ml/min eGFR BUN/Creatinine Ratio (10-20) Glucose (70-99(Fasting)) mg/dl Estimat Average Glucose mg/dl Hemoglobin A1c (4.5-5.6) % Calcium (8.6-10.3) mg/dl Phosphorus 2.7 (2.5-4.9) mg/dl Magnesium 1.7 (1.7-2.4) mg/dl Total Bilirubin (0.2-1.0) mg/dl AST (13-39) U/L ALT (7-52) U/L Alkaline Phosphatase (34-104) U/L Total Protein (6.0-8.3) gm/dl Albumin (3.4-5.0) gm/dl Globulin (2.5-4.0) gm/dl Albumin/Globulin Ratio (0.9-2) Medications Administered Current Inpatient Medications Acetaminophen (Acetaminophen 325 Mg Tab) 650 mg PO Q4H PRN PRN Reason: Moderate Pain (Scale 4, 5, 6) Stop: 08/15/24 17:00 Azithromycin (Azithromycin 250 Mg Tab) 500 mg PO QPM [facility] Stop: 07/19/24 19:59 Last Admin: 07/17/24 22:05 Dose: 500 mg Clonidine HCl (Clonidine Hcl 0.1 Mg Tab) 0.1 mg PO Q6H PRN PRN Reason: Hypertension Stop: 08/16/24 19:26 Folic Acid (Folic Acid 1 Mg Tab) 1 mg PO QAM [facility] Stop: 08/16/24 08:59 Last Admin: 07/17/24 08:33 Dose: 1 mg Gabapentin (Gabapentin 600 Mg Tab) 600 mg PO Q12H [facility] Stop: 07/19/24 06:01 Gabapentin (Gabapentin 600 Mg Tab) 600 mg PO Q24H [facility] Stop: 07/20/24 06:01 Magnesium Sulfate/Dextrose (Magnesium Sulfate / D5w) 1 gm in 100 mls @ 50 mls/hr IV ONE ONE Stop: 07/18/24 09:14 Lactobacillus Acidophilus (Advanced Probiotic 625 Mg Capsule) 1,250 mg PO DAILY [facility] Stop: 08/16/24 11:44 Last Admin: 07/17/24 12:11 Dose: 1,250 mg Ondansetron HCl (Ondansetron Inj 2 Mg/Ml 2 Ml Vial) 4 mg IV Q4H PRN PRN Reason: Nausea And Vomiting Stop: 08/15/24 17:00 Pantoprazole Sodium (Pantoprazole 40 Mg Tab) 40 mg PO DAILY [facility] Stop: 08/16/24 08:59 Last Admin: 07/17/24 08:34 Dose: 40 mg Potassium Chloride (Potassium Chloride Crtab 20 Meq Tabcr) 40 meq PO NOW STA Stop: 07/18/24 07:16 Potassium Phosphate (Pot Phosphate Monobasic W/ Sod Tab) 1 tab PO Q8H [facility] Stop: 07/18/24 19:46 Last Admin: 07/18/24 03:44 Dose: 1 tab Thiamine HCl (Thiamine Hcl 100 Mg Tab) 100 mg PO DAILY [facility] Stop: 08/16/24 08:59 Last Admin: 07/17/24 08:34 Dose: 100 mg
[2024-07-18] MEDS: POTASSIUM CHLORIDE CRTAB 20 MEQ TABCR PO STA (09:12)
[2024-07-18] MEDS: MAGNESIUM SULFATE / D5W 1 GM/100 ML BAG IV ONE (09:12)
[2024-07-18] MEDS: LORazepam 0.5 MG TAB PO STA (12:33)
[2024-07-18] MEDS: METOPROLOL TARTRATE 25 MG TAB PO ONE (14:33)
[2024-07-18 14:56] LABS: Calcium 8.4 mg/dl (8.6-10.3); Magnesium 1.9 mg/dl (1.7-2.4)
[2024-07-18 15:02] LABS: BUN Creatinine Ratio 2.1 (10-20); Phosphorus 1.5 mg/dl (2.5-4.9)
[2024-07-18] MEDS ORDERED: SODIUM PHOSPHATE 3 MMOL/1 ML INFUSION IV STA (15:10)
[2024-07-18] MEDS ORDERED: POT PHOSPHATE MONOBASIC W/ SOD TAB PO SCH ×2 (15:30→20:00)
[2024-07-18] MEDS: LORazepam 1 MG TAB PO STA (16:24)
[2024-07-18] MEDS: GABAPENTIN 600 MG TAB PO SCH (17:29)
[2024-07-19] MEDS: POT PHOSPHATE MONOBASIC W/ SOD TAB PO SCH (03:22)
[2024-07-19 06:10] LABS: Hematocrit (blood only) 31.6 % (42.0-52.0); Hemoglobin 11.3 g/dl (14.0-18.0); Mean Corpuscular Hgb Conc 35.8 g/dL (32.0-36.0); Mean Corpuscular Volume 92.4 fL (80.0-100.0); Mean Platelet Volume 9.2 fL (9.4-12.4); Platelet Count 137 K/uL (130-400); RDW Coefficient of Variation 12.4 % (11.5-14.5); RDW Standard Deviation 42.2 fL (36.4-46.3); Red Blood Count 3.42 M/uL (4.70-6.10); White Blood Count 4.26 K/ul (4.8-10.8)
[2024-07-19 06:41] LABS: Albumin Globulin Ratio 1.2 (0.9-2); Albumin Level 2.8 gm/dl (3.4-5.0); BUN Creatinine Ratio 4.3 (10-20); Bilirubin,Total 1.1 mg/dl (0.2-1.0); Calcium 7.8 mg/dl (8.6-10.3); Creatinine Clr Calc Pharmacy 111.7 ml/min; Globulin 2.3 gm/dl (2.5-4.0); Magnesium 1.6 mg/dl (1.7-2.4); Potassium 3.7 mmol/L (3.5-5.1); Total Protein 5.1 gm/dl (6.0-8.3)
[2024-07-19] MEDS: MAGNESIUM SULFATE / D5W 1 GM/100 ML BAG IV ONE (08:11)
--- NOTE | 2024-07-19 08:16 | Electrocardiogram Report ---
Test Reason : Blood Pressure : */* mmHG Vent. Rate : 116 BPM Atrial Rate : 116 BPM P-R Int : 162 ms QRS Dur : 86 ms QT Int : 314 ms P-R-T Axes : 37 -10 22 degrees QTcB Int : 436 ms Sinus tachycardia Otherwise normal ECG When compared with ECG of 16-Jul-2024 12:18, HR has increased by 21 bpm Otherwise no significant change Confirmed by Mehdi Gilmore ([id number] on 07/19/2024 8:15:50 AM Referred By: REFERRED SELF Confirmed By: Mehdi Gilmore
--- NOTE | 2024-07-19 09:16 | Gastroenterology Progress Note ---
<Statement entered by Khanh Jensen MD - 07/19/24 14:07> I personally saw and examined the patient. I have reviewed the chart and agree with the documentation provided by the MEDIA RELATIONS INTERN including discussion about the assessment, treatment and plan. Briefly, 53 year old male with history of hereditary hemochromatosis managed by hematology, ETOH abuse admitted w/ diarrhea, found to have Campylobacter and EPEC. He was stared on ABX therapy over the weekend and notes he is feeling improved and is requesting to go home. Elevated AST to alt in 2:1 ratio and elevated Alkaline phos elevated suggestive of fatty liver. Liver tests are from etoh hepatitis but Madderys low. Suggest outpatient Heme f/up and supportive care. He should avoid raw shellfist given Hemachromatosis and already with infectious gastroenteritis (higher risk for vibrio). Date of Service July 19, 2024 Assessment & Plan (1) Transaminitis: Plan: 53 year old male with history of hereditary hemochromatosis managed by hematology, ETOH abuse admitted w/ diarrhea, found to have Campylobacter and EPEC. He was stared on ABX therapy over the weekend and notes he is feeling improved and is requesting to go home. H.H. Continue follow up with hematology Elevated LFTs Suspected related to ongoing ETOH abuse, HH Recommend OP hepatology evaluation Should have full liver serology obtained ETOH cessation encouraged Campylobacter and EPEC Complete course of ABX May use Bentyl 10 mg TID as needed for cramping/diarrhea Recall GI as needed. I spent a total of 40 minutes on the date of service in review of patient's record, and previously obtained information in person and appropriate medical visit, discussion and education of plan, with patient and/or caregiver, placing orders for tests/referral/procedures as medically necessary and documentation of pertinent clinical information in patient's medical records for their visit today. Thank you for allowing us to participate in the care of this patient. Please call with any acute changes, questions or concerns. Please see addendum below with additional recommendation from my supervising physician. Admission and Anticipated Discharge Date Admission Date: July 16, 2024 Subjective Pt was seen and evaluated, chart reviewed. Feeling improved. No abd pain. No nausea, vomiting. Stools remain loose but are less frequent. Tolerating PO intake. Denies black or bloody stools + Campylobacter + EPEC TB 1.4 --> 1.1 AST 372 --> 187 ALT 178 --> 117 ALKP 171 --> 183 CTAP 2023: Hepatomegaly with severe hepatic steatosis. Review of Systems Review of Systems: All other findings negative except as noted in HPI. Physical Exam Constitutional: WD/WN, vitals as above Respiratory: normal respiratory effort Cardiovascular: Rate/Rhythm: regular rate Gastrointestinal (Abdomen): Inspection/Auscultation: abdomen normal to inspection Percussion/Palpation: abdomen soft; abdomen nontender, no guarding and abdomen not rigid Skin: no rashes, warm and dry Results & Data Results & Data Vital Signs (Past 12 Hours) Vital Signs Temp Pulse Pulse Resp BP Pulse Ox O2 Del Method 07/19/24 08:15 Room Air 07/19/24 07:58 36.9 C 85 18 111/77 98 Room Air 07/19/24 07:55 98 H 07/19/24 04:06 36.8 C 105 H 18 127/92 97 Room Air 07/19/24 00:34 94 H 07/18/24 22:00 36.8 C 104 H 16 115/77 97 Room Air Laboratory Results 07/19/24 07/18/24 Range/Units 05:29 14:27 WBC 4.26 L (4.8-10.8) K/ul RBC 3.42 L (4.70-6.10) M/uL Hgb 11.3 L (14.0-18.0) g/dl Hct 31.6 L (42.0-52.0) % MCV 92.4 (80.0-100.0) fL MCH 33.0 (25.0-34.0) pg MCHC 35.8 (32.0-36.0) g/dL RDW Std Deviation 42.2 (36.4-46.3) fL RDW Coeff of Edith 12.4 (11.5-14.5) % Plt Count 137 (130-400) K/uL MPV 9.2 L (9.4-12.4) fL Sodium 133 L 130 L (136-145) mmol/L Potassium 3.7 4.0 D (3.5-5.1) mmol/L Chloride 98 94 L (98-107) mmol/L Carbon Dioxide 27 29 (21-32) mmol/L Anion Gap 8 7 (3-11) BUN 3 L 2 L (6-23) mg/dl Creatinine 0.69 0.94 (0.6-1.4) mg/dl Est Cr Clr Drug Dosing 111.7 82.0 ml/min eGFR 110.66 96.93 BUN/Creatinine Ratio 4.3 L 2.1 L (10-20) Glucose 122 H 109 H (70-99(Fasting)) mg/dl Calcium 7.8 L 8.4 L (8.6-10.3) mg/dl Phosphorus 3.0 D 1.5 L* D (2.5-4.9) mg/dl Magnesium 1.6 L 1.9 (1.7-2.4) mg/dl Total Bilirubin 1.1 H (0.2-1.0) mg/dl AST 187 H (13-39) U/L ALT 117 H (7-52) U/L Alkaline Phosphatase 183 H (34-104) U/L Total Protein 5.1 L (6.0-8.3) gm/dl Albumin 2.8 L (3.4-5.0) gm/dl Globulin 2.3 L (2.5-4.0) gm/dl Albumin/Globulin Ratio 1.2 (0.9-2) PG Care Time/CCT Total # of Minutes Spent Total Time Spent with Patient: Total time spent is greater than 50% in coordination of care (as documented) at patient's floor/unit and/or counseling patient: Coding Level of Care Code 54558 SUB INP/OBS CARE 2/35MIN Diagnoses Transaminitis R74.01
[2024-07-19] MEDS: LORazepam 1 MG TAB PO STA (11:06)
[2024-07-19] MEDS: METOPROLOL TARTRATE 25 MG TAB PO SCH (11:06)
[2024-07-19] MEDS: POTASSIUM CHLORIDE CRTAB 20 MEQ TABCR PO STA (12:23)
--- NOTE | 2024-07-19 12:37 | Hospitalist Progress Note ---
Date of Service July 19, 2024 Assessment & Plan (1) Hereditary hemochromatosis: (2) Alcoholism: (3) Hyponatremia: (4) Elevated transaminase level: Plan: Hereditary Hemochromatosis - Admit to [facility] -Outpatient ferritin of [id number] on 07/13, pt following with hematology as outpt. Underwent phelbotomy on 07/13, was scheduled to have weekly phlebotomy x 1 hr for the next 4 weeks per outpatient EPIC -Elevated liver transaminases: 07/13 vs on admission AST: 559 --> 376 ALT: 224--> 178 Alk phos: 189-->183 Bili 1.3 -->1.2, direct 0.4 INR 1.2 - GI consulted for hepatology involvement - outpatient appointment has already been requested -> pt to follow up with hematology as well Infectious diarrhea - Stool cultures and c diff were negative on recent outpatient workup, repeated now - positive for Campylobacter and EPEC, started on azithromycin -> finished abx course - Reports diarrhea upwards of 10x per day associated with abdominal cramping, now improved Alcoholism -Reported that he drinks 6-8 beers per day (now decreased drinking d/t abdominal issues/ diarrhea), EtOH level was 159.4 on admission -Cessation encouraged at bedside -Noted that increased alcohol use increases mortality risk associated with hereditary hemochromatosis -Interested in inpatient rehab- previously stayed in [facility] - to assist with dc planning Hyponatremia -129 on admission -Urine osm 393, serum blood osmolarity 321 -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 with excess drinking 6-8 beers daily - Allow diet and encourage po intake - monitor Na level, Na level improved Hypomagnesemia, Hypokalemia, hypophosphatemia - secondary to poor oral intake, diarrhea, alcohol abuse - replace and monitor, treat above conditions as above DVT ppx: teds, scds CODE: Full code Dispo: From home, likely to remain in the hospital x 1-2 days Admission and Anticipated Discharge Date Admission Date: July 16, 2024 Subjective Pt seen in follow up of elevated LFTs, infectious diarrhea, alcoholism Started on azithromycin for positive stool studies - finished abx Currently sitting up in chair, in no acute distress. Diarrhea is improving. No fevers chills chest pain shortness of breath. HR uncontrolled, and received metoprolol and ativan + tremor Review of Systems Review of Systems: All systems reviewed & are unremarkable except as noted in Subjective Physical Exam Physical Exam: GENERAL: WD/WN M in NAD HEENT: NC/AT. Pupils equal, round and reactive to light. Oral mucosa moist. NECK: No JVD, no neck masses. HEART: S1 and S2 heard. + tachycardia RESPIRATORY SYSTEM: Normal AP diameter. No accessory muscle use. No wheezing, no crackles. ABDOMEN: Soft, bowel sounds present, nontender, no distention. NEURO: Awake, alert, answers simple questions appropriately, moves extremities. EXTREMITIES: No edema, no erythema seen. Results & Data Results & Data Vital Signs (Past 12 Hours) Vital Signs Temp Pulse Pulse Resp BP Pulse Ox O2 Del Method 07/19/24 10:36 37.1 C 129 H 18 150/99 H 95 Room Air 07/19/24 08:15 Room Air 07/19/24 07:58 36.9 C 85 18 111/77 98 Room Air 07/19/24 07:55 98 H 07/19/24 04:06 36.8 C 105 H 18 127/92 97 Room Air Laboratory Results 07/19/24 07/18/24 Range/Units 05:29 14:27 WBC 4.26 L (4.8-10.8) K/ul RBC 3.42 L (4.70-6.10) M/uL Hgb 11.3 L (14.0-18.0) g/dl Hct 31.6 L (42.0-52.0) % MCV 92.4 (80.0-100.0) fL MCH 33.0 (25.0-34.0) pg MCHC 35.8 (32.0-36.0) g/dL RDW Std Deviation 42.2 (36.4-46.3) fL RDW Coeff of Edith 12.4 (11.5-14.5) % Plt Count 137 (130-400) K/uL MPV 9.2 L (9.4-12.4) fL Sodium 133 L 130 L (136-145) mmol/L Potassium 3.7 4.0 D (3.5-5.1) mmol/L Chloride 98 94 L (98-107) mmol/L Carbon Dioxide 27 29 (21-32) mmol/L Anion Gap 8 7 (3-11) BUN 3 L 2 L (6-23) mg/dl Creatinine 0.69 0.94 (0.6-1.4) mg/dl Est Cr Clr Drug Dosing 111.7 82.0 ml/min eGFR 110.66 96.93 BUN/Creatinine Ratio 4.3 L 2.1 L (10-20) Glucose 122 H 109 H (70-99(Fasting)) mg/dl Calcium 7.8 L 8.4 L (8.6-10.3) mg/dl Phosphorus 3.0 D 1.5 L* D (2.5-4.9) mg/dl Magnesium 1.6 L 1.9 (1.7-2.4) mg/dl Total Bilirubin 1.1 H (0.2-1.0) mg/dl AST 187 H (13-39) U/L ALT 117 H (7-52) U/L Alkaline Phosphatase 183 H (34-104) U/L Total Protein 5.1 L (6.0-8.3) gm/dl Albumin 2.8 L (3.4-5.0) gm/dl Globulin 2.3 L (2.5-4.0) gm/dl Albumin/Globulin Ratio 1.2 (0.9-2) Medications Administered Current Inpatient Medications Acetaminophen (Acetaminophen 325 Mg Tab) 650 mg PO Q4H PRN PRN Reason: Moderate Pain (Scale 4, 5, 6) Stop: 08/15/24 17:00 Azithromycin (Azithromycin 250 Mg Tab) 500 mg PO QPM [facility] Stop: 07/19/24 19:59 Last Admin: 07/18/24 21:13 Dose: 500 mg Clonidine HCl (Clonidine Hcl 0.1 Mg Tab) 0.1 mg PO Q6H PRN PRN Reason: Hypertension Stop: 08/16/24 19:26 Folic Acid (Folic Acid 1 Mg Tab) 1 mg PO QAM [facility] Stop: 08/16/24 08:59 Last Admin: 07/19/24 08:12 Dose: 1 mg Gabapentin (Gabapentin 600 Mg Tab) 600 mg PO Q24H [facility] Stop: 07/20/24 06:01 Lactobacillus Acidophilus (Advanced Probiotic 625 Mg Capsule) 1,250 mg PO DAILY [facility] Stop: 08/16/24 11:44 Last Admin: 07/19/24 08:12 Dose: 1,250 mg Metoprolol Tartrate (Metoprolol Tartrate 25 Mg Tab) 12.5 mg PO BID [facility] Stop: 08/18/24 10:59 Last Admin: 07/19/24 11:06 Dose: 12.5 mg Ondansetron HCl (Ondansetron Inj 2 Mg/Ml 2 Ml Vial) 4 mg IV Q4H PRN PRN Reason: Nausea And Vomiting Stop: 08/15/24 17:00 Pantoprazole Sodium (Pantoprazole 40 Mg Tab) 40 mg PO DAILY [facility] Stop: 08/16/24 08:59 Last Admin: 07/19/24 08:12 Dose: 40 mg Potassium Phosphate (Pot Phosphate Monobasic W/ Sod Tab) 1 tab PO Q8H [facility] Last Admin: 07/19/24 03:22 Dose: 1 tab Thiamine HCl (Thiamine Hcl 100 Mg Tab) 100 mg PO DAILY [facility] Stop: 08/16/24 08:59 Last Admin: 07/19/24 08:12 Dose: 100 mg
[2024-07-19] MEDS: GABAPENTIN 300 MG CAP PO ONE (12:59)
[2024-07-19] MEDS: LORazepam 0.5 MG TAB PO STA (16:10)
[2024-07-20] MEDS: GABAPENTIN 600 MG TAB PO SCH (05:51)
[2024-07-20 06:52] LABS: Hematocrit (blood only) 34.8 % (42.0-52.0); Hemoglobin 11.8 g/dl (14.0-18.0); Mean Corpuscular Hemoglobin 33.1 pg (25.0-34.0); Mean Corpuscular Hgb Conc 33.9 g/dL (32.0-36.0); Mean Corpuscular Volume 97.8 fL (80.0-100.0); Platelet Count 148 K/uL (130-400); RDW Coefficient of Variation 13.1 % (11.5-14.5); RDW Standard Deviation 46.7 fL (36.4-46.3); Red Blood Count 3.56 M/uL (4.70-6.10); White Blood Count 4.87 K/ul (4.8-10.8)
[2024-07-20 07:00] LABS: Albumin Globulin Ratio 1.2 (0.9-2); BUN Creatinine Ratio 4.9 (10-20); Calcium 8.3 mg/dl (8.6-10.3); Globulin 2.5 gm/dl (2.5-4.0); Magnesium 1.9 mg/dl (1.7-2.4); Phosphorus 3.4 mg/dl (2.5-4.9); Potassium 3.7 mmol/L (3.5-5.1); Total Protein 5.5 gm/dl (6.0-8.3)
[2024-07-20 07:59] VITALS: TEMP 97.7
[2024-07-20] MEDS: MAGNESIUM SULFATE / D5W 1 GM/100 ML BAG IV ONE (08:41)
[2024-07-20] MEDS: POTASSIUM CHLORIDE CRTAB 20 MEQ TABCR PO STA (08:41)
--- NOTE | 2024-07-20 08:43 | Discharge Summary ---
Date of Service July 20, 2024 Admission HPI Per Admitting Provider This is a 53-year-old male with PMHx of hereditary hemochromatosis, active alcoholism, who was seen at [facility] hematology clinic on 07/13. There he had iron panel, ferritin, CBC with differential drawn and CMP. Results showed his ferritin is elevated at 7776, AST 559, ALT 224, alk phos 189. He was referred today after reviewing results to the ER. Patient has been following with hematology as an outpatient but has been referred to hepatology. Patient reports that he has had approximately 6-week timeframe of issues with bowel habits. Initially patient's spouse caught GI bug from her job, and then he did, however his symptoms have continued over the past 6 weeks with sometimes 10 times bowel movements daily along with abdominal cramping. This has been slightly improved in the past 3 to 4 days. He denies any blood, dark tarry sticky bowel movements, denies nausea, but has occasionally vomited, last time was last evening x 1. He denies any hematemesis and states that vomitus was clear. He states that he was seen and underwent phlebotomy x 1 hour on 07/13 and has been set up for outpatient phlebotomy on a weekly basis for the next 4 weeks. He was previously referred to hematology in April however due to scheduling conflicts did not actually get seen by their team. Patient admits that he did leave one of his appointments due to prolonged wait time in May. Patient is taking pantoprazole daily, along with B1 vitamin routinely. Family history: Patient reports has 2 brothers with hereditary hematochromatosis as well. Social: Admits to daily alcohol use, denies smoking, admits to chewing tobacco use, no illicit drug use. Currently unemployed, was looking into obtaining disability. Previously worked with [employer]. Admission Exam Per Admitting Provider General: awake, alert, no apparent distress Head: Normocephalic, atraumatic ENT: PERRL, EOMI, no pharyngeal exudate, mucous membranes moist Chest: Clear to auscultation, on room air, no adventitious breath sounds Cardiac: Regular rate and rhythm, HR in mid 90s at bedside, no murmur, no JVD, normal peripheral pulses, good capillary refill Abdominal: NABS x 4 quadrants, soft, nondistended, nontender to palpation, no rebound or guarding Extremities: Normal inspection, no peripheral edema or erythema, calfs nontender to palpation Psych: Normal mood and affect Skin: hyperpigmentation throughout Neuro: AAO x 3, strength intact bilaterally and rated 5/5, no motor deficits, sp eech is clear, no peripheral sensory deficits Principal Diagnosis Hyponatremia, and other electrolyte abnormalities Infectious diarrhea Alcohol withdrawal Discharge Exam GENERAL: WD/WN M in NAD HEENT: NC/AT. Pupils equal, round and reactive to light. Oral mucosa moist. NECK: No JVD, no neck masses. HEART: S1 and S2 heard. rrr RESPIRATORY SYSTEM: Normal AP diameter. No accessory muscle use. No wheezing, no crackles. ABDOMEN: Soft, bowel sounds present, nontender, no distention. NEURO: Awake, alert, answers simple questions appropriately, moves extremities. EXTREMITIES: No edema, no erythema seen. Discharge Data Allergies Allergy/AdvReac Type Severity Reaction Status Date / Time No Known Allergies Allergy Verified 12/13/23 21:31 Consultations 07/16/24 15:10 ED Decision to Admit Stat 07/16/24 15:28 Consult Gastroenterology Routine Ordered Studies 07/16/24 14:32 CT abd pelvis IV con only Stat FINDINGS: Clear lung bases. No free air. Unremarkable spleen, pancreas and adrenal glands. There are numerous subcentimeter foci of increased attenuation within the gallbladder which involve both the dependent and nondependent margins measuring up to [address] evidence of acute cholecystitis. Severe hepatic steatosis. Mild hepatomegaly with patency of the hepatic and portal veins. Unremarkable kidneys without hydronephrosis. Decompressed bladder with wall thickening and mucosal hyperemia. Mild prostatomegaly. No abdominal aortic aneurysm or lymphadenopathy. Small moderate fat filled right inguinal hernia. No bowel obstruction. No definite bowel wall thickening identified. Normal appendix. 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 No acute fracture. IMPRESSION: 1. No bowel obstruction or bowel wall thickening. Normal appendix. 2. Hepatomegaly with severe hepatic steatosis. 3. Urinary bladder wall thickening with partial distention. Correlate with urinalysis. Hospital Course (1) Hereditary hemochromatosis: (2) Alcoholism: (3) Hyponatremia: (4) Elevated transaminase level: Hereditary Hemochromatosis - Admit to [facility] -Outpatient ferritin of 7776 on 07/13, pt following with hematology as outpt. Underwent phelbotomy on 07/13, was scheduled to have weekly phlebotomy x 1 hr for the next 4 weeks per outpatient EPIC -Elevated liver transaminases: 07/13 vs on admission AST: 559 --> 376 >> 131 ALT: 224--> 178 >> 100 Alk phos: 189-->183 Bili 1.3 -->1.0 INR 1.2 - GI consulted for hepatology involvement - outpatient appointment has already been requested -> pt to follow up with hematology as well Infectious diarrhea - Stool cultures and c diff were negative on recent outpatient workup, repeated now - positive for Campylobacter and EPEC -> finished abx course w/ azithromycin - Reports diarrhea upwards of 10x per day associated with abdominal cramping, now improved Alcoholism -Reported that he drinks 6-8 beers per day (now decreased drinking d/t abdominal issues/ diarrhea), EtOH level was 159.4 on admission -Cessation encouraged at bedside -Noted that increased alcohol use increases mortality risk associated with hereditary hemochromatosis -not Interested in inpatient rehab Hyponatremia -129 on admission -Urine osm 393, serum blood osmolarity 321 -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 with excess drinking 6-8 beers daily - Allow diet and encourage po intake - monitor Na level, Na level improved, currently at 135 Hypomagnesemia, Hypokalemia, hypophosphatemia - secondary to poor oral intake, diarrhea, alcohol abuse - replace and monitor, treat above conditions as above - all levels improved Total Time Total Time Spent Total Time Spent (In Minutes): 40 Discharge Plan Discharge Items Patient Disposition: Home - Self-Care Reason For Visit: HEMOCHROMATOSIS, HYPONATREMIA Discharge Diagnosis: Infectious diarrhea Alcohol withdrawal Hyponatremia, and other electrolyte abnormalities Activity: Per Instructions section Non-emergency contact: Primary Care Provider, Specialist and Wheel Alignment Technician Call non-emergency contact if: you have any medication questions and your symptoms worsen Follow-up/Referrals: Selina Miller MD [Primary Care Provider] - (Date & Time 07/23/2024 10:40 AM Provider Selina Miller MD Department General Internal Medicine [facility] ) Diet: Regular Addtl Attending Provider Instructions: Follow up with your primary care physician, hepatology and hematology. It is crucial that you abstain from drinking alcohol. Make sure to stay well hydrated. Take thiamine and folic acid daily. Recommend to take probiotic and potassium supplement for next couple of days. Pending Studies at Discharge: No Stand-Alone Forms: [facility], Smoking Cessation Medications and DC Order Prescriptions: New Advanced Probiotic 625 mg (10 billion cell) Capsule 1 cap PO DAILY Qty: 7 0RF folic acid 1 mg Tablet 1 mg PO QAM Qty: 30 0RF thiamine HCl (vitamin B1) 100 mg Tablet 100 mg PO DAILY Qty: 30 0RF potassium chloride 20 mEq tablet extended release 20 meq PO DAILY Qty: 7 0RF Continued pantoprazole 40 mg tablet,delayed release (DR/EC) 40 mg PO DAILY Discontinued thiamine mononitrate (vit B1) 100 mg tablet 100 mg PO DAILY Qty: 30 0RF Discharge Orders: Discharge Order (Routine); Ordered 07/20/24 Ordered By: Juanito Membreno/Other Patient Handouts: A1C Admission Data Admit Date/Time: 07/16/24 15:28 Attending Provider: Juanito Guido Admit Provider: Teena Coulter Primary Care Provider: Selina Miller Other Providers: Teena Coulter; Natan Ellington
[2024-07-20 11:02] VITALS: BP 139/96; PULSE 97; RESP 18; O2SAT 97
== END 2024-07-20 12:56 | disposition home or self-care (01) | DRG 372 ==
LOC: ED 12:06 → SUATTDRO 15:28 → 2W 15:28

== ENCOUNTER 2024-09-10 16:11 | Observation (INO) ==
[2024-09-10] MEDS: SODIUM CHLORIDE 0.9% 1,000 ML IV SCH (16:39)
[2024-09-10 17:27] LABS: Bilirubin,Total 0.6 mg/dl (0.2-1.0); Calcium 8.7 mg/dl (8.6-10.3); Magnesium 1.7 mg/dl (1.7-2.4); Potassium 3.1 mmol/L (3.5-5.1)
[2024-09-10 17:30] LABS: Basophils # (auto) 0.02 K/uL (0.00-0.20); Basophils % (auto) 0.4 %; Eosinophils # (auto) 0.01 K/uL (0.00-0.50); Eosinophils % (auto) 0.2 %; Hematocrit (blood only) 36.2 % (42.0-52.0); Hemoglobin 11.9 g/dl (14.0-18.0); Immature Granulocytes # (auto) 0.02 K/uL (0.01-0.20); Immature Granulocytes % (auto) 0.4 %; Lymphocytes # (auto) 1.71 K/uL (1.20-3.40); Lymphocytes % (auto) 38.4 %; Mean Corpuscular Hemoglobin 33.1 pg (25.0-34.0); Mean Corpuscular Hgb Conc 34.8 g/dL (32.0-36.0); Mean Platelet Volume 8.7 fL (9.4-12.4); Monocytes # (auto) 0.45 K/uL (0.11-0.59); Monocytes % (auto) 10.1 %; Neutrophils # (auto) 2.24 K/uL (1.40-6.50); Neutrophils % (auto) 50.5 %; Platelet Count 267 K/uL (130-400); Polychromasia 1+; RDW Coefficient of Variation 12.2 % (11.5-14.5); Red Blood Count 3.77 M/uL (4.70-6.10); Target Cells 1+; White Blood Count 4.45 K/ul (4.8-10.8)
[2024-09-10 17:33] LABS: Albumin Globulin Ratio 1.5 (0.9-2); BUN Creatinine Ratio 5.5 (10-20); Creatinine Clr Calc Pharmacy 71.8 ml/min; Globulin 2.6 gm/dl (2.5-4.0); Total Protein 6.6 gm/dl (6.0-8.3)
[2024-09-10] MEDS ORDERED: Ativan PO Alcohol Withdrawal--Active Protocol PO PRN (18:37)
[2024-09-10] MEDS ORDERED: LORazepam 1 MG TAB PO PRN ×3 (18:37)
--- NOTE | 2024-09-10 18:45 | History & Physical Report ---
Date of Service September 10, 2024 Assessment & Plan (1) Transaminitis: (2) Hereditary hemochromatosis: (3) Hyponatremia: Plan Hyponatremia Likely secondary to beer potomania Hypokalemia Serum sodium of 122 on 09/09; 126 today Will obtain urine osmolarity, urine electrolytes, serum sodium Continue on normal saline at 80 cc/h for 500 cc; recheck BMP after that. Additional normal saline depending on rate of correction. Goal rate of correction is 6 to 8 meq in 24 hours. Alcohol use disorder Alcohol withdrawal Will put Ativan as needed for alcohol withdrawal Schedule Valium is started for withdrawal management Continue on thiamine, folic acid Hereditary hemochromatosis AST/ALT/KFA343, 109, 168 on admission Last ferritin from 09/06-2338. Last phlebotomy was on 08/31; Follow-up with hepatology for phlebotomy Full code DVT prophylaxis SCDs Time spent evaluating patient, direct bedside care, chart review, placing orders, interpretation of diagnostic studies, discussion with consultants, patient, and family members, as well as other required patient management activities is 60 minutes Please note the above document was generated using voice recognition software. It may contain grammatical, syntax or spelling errors. Any formal questions or concerns about the content, text or information contained within the body of this dictation should be directly addressed to the provider for clarification History of Present Illness Chief Complaint: Hyponatremia Primary Care Provider: Selina Miller MD History obtained from interview with the patient, chart review Past medical history of failure due to hemochromatosis, alcohol use disorder Patient was referred for admission by hematology after his outpatient lab work showed serum sodium of 122. Patient reports that he is feeling well; he denies nausea, vomiting, chest pain, shortness of breath. He reports that his last drink was earlier today. He reports drinking 3-7 beers per day. Last EGD in 12/27found to have gastritis, 1 nonbleeding gastric ulcer. On presentation to the ED, he was normotensive, tachycardic, afebrile and saturating well on room air. Serum sodium of 126, potassium of 3.1. He is AST/ALT/OMR087, 109, 168 Blood alcohol level of 43.4 Mg per DL Allergies Allergy/AdvReac Type Severity Reaction Status Date / Time No Known Allergies Allergy Verified 09/10/24 18:06 Home Medications Medication Instructions Recorded Confirmed Type L.acidop,casei,lactis,rham-B.lact,gaviota 1 cap PO DAILY #7 caps 07/20/24 09/10/24 Rx 625 mg (10 billion cell) capsule (Advanced Probiotic) folic acid 1 mg tablet 1 mg PO QAM #30 tabs 07/20/24 09/10/24 Rx thiamine HCl (vitamin B1) 100 mg 100 mg PO DAILY #30 tabs 07/20/24 09/10/24 Rx tablet pantoprazole 20 mg tablet,delayed 20 mg PO QAM 09/10/24 09/10/24 History release Past Med/Surg History Problem List (Updated 08/20/24 @ 00:07 by Nenita Galvez) Transaminitis (Acute) Elevated transaminase level Hyponatremia (Acute) Alcoholism (Acute) Hereditary hemochromatosis Anemia (Acute) Abdominal pain (Acute) Acute upper GI bleed (Acute) UGIB (upper gastrointestinal bleed) Hemochromatosis (Acute) Open fracture of left toe (Acute) Toe fracture, left (Acute) Family History Other Kidney stones Social History Smoking Status: Never smoker Tobacco Type: Smokeless Tobacco (Dip or Chew) Second Hand Exposure: No; Do You Dip or Chew Tobacco: Yes; Hx Alcohol Use: Yes Alcohol type: beer Hx Substance Use: No Preferred Language: Nepali Communication Ability: Effective Director Medical Safety Required: No Beliefs That Will Affect Care: None marital status: Current Living Situation: Spouse and Family current occupational status: employed Feels Safe at Home: Yes Assistive Devices: None Physical Exam Physical Exam: Constitutional: Alert oriented x 3; appears to have some tremors. Respiratory: normal respiratory effort, lungs clear to auscultation, no wheeze, rales, rhonchi. Normal insp/exp effort, no accessory muscle use Cardiovascular: RRR, no murmur, no edema Vessels: no JVD or carotid bruit Chest: normal inspection of chest Abdomen: normal bowel sounds, soft, nontender, no hepatosplenomegaly Musculoskeletal: no cyanosis or clubbing, extremities motor strength 5/5 Skin: no rashes, warm and dry normal turgor Neurologic: PERRL, EOMI, accommodation nl, no face palsy, no dysarthria CN's II- XI intact bilaterally and moves all extremities Psychiatric: A+Ox3, euthymic affect Results & Data Results & Data Vital Signs (Past 12 Hours) Vital Signs Temp Pulse Resp BP Pulse Ox O2 Del Method 09/10/24 16:47 128 H 09/10/24 16:13 36.6 C 134 H 18 151/87 H 99 Room Air
[2024-09-10] MEDS: POTASSIUM CHLORIDE CRTAB 20 MEQ TABCR PO STA (19:10)
[2024-09-10] MEDS: diazePAM 5 MG TABLET PO SCH (19:10)
[2024-09-11 00:06] LABS: Calcium 8.1 mg/dl (8.6-10.3); Potassium 3.7 mmol/L (3.5-5.1)
--- NOTE | 2024-09-11 00:10 | Emergency Department Note ---
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, SODIUM LOW Time Seen by Provider: 09/10/24 16:26 History of Present Illness Returns today for: + called because of abnormal lab/test Description of abnormal result: Low-sodium Associated symptoms: + other (No seizure); no fever, no chills, no chest pain, no shortness of breath, no rash, no malaise, no nausea or no abdominal pain Home Medications Medication Instructions Recorded Confirmed Type L.acidop,casei,lactis,rham-B.lact,gaviota 1 cap PO DAILY #7 caps 07/20/24 09/10/24 Rx 625 mg (10 billion cell) capsule (Advanced Probiotic) folic acid 1 mg tablet 1 mg PO QAM #30 tabs 07/20/24 09/10/24 Rx thiamine HCl (vitamin B1) 100 mg 100 mg PO DAILY #30 tabs 07/20/24 09/10/24 Rx tablet pantoprazole 20 mg tablet,delayed 20 mg PO QAM 09/10/24 09/10/24 History release Allergies Allergy/AdvReac Type Severity Reaction Status Date / Time No Known Allergies Allergy Verified 09/10/24 18:06 Past Med/Surg History Problem List (Updated 09/11/24 @ 00:20 by Bon Shukla MD) Hyponatremia (Acute) Anemia (Acute) Abdominal pain (Acute) Acute upper GI bleed (Acute) UGIB (upper gastrointestinal bleed) Open fracture of left toe (Acute) Toe fracture, left (Acute) Medical History Transaminitis Elevated transaminase level Alcoholism Hereditary hemochromatosis Hemochromatosis Family History Other Kidney stones Social History Smoking Status: Never smoker Tobacco Type: Smokeless Tobacco (Dip or Chew) Second Hand Exposure: No; Do You Dip or Chew Tobacco: Yes (chewing tobacco); Tobacco Cessation Education Requested by Patient: No Hx Alcohol Use: Yes Alcohol type: beer Hx Substance Use: No Preferred Language: Sudanese Communication Ability: Effective Bend Sorter Required: No Beliefs That Will Affect Care: None marital status: Current Living Situation: Spouse and Family Current Living Situation Comment: lives with and 12 year old daughter current occupational status: employed Other Information That Helps Us Care for You: No Feels Safe at Home: Yes Safety Concerns: Feels Safe At This Time Assistive Devices: None Physical Exam 2 Vital Signs: Vital Signs - 24 hr 09/10/24 16:13 09/10/24 16:47 09/10/24 17:00 Temperature 36.6 C Temperature Source Temporal Artery Sc an Pulse Rate 134 H 128 H 123 H Pulse Rate from Sp O2 Sensor 124 H Respiratory Rate 18 28 H Respiratory Effort / Characteristics Non-Labored Sponta neous Respiratory Depth Normal Respiratory Patter n Regular Blood Pressure 151/87 H 143/100 H Blood Pressure Olivia n 108 114 Pulse Oximetry 99 96 Oxygen Delivery Me thod Room Air Sepsis Recent Feve r Within 48 Hours No Sepsis New/Unexpla ined Change in Men carlie Status N/A Sepsis Action Take n by Nursing No Action Required 09/10/24 17:30 09/10/24 18:09 Temperature Temperature Source Pulse Rate 128 H 122 H Pulse Rate from Sp O2 Sensor 128 H 122 H Respiratory Rate 17 28 H Respiratory Effort / Characteristics Respiratory Depth Respiratory Patter n Blood Pressure Blood Pressure Olivia n Pulse Oximetry 96 99 Oxygen Delivery Me thod Sepsis Recent Feve r Within 48 Hours Sepsis New/Unexpla ined Change in Men carlie Status Sepsis Action Take n by Nursing Physical Exam: Physical Exam GENERAL: oriented to person, place, and time. appears well-developed and well- nourished. She does not appear distressed. HENT: Exam performed. -Head: Normocephalic and atraumatic. -Right Ear: External ear normal. No mastoid erythema -Left Ear: External ear normal. No mastoid erythema -Mouth/Throat: The oropharynx is clear and moist. No trismus in the jaw. No dental abscesses or uvula swelling. No oropharyngeal exudate or tonsillar abscesses. EYES: Conjunctivae and EOM are normal.Right eye exhibits no discharge. Left eye exhibits no discharge. No scleral icterus. NECK: Normal range of motion. Neck supple. No JVD present. No tracheal deviation and normal range of motion present. CV: Normal rate, regular rhythm, normal heart sounds and intact distal pulses. There is no peripheral edema. Palpable radial pulses bue. PULM/CHEST: Effort normal and breath sounds normal. No respiratory distress. No stridor. no wheezes.no rales. -Chest Wall: no tenderness to palpation ABD: The abdomen is soft. Bowel sounds are normal. no distension. No mass is present. There is no tenderness. There is no rebound, no guarding, no Palma's sign and no tenderness at McBurney's point. Rovsig negative MUSC/SKEL: Normal range of motion. There is no peripheral edema, tenderness or deformity. NEURO: Motor and sensation grossly intact. SKIN: Skin is warm and dry. not diaphoretic. PSYCH: normal mood and affect. Behavior is normal. Judgment and thought content normal. Course Course 1625: The patient was evaluated in room A2. A complete history and physical exam was performed Cardiac monitoring: An order was placed for continuous cardiac monitoring. The monitor shows a rate of 100 with sinus rhythm interpreted by me 1750: Vital signs stable.Sodium 126. No seizure-like activity. No need for hypertonic saline at this time. Gentle hydration with normal saline will be started. AST 107 ALT 1098 Phos 168 consistent with labs from July. Patient will be admitted to the [facility] team. Administered Medications Diazepam (Diazepam 5 Mg Tablet) 5 mg PO Q6 DELORES Stop: 10/10/24 18:59 Last Admin: 09/10/24 19:10 Dose: 5 mg Documented By: DEVIKA Discontinued Medications Sodium Chloride (Nss) 1,000 mls @ 80 mls/hr IV .[id number] DELORES Stop: 09/10/24 22:44 Last Admin: 09/10/24 16:39 Dose: 80 mls/hr Documented By: DEVIKA Potassium Chloride (Potassium Chloride Crtab 20 Meq Tabcr) 40 meq PO NOW STA Stop: 09/10/24 18:38 Last Admin: 09/10/24 19:10 Dose: 40 meq Documented By: DEVIKA Medical Decision Making Laboratory Data Attestation: I reviewed the patient's lab results. 09/10/24 16:20 09/10/24 23:12 Lab Results 09/10/24 Range/Units 16:20 WBC 4.45 L (4.8-10.8) K/ul RBC 3.77 L (4.70-6.10) M/uL Hgb 11.9 L (14.0-18.0) g/dl Hct 36.2 L (42.0-52.0) % MCV 96.0 (80.0-100.0) fL MCH 33.1 (25.0-34.0) pg MCHC 34.8 (32.0-36.0) g/dL RDW Std Deviation 43.0 (36.4-46.3) fL RDW Coeff of Edith 12.2 (11.5-14.5) % Plt Count 267 (130-400) K/uL MPV 8.7 L (9.4-12.4) fL Immature Gran % (Auto) 0.4 % Neut % (Auto) 50.5 % Lymph % (Auto) 38.4 % [place] % (Auto) 10.1 % Eos % (Auto) 0.2 % Baso % (Auto) 0.4 % Neut # (Auto) 2.24 (1.40-6.50) K/uL Lymph # (Auto) 1.71 (1.20-3.40) K/uL [place] # (Auto) 0.45 (0.11-0.59) K/uL Eos # (Auto) 0.01 (0.00-0.50) K/uL Baso # (Auto) 0.02 (0.00-0.20) K/uL Immature Gran # (Auto) 0.02 (0.01-0.20) K/uL Polychromasia 1+ Target Cells 1+ Sodium 126 L (136-145) mmol/L Potassium 3.1 L (3.5-5.1) mmol/L Chloride 90 L (98-107) mmol/L Carbon Dioxide 24 (21-32) mmol/L Anion Gap 12 H (3-11) BUN 6 (6-23) mg/dl Creatinine 1.10 (0.6-1.4) mg/dl Est Cr Clr Drug Dosing 71.8 ml/min eGFR 79.77 BUN/Creatinine Ratio 5.5 L (10-20) Glucose 129 H (70-99(Fasting)) mg/dl Osmolality 285 (280-300) mOsm/kg Calcium 8.7 (8.6-10.3) mg/dl Magnesium 1.7 (1.7-2.4) mg/dl Total Bilirubin 0.6 (0.2-1.0) mg/dl AST 107 H (13-39) U/L ALT 109 H (7-52) U/L Alkaline Phosphatase 168 H (34-104) U/L Total Protein 6.6 (6.0-8.3) gm/dl Albumin 4.0 (3.4-5.0) gm/dl Globulin 2.6 (2.5-4.0) gm/dl Albumin/Globulin Ratio 1.5 (0.9-2) Lipase 41 (11-82) U/L Ethyl Alcohol mg/dL 43.4 H (<10.0) mg/dl ECG Data Attestation: I personally reviewed and interpreted this ECG as follows: Rate (beats per minute): 118 Rhythm: sinus tachycardia Findings: no ST depression, no ST elevation or no prolonged QT Additional Comments: QRS 78 MDM Narrative 1626: The patient was evaluated in room A2. A complete history and physical exam was performed Cardiac monitoring: An order was placed for continuous cardiac monitoring. The monitor shows a rate of 100 with sinus rhythm interpreted by me 1750: Vital signs stable.Sodium 126. No seizure-like activity. No need for hypertonic saline at this time. Gentle hydration with normal saline will be started. AST 107 ALT 1098 Phos 168 consistent with labs from July. Patient will be admitted to the [facility] team. 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
[2024-09-11 00:12] LABS: Creatinine Clr Calc Pharmacy 65.8 ml/min
[2024-09-11 07:31] LABS: Potassium 4.2 mmol/L (3.5-5.1)
[2024-09-11 07:32] LABS: Calcium 8.1 mg/dl (8.6-10.3)
[2024-09-11 07:43] LABS: BUN Creatinine Ratio 4.8 (10-20); Creatinine Clr Calc Pharmacy 75.2 ml/min
--- NOTE | 2024-09-11 08:48 | Electrocardiogram Report ---
Test Reason : Blood Pressure : */* mmHG Vent. Rate : 118 BPM Atrial Rate : 118 BPM P-R Int : 166 ms QRS Dur : 78 ms QT Int : 312 ms P-R-T Axes : 52 -4 52 degrees QTcB Int : 437 ms Sinus tachycardia Incomplete right bundle branch block Abnormal ECG When compared with ECG of 18-Jul-2024 12:52, Incomplete right bundle branch block now present Otherwise no significant change Confirmed by Mehdi Gilmroe ([id number]) on 09/11/2024 8:48:18 AM Referred By: Sherita Gardner Confirmed By: Mehdi Gilmore
[2024-09-11] MEDS ORDERED: THIAMINE HCL 100 MG TAB PO SCH (09:00)
[2024-09-11] MEDS: THIAMINE HCL 100 MG in SYRINGE 9 ML IV STA (09:07)
[2024-09-11] MEDS: DEXTROSE 5% 1,000 ML IV SCH (09:07)
[2024-09-11] MEDS: FOLIC ACID 1 MG TAB PO SCH (09:55)
--- NOTE | 2024-09-11 10:09 | Discharge Summary ---
Date of Service September 11, 2024 Admission HPI Per Admitting Provider History obtained from interview with the patient, chart review Past medical history of failure due to hemochromatosis, alcohol use disorder Patient was referred for admission by hematology after his outpatient lab work showed serum sodium of 122. Patient reports that he is feeling well; he denies nausea, vomiting, chest pain, shortness of breath. He reports that his last drink was earlier today. He reports drinking 3-7 beers per day. Last EGD in 12/27found to have gastritis, 1 nonbleeding gastric ulcer. On presentation to the ED, he was normotensive, tachycardic, afebrile and saturating well on room air. Serum sodium of 126, potassium of 3.1. He is AST/ALT/SWX552, 109, 168 Blood alcohol level of 43.4 Mg per DL Admission Exam Per Admitting Provider Constitutional: Alert oriented x 3; appears to have some tremors. Respiratory: normal respiratory effort, lungs clear to auscultation, no wheeze, rales, rhonchi. Normal insp/exp effort, no accessory muscle use Cardiovascular: RRR, no murmur, no edema Vessels: no JVD or carotid bruit Chest: normal inspection of chest Abdomen: normal bowel sounds, soft, nontender, no hepatosplenomegaly Musculoskeletal: no cyanosis or clubbing, extremities motor strength 5/5 Skin: no rashes, warm and dry normal turgor Neurologic: PERRL, EOMI, accommodation nl, no face palsy, no dysarthria CN's II- XI intact bilaterally and moves all extremities Psychiatric: A+Ox3, euthymic affect Principal Diagnosis Hyponatremia likely due to beer potomania Alcohol use disorder Alcohol withdrawal Discharge Exam Constitutional: Alert oriented x 3; comfortable, not in any distress Respiratory: normal respiratory effort, lungs clear to auscultation, no wheeze, rales, rhonchi. Normal insp/exp effort, no accessory muscle use Cardiovascular: RRR, no murmur, no edema Vessels: no JVD or carotid bruit Chest: normal inspection of chest Abdomen: normal bowel sounds, soft, nontender, no hepatosplenomegaly Musculoskeletal: no cyanosis or clubbing, extremities motor strength 5/5 Skin: no rashes, warm and dry normal turgor Neurologic: PERRL, EOMI, accommodation nl, no face palsy, no dysarthria CN's II- XI intact bilaterally and moves all extremities Psychiatric: A+Ox3, euthymic affect Discharge Data Allergies Allergy/AdvReac Type Severity Reaction Status Date / Time No Known Allergies Allergy Verified 09/10/24 18:06 Consultations 09/10/24 17:50 ED Decision to Admit Stat Hospital Course (1) Transaminitis: (2) Hereditary hemochromatosis: (3) Hyponatremia: Plan Hyponatremia Likely secondary to beer potomania Hypokalemia Serum sodium of 122 on 09/09; 126 on admission Urine osmolarity of 85 with urine sodium of 12 consistent with low solute diet/beer potomania Serum sodium overcorrected to 139; patient was given D5; repeat serum sodium appropriately corrected to 134. Patient discharged home with instructions to follow-up with PCP and maintain abstinence from alcohol use Alcohol use disorder Alcohol withdrawal Minimal alcohol withdrawal symptoms. He was alert oriented x 3. Mild tremors noted on admission; was managed with alcohol withdrawal protocol. Hereditary hemochromatosis AST/ALT/[id number], 109, 168 on admission Last ferritin from 09/06-2338. Last phlebotomy was on 08/31; Follow-up with hepatology for phlebotomy Please note the above document was generated using voice recognition software. It may contain grammatical, syntax or spelling errors. Any formal questions or concerns about the content, text or information contained within the body of th is dictation should be directly addressed to the provider for clarification Total Time Total Time Spent Total Time Spent (In Minutes): 35 Total Time Includes: Examination of the Patient, Discharge Planning, Medication Reconciliation, Communication With Other Providers and Other Discharge Plan Discharge Items Patient Disposition: Home - Self-Care Reason For Visit: HYPONATREMIA Discharge Diagnosis: Hyponatremia Alcohol withdrawal Alcohol use disorder Activity: Resume your previous activity Non-emergency contact: Primary Care Provider Call non-emergency contact if: you have any medication questions Follow-up/Referrals: Selina Miller MD [Primary Care Provider] - Diet: Regular Addtl Attending Provider Instructions: You were admitted to the hospital due to low sodium level. The likely cause for the low sodium level is excess beer intake and less food intake. Please maintain abstinence from alcohol use. Follow-up with your primary care doctor Pending Studies at Discharge: No Stand-Alone Forms: My Burstly, Smoking Cessation Medications and DC Order Prescriptions: Continued pantoprazole 20 mg tablet,delayed release (DR/EC) 20 mg PO QAM Advanced Probiotic 625 mg (10 billion cell) Capsule 1 cap PO DAILY Qty: 7 0RF folic acid 1 mg Tablet 1 mg PO QAM Qty: 30 0RF thiamine HCl (vitamin B1) 100 mg Tablet 100 mg PO DAILY Qty: 30 0RF Discharge Orders: Discharge Order (Routine); Ordered 09/11/24 Ordered By: Richie López Admission Data Admit Date/Time: 09/10/24 18:38 Attending Provider: Richie López Admit Provider: Richie López Primary Care Provider: Selina Miller Other Providers: Jama Todd
--- NOTE | 2024-09-11 10:11 | Gastrointestinal Consultation ---
Date of Consultation September 11, 2024 Assessment & Plan (1) Elevated LFTs: Pleasant man with known liver issues related to hemochromatosis and also with alcohol abuse. His labs are stable if not improved at this time. There is no intervention needed from GI standpoint at this time. He is set up with hepatology as an outpatient and should follow up with them. I reiterated to him that he needs to quit drinking. He can go home from our standpoint. History of Present Illness Reason for Consultation: elevated lft's Attending Physician: Richie López MD History of Present Illness 54 year old man with known hemochromatosis who gets phlebotomies done who also drinks fairly heavily on regular basis admitted with hyponatremia (NA 133 in ED but 122 as outpatient). He is feeling well. He has no complaints now. Says he has "cut back to 7 beers per day". Saw Sherita Gardner and has some outpatient workup planned. Allergies Allergy/AdvReac Type Severity Reaction Status Date / Time No Known Allergies Allergy Verified 09/10/24 18:06 Home Medications Medication Instructions Recorded Confirmed Type L.acidop,casei,lactis,rham-B.lact,gaviota 1 cap PO DAILY #7 caps 07/20/24 09/10/24 Rx 625 mg (10 billion cell) capsule (Advanced Probiotic) folic acid 1 mg tablet 1 mg PO QAM #30 tabs 07/20/24 09/10/24 Rx thiamine HCl (vitamin B1) 100 mg 100 mg PO DAILY #30 tabs 07/20/24 09/10/24 Rx tablet pantoprazole 20 mg tablet,delayed 20 mg PO QAM 09/10/24 09/10/24 History release Patient History Medical History Transaminitis Elevated transaminase level Alcoholism Hereditary hemochromatosis Hemochromatosis Family History Other Kidney stones Social History Smoking Status: Never smoker Tobacco Type: Smokeless Tobacco (Dip or Chew) Second Hand Exposure: No; Do You Dip or Chew Tobacco: Yes (chewing tobacco); Tobacco Cessation Education Requested by Patient: No Hx Alcohol Use: Yes Alcohol type: beer Hx Substance Use: No Preferred Language: Cuban Communication Ability: Effective Tactical Air Defense 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 Required: No Beliefs That Will Affect Care: None marital status: Current Living Situation: Spouse and Family Current Living Situation Comment: lives with and 12 year old daughter current occupational status: employed Other Information That Helps Us Care for You: No Feels Safe at Home: Yes Safety Concerns: Feels Safe At This Time Assistive Devices: None Review of Systems Review of Systems: All systems reviewed & are unremarkable except as noted in HPI & below Physical Exam Constitutional: WD/WN, vitals as above Results & Data Vital Signs (Past 12 Hours) Vital Signs Temp Pulse Resp BP Pulse Ox O2 Del Method 09/11/24 07:54 36.3 C L 110 H 18 133/89 100 Room Air 09/11/24 00:26 106 H 120/83 Laboratory Results 09/11/24 09/10/24 09/10/24 Range/Units 06:10 23:12 19:06 WBC (4.8-10.8) K/ul RBC (4.70-6.10) M/uL Hgb (14.0-18.0) g/dl Hct (42.0-52.0) % MCV (80.0-100.0) fL MCH (25.0-34.0) pg MCHC (32.0-36.0) g/dL RDW Std Deviation (36.4-46.3) fL RDW Coeff of Edith (11.5-14.5) % Plt Count (130-400) K/uL MPV (9.4-12.4) fL Immature Gran % (Auto) % Neut % (Auto) % Lymph % (Auto) % [place] % (Auto) % Eos % (Auto) % Baso % (Auto) % Neut # (Auto) (1.40-6.50) K/uL Lymph # (Auto) (1.20-3.40) K/uL [place] # (Auto) (0.11-0.59) K/uL Eos # (Auto) (0.00-0.50) K/uL Baso # (Auto) (0.00-0.20) K/uL Immature Gran # (Auto) (0.01-0.20) K/uL Polychromasia Target Cells Sodium 139 133 L (136-145) mmol/L Potassium 4.2 3.7 (3.5-5.1) mmol/L Chloride 105 100 (98-107) mmol/L Carbon Dioxide 25 19 L (21-32) mmol/L Anion Gap 9 14 H (3-11) BUN 5 L 6 (6-23) mg/dl Creatinine 1.05 1.20 (0.6-1.4) mg/dl Est Cr Clr Drug Dosing 75.2 65.8 ml/min eGFR 84.35 71.86 BUN/Creatinine Ratio 4.8 L 5.0 L (10-20) Glucose 98 149 H (70-99(Fasting)) mg/dl Osmolality (280-300) mOsm/kg Calcium 8.1 L 8.1 L (8.6-10.3) mg/dl Magnesium (1.7-2.4) mg/dl Total Bilirubin (0.2-1.0) mg/dl AST (13-39) U/L ALT (7-52) U/L Alkaline Phosphatase (34-104) U/L Total Protein (6.0-8.3) gm/dl Albumin (3.4-5.0) gm/dl Globulin (2.5-4.0) gm/dl Albumin/Globulin Ratio (0.9-2) Lipase (11-82) U/L Urine Osmolality 85 L (500-800) mOsm/kg Ur Random Sodium 12 mmol/L Ethyl Alcohol mg/dL (<10.0) mg/dl 09/10/24 Range/Units 16:20 WBC 4.45 L (4.8-10.8) K/ul RBC 3.77 L (4.70-6.10) M/uL Hgb 11.9 L (14.0-18.0) g/dl Hct 36.2 L (42.0-52.0) % MCV 96.0 (80.0-100.0) fL MCH 33.1 (25.0-34.0) pg MCHC 34.8 (32.0-36.0) g/dL RDW Std Deviation 43.0 (36.4-46.3) fL RDW Coeff of Edith 12.2 (11.5-14.5) % Plt Count 267 (130-400) K/uL MPV 8.7 L (9.4-12.4) fL Immature Gran % (Auto) 0.4 % Neut % (Auto) 50.5 % Lymph % (Auto) 38.4 % [place] % (Auto) 10.1 % Eos % (Auto) 0.2 % Baso % (Auto) 0.4 % Neut # (Auto) 2.24 (1.40-6.50) K/uL Lymph # (Auto) 1.71 (1.20-3.40) K/uL [place] # (Auto) 0.45 (0.11-0.59) K/uL Eos # (Auto) 0.01 (0.00-0.50) K/uL Baso # (Auto) 0.02 (0.00-0.20) K/uL Immature Gran # (Auto) 0.02 (0.01-0.20) K/uL Polychromasia 1+ Target Cells 1+ Sodium 126 L (136-145) mmol/L Potassium 3.1 L (3.5-5.1) mmol/L Chloride 90 L (98-107) mmol/L Carbon Dioxide 24 (21-32) mmol/L Anion Gap 12 H (3-11) BUN 6 (6-23) mg/dl Creatinine 1.10 (0.6-1.4) mg/dl Est Cr Clr Drug Dosing 71.8 ml/min eGFR 79.77 BUN/Creatinine Ratio 5.5 L (10-20) Glucose 129 H (70-99(Fasting)) mg/dl Osmolality 285 (280-300) mOsm/kg Calcium 8.7 (8.6-10.3) mg/dl Magnesium 1.7 (1.7-2.4) mg/dl Total Bilirubin 0.6 (0.2-1.0) mg/dl AST 107 H (13-39) U/L ALT 109 H (7-52) U/L Alkaline Phosphatase 168 H (34-104) U/L Total Protein 6.6 (6.0-8.3) gm/dl Albumin 4.0 (3.4-5.0) gm/dl Globulin 2.6 (2.5-4.0) gm/dl Albumin/Globulin Ratio 1.5 (0.9-2) Lipase 41 (11-82) U/L Urine Osmolality (500-800) mOsm/kg Ur Random Sodium mmol/L Ethyl Alcohol mg/dL 43.4 H (<10.0) mg/dl
[2024-09-11 14:04] LABS: BUN Creatinine Ratio 5.2 (10-20); Calcium 7.8 mg/dl (8.6-10.3); Creatinine Clr Calc Pharmacy 82.2 ml/min; Potassium 3.8 mmol/L (3.5-5.1)
[2024-09-11 15:18] VITALS: BP 141/96; PULSE 109; RESP 20; TEMP 97.5; O2SAT 98
[2024-09-11 15:32] LABS: Calcium 9.3 mg/dl (8.6-10.3); Potassium 3.8 mmol/L (3.5-5.1)
[2024-09-11 15:38] LABS: BUN Creatinine Ratio 3.4 (10-20); Creatinine Clr Calc Pharmacy 66.9 ml/min
[2024-09-11] MEDS: SODIUM CHLORIDE 0.9% 500 ML IV ONE (16:36)
--- OUTSIDE RECORDS SUMMARY | 2024-09-12 21:43 | External Medical Summary | Summary of Care ---
Author Name Unknown Organization [facility] Address [address] [place] [address] Phone [phone] Care Team Providers Care Wheat Buyer Name Role Phone Selina Miller MD Primary Care Provider [phone] Reason for Visit * Reason Onset Date Comments No Show 09/07/2024 Phlebotomy Encounter Details Date Type Department Care Team (Late st Contact Info) Description 09/07/2024 Telephone Hematology/Oncology Treatment, [place] [address] [place] [address] Olivia Fontenot CRNP [address] [place] [address] No Show (Phlebotomy ) Allergies No known active allergiesdocumented as of this encounter (statuses as of 09/08/2024) Medications Advanced Probiotic Oral Capsule 1 Capsule. 07/20/2024 Active Pantoprazole Sodium 20 MG Oral Tablet Delayed Release (Protonix)Indic ations:History of gastric ulcer,Alcohol use disorder Take 1 Tablet by mouth in the morning. 90 Tablet 08/23/2024 Active Folic Acid 1 MG Oral Tablet TAKE 1 TABLET BY MOUTH EVERY MORNING 90 Tablet 08/30/2024 Active B-1 100 MG Oral TabletIndicatio ns:Alcohol use disorder,Macroc ytosis without anemia TAKE 1 TABLET BY MOUTH ONCE DAILY 90 Tablet 08/30/2024 Active documented as of this encounter (statuses as of 09/08/2024) Active Problems Problem Noted Date Diagnosed Date FH: prostate cancer 05/05/2024 Screening for prostate cancer 05/05/2024 Tinea versicolor 05/05/2024 Macrocytosis without anemia 05/05/2024 Abnormal AST and ALT 05/05/2024 Hereditary hemochromatosis 11/26/2016 Overview (11/26/2016): HFE 08/21-Homozygosity for C282Y , neg H63D an dS 65C--st phlebotomy 08/30/16 FH: hemochromatosis 2016 Tobacco use disorder 2016 Overview (2016): 07/21-smoked 1p q2wks x 1yr, chews 2 can/d x 34 yrs Alcohol use disorder 2016 Overview (11/26/2016): 08/21-none since 07/21--4-6beers daily x 15 yrs, cut back to 3-6 beers 2/wk-is getting counseling at [facility] 05/21, had DUI 02/18 documented as of this encounter (statuses as of 09/08/2024) Immunizations Name Administration Dates Next Due Hepatitis B, 20+ yrs 01/28/2024 Pneumococcal Conjugate Vaccine, 20-valent (Prevn ar20) 05/05/2024 Seasonal Influenza Virus Vac cine, Unspecified Formulation 07/06/2015 Seasonal Influenza, Quadrivalent, No Preserve, I M 08/20/2016 Seasonal Influenza, Trivalent, (IIV3), PF, (Fluz one) 2024 TDAP (age 10 and older)(Boostrix) 01/28/2024 TDAP, Age 7 and older, IM (Adacel) 08/22/2015 Zoster Vaccine Recombinant (Shingrix) 05/05/2024 documented as [...] 2/wk-is getting counseling at [facility] 05/21 PHQ-2 Answer Date Recorded PHQ Adult Total Score 0 2024 Utilities Answer Date Recorded Do you have [...] Recorded Sex Assigned at Not on file Legal Sex Male 5:56 AM EST Gender Identity Not on file Sexual Orientation Not on file documented as of this encounter Miscellaneous Notes * Telephone Encounter - Sherita Moreira OSA - 09/08/2024 8:37 AM EST Pt is scheduled for apt Friday with labs and pt is aware * Telephone Encounter - Joy Carter RN - 09/07/2024 5:29 PM EST Pt did not show for phlebotomy. Please contact to reschedule. Pt should repeat cbc 30 minutes priorto phlebotomy or day before. PHLEBOTOMY, 1HR treatment, 503 schedule documented in this encounter Plan of Treatment Upcoming Encounters Date Type Department Care Team (Late st Contact Info) Description 09/09/2024 10:00 AM EST Office Visit Hepatology, [facility] [address] [place] [address] [address] Sherita Gardner, [address] [place] [address] 09/09/2024 10:40 AM EST Laboratory Laboratory, [facility] [phone] Rosalba Pittman [facility] [address] [facility] [address] 09/10/2024 2:30 PM EST [facility] [address] [facility] [address] [place], [place] [phone] Darcie, Chair 3 Hem Onc [address] [place] [address] 10/12/2024 3:00 PM EST Office Visit Hematology/Oncology [facility] [address] [facility] [place], [place] [phone] Olivia Fontenot CRNP [address] [place] [address] 10/27/2024 1:00 PM EST Office Visit General Internal Medicine [facility] [address] [facility] [place], [place] [address] Selina Miller MD [address] [facility] [place] [address] Scheduled Procedures Name Priority Associated Diagnoses Date/Ti me COLONOSCOPY FLEXIBLE PROXIMA L DIAGNOSTIC Recall History of colonic polyps Health Maintenance Due Date Last Done Comments Cologuard 2015 Fecal Occult Blood Test 2015 Sigmoidoscopy 2015 Hepatitis B Vaccine (2 of 3 - 19+ 3-dose series) 02/25/2024 01/28/2024 COVID-19 Vaccine (1 - 2023-2 5 season) 2024 Zoster Vaccines (2 of 2) 06/30/2024 05/05/2024 Depression Screening 2025 2024 Lipid Panel 04/13/2029 04/13/2024, 08/01/2016 Colonoscopy 04/14/2029 04/14/2024, 04/14/2024 Colorectal Cancer Screening 04/14/2029 DTap/Tdap Vaccines (3 - Td o r Tdap) 01/27/2034 01/28/2024, 08/22/2015 Pneumococcal Vaccine: Pediatrics (0 to 5 Years) and At-Risk Patients (6 to 64 Years) Aged Out 05/05/2024 No longer eligible based on patient's age to complete this topic Hepatitis C Screening Completed 07/13/2024 Influenza Vaccine (FLU shot) Completed , 08/20/2016, 07/06/2015 HIV Screening Discontinued HPV (Gardasil) Vaccine Aged Out No lo nger eligible based on patient's age to complete this topic MENINGOCOCCAL (MENACTRA/MENVEO) Aged Out No longer eligible based on patient's age to complete this topic documented as of this encounter Medical Devices Not on filedocumented as of this encounter Care Teams Wheat Buyer Relationship Specialty Start Date End Date Selina Miller MD [address] [place] [address] PCP - General Internal Medicine 08/22/16 documented as of this encounter
--- OUTSIDE RECORDS SUMMARY | 2024-09-12 21:43 | External Medical Summary ---
Author Name Unknown Address Unknown Organization [id number]:[facility] - [address] [facility] [address] [facility] [address] Laboratory Report Ordering Provider Test Date Status HARLEY MOON 09/09/2024 11:15:05 Final Observation Date Value Abnormality Reference (Units ) Status Hep A, IgG and/or IgM 09/09/2024 11:15:05 Negative Negative Final Performing Location [facility] - [address] [facility] [address]
--- OUTSIDE RECORDS SUMMARY | 2024-09-12 21:43 | External Medical Summary ---
Author Name Unknown Address Unknown Organization K09:[facility] [place] [address] Laboratory Report Ordering Provider Test Date Status KIP HARDING 09/10/2024 14:15:54 Final Observation Date Value Abnormality Reference (Units ) Status WBC, Total 09/10/2024 14:15:54 3.80 Below low normal 4. 00-10.80 (K/uL) Final RBC 09/10/2024 14:15:54 3.62 4.50-5.25 (M/uL) Final Hemoglobin 09/10/2024 14:15:54 13.1 Below low normal 14 .0-16.8 (g/dL) Final HCT 09/10/2024 14:15:54 36.0 Below low normal 40. 0-48.4 (%) Final MCV 09/10/2024 14:15:54 99.4 82.0-99.5 (fL) Final MCH 09/10/2024 14:15:54 36.2 27.0-34.0 (pg) Final MCHC 09/10/2024 14:15:54 36.4 32.0-36.0 (g/dL) Final RDW 09/10/2024 14:15:54 12.4 11.5-15.5 (%) Final Platelets 09/10/2024 14:15:54 256 140-400 (K /uL) Final MPV 09/10/2024 14:15:54 8.4 6.6-11.1 ( fL) Final Performing Location [facility] [place] [address]
--- OUTSIDE RECORDS SUMMARY | 2024-09-12 21:43 | External Medical Summary ---
Author Name Unknown Address Unknown Organization [id number]:[facility] [place] [address] Laboratory Report Ordering Provider Test Date Status KIP HARDING 09/10/2024 14:15:54 Final Observation Date Value Abnormality Reference (Units ) Status SYNC LEUKOCYTES IN BLOOD BY AUTOMATED COUNT 09/10/2024 14:15:54 3.80 Below low normal 4.00-10.80 (K/uL) Final Neutrophils/100 leukocytes in Blood by Manual count 09/10/2024 14:15:54 39.0 Below low normal 40.0-75.0 (%) Final Lymphocytes/100 leukocytes in Blood by Manual count 09/10/2024 14:15:54 40.0 18.0-42.0 (%) Final Monocytes/100 leukocytes in Blood by Manual count 09/10/2024 14:15:54 21.0 Above high normal 1.0-11.0 (%) Final Neutrophils [#/volume] in Blood by Manual count 09/10/2024 14:15:54 1.48 Below low normal 1.80-7.70 (K/uL) Final Lymphocytes [#/volume] in Blood by Manual count 09/10/2024 14:15:54 1.52 1.00-4.80 (K/uL) Final Monocytes [#/volume] in Blood by Manual count 09/10/2024 14:15:54 0.80 0.00-1.10 (K/uL) Final Nucleated erythrocytes/100 leukocytes [Ratio] in Blood by Automated count 09/10/2024 14:15:54 Final Variant lymphocytes [Presence] in Blood by Light microscopy 09/10/2024 14:15:54 Present Abnormal None Seen Final Performing Location [facility] [place] [address]
--- OUTSIDE RECORDS SUMMARY | 2024-09-12 21:43 | External Medical Summary | Summary of Care ---
Author Name Unknown Organization [facility] Address [address] [place] [address] Phone [phone] Care Team Providers Care Floor Clerk Name Role Phone Selina Miller MD Primary Care Provider [phone] Reason for Visit * Reason Onset Date Comments No Show 09/07/2024 Phlebotomy Encounter Details Date Type Department Care Team (Late st Contact Info) Description 09/07/2024 Telephone Hematology/Oncology Treatment, [place] [address] [place] [address] Olivia Fontenot CRNP [address] [place] [address] No Show (Phlebotomy ) Allergies No known active allergiesdocumented as of this encounter (statuses as of 09/07/2024) Medications Advanced Probiotic Oral Capsule 1 Capsule. [...] as of this encounter (statuses as of 09/07/2024) Active Problems Problem Noted Date Diagnosed Date [...] to 3-6 beers 2/wk-is getting counseling at [facility] 05/21, had DUI 02/18 documented as of this encounter (statuses as of 09/07/2024) Immunizations Name Administration Dates Next Due Hepatitis [...] encounter Miscellaneous Notes * Telephone Encounter - Joy Carter RN [...] 09/09/2024 10:00 AM EST Office Visit Hepatology, [facility] [address] [facility] [place] [address] Sherita Gardner DO [address] [place] [address] 10/12/2024 3:00 PM EST Office Visit Hematology/Oncology [facility] [address] [facility] [phone] Olivia Fontenot CRNP [address] [place] [address] [place] [address] 10/27/2024 1:00 PM EST Office Visit General Internal Medicine [facility] [address] [facility] [place] [facility] [place] [address] Selina Miller MD 200 [facility] [place] [address] Scheduled Procedures Name Priority Associated Diagnoses Date/Ti [...] filedocumented as of this encounter Care Teams Floor Clerk Relationship Specialty Start Date End Date Selina Miller MD [address] [place] [address] [address] PCP - General Internal Medicine 08/22/16 documented as of this encounter
--- OUTSIDE RECORDS SUMMARY | 2024-09-12 21:43 | External Medical Summary | Summary of Care ---
Author Name Unknown Organization [facility] Address [address] [place] [address] Phone [phone] Care Team Providers Care Construction Project Assistant Name Role Phone Selina Miller MD Primary Care Provider [phone] Reason for Visit * Reason Comments Outpatient Testing Encounter Details Date Type Department Care Team (Latest Contact Info) Description 09/09/2024 11:10 AM EST Laboratory Laboratory, [facility] [address] [facility] [place] [address] [facility] 132 [place] [address] Alcohol abuse; Hereditary hemochromatosis (HCC) Allergies No known active allergiesdocumented as of this encounter (statuses as of 09/09/2024) Medications Advanced Probiotic Oral Capsule 1 Capsule. [...] as of this encounter (statuses as of 09/09/2024) Active Problems Problem Noted Date Diagnosed Date [...] to 3-6 beers 2/wk-is getting counseling at [facility] 05/21, had DUI 02/18 documented as of this encounter (statuses as of 09/09/2024) Immunizations Name Administration Dates Next Due Hepatitis [...] 20 (1 standard drink = 0.6 oz pu re alcohol) PHQ-2 Answer Date Recorded PHQ Adult Total Score 0 2024 Sex and Gender Information Value Date Recorded Sex Assigned at Not on file Legal Sex Male 5:56 AM EST Gender Identity Not on file Sexual Orientation Not on file documented as of this encounter Plan of Treatment Upcoming Encounters Date Type Department Care Team (Late st Contact Info) Description 09/10/2024 2:30 PM EST Hem/Onc Treatment Hematology/Oncology Treatment, [place] [address] [facility] [place] [phone] 09/15/2024 12:00 PM EST Imaging Radiology [facility] [address] [facility] [place] [address] 09/16/2024 1:00 PM EST Nurse Only Gastroenterology, [address] [place] [address] [place] [phone] [place], Nurse Gastro [address] [place] [address] [place] [address] 09/16/2024 1:45 PM EST Telemedicine Addiction Medicine, [place] [address] [facility] [place] [address] Ritu Crenshaw MD [address] [place] [address] Cart, Telemed [place] [facility] [address] [facility] [place] [address] 10/12/2024 3:00 PM EST Office Visit Hematology/Oncology [facility] 200 [facility] [place] [address] Olivia Fontenot CRNP [address] [facility] [place] [address] 10/27/2024 1:00 PM EST Office Visit General Internal Medicine [facility] [address] [facility] [place] [address] Selina Miller MD [address] [facility] [place] [address] 01/20/2025 12:40 PM EDT Office Visit Hepatology, [facility] [address] [place] [address] Sherita Gardner DO [address] [place] [address] Pending Results Name Type Priority Associated Diagnoses Date /Time HEPATIC FUNCTION PANEL Lab Routine Alcohol abuse Hereditary hemochromatosis (HCC) 09/09/2024 11:15 AM EST HEPATITIS A ANTIBODIES IGG AND IGM Lab Routine Alcohol abuse Hereditary hemochromatosis (HCC) 09/09/2024 11:15 AM EST [id number], QN Lab Routine Alcohol abuse Hereditary hemochromatosis (HCC) 09/09/2024 11:15 AM EST CERULOPLASMIN Lab Routine Alcohol abuse Hereditary hemochromatosis (HCC) 09/09/2024 11:15 AM EST MITOCHONDRIAL ANTIBODY Lab Routine Alcohol abuse Hereditary hemochromatosis (HCC) 09/09/2024 11:15 AM EST ACTIN (SMOOTH MUSCLE) ANTIBODY (IGG) Lab Routine Alcohol abuse Hereditary hemochromatosis (HCC) 09/09/2024 11:15 AM EST BASIC METABOLIC PANEL Lab Routine Alcohol abuse Hereditary hemochromatosis (HCC) 09/09/2024 11:15 AM EST Scheduled Procedures Name Priority Associated Diagnoses Date/Ti [...] as of this encounter Visit Diagnoses Diagnosis Alcohol abuse Alcohol abuse, unspecified Hereditary hemochromatosis (HCC) Hereditary hemochromatosis documented in this encounter Care Teams Construction Project Assistant Relationship Specialty Start Date End Date Selina Miller MD [address] [facility] [place] [address] PCP - General Internal Medicine 08/22/16 documented as of this encounter
--- OUTSIDE RECORDS SUMMARY | 2024-09-12 21:43 | External Medical Summary ---
Author Name Unknown Address Unknown Organization [id number]:[facility] - [address] [place] [address] Laboratory Report Ordering Provider Test Date Status [id number] 09/09/2024 11:15:05 Final Observation Date Value Abnormality Reference (Units ) Status Ferritin 09/09/2024 11:15:05 1840 Above high normal 30 -400 (ng/mL) Final Performing Location [facility] - [address] [place] [address]
--- OUTSIDE RECORDS SUMMARY | 2024-09-12 21:43 | External Medical Summary | Summary of Care ---
Author Name Unknown Organization [facility] Address [address] [place] [address] Phone [phone] Care Team Providers Care Car Hostler Name Role Phone Selina Miller MD Primary Care Provider [phone] Reason for Referral * Evaluate & Treat - Unlimited Visits (Within 10 days (routine)) - Pending Review Specialty Diagnoses / Procedures Referred By Ric sloan Referred To Contact Addiction Medicine Diagnoses Alcohol abuse Sherita Gardner DO [address] [place] [address] Phone: tel: fax: Referral ID Status Reason Start Date Expiration Date Visits Requested Visits Authorized [id number] Pending Review Specialty Services Required 09/09/2024 [id number] Question Answer Referral Priority Within 10 days (routine) Where should this appointment be scheduled? [facility] Was the patient hospitalized for their addiction in the past in the past 6 months? Yes Did this include Endocarditis or Soft Tissue Infection? No Has the patient overdosed on any substance in the past? No Reason for Referral: Alcohol Reason for Visit * Reason Comments NEW PATIENT Referred by REYMUNDO Schmidt for Hemochromatosis. Pt's spouse reports that he was vomiting blood and having dark stools. He has Therapeutic Phlebotomies weekly. He reports that he is a heavy drinker. * Evaluate & Treat - Unlimited Visits (Within 10 days (routine)) - Pending Review Specialty Diagnoses / Procedures Referred By Ric sloan Referred To Contact Gastroenterology Diagnoses Hereditary hemochromatosis (HCC) Alcohol use disorder Olivia Fontenot CRNP [address] [place] [address] Phone: tel: fax: Referral ID Status Reason Start Date Expiration Date Visits Requested Visits Authorized [id number] Pending Review Specialty Services Required 07/13/2024 [id number] Encounter Details Date Type Department Care Team (Latest Contact Info) Description 09/09/2024 10:00 AM EST Office Visit Hepatology, [facility] [address] [place] [address] Sherita Gardner DO [address] [place] [address] Alcohol abuse*; Hereditary hemochromatosis (HCC) Allergies No known active [...] to 3-6 beers 2/wk-is getting counseling at [facility] 05/21, had DUI 02/18 documented as [...] Sign Reading Time Taken Comments Blood Pressure 134/89 09/09/2024 10:16 AM EST Pulse 103 09/09/2024 10:16 AM EST Temperature 36.6 C (97.9 F) 09/09/2024 10:[address] Respiratory Rate - - Oxygen Saturation - - Inhaled Oxygen Concentration - - Weight 67.1 kg (148 lb 0.3 oz) 09/09/2024 10:16 AM EST Height - - Body Mass Index 22.51 2024 10:36 AM EDT documented in this encounter Progress Notes * Sherita Gardner, DO - 09/09/2024 10:30 AM EST Images from the original note were not included. CC: alcohol abuse, hereditary hemochromatosis HPI: Johnathon Warner is a 54 year old male referred by REYMUNDO Jimenez for further evaluation of alcohol abuse and hereditary hemochromatosis. 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 Ferritin was as high as 4394 with iron saturation of 100%. He has been getting weekly phlebotomy wit them. He is a heavy drink and drinks 6-10 beers daily. He was admitted in December with hematemesis and melena to [facility]. EGD showed only gastritis, non-bleeding gastric ulcer, normal esophagus. Initial presenting hemoglobin was 11.8 but dropped to 7 during inpatient stay, CT abdomen and pelvis showed no acute findings, tiny gallbladder polyp unchanged from prior. Also had hyponatremia which resolved at thetime of leaving the hospital,he left AMA. In April he underwent again EGD and colonoscopy. EGD was normal, colonoscopy with 1 polyp and hemorrhoids. Most recent LFTs from last month with normal AST, ALT,and total bilirubin ALP mildly elevated to 147. They were previously elevated earlier in the month but they improved on most recent check. He states him and all 3 of his brothers have hemochromatosis. He was diagnosed in 2016. He states he was doing phlebotomy but then he quit. He states at least 4 years went by without phlebotomy. He started them again recently. He states that he was told in the past that he can get cirrhosis or maybe getting close to it because of the drinking. He drinks 3-7 24 oz beers daily. He used to drink 14-16 beers daily. He states he has been drinking heavily for the past 30 years. states he has tried "everything" to quit alcohol, did inpatient rehab once and intensive outpatient. He was able to get sober twice for 4 monthsbut then relapsed again. Past Medical History: Diagnosis Date Alcoholism (HCC) Hemochromatosis Current Outpatient Medications Medication Sig Dispense Refill Advanced Probiotic Oral Capsule 1 Capsule. Pantoprazole Sodium 20 MG Oral Tablet Delayed Release (Protonix) Take 1 Tablet by mouth in the morning. 90 Tablet 0 Folic Acid 1 MG Oral Tablet TAKE 1 TABLET BY MOUTH EVERY MORNING 90 Tablet 0 B-1 100 MG Oral Tablet TAKE 1 TABLET BY MOUTH ONCE DAILY 90 Tablet 0 No current facility-administered medications for this visit. Review of patient's allergies indicates: No Known Allergies Social History Socioeconomic History Marital status: Spouse name: Not on file Number of children: Not on file Years of education: Not on file Highest education level: Not on file Occupational History Not on file Tobacco Use Smoking status: Former Smokeless tobacco: Current Types: Chew Tobacco comments: 11/22-1.5c/d;07/21-smoked 1p q2wks x 1yr, chews 2 can/d x 34 yrs Vaping Use Vaping status: Never Used Substance and Sexual Activity Alcohol use: Yes Alcohol/week: 20.0 standard drinks of alcohol Types: 20 12 oz of beer per week Drug use: No Sexual activity: Yes Partners: Female Other Topics Concern Not on file Social History Narrative Not on file Social Needs Financial Resource Strain: Not on file Food Insecurity: Not on file Transportation Needs: Not on file Social Connections: Unknown (03/23/2024) Social Connections How often do you feel lonely or isolated from those around you? (Adult - for ages 18 years and over): Not on file Housing Stability: Not on file Family History Problem Relation Name Age of Onset Cancer Mother thyroid Thyroid cancer Mother thyroid -- age 40s-Sg+SUMMERS, now recurred with mets age 66 Cancer Father brain Brain cancer Father Blood Disorder Brother 48 Hemochromatosis Blood Disorder Brother 46 hi fe level, abn mri liver Cancer Uncle (Unspecified) 70 prostate Prostate cancer Uncle (Unspecified) Cancer Aunt (Paternal) breast Review of Systems: Constitutional: No report of fever, chills, night sweats. There have been no non-intentional weightchanges. Eyes: No recent changes in visual acuity or blurring of vision. ENT: No change in auditory acuity, sense of smell or taste. CV: No chest pain, palpitations, dyspnea on exertion. Respiratory: No wheezing, cough, sputum production. : No dysuria, polyuria, change in urinary frequency. GI: Per HPI, otherwise negative. Psychiatric: No chronic changes in mood, affect or sensorium. Musculoskeletal: No myalgias, arthralgias, or joint pains. Neurological: No change in gait, change in maintenance of balance, neurologic injuries. Physical Exam Constitutional: BP 134/89 | Pulse 103 | Temp 36.6 C (97.9 F) | Wt 67.1 kg (148 lb 0.3 oz) | BMI22.51 kg/m | BSA 1.79 m Well developed, well nourished male in no apparent distress. Eyes: Conjunctivae and sclerae are clear and non-icteric. CV: Heart is regular without murmur, rub or rojas. Pulm: Clear to percussion and auscultation. GI: Abdomen is soft, non-tender, with normo-active bowel sounds in all four quadrants. No hepatosplenoegaly is appreciated. No masses are palpated. No guarding or rebound is noted. Psychiatric: The patient is alert and oriented in all four spheres. Mood is euthymic. Affect is appropriate for the situation. Skin: No rashes were noted. Musculoskeletal: Gait is normal. Patient is able to transfer from sitting position to exam table without assistance. Labs: Reviewed Component Ref Range & Units 3 d ago Ferritin 30 - 400 ng/mL 2,339 High Component Latest Ref Rng 04/13/2024 05/19/2024 07/13/2024 07/26/2024 08/02/2024 08/09/2024 Ferritin 30 - 400 ng/mL 2,038 (H) 4,394 (H) 7,776 (H) 1,777 (H) 1,443 (H) 969 (H) Component Latest Ref Rng 08/16/2024 08/23/2024 08/30/2024 09/06/2024 Ferritin 30 - 400 ng/mL 2,775 (H) 1,050 (H) 2,761 (H) 2,339 (H) Legend: (H) High Component Ref Range & Units 1 mo ago Iron 45 - 176 ug/dL 161 Iron Binding Capacity 250 - 425 ug/dL 241 Low Transferrin Saturation Percent 15 - 55 % 67 High Component Ref Range & Units 3 d ago WBC 4.00 - 10.80 K/uL 3.90 Low RBC 4.50 - 5.25 M/uL 3.88 HGB 14.0 - 16.8 g/dL 13.3 Low HCT 40.0 - 48.4 % 39.1 Low MCV 82.0 - 99.5 fL 100.8 MCH 27.0 - 34.0 pg 34.3 MCHC 32.0 - 36.0 g/dL 34.0 RDW 11.5 - 15.5 % 12.9 PLT 140 - 400 K/uL 361 MPV 6.6 - 11.1 fL 8.9 nRBCs <=0 /100 WBCs 0 0 Result Notes Component Ref Range & Units 1 mo ago BUN 6 - 20 mg/dL 7 CREATININE 0.6 - 1.2 mg/dL 0.8 EGFR >=60 mL/min >90 Comment: eGFR is calculated based on the CKD-EPI 2020 equation. SODIUM 135 - 146 mmol/L 139 POTASSIUM 3.5 - 5.1 mmol/L 3.7 CHLORIDE 98 - 107 mmol/L 103 CO2 22 - 32 mmol/L 24 ANION GAP 7 - 15 mmol/L 12 GLUCOSE 70 - 120 mg/dL 102 Albumin 3.8 - 5.0 g/dL 3.6 Low AST 10 - 50 U/L 46 Alkaline Phosphatase 35 - 130 U/L 147 High Bilirubin, Total <=1.2 mg/dL 0.5 CALCIUM 8.4 - 10.2 mg/dL 8.9 Protein 6.0 - 8.3 g/dL 6.1 ALT 10 - 50 U/L 44 Component Ref Range & Units 1 mo ago Hepatitis A Antibody IgM Negative Negative Hepatitis B Core Antibody IgM Negative Negative Hepatitis B Surface Antigen Negative Negative Hepatitis C Antibody Negative Negative Procedures: Reviewed EGD 04/14/2024: Impression: - Normal esophagus. - Z-line regular, 37 cm from the incisors. - Normal stomach. - Normal examined duodenum. - No specimens collected. Colonoscopy 04/14/2024: Impression: - Hemorrhoids found on perianal exam. - The examined portion of the ileum was normal. - One 5 mm polyp in the transverse colon, removed with a cold snare. Resected and retrieved. - Internal hemorrhoids. - The examination was otherwise normal. ASSESSMENT: Johnathon Warner is a 54 year old male referred by REYMUNDO Jimenez for further evaluation of alcohol abuse and hereditary hemochromatosis. Plan: 1. Hereditary hemochromatosis and alcohol abuse. HH is managed by hematology undergoing weekly phlebotomy treatments. C282Y homozygous. Most recent ferritin is 2339 with iron saturation of 67%. His alcohol abuse is certainly contributing to his elevated ferritin and iron saturation in addition to the HH. Goal ferritin of 50-100. Avoid iron and vitamin C supplements. All first degree family members should be tested. He states 3 brothers have this. Will get a fibroscan to assess for any fibrosis and an abdominal ultrasound. He has been tested for hepatitis B and C which is negative. Will complete remainder of serological work up including autoimmune to exclude any other causes of liver disease. We discussed need to abstain from all alcohol and discussed risk of progression to cirrhosis/HCC. 2. Vaccination. He does not have immunity against hepatitis B on labs. Recommend vaccination seriesthrough PCP. Will test for immunity against hepatitis A on labs today. 3. Colorectal cancer screening. Last colonoscopy 04/2024 with 1 polyp removed. Recommend repeat again in 5 years. 4. Alcohol abuse. I have advised the patient to abstain from drinking alcohol. The health risks imposed by heavy alcohol intake were discussed in detail. He is interested in quitting all alcohol. He drinks 3-7 24 oz beers daily. He used to drink 14-16 beers daily. He states he has been drinking heavily for the past 30 years. states he has tried "everything" to quit alcohol, did inpatient reha b once and intensive outpatient. He was able to get sober twice for 4 months but then relapsed again. Addiction medicine referral placed as he is interested in medication and counseling to quit all alcohol. 5. 4 month follow up Sherita Gardner DO Gastroenterology and Hepatology I spent a total of 45 minutes on the date of service in review of patient's record, and previously obtained information in person and appropriate medical visit, discussion and education of plan, withpatient and/or caregiver, placing orders for tests/referral/procedures as medically necessary and documentation of pertinent clinical information in patient's medical records for their visit today. documented in this encounter Plan of Treatment Upcoming Encounters Date Type Department Care Team (Late st Contact Info) Description 09/10/2024 2:30 PM EST Hem/Onc Treatment Hematology/Oncology Treatment, [place] [address] [place] [address] Darcie, Chair 3 Hem Onc [facility] [address] [facility] [address] [place], [place] [address] 09/15/2024 12:00 PM EST Imaging Radiology [facility] [address] [facility] [place] [address] 09/16/2024 1:00 PM EST Nurse Only Gastroenterology, [address], [place] [address] [place] [address] [place], Nurse Gastro [address] [place] [address] 09/16/2024 1:45 PM EST Telemedicine Addiction Medicine, [place] [address] [place] [address] Ritu Crenshaw MD [address] [place] [id number] [place], Telemed [place] [facility] [address] [place] [address] 10/12/2024 3:00 PM EST Office Visit Hematology/Oncology [facility] [place] [address] [facility] [place] [phone] Olivia Fontenot CRNP [address] [place] [address] 10/27/2024 1:00 PM EST Office Visit General Internal Medicine [facility] [address] [facility] [place] [address] Selina Miller MD [address] [facility] [place] [address] 01/20/2025 12:40 PM EDT Office Visit Hepatology, [facility] [address] [facility] [place] [address] Sherita Gardner, DO [address] [place] [address] Scheduled Orders Name Type Priority Associated Diagnoses Orde r Schedule HEPATIC FUNCTION PANEL Lab Routine Alcohol abuse Hereditary hemochromatosis (HCC) Expected: 09/09/2024, Expires: 09/09/2025 HEPATITIS A ANTIBODIES IGG AND IGM Lab Routine Alcohol abuse Hereditary hemochromatosis (HCC) Expected: 09/09/2024, Expires: 09/09/2025 [id number], QN Lab Routine Alcohol abuse Hereditary hemochromatosis (HCC) Expected: 09/09/2024, Expires: 09/09/2025 CERULOPLASMIN Lab Routine Alcohol abuse Hereditary hemochromatosis (HCC) Expected: 09/09/2024, Expires: 09/09/2025 MITOCHONDRIAL ANTIBODY Lab Routine Alcohol abuse Hereditary hemochromatosis (HCC) Expected: 09/09/2024, Expires: 09/09/2025 ACTIN (SMOOTH MUSCLE) ANTIBODY (IGG) Lab Routine Alcohol abuse Hereditary hemochromatosis (HCC) Expected: 09/09/2024, Expires: 09/09/2025 LIVER ELASTOGRAPHY W/O IMAGING Procedures Routine Alcohol abuse Hereditary hemochromatosis (HCC) Ordered: 09/09/2024 US ABDOMEN LIMITED Medical Imaging Routine Alcohol abuse Hereditary hemochromatosis (HCC) Expected: 09/09/2024, Expires: 10/10/2025 BASIC METABOLIC PANEL Lab Routine Alcohol abuse Hereditary hemochromatosis (HCC) Expected: 09/09/2024, Expires: 09/09/2025 Scheduled Procedures Name Priority Associated Diagnoses Date/Ti me COLONOSCOPY FLEXIBLE PROXIMA L DIAGNOSTIC Recall History of colonic polyps Scheduled Referrals Name Type Priority Associated Diagnoses Orde r Schedule ALCOHOL/CHEMICAL DEPENDENCY REFERRAL OP Referral Within 10 days (routine) Alcohol abuse Ordered: 09/09/2024 Health Maintenance Due Date Last Done Comments [...] of this encounter Visit Diagnoses Diagnosis Alcohol abuse- Primary Alcohol abuse, unspecified Hereditary hemochromatosis (HCC) Hereditary hemochromatosis documented in this encounter Care Teams Car Hostler Relationship Specialty Start Date End Date Selina Miller MD [address] [facility] [place], [place] [address] PCP - General Internal Medicine 08/22/16 documented as of this encounter
--- OUTSIDE RECORDS SUMMARY | 2024-09-12 21:43 | External Medical Summary ---
Author Name Unknown Address Unknown Organization K01:LABORATORY [facility] - [address] [facility] [address] Laboratory Report Ordering Provider Test Date Status HARLEY MOON 09/09/2024 11:15:05 Final Observation Date Value Abnormality Reference (Units ) Status Mitochondria M2 Ab [Presence] in Serum 09/09/2024 11:15:05 Negative Negative Final Mitochondria M2 Ab [Units/volume] in Serum by Immunoassay 09/09/2024 11:15:05 0.6 <4 (U/mL) Final Performing Location [facility] - [facility] [place] [address]
--- OUTSIDE RECORDS SUMMARY | 2024-09-12 21:43 | External Medical Summary | Summary of Care ---
Author Name Unknown Organization [facility] Address [address] [place] [address] Phone [phone] Care Team Providers Care Oncology Navigator Name Role Phone Selina Miller MD Primary Care Provider [phone] Reason for Visit * Reason Comments Outpatient Testing Encounter Details Date Type Department Care Team (Latest Contact Info) Description 09/06/2024 11:00 AM EST Laboratory Laboratory, [facility] [address] [place] [address] [place], Laboratory [address] [place] [address] Hereditary hemochromatosis (HCC) Allergies No known active allergiesdocumented as of this encounter (statuses as of 09/06/2024) Medications Advanced Probiotic Oral Capsule 1 Capsule. [...] as of this encounter (statuses as of 09/06/2024) Active Problems Problem Noted Date Diagnosed Date [...] to 3-6 beers 2/wk-is getting counseling at [facility] 05/21, had DUI 02/18 documented as of this encounter (statuses as of 09/06/2024) Immunizations Name Administration Dates Next Due Hepatitis [...] Team (Late st Contact Info) Description 09/07/2024 2:45 PM EST Hem/Onc Treatment Hematology/Oncology Treatment, [place] [address] [facility] [address] [place] [id number] 09/09/2024 10:00 AM EST Office Visit Hepatology, [facility] [address] [place] [address] Sherita Gardner DO [address] [place] [address] 10/12/2024 3:00 PM EST Office Visit Hematology/Oncology [facility] [address] [facility] [place] [phone] Olivia Fontenot CRNP [address] [place] [address] [place] [address] 10/27/2024 1:00 PM EST Office Visit General Internal Medicine [facility] [address] [place] [address] Selina Miller MD [address] [place] [address] Pending Results Name Type Priority Associated Diagnoses Date /Time CBC WITH WBC DIFFERENTIAL Lab STAT Hereditary hemochromatosis (HCC) 09/06/2024 10:36 AM EST FERRITIN Lab STAT Hereditary hemochromatosis (HCC) 09/06/2024 10:36 AM EST CBC Lab STAT Hereditary hemochromatosis (HCC) 09/06/2024 10:36 AM EST DIFFERENTIAL, AUTOMATED Lab STAT Hereditary hemochromatosis (HCC) 09/06/2024 10:36 AM EST Scheduled Procedures Name Priority Associated [...] hemochromatosis documented in this encounter Care Teams Oncology Navigator Relationship Specialty Start Date End Date Selina Miller MD [address] [facility] [place] [address] PCP - General Internal Medicine 08/22/16 documented as of this encounter
--- OUTSIDE RECORDS SUMMARY | 2024-09-12 21:43 | External Medical Summary | Summary of Care ---
Author Name Unknown Organization [facility] Address [address] [place] [address] Phone [phone] Care Team Providers Care Svp Programmatic Tv Name Role Phone Selina Miller MD Primary Care Provider [phone] Reason for Visit * Reason Onset Date Comments Outpatient Testing 09/10/2024 CBCd Encounter Details Date Type Department Care Team (Late st Contact Info) Description 09/10/2024 Telephone Hematology/Oncology Treatment, [place] [address] [place] [address] Olivia Fontenot CRNP [address] [place] [address] Outpatient Testing (CBCd) Allergies No known active allergiesdocumented as of this encounter (statuses as of 09/10/2024) Medications Advanced Probiotic Oral Capsule 1 Capsule. [...] as of this encounter (statuses as of 09/10/2024) Active Problems Problem Noted Date Diagnosed Date [...] as of this encounter (statuses as of 09/10/2024) Immunizations Name Administration Dates Next Due Hepatitis [...] encounter Miscellaneous Notes * Telephone Encounter - Bettye Roman LPN - 09/10/2024 8:54 AM EST Spoke with patient's , Ama, she states she will let the patient know to come in to have his CBCd drawn, at least half-n-hour prior to his appointment at 2:45 pm. She denies any other needs at this time. * Telephone Encounter - Raman Angeles RN - 09/10/2024 8:17 AM EST Pt had lab work completed yesterday, however, no CBCD was completed at that time. Tried calling patient, no answer, unable to leave VM. Able to add Ferritin onto lab work from yesterday but CBCD will need repeated. Rudi- Please call patient back in a little to inform of lab work needed prior to phlebotomy and schedule today for at [facility] "CBCD". Thank you. documented in this encounter Plan of Treatment Upcoming Encounters Date Type Department Care Team (Late st Contact Info) Description 09/10/2024 2:45 PM EST Hem/Onc Treatment [facility]ematology[facility], [place] [facility] [phone] Darcie, Chair 2 Hem Onc [facility] [address] 09/15/2024 12:00 PM EST Imaging Radiology [facility] [address] [facility] [place] [address] 09/16/2024 1:00 PM EST Nurse Only Gastroenterology, [place] [facility] [address] [place] [address] [place], Nurse Gastro [address] [place] [address] 09/16/2024 1:45 PM EST [facility] [address] [place] [address] Ritu Crenshaw MD [address] [place] [id number] Cart, Telemed [place] [facility] [address] [place] [address] 10/12/2024 3:00 PM EST Office Visit Hematology/Oncology [facility] 200 [place] [address] Olivia Fontenot CRNP [address] [place] [address] 10/27/2024 1:00 PM EST Office Visit General Internal Medicine [facility] [address] [place] [address] Selina Miller MD 200 [place] [address] 01/20/2025 12:40 PM EDT Office Visit Hepatology, [facility] [address] [facility] [place] [address] Sherita Gardner DO 132 [facility] [place] [address] Pending Results Name Type Priority Associated Diagnoses Date /Time FERRITIN Lab STAT Hereditary hemochromatosis (HCC) 09/09/2024 11:15 AM EST Scheduled Orders Name Type Priority Associated Diagnoses Orde r Schedule FERRITIN Lab STAT Hereditary hemochromatosis (HCC) Expected: 09/10/2024, Expires: 09/10/2025 Scheduled Procedures Name Priority Associated Diagnoses Date/Ti [...] hemochromatosis documented in this encounter Care Teams Svp Programmatic Tv Relationship Specialty Start Date End Date Selina Miller MD [address] [place] [address] PCP - General Internal Medicine 08/22/16 documented as of this encounter
--- OUTSIDE RECORDS SUMMARY | 2024-09-12 21:43 | External Medical Summary ---
Author Name Unknown Address Unknown Organization [id number]:[facility] [place] [facility] [address] [facility] [address] Laboratory Report Ordering Provider Test Date Status HARLEY MOON 09/09/2024 11:15:05 Final Observation Date Value Abnormality Reference (Units ) Status Albumin 09/09/2024 11:15:05 4.0 3.8-5.0 (g/dL) Final AST (Aspartate aminotransferase) 09/09/2024 11:15:05 211 Above high normal 10-50 (U/L) Final Lipemia removed by ultracent rifugation.\X09\
Alk Phos 09/09/2024 11:15:05 203 Above high normal 35 -130 (U/L) Final ALT (Alanine aminotransferase) 09/09/2024 11:15:05 186 Above high normal 10-50 (U/L) Final Lipemia removed by ultracent rifugation.\X09\
Bilirubin, Total 09/09/2024 11:15:05 0.6 <=1 .2 (mg/dL) Final Bilirubin, Direct 09/09/2024 11:15:05 0.5 Above high n ormal 0.0-0.3 (mg/dL) Final Result may be falsely decrea sed due to hemolysis. Protein 09/09/2024 11:15:05 6.4 6.0-8.3 (g /dL) Final Performing Location [facility] [place] [address] [facility] [address]
--- OUTSIDE RECORDS SUMMARY | 2024-09-12 21:43 | External Medical Summary | Summary of Care ---
Author Name Unknown Organization [facility] Address [address] [place] [address] Phone [phone] Care Team Providers Care Steel Layout Worker Name Role Phone Selina Miller MD Primary Care Provider [phone] Reason for Visit * Reason Comments Outpatient Testing Encounter Details Date Type Department Care Team (Late st Contact Info) Description 09/09/2024 10:40 AM EST Laboratory Laboratory, [facility] 132 [facility] [place] [address] [facility] 132 [place] [address] Arrived Allergies No known active allergiesdocumented as of [...] 2:30 PM EST Hem/Onc Treatment Hematology/Oncology Treatment, [place] [address] [place] [phone] 09/15/2024 12:00 PM EST Imaging Radiology [facility] [address] [facility] [place] [address] 09/16/2024 1:00 PM EST Nurse Only Gastroenterology, [address] [place] [address] [place] [phone] [place], Nurse Gastro [address] [place] 100 [place] [address] 09/16/2024 1:45 PM EST Telemedicine Addiction Medicine, [place] 21 [facility] [place] [address] Ritu Crenshaw MD [address] [place] [address] [facility] [place] [facility] 21 [place] [address] 10/12/2024 3:00 PM EST Office Visit Hematology/Oncology [facility] [place] [phone] Olivia Fontenot CRNP 400 [facility] [address] 10/27/2024 1:00 PM EST Office Visit General Internal Medicine [facility] [address] [facility] [place] [address] Selina Miller MD [address] [facility] [place] [address] 01/20/2025 12:40 PM EDT Office Visit Hepatology, [facility] [address] [place] [address] Sherita Gardner DO [address] [place] [address] Scheduled Procedures Name Priority Associated Diagnoses Date/Ti [...] filedocumented as of this encounter Care Teams Steel Layout Worker Relationship Specialty Start Date End Date Selina Miller MD [facility] Carm[place] [address] PCP - General Internal Medicine 08/22/16 documented as of this encounter
--- OUTSIDE RECORDS SUMMARY | 2024-09-12 21:43 | External Medical Summary ---
Author Name Unknown Address Unknown Organization [id number]:[facility] [place] [address] [facility] [address] [place] [address] Laboratory Report Ordering Provider Test Date Status HARLEY MOON 09/09/2024 11:15:05 Final Observation Date Value Abnormality Reference (Units ) Status BUN 09/09/2024 11:15:05 5 Below low normal 6-20 (mg/dL) Final Creatinine 09/09/2024 11:15:05 0.9 0.6-1.2 (mg/dL) Final Glomerular filtration rate/1.73 sq M.predicted [Volume Rate/Area] in Serum, Plasma or Blood by Creatinine-based formula (CKD-EPI) 09/09/2024 11:15:05 >90 >=60 (mL/min) Final eGFR is calculated based on the CKD-EPI 2020 equation. Sodium 09/09/2024 11:15:05 122 Below low normal 135 -146 (mmol/L) Final Potassium 09/09/2024 11:15:05 3.7 3.5-5.1 (m mol/L) Final Cl 09/09/2024 11:15:05 85 Below low normal 98- 107 (mmol/L) Final CO2 09/09/2024 11:15:05 22 22-32 (mmo l/L) Final Anion gap 09/09/2024 11:15:05 15 7-15 (mmol /L) Final Glucose 09/09/2024 11:15:05 99 70-120 (mg /dL) Final Calcium 09/09/2024 11:15:05 8.7 8.4-10.2 ( mg/dL) Final Performing Location [facility]ORY [facility] [place] - [address] [place] [address]
--- OUTSIDE RECORDS SUMMARY | 2024-09-12 21:44 | External Medical Summary | Summary of Care ---
Author Name Unknown Organization [facility] Address [address] [place] [address] Phone [phone] Care Team Providers Care Personnel Supervisor Name Role Phone Selina Miller MD Primary Care Provider [phone] Reason for Visit * Reason Comments Outpatient Testing Encounter Details Date Type Department Care Team (Latest Contact Info) Description 08/09/2024 11:00 AM EST Laboratory Laboratory [facility] [address] [place] [phone] [facility] 200 [facility] [place] [address] Hereditary hemochromatosis (HCC) Allergies No known active allergiesdocumented as of this encounter (statuses as of 08/09/2024) Medications Medication Sig Dispensed Refills Start Date End Date Status Thiamine HCl 100 MG Oral Tablet (vitamin B-1)Indications:Alcoh ol use disorder,Macrocytosis without anemia Take 1 Tablet by mouth in the morning. 90 Tablet 1 05/05/2024 Active Pantoprazole Sodium 20 MG Oral Tablet Delayed Release (Protonix)Indications :History of gastric ulcer,Alcohol use disorder Take 1 Tablet by mouth in the morning. 90 Tablet 06/14/2024 Active Advanced Probiotic Oral Capsule 1 Capsule. 07/20/2024 Active Potassium Chloride ER 20 MEQ Oral Tablet Extended Release 20 Milliequivalent. 07/20/2024 Active Folic Acid 1 MG Oral Tablet Take 1 Tablet by mouth in the morning. Active documented as of this encounter (statuses as of 08/09/2024) Active Problems Problem Noted Date Diagnosed Date [...] as of this encounter (statuses as of 08/09/2024) Immunizations Name Administration Dates Next Due Hepatitis [...] Team (Late st Contact Info) Description 08/10/2024 11:15 AM EST Hem/Onc Treatment Hematology/Oncology Treatment, [place] 200 [facility] [place] [phone] Darcie, Chair 8 Hem Onc [address] [place] [address] 10/12/2024 3:00 PM EST Office Visit Hematology/Oncology [facility] [address] [place] [phone] Olivia Fontenot CRNP [address] [place] [address] [place] [address] 10/27/2024 1:00 PM EST Office Visit General Internal Medicine [facility] [address] [place] [address] Selina Miller MD [address] [place] [address] [facility] [place] [address] 11/16/2024 3:00 PM EST Office Visit Hepatology, [facility] 132 [facility] [place] [address] Nicci Langston MD [address] [place] [phone] Pending Results Name Type Priority Associated Diagnoses Date /Time CBC WITH WBC DIFFERENTIAL Lab STAT Hereditary hemochromatosis (HCC) 08/09/2024 10:36 AM EST FERRITIN Lab STAT Hereditary hemochromatosis (HCC) 08/09/2024 10:36 AM EST CBC Lab STAT Hereditary hemochromatosis (HCC) 08/09/2024 10:36 AM EST DIFFERENTIAL, AUTOMATED Lab STAT Hereditary hemochromatosis (HCC) 08/09/2024 10:36 AM EST Scheduled Procedures Name Priority [...] hemochromatosis documented in this encounter Care Teams Personnel Supervisor Relationship Specialty Start Date End Date Selina Miller MD 200 [place] [address] PCP - General Internal Medicine 08/22/16 documented as of this encounter
--- OUTSIDE RECORDS SUMMARY | 2024-09-12 21:44 | External Medical Summary ---
Author Name Unknown Address Unknown Organization K09:[facility] [place] [address] Laboratory Report Ordering Provider Test Date Status KIP HARDING 08/09/2024 10:36:25 Final Observation Date Value Abnormality Reference (Units ) Status WBC, Total 08/09/2024 10:36:25 5.28 4.00-10.8 0 (K/uL) Final RBC 08/09/2024 10:36:25 3.64 4.50-5.25 (M/uL) Final Hemoglobin 08/09/2024 10:36:25 12.3 Below low normal 14 .0-16.8 (g/dL) Final HCT 08/09/2024 10:36:25 37.6 Below low normal 40. 0-48.4 (%) Final MCV 08/09/2024 10:36:25 103.3 82.0-99.5 (fL) Final MCH 08/09/2024 10:36:25 33.8 27.0-34.0 (pg) Final MCHC 08/09/2024 10:36:25 32.7 32.0-36.0 (g/dL) Final RDW 08/09/2024 10:36:25 14.2 11.5-15.5 (%) Final Platelets 08/09/2024 10:36:25 376 140-400 (K /uL) Final MPV 08/09/2024 10:36:25 8.6 6.6-11.1 ( fL) Final Performing Location [facility] [place] [address]
--- OUTSIDE RECORDS SUMMARY | 2024-09-12 21:44 | External Medical Summary ---
Author Name Unknown Address Unknown Organization K01:[facility] [place] [address] [place] [address] Laboratory Report Ordering Provider Test Date Status KIP HARDING 08/23/2024 10:41:04 Final Observation Date Value Abnormality Reference (Units ) Status Ferritin 08/23/2024 10:41:04 1050 Above high normal 30 -400 (ng/mL) Final Performing Location [facility] [place] [address] [place] [address]
--- OUTSIDE RECORDS SUMMARY | 2024-09-12 21:44 | External Medical Summary | Summary of Care ---
Author Name Unknown Organization [facility] Address [address] [place] [address] Phone [phone] Care Team Providers Care Ground Instructor Basic Name Role Phone Selina Miller MD Primary Care Provider [phone] Reason for Visit * Reason Comments Procedure Phlebotomy Encounter Details Date Type Department Care Team (Latest Contact Info) Description 08/31/2024 11:00 AM EST Hem/Onc Treatment Hematology/Oncolog y Treatment, [place] 200 [place] [address] Darcie, Chair 10 Hem Onc [facility] 200 [place] [address] Hereditary hemochromatosis (HCC)* Allergies No known active allergiesdocumented as of this encounter (statuses as of 08/31/2024) Medications Advanced Probiotic Oral Capsule 1 Capsule. 4 Active Pantoprazole Sodium 20 MG Oral Tablet Delayed Release (Protonix)Indic ations:History of gastric ulcer,Alcohol use disorder Take 1 Tablet by mouth in the morning. 90 Tablet 4 Active Folic Acid 1 MG Oral Tablet TAKE 1 TABLET BY MOUTH EVERY MORNING 90 Tablet 4 Active B-1 100 MG Oral TabletIndicatio ns:Alcohol use disorder,Macroc ytosis without anemia TAKE 1 TABLET BY MOUTH ONCE DAILY 90 Tablet 4 Active Potassium Chloride ER 20 MEQ Oral Tablet Extended Release 20 Milliequival ent. 4 08/31/20 24 Discontinu ed(End of Procedure) documented as of this encounter (statuses as of 08/31/2024) Active Problems Problem Noted Date Diagnosed Date [...] to 3-6 beers 2/wk-[facility], had DUI 02/18 documented as of this encounter (statuses as of 08/31/2024) Immunizations Name Administration Dates Next Due Hepatitis [...] Sign Reading Time Taken Comments Blood Pressure 127/94 08/31/2024 11:20 AM EST Pulse 94 08/31/2024 10:46 AM EST Temperature 36.5 C (97.7 F) 08/31/2024 10:[address] Respiratory Rate 16 08/31/2024 10:46 AM EST Oxygen Saturation 98% 08/31/2024 10:46 AM EST Inhaled Oxygen Concentration - - Weight - - Height - - Body Mass Index - - documented in this encounter Progress Notes * Raman Angeles, RN - 08/31/2024 11:14 AM EST Pt waited 15-20 minutes after phlebotomy. He denied any symptoms and ambulated from treatment room in stable condition. Goals: Pt will remain free from injury. Possible barriers to meeting goals: IV phlebotomy Stability of the patient: Moderately stable - low risk of patient condition declining or worsening Summary regarding today's goals: Met: Pt remained free from injury. documented in this encounter Nursing Notes * Raman Angeles, RN - 08/31/2024 11:06 AM EST Chair 7. Pt denies any issues. 18g aphoresis needle inserted into LFA without issues. 300cc of blood removed. Pt denied any symptoms once completed and needle removed with tip intact. documented in this encounter Plan of Treatment Upcoming Encounters Date Type Department Care Team (Late st Contact Info) Description 09/06/2024 11:00 AM EST Laboratory Laboratory, [facility] [place] [phone] [place], [facility] [address] [facility] [place] [address] 09/07/2024 2:45 PM EST Hem/Onc Treatment Hematology/Oncology Treatment, [place] [facility] [phone] 09/09/2024 10:00 AM EST Office Visit Hepatology, [facility] 132 [facility] [place] [address] Sherita Gardner DO 132 [facility] [place] [address] 10/12/2024 3:00 PM EST Office Visit Hematology/Oncology [address] [place] [phone] Olivia Fontenot CRNP 400 [facility] [place] [address] 10/27/2024 1:00 PM EST Office Visit General Internal Medicine [facility] 200 [facility] [place] [address] Selina Miller MD [address] [place] [address] COUNTS INCLUDE 234 BEDS AT THE [facility] [place] [address] Scheduled Procedures Name Priority Associated Diagnoses Date/Ti [...] Primary Hereditary hemochromatosis documented in this encounter Administered Medications Active Administered Medications - up to 3 most recent administrations Medication Order MAR Action Action Date Dose Rate Site NSS infusion 500 mL, Intravenous, at 1,000 mL/hr Administer over 30 Minutes, PRN, Starting on Fri08/31/24 at 1104, Until Discontinued, HypotensionIndications:Hereditary hemochromatosis (HCC) documented in this encounter Care Teams Ground Instructor Basic Relationship Specialty Start Date End Date Selina Miller MD 200 [facility] [place] [address] PCP - General Internal Medicine 08/22/16 documented as of this encounter
--- OUTSIDE RECORDS SUMMARY | 2024-09-12 21:44 | External Medical Summary | Summary of Care ---
Author Name Unknown Organization [facility] Address [address] [place] [address] Phone [phone] Care Team Providers Care Instrument Designer Name Role Phone Selina Miller MD Primary Care Provider [phone] Reason for Visit * Reason Comments Outpatient Testing Encounter Details Date Type Department Care Team (Latest Contact Info) Description 08/16/2024 11:00 AM EST Laboratory Laboratory [facility] [address] [place] [phone] [facility] 200 [facility] [place] [address] Hereditary hemochromatosis (HCC) Allergies No known active allergiesdocumented as of this encounter (statuses as of 08/16/2024) Medications Thiamine HCl 100 MG Oral Tablet (vitamin B-1)Indications: Alcohol use disorder,Macrocy tosis without anemia Take 1 Tablet by mouth in the morning. 90 Tablet 1 05/05/2024 Active Pantoprazole Sodium 20 MG Oral Tablet Delayed Release (Protonix)Indica tions:History of gastric ulcer,Alcohol use disorder Take 1 Tablet by mouth in the morning. 90 Tablet 06/14/2024 Active Advanced Probiotic Oral Capsule 1 Capsule. 07/20/2024 Active Potassium Chloride ER 20 MEQ Oral Tablet Extended Release 20 Milliequiva lent. 07/20/2024 Active Folic Acid 1 MG Oral Tablet Take 1 Tablet by mouth in the morning. Active documented as of this encounter (statuses as of 08/16/2024) Active Problems Problem Noted Date Diagnosed Date [...] beers 2/wk-is getting counseling at [facility] 05/21, had DUI 02/18 documented as of this encounter (statuses as of 08/16/2024) Immunizations Name Administration Dates Next Due Hepatitis [...] Care Team (Late st Contact Info) Description 08/17/2024 11:45 AM EST Hem/Onc Treatment Hematology/[address]cology [address], [address] [phone] Darcie, Chair 8 Hem Onc [address] [place] [address] 08/23/2024 11:00 AM EST Laboratory Laboratory [facility] [place] 200 [place] [phone] Darcie, Lab Scenery [address] [place] [address] 08/24/2024 11:00 AM EST Hem/Onc Treatment Hematology/Oncology Treatment, [place] [facility] [phone] Darcie, Chair 6 Hem Onc [place] [address] [place] [place] [address] 08/30/2024 11:00 AM EST [facility] 200 [place], [place] [phone] [place], [facility] [place] 200 [facility] [place], [place] [address] 08/31/2024 11:00 AM EST [facility] [address] [place], [place] [phone] Darcie, Chair [address] [facility] 200 [facility] [place], [place] [address] 10/12/2024 3:00 PM EST Office Visit Hematology/Oncology [facility] 200 [facility] [place], [place] [phone] Olivia Fontenot CRNP 400 [facility] [place] [address] 10/27/2024 1:00 PM EST Office Visit General Internal Medicine [facility] 200 [facility] [place], [place] [address] Selina Miller MD 200 [facility] [place] [address] 11/16/2024 3:00 PM EST Office Visit Hepatology, [facility] 132 [place] [address] Nicci Langston MD [address] [place] [address] [place] [phone] Pending Results Name Type Priority Associated Diagnoses Date /Time FERRITIN Lab STAT Hereditary hemochromatosis (HCC) 08/16/2024 10:38 AM EST Scheduled Procedures Name Priority Associated Diagnoses Date/Ti me COLONOSCOPY FLEXIBLE PROXIMA L DIAGNOSTIC Recall History of colonic polyps Health Maintenance Due Date Last Done Comments Cologuard 2015 Fecal Occult Blood Test 2015 Sigmoidoscopy 2015 Hepatitis B Vaccine (2 of 3 - 19+ 3-dose series) 02/25/2024 01/28/2024 COVID-19 Vaccine ( - 2023-2 5 season) 2024 Zoster Vaccines [...] Date/Time Associated Diagnosis Comments DIFFERENTIAL, AUTOMATED STAT 08/16/2024 10:38 AM EST Hereditary hemochromatosis (HCC) CBC STAT 08/16/2024 10:38 AM EST Hereditary hemochromatosis (HCC) CBC STAT 08/16/2024 10:38 AM EST Hereditary hemochromatosis (HCC) documented in this encounter Results * (ABNORMAL) DIFFERENTIAL, AUTOMATED (08/16/2024 10:38 AM EST) WBC 3.91(L) 4.00 - 10.80 K/uL 08/16/2024 10:48 AM EST [facility] 56-02 Neutrophils % 43.0 40.0 - 75.0 % 08/16/2024 10:48 AM EST [facility] 56-02 Lymphocytes % 40.7 18.0 - 42.0 % 08/16/2024 10:48 AM [facility] 56- Monocytes % 14.8(H) 1.0 - 11.0 % 08/16/2024 10:48 AM [facility] 56- Eosinophils % 0.5 0.0 - 6.0 % 08/16/2024 10:48 AM [facility] 56- Basophils % 1.0 0.0 - 2.0 % 08/16/2024 10:48 AM [facility] 56- Absolute Neutrophils 1.68(L) 1.80 - 7.70 K/uL 08/16/2024 10:48 AM [facility] 56- Absolute Lymphocytes 1.59 1.00 - 4.80 K/ul 08/16/2024 10:48 AM [facility] 56- Absolute Monocytes 0.58 0.00 - 1.10 K/uL 08/16/2024 10:48 AM [facility] 56- Absolute Eosinophils 0.02 0.00 - 0.70 K/uL 08/16/2024 10:48 AM [facility] 56- Absolute Basophils 0.04 0.00 - 0.20 K/uL 08/16/2024 10:48 AM [facility] 56- Blood Venous blood specimen / Unknown Venipuncture / Unknown 08/16/2024 10:38 AM EST 08/16/2024 10:38 AM EST us Olivia DWYER LAB BLOOD ORDERABLES Fi nal Result [facility] 56 [address] [place], [place] [phone] * (ABNORMAL) CBC (08/16/2024 10:38 AM EST) [facility] WBC 3.91(L) 4.00 - 10.80 K/uL 08/16/2024 10:48 AM [facility] 56- RBC 3.58 4.50 - 5.25 M/uL 08/16/2024 10:48 AM [facility] 56- HGB 12.2(L) 14.0 - 16.8 g/dL 08/16/2024 10:48 AM [facility] 56-02 HCT 36.3(L) 40.0 - 48.4 % 08/16/2024 10:48 AM [facility] 56 MCV 101.4 82.0 - 99.5 fL 08/16/2024 10:48 AM [facility] 56 MCH 34.1 27.0 - 34.0 pg 08/16/2024 10:48 AM [facility] 56 MCHC 33.6 32.0 - 36.0 g/dL 08/16/2024 10:48 AM [facility] 56 RDW 13.4 11.5 - 15.5 % 08/16/2024 10:48 AM [facility] 56 PLT 297 140 - 400 K/uL 08/16/2024 10:48 AM [facility] 56 MPV 8.6 6.6 - 11.1 fL 08/16/2024 10:48 AM [facility] 56 Blood Venous blood specimen / Unknown Venipuncture / Unknown 08/16/2024 10:38 AM EST 08/16/2024 10:38 AM EST us Olivia DWYER LAB BLOOD ORDERABLES Fi nal Result [facility] 200 [facility] [address] documented in this encounter Visit Diagnoses Diagnosis Hereditary hemochromatosis (HCC) Hereditary hemochromatosis documented in this encounter Care Teams Instrument Designer Relationship Specialty Start Date End Date Selina Miller MD 200 [facility] [address] PCP - General Internal Medicine 08/22/16 documented as of this encounter
--- OUTSIDE RECORDS SUMMARY | 2024-09-12 21:44 | External Medical Summary | Summary of Care ---
Author Name Unknown Organization [facility] Address [address] [place] [address] Phone [phone] Care Team Providers Care Resource Conservation Manager Name Role Phone Selina Miller MD Primary Care Provider [phone] Reason for Visit * Reason Comments Procedure Therapeutic Phleboto my Encounter Details Date Type Department Care Team (Latest Contact Info) Description 08/17/2024 11:45 AM EST Hem/Onc Treatment Hematology/Oncolog y Treatment, [place] [address] [place] [address] Darcie Chair 8 Hem Onc Scenery 200 [place] [address] Hereditary hemochromatosis (HCC)* Allergies No known active allergiesdocumented as of this encounter (statuses as of 08/17/2024) Medications Thiamine HCl 100 MG Oral Tablet [...] as of this encounter (statuses as of 08/17/2024) Active Problems Problem Noted Date Diagnosed Date [...] to 3-6 beers 2/wk-is getting counseling at [facility] 05/21, had DUI 02/18 documented as of this encounter (statuses as of 08/17/2024) Immunizations Name Administration Dates Next Due Hepatitis [...] Sign Reading Time Taken Comments Blood Pressure 111/82 08/17/2024 12:41 PM EST Pulse 64 08/17/2024 12:41 PM EST Temperature - - Respiratory Rate 16 08/17/2024 12:41 PM EST Oxygen Saturation 96% 08/17/2024 12:41 PM EST Inhaled Oxygen Concentration - - Weight - - Height - - Body Mass Index - - documented in this encounter Nursing Notes * Raman Angeles RN - 08/17/2024 12:42 PM EST Chair 6. Pt aware of ferritin results, states he's been drinking "5-6 drinks a day." PT encouraged and education on alcohol cessation. He states he didn't drink today. He is feeling ok. Aphoresis needle inserted into RAC per patient request, 100mL of blood removed, however, line became clotted. This RN and Radha Charles RN tried flushing line but no return. Pt was ok with continuing with LAC. 2nd Aphoresis needle inserted into LAC without issues. 350mL of blood removed and discarded. Pt tolerated procedure well. Vitals taken at end of treatment and stable. Pt waited 30 minutes after treatment before leaving. Pt ambulated from treatment room in stable condition. Patient instructed on use of heat and massage functions where applicable. Patient shown how to operate the heat function of the chair and to alert nursing staff if the chair feels too warm. Patient instructed on the risk of potential guerra while using the heat function. documented in this encounter Plan of Treatment Upcoming Encounters Date Type Department Care Team (Late st Contact Info) Description 08/23/2024 11:00 AM EST Laboratory [facility] [address] [place] [phone] Darcie, Lab Scenery [address] [place] [address] 08/24/2024 11:00 AM EST Hem/Onc Treatment Hematology[address] [address] Darcie, Chair 6 Hem Onc Scenery 200 [facility] [place] [address] 08/30/2024 11:00 AM EST Laboratory Laboratory [facility] [place] [address] [place] [address] Darcie, Lab Scenery [address] [facility] [place] [address] 08/31/2024 11:00 AM EST Hem/Onc Treatment Hematology/Oncology Treatment, [address] [place] [address] Darcie, Chair 10 Hem Onc Scenery [address] [place] [address] 10/12/2024 3:00 PM EST Office Visit Hematology/Oncology [facility] [place] [address] [place] [phone] Olivia Fontenot CRNP [address] [place] [address] 10/27/2024 1:00 PM EST Office Visit General Internal Medicine [facility] 200 [facility] [place] [address] Selina Miller MD 200 [facility] [place] [address] 11/16/2024 3:00 PM EST Office Visit Hepatology, [facility] [address] [facility] [place] [address] Nicci Langston MD [address] [place] [address] Scheduled Procedures Name Priority Associated Diagnoses Date/Ti [...] Administer over 30 Minutes, PRN, Starting on Fri08/17/24 at 1146, Until Discontinued, HypotensionIndications:Hereditary hemochromatosis (HCC) documented in this encounter Care Teams Resource Conservation Manager Relationship Specialty Start Date End Date Selina Miller MD 200 [place] [address] PCP - General Internal Medicine 08/22/16 documented as of this encounter
--- OUTSIDE RECORDS SUMMARY | 2024-09-12 21:44 | External Medical Summary | Summary of Care ---
Author Name Unknown Organization [facility] Address [address] [place] [address] Phone [phone] Care Team Providers Care Services Host Name Role Phone Selina Miller MD Primary Care Provider [phone] Reason for Visit * Reason Comments Outpatient Testing Encounter Details Date Type Department Care Team (Latest Contact Info) Description 08/30/2024 11:00 AM EST Laboratory Laboratory [facility] [address] [place] [phone] [facility] 200 [facility] [place] [address] Hereditary hemochromatosis (HCC) Allergies No known active allergiesdocumented as of this encounter (statuses as of 08/30/2024) Medications Thiamine HCl 100 MG Oral Tablet (vitamin B-1)Indications: Alcohol use disorder,Macrocy tosis without anemia Take 1 Tablet by mouth in the morning. 90 Tablet 1 05/05/2024 Active Advanced Probiotic Oral Capsule 1 Capsule. 07/20/2024 Active Potassium Chloride ER 20 MEQ Oral Tablet Extended Release 20 Milliequiva lent. 07/20/2024 Active Folic Acid 1 MG Oral Tablet Take 1 Tablet by mouth in the morning. Active Pantoprazole Sodium 20 MG Oral Tablet Delayed Release (Protonix)Indica tions:History of gastric ulcer,Alcohol use disorder Take 1 Tablet by mouth in the morning. 90 Tablet 08/23/2024 Active documented as of this encounter (statuses as of 08/30/2024) Active Problems Problem Noted Date Diagnosed Date [...] to 3-6 beers 2/wk-is getting counseling at [facility] 05/21, had DUI 02/18 documented as of this encounter (statuses as of 08/30/2024) Immunizations Name Administration Dates Next Due Hepatitis [...] Care Team (Late st Contact Info) Description 08/31/2024 11:00 AM EST Hem/Onc Treatment Hematology[facility]cology [facility], [place] [facility] [address] Darcie, Chair 10 Hem On[address] [place] [address] 10/12/2024 3:00 PM EST Office Visit Hematology/Oncology [facility] [address] [place] [address] Olivia Fontenot CRNP 400 [facility] [place] [address] 10/27/2024 1:00 PM EST Office Visit General Internal Medicine [facility] 200 [facility] [place] [address] Selina Miller MD 200 [facility] [place] [address] 11/16/2024 3:00 PM EST Office Visit Hepatology, [facility] [address] [place] [address] Nicci Langston MD [address] [place] [address] Pending Results Name Type Priority Associated Diagnoses Date /Time CBC WITH WBC DIFFERENTIAL Lab STAT Hereditary hemochromatosis (HCC) 08/30/2024 10:24 AM EST FERRITIN Lab STAT Hereditary hemochromatosis (HCC) 08/30/2024 10:24 AM EST CBC Lab STAT Hereditary hemochromatosis (HCC) 08/30/2024 10:24 AM EST DIFFERENTIAL, AUTOMATED Lab STAT Hereditary hemochromatosis (HCC) 08/30/2024 10:24 AM EST Scheduled Procedures Name Priority Associated [...] hemochromatosis documented in this encounter Care Teams Services Host Relationship Specialty Start Date End Date Selina Miller MD 200 [place] [address] PCP - General Internal Medicine 08/22/16 documented as of this encounter
--- OUTSIDE RECORDS SUMMARY | 2024-09-12 21:44 | External Medical Summary ---
Author Name Unknown Address Unknown Organization [id number]:[facility] [place] [address] Laboratory Report Ordering Provider Test Date Status KIP HARDING 08/16/2024 10:38:42 Final Observation Date Value Abnormality Reference (Units ) Status WBC, Total 08/16/2024 10:38:42 3.91 Below low normal 4. 00-10.80 (K/uL) Final RBC 08/16/2024 10:38:42 3.58 4.50-5.25 (M/uL) Final Hemoglobin 08/16/2024 10:38:42 12.2 Below low normal 14 .0-16.8 (g/dL) Final HCT 08/16/2024 10:38:42 36.3 Below low normal 40. 0-48.4 (%) Final MCV 08/16/2024 10:38:42 101.4 82.0-99.5 (fL) Final MCH 08/16/2024 10:38:42 34.1 27.0-34.0 (pg) Final MCHC 08/16/2024 10:38:42 33.6 32.0-36.0 (g/dL) Final RDW 08/16/2024 10:38:42 13.4 11.5-15.5 (%) Final Platelets 08/16/2024 10:38:42 297 140-400 (K /uL) Final MPV 08/16/2024 10:38:42 8.6 6.6-11.1 ( fL) Final Performing Location [facility] [place] [address]
--- OUTSIDE RECORDS SUMMARY | 2024-09-12 21:44 | External Medical Summary | Summary of Care ---
Author Name Unknown Organization [facility] Address [address] [place] [address] Phone [phone] Care Team Providers Care Associate Attorney Name Role Phone Selina Miller MD Primary Care Provider [phone] Reason for Visit * Reason Comments Outpatient Testing Encounter Details Date Type Department Care Team (Latest Contact Info) Description 08/23/2024 11:00 AM EST Laboratory Laboratory [facility] [address] [place] [phone] [facility] 200 [facility] [place] [address] Hereditary hemochromatosis (HCC) Allergies No known active allergiesdocumented as of this encounter (statuses as of 08/23/2024) Medications Thiamine HCl 100 MG Oral Tablet [...] as of this encounter (statuses as of 08/23/2024) Active Problems Problem Noted Date Diagnosed Date [...] to 3-6 beers 2/wk-is getting counseling at [facility] 05/21, had DUI 02/18 documented as of this encounter (statuses as of 08/23/2024) Immunizations Name Administration Dates Next Due Hepatitis [...] Care Team (Late st Contact Info) Description 08/24/2024 11:00 AM EST Hem/Onc Treatment Hematology/[address]cology [address] [phone] Darcie, Chair [address] [place] [address] 08/30/2024 11:00 AM EST Laboratory Laboratory [address] [place] [phone] Darcie, Lab [address] [place] [address] 08/31/2024 11:00 AM EST Hem/Onc Treatment Hematology/Oncology Treatment, [address] [phone] Darcie, Chair 9 Hem Onc [facility] 200 [facility] [place] [address] 10/12/2024 3:00 PM EST Office Visit Hematology/Oncology [address] [place] [address] Olivia Fontenot CRNP [address] [place] [address] 10/27/2024 1:00 PM EST Office Visit General Internal Medicine [facility] 200 [facility] [place] [address] Selina Miller MD 200 [facility] [place] [address] 11/16/2024 3:00 PM EST Office Visit Hepatology, [facility] 132 [facility] [place] [address] Nicci Langston MD 310 [facility] [place] [address] Pending Results Name Type Priority Associated Diagnoses Date /Time FERRITIN Lab STAT Hereditary hemochromatosis (HCC) 08/23/2024 10:41 AM EST Scheduled Procedures Name Priority Associated [...] Date/Time Associated Diagnosis Comments DIFFERENTIAL, AUTOMATED STAT 08/23/2024 10:41 AM EST Hereditary hemochromatosis (HCC) CBC STAT 08/23/2024 10:41 AM EST Hereditary hemochromatosis (HCC) CBC STAT 08/23/2024 10:41 AM EST Hereditary hemochromatosis (HCC) documented in this encounter Results * DIFFERENTIAL, AUTOMATED (08/23/2024 10:41 AM EST) WBC 4.60 4.00 - 10.80 K/uL 08/23/2024 10:50 AM EST [facility] 56-02 Neutrophils % 59.3 40.0 - 75.0 % 08/23/2024 10:50 AM EST [facility] 56-02 Lymphocytes % 30.7 18.0 - 42.0 % 08/23/2024 10:50 AM EST [facility] 56-02 Monocytes % 8.9 1.0 - 11.0 % 08/23/2024 10:50 AM EST [facility] 56-02 Eosinophils % 0.7 0.0 - 6.0 % 08/23/2024 10:50 AM EST [facility] 56-02 Basophils % 0.4 0.0 - 2.0 % 08/23/2024 10:50 AM EST [facility] 56-02 Absolute Neutrophils 2.73 1.80 - 7.70 K/uL 08/23/2024 10:50 AM EST [facility] 56-02 Absolute Lymphocytes 1.41 1.00 - 4.80 K/ul 08/23/2024 10:50 AM EST [facility] 56- Absolute Monocytes 0.41 0.00 - 1.10 K/uL 08/23/2024 10:50 AM EST [facility] 56- Absolute Eosinophils 0.03 0.00 - 0.70 K/uL 08/23/2024 10:50 AM [facility] 56- Absolute Basophils 0.02 0.00 - 0.20 K/uL 08/23/2024 10:50 AM [facility] 56- Blood Venous blood specimen / Unknown Venipuncture / Unknown 08/23/2024 10:41 AM EST 08/23/2024 10:41 AM EST us Olivia DWYER LAB BLOOD ORDERABLES Fi nal Result [facility] 56- [address] [place] [address] * (ABNORMAL) CBC (08/23/2024 10:41 AM EST) WBC 4.60 4.00 - 10.80 K/uL 08/23/2024 10:50 AM [facility] 56- RBC 3.10 4.50 - 5.25 M/uL 08/23/2024 10:50 AM [facility] 56- HGB 10.4(L) 14.0 - 16.8 g/dL 08/23/2024 10:50 AM [facility] 56- HCT 33.0(L) 40.0 - 48.4 % 08/23/2024 10:50 AM [facility] 56- MCV 106.5 82.0 - 99.5 fL 08/23/2024 10:50 AM [facility] 56- MCH 33.5 27.0 - 34.0 pg 08/23/2024 10:50 AM [facility] 56- MCHC 31.5 32.0 - 36.0 g/dL 08/23/2024 10:50 AM [facility] 56- RDW 13.5 11.5 - 15.5 % 08/23/2024 10:50 AM [facility] 56- PLT 262 140 - 400 K/uL 08/23/2024 10:50 AM EST [facility] 56 MPV 8.4 6.6 - 11.1 fL 08/23/2024 10:50 AM EST [facility] Blood Venous blood specimen / Unknown Venipuncture / Unknown 08/23/2024 10:41 AM EST 08/23/2024 10:41 AM EST Olivia DWYER LAB BLOOD ORDERABLES Fi nal Result [facility] [address] documented in this encounter Visit Diagnoses Diagnosis Hereditary hemochromatosis (HCC) Hereditary hemochromatosis documented in this encounter Care Teams Associate Attorney Relationship Specialty Start Date End Date Selina Miller MD 200 [facility] [place] [address] PCP - General Internal Medicine 08/22/16 documented as of this encounter
--- OUTSIDE RECORDS SUMMARY | 2024-09-12 21:44 | External Medical Summary | Summary of Care ---
Author Name Unknown Organization [facility] Address [address] [place] [address] Phone [phone] Care Team Providers Care Layup Worker Name Role Phone Selina Miller MD Primary Care Provider Reason for Visit * Reason Comments Procedure Phlebotomy Encounter Details Date Type Department Care Team (Latest Contact Info) Description 08/31/2024 11:00 AM EST Hem/Onc Treatment Hematology/Oncolog y Treatment, [place] 200 [place] [address] Darcie, Chair 10 Hem Onc [facility] 200 [place] [address] Hereditary hemochromatosis (HCC)* Allergies No known active [...] 3-6 beers 2/wk-is getting counseling at [facility] 05/21, had DUI 02/18 documented as [...] Description 09/06/2024 11:00 AM EST Laboratory Laboratory, [facility] [phone] [place], [facility] [facility] [place] [address] 09/07/2024 2:45 PM EST Hem/Onc Treatment Hematology/Oncology Treatment, [place] [facility] [phone] 09/09/2024 10:00 AM EST Office Visit Hepatology, [facility] [address] [facility] [place] [address] Sherita Gardner DO 132 [facility] [place] [address] 10/12/2024 3:00 PM EST Office Visit Hematology/Oncology [address] [place] [phone] Olivia Fontenot CRNP 400 [facility] [place] [address] 10/27/2024 1:00 PM EST Office Visit General Internal Medicine [facility] 200 [facility] [place] [address] Selina Miller MD [address] [place] [address] [facility] [place] [address] Scheduled Procedures Name Priority Associated Diagnoses Date/Ti [...] (HCC) documented in this encounter Care Teams Layup Worker Relationship Specialty Start Date End Date Selina Miller MD 200 [facility] [place] [address] PCP - General Internal Medicine 08/22/16 documented as of this encounter
--- OUTSIDE RECORDS SUMMARY | 2024-09-12 21:44 | External Medical Summary ---
Author Name Unknown Address Unknown Organization [id number]:[facility] [place] [address] Laboratory Report Ordering Provider Test Date Status KIP HARDING 08/16/2024 10:38:42 Final Observation Date Value Abnormality Reference (Units ) Status SYNC LEUKOCYTES IN BLOOD BY AUTOMATED COUNT 08/16/2024 10:38:42 3.91 Below low normal 4.00-10.80 (K/uL) Final Segs 08/16/2024 10:38:42 43.0 40.0-75.0 (%) Final Lymphs % 08/16/2024 10:38:42 40.7 18.0-42.0 (%) Final Monos 08/16/2024 10:38:42 14.8 Above high normal 1.0-11.0 (%) Final Eosinophils 08/16/2024 10:38:42 0.5 0.0-6.0 (%) Final Basos 08/16/2024 10:38:42 1.0 0.0-2.0 (%) Final Absolute Segs 08/16/2024 10:38:42 1.68 Below low normal 1.80-7.70 (K/uL) Final Lymphs, absolute 08/16/2024 10:38:42 1.59 1.00-4.80 (K/ul) Final Monos, Abs 08/16/2024 10:38:42 0.58 0.00-1.10 (K/uL) Final Eos, Abs 08/16/2024 10:38:42 0.02 0.00-0.70 (K/uL) Final Basos, Abs 08/16/2024 10:38:42 0.04 0.00-0.20 (K/uL) Final Performing Location [facility] [place] [place] [address]
--- OUTSIDE RECORDS SUMMARY | 2024-09-12 21:44 | External Medical Summary ---
Author Name Unknown Address Unknown Organization [id number][facility] [address] [place] [address] Laboratory Report Ordering Provider Test Date Status KIP HARDING 08/30/2024 10:24:43 Final Observation Date Value Abnormality Reference (Units ) Status Ferritin 08/30/2024 10:24:43 2761 Above high normal 30 -400 (ng/mL) Final Performing Location [facility] [place] [facility] [address] [place] [address]
--- OUTSIDE RECORDS SUMMARY | 2024-09-12 21:44 | External Medical Summary | Summary of Care ---
Author Name Unknown Organization [facility] Address [address] [place] [address] Phone [phone] Care Team Providers Care Submarine Advisory Team Watch Officer Name Role Phone Selina Miller MD Primary Care Provider [phone] Reason for Visit * Reason Comments eRx-Medication Refill Encounter Details Date Type Department Care Team (Late st Contact Info) Description 08/20/2024 Refill General Internal Medicine [facility] 200 [place] [address] Selina Miller MD 200 [place] [address] History of gastric ulcer; Alcohol use disorder Allergies No known active allergiesdocumented as of this encounter (statuses as of 08/23/2024) Medications Thiamine HCl 100 MG Oral Tablet (vitamin B-1)Indications :Alcohol use disorder,Macroc ytosis without anemia Take 1 Tablet by mouth in the morning. 90 Tablet 1 4 Active Advanced Probiotic Oral Capsule 1 Capsule. 4 Active Potassium Chloride ER 20 MEQ Oral Tablet Extended Release 20 Milliequiv alent. 4 Active Folic Acid 1 MG Oral Tablet Take 1 Tablet by mouth in the morning. Active Pantoprazole Sodium 20 MG Oral Tablet Delayed Release (Protonix)Indic ations:History of gastric ulcer,Alcohol use disorder Take 1 Tablet by mouth in the morning. 90 Tablet 4 Active Pantoprazole Sodium 20 MG Oral Tablet Delayed Release (Protonix)Indic ations:History of gastric ulcer,Alcohol use disorder Take 1 Tablet by mouth in the morning. 90 Tablet 4 08/23/20 24 Discontinued documented as of this encounter (statuses [...] to 3-6 beers 2/wk-is getting counseling at [facility] 05/21 PHQ-2 Answer Date Recorded PHQ [...] encounter Miscellaneous Notes * Telephone Encounter - Marcin Grover RPh - 08/23/2024 8:23 AM EST Signed Prescriptions: Disp Refills Pantoprazole Sodium 20 MG Oral Tablet Kaylin*90 Tab*0 Sig: Take 1 Tablet by mouth in the morning. Authorizing Provider: SELINA MILLER Ordering User: MARCIN GROVER * Telephone Encounter - Interface, E-Rx Ss Inbound - 08/22/2024 2:07 PM EST Pending Prescriptions: Disp Refills Pantoprazole Sodium 20 MG Oral Tablet Kaylin*90 Tab*0 Sig: Take 1Tablet by mouth in the morning. documented in this encounter Plan of Treatment Upcoming Encounters Date Type Department Care Team (Late st Contact Info) Description 08/23/2024 11:00 AM EST Laboratory Laboratory [facility] [address] [place], [place] [phone] Darcie, Lab [facility] [address] [place], [place] [address] 08/24/2024 11:00 AM EST Hem/Onc Treatment Hematology/Oncology Treatment[address], [place] [phone] Darcie, Chair 6 Hem Onc [facility] [address] [place], [place] [address] 08/30/2024 11:00 AM EST Laboratory Laboratory [facility] [place] [address] [place], [place] [address] Darcie, Lab [facility] [address] [place], [place] [address] 08/31/2024 11:00 AM EST Hem/Onc Treatment Hematology/Oncology Treatment, [place] 200 [facility], [place] [phone] Darcie, Chair 9 Hem Onc [facility] [address] [place], [place] [address] 10/12/2024 3:00 PM EST Office Visit Hematology/Oncology [facility] [address] [place], [place] [address] Olivia Fontenot CRNP [address] [place] [address] [place] [address] 10/27/2024 1:00 PM EST Office Visit General Internal Medicine [facility] 200 [facility] [place] [address] Selina Miller MD 200 [facility] [place] [address] 11/16/2024 3:00 PM EST Office Visit Hepatology, [facility] [address] [place] [address] Nicci Langston MD [address] [place] [address] Scheduled Procedures Name Priority [...] as of this encounter Visit Diagnoses Diagnosis History of gastric ulcer Personal history of other diseases of digestive system Alcohol use disorder documented in this encounter Care Teams Submarine Advisory Team Watch Officer Relationship Specialty Start Date End Date Selina Miller MD 200 [place] [address] PCP - General Internal Medicine 08/22/16 documented as of this encounter
--- OUTSIDE RECORDS SUMMARY | 2024-09-12 21:44 | External Medical Summary ---
Author Name Unknown Address Unknown Organization K09:[facility] [place] [address] Laboratory Report Ordering Provider Test Date Status KIP HARDING 08/30/2024 10:24:43 Final Observation Date Value Abnormality Reference (Units ) Status Nucleated erythrocytes/100 leukocytes [Ratio] in Blood by Automated count 08/30/2024 10:24:43 Final Stomatocytes [Presence] in Blood by Light microscopy 08/30/2024 10:24:43 Moderate Abnormal None Seen Final Performing Location [facility] [place] [address]
--- OUTSIDE RECORDS SUMMARY | 2024-09-12 21:44 | External Medical Summary ---
Author Name Unknown Address Unknown Organization K09:[facility] [place] [address] Laboratory Report Ordering Provider Test Date Status KIP HARDING 08/30/2024 10:24:43 Final Observation Date Value Abnormality Reference (Units ) Status WBC, Total 08/30/2024 10:24:43 2.98 Below low normal 4. 00-10.80 (K/uL) Final RBC 08/30/2024 10:24:43 3.86 4.50-5.25 (M/uL) Final Hemoglobin 08/30/2024 10:24:43 13.4 Below low normal 14 .0-16.8 (g/dL) Final HCT 08/30/2024 10:24:43 38.4 Below low normal 40. 0-48.4 (%) Final MCV 08/30/2024 10:24:43 99.5 82.0-99.5 (fL) Final MCH 08/30/2024 10:24:43 34.7 27.0-34.0 (pg) Final MCHC 08/30/2024 10:24:43 34.9 32.0-36.0 (g/dL) Final RDW 08/30/2024 10:24:43 12.5 11.5-15.5 (%) Final Platelets 08/30/2024 10:24:43 369 140-400 (K /uL) Final MPV 08/30/2024 10:24:43 8.1 6.6-11.1 ( fL) Final Performing Location [facility] [place] [address]
--- OUTSIDE RECORDS SUMMARY | 2024-09-12 21:44 | External Medical Summary ---
Author Name Unknown Address Unknown Organization [id number]:[facility] [place] [address] Laboratory Report Ordering Provider Test Date Status KIP HARDING 08/23/2024 10:41:04 Final Observation Date Value Abnormality Reference (Units ) Status SYNC LEUKOCYTES IN BLOOD BY AUTOMATED COUNT 08/23/2024 10:41:04 4.60 4.00-10.80 (K/uL) Final Segs 08/23/2024 10:41:04 59.3 40.0-75.0 (%) Final Lymphs % 08/23/2024 10:41:04 30.7 18.0-42.0 (%) Final Monos 08/23/2024 10:41:04 8.9 1.0-11.0 (%) Final Eosinophils 08/23/2024 10:41:04 0.7 0.0-6.0 (%) Final Basos 08/23/2024 10:41:04 0.4 0.0-2.0 (%) Final Absolute Segs 08/23/2024 10:41:04 2.73 1.80-7.70 (K/uL) Final Lymphs, absolute 08/23/2024 10:41:04 1.41 1.00-4.80 (K/ul) Final Monos, Abs 08/23/2024 10:41:04 0.41 0.00-1.10 (K/uL) Final Eos, Abs 08/23/2024 10:41:04 0.03 0.00-0.70 (K/uL) Final Basos, Abs 08/23/2024 10:41:04 0.02 0.00-0.20 (K/uL) Final Performing Location [facility] [place] [address]
--- OUTSIDE RECORDS SUMMARY | 2024-09-12 21:44 | External Medical Summary ---
Author Name Unknown Address Unknown Organization [id number]:[facility] [place] [address] Laboratory Report Ordering Provider Test Date Status KIP HARDING 08/09/2024 10:36:25 Final Observation Date Value Abnormality Reference (Units ) Status Nucleated erythrocytes/100 leukocytes [Ratio] in Blood by Automated count 08/09/2024 10:36:25 Final Performing Location [facility] [place] [address]
--- OUTSIDE RECORDS SUMMARY | 2024-09-12 21:44 | External Medical Summary ---
Author Name Unknown Address Unknown Organization [id number]:[facility] [place] [address] [place] [address] Laboratory Report Ordering Provider Test Date Status KIP HARDING 09/06/2024 10:36:55 Final Observation Date Value Abnormality Reference (Units ) Status SYNC LEUKOCYTES IN BLOOD BY AUTOMATED COUNT 09/06/2024 10:36:55 3.90 Below low normal 4.00-10.80 (K/uL) Final Segs 09/06/2024 10:36:55 47.6 40.0-75.0 (%) Final Lymphs % 09/06/2024 10:36:55 38.5 18.0-42.0 (%) Final Monos 09/06/2024 10:36:55 12.8 Above high normal 1.0-11.0 (%) Final Eosinophils 09/06/2024 10:36:55 0.0 0.0-6.0 (%) Final Basos 09/06/2024 10:36:55 0.8 0.0-2.0 (%) Final Immature Granulocyte, Percent 09/06/2024 10:36:55 0.3 0.0-2.0 (%) Final Absolute Segs 09/06/2024 10:36:55 1.86 1.80-7.70 (K/uL) Final Lymphs, absolute 09/06/2024 10:36:55 1.50 1.00-4.80 (K/ul) Final Monos, Abs 09/06/2024 10:36:55 0.50 0.00-1.10 (K/uL) Final Eos, Abs 09/06/2024 10:36:55 0.00 0.00-0.70 (K/uL) Final Basos, Abs 09/06/2024 10:36:55 0.03 0.00-0.20 (K/uL) Final Immature Granulocytes, Number 09/06/2024 10:36:55 0.01 0.00-0.20 (K/uL) Final Performing Location [facility] [place] [address] [facility] [address]
--- OUTSIDE RECORDS SUMMARY | 2024-09-12 21:44 | External Medical Summary ---
Author Name Unknown Address Unknown Organization [id number]:[facility] [place] [address] Laboratory Report Ordering Provider Test Date Status KIP HARDING 08/30/2024 10:24:43 Final Observation Date Value Abnormality Reference (Units ) Status SYNC LEUKOCYTES IN BLOOD BY AUTOMATED COUNT 08/30/2024 10:24:43 2.98 Below low normal 4.00-10.80 (K/uL) Final Segs 08/30/2024 10:24:43 42.0 40.0-75.0 (%) Final Lymphs % 08/30/2024 10:24:43 37.6 18.0-42.0 (%) Final Monos 08/30/2024 10:24:43 18.1 Above high normal 1.0-11.0 (%) Final Eosinophils 08/30/2024 10:24:43 0.3 0.0-6.0 (%) Final Basos 08/30/2024 10:24:43 2.0 0.0-2.0 (%) Final Absolute Segs 08/30/2024 10:24:43 1.25 Below low normal 1.80-7.70 (K/uL) Final Lymphs, absolute 08/30/2024 10:24:43 1.12 1.00-4.80 (K/ul) Final Monos, Abs 08/30/2024 10:24:43 0.54 0.00-1.10 (K/uL) Final Eos, Abs 08/30/2024 10:24:43 0.01 0.00-0.70 (K/uL) Final Basos, Abs 08/30/2024 10:24:43 0.06 0.00-0.20 (K/uL) Final Performing Location [facility] [place] [address]
--- OUTSIDE RECORDS SUMMARY | 2024-09-12 21:44 | External Medical Summary | Summary of Care ---
Author Name Unknown Organization [facility] Address [address] [place] [address] Phone [phone] Care Team Providers Care Mri Manager Name Role Phone Selina Miller MD Primary Care Provider Reason for Visit * Reason Comments Procedure Infusion IV hydration/Phlebot rush Encounter Details Date Type Department Care Team (Latest Contact Info) Description 07/13/2024 11:00 AM EDT Hem/Onc Treatment Hematology/Oncolog y Treatment, [address] [address] Darcie, Chair 1 [address] On[address] [address] Hereditary hemochromatosis (HCC)*; Dehydration; Diarrhea, unspecified type Allergies No known active allergiesdocumented as of this encounter (statuses as of 08/19/2024) Medications Thiamine HCl 100 MG Oral Tablet (vitamin B-1)Indications :Alcohol use disorder,Macroc ytosis without anemia Take 1 Tablet by mouth in the morning. 90 Tablet 1 4 Active Pantoprazole Sodium 20 MG Oral Tablet Delayed Release (Protonix)Indic ations:History of gastric ulcer,Alcohol use disorder Take 1 Tablet by mouth in the morning. 90 Tablet 4 Active Selenium Sulfide 2.25 % External ShampooIndicati ons:Tinea versicolor Apply to affected areas , leave on for 10 minutes then rinse off , use daily x 7 days, then as needed 180 mL 1 4 10/18/20 24 Discontinu ed(Patient preference /discontin uation) documented as of this encounter (statuses as of 08/19/2024) Active Problems Problem Noted Date Diagnosed Date [...] to 3-6 beers 2/wk-is getting counseling at [facility] 05/21, had DUI 02/18 documented as of this encounter (statuses as of 08/19/2024) Immunizations Name Administration Dates Next Due Hepatitis B, 20+ yrs 01/28/2024 Pneumococcal Conjugate Vaccine, 20-valent (Prevn ar20) 05/05/2024 Seasonal Influenza Virus Vac cine, Unspecified Formulation 07/06/2015 Seasonal Influenza, Quadrivalent, No Preserve, I M 08/20/2016 TDAP (age 10 and older)(Boostrix) 01/28/2024 TDAP, [...] Description 08/23/2024 11:00 AM EST Laboratory Laboratory [facility] [place] [address] [place] [phone] Darcie, Lab [address] [place] [address] 08/24/2024 11:00 AM EST Hem/Onc Treatment Hematology/Oncology Treatment [address] [place] [phone] Darcie, Chair 6 Hem Onc [facility] [address] [facility] [place] [address] 08/30/2024 11:00 AM EST Laboratory Laboratory [facility] [place] [address] [place] [address] Darcie, Lab [address] [place] [address] 08/31/2024 11:00 AM EST [facility] [place] [phone] Darcie, Chair 10 Hem Onc [address] [place] [address] 10/12/2024 3:00 PM EST Office Visit Hematology/Oncology [facility] [place] [address] [place] [address] Olivia Fontenot CRNP [address] [place], [place] [address] [address] 10/27/2024 1:00 PM EST Office Visit General Internal Medicine [facility] [place] [address] [facility] [place] [address] Selina Miller MD [address] [facility] [place] [address] 11/16/2024 3:00 PM EST Office Visit Hepatology, [facility] [address] [place] [address] Nicci Langston MD [address] [place] [address] Scheduled Procedures Name Priority Associated Diagnoses Date/Ti [...] Procedure Name Priority Date/Time Associated Diagnosis Comments GASTROINTESTINAL PATHOGEN PANEL, STOOL Routine 07/13/2024 1:49 PM EDT Diarrhea, unspecified type GASTROINTESTINAL PATHOGEN PANEL CULTURE Routine 07/13/2024 1:49 PM EDT Diarrhea, unspecified type GASTROINTESTINAL PATHOGEN PANEL PCR Routine 07/13/2024 1:49 PM EDT Diarrhea, unspecified type CLOSTRIDIUM DIFFICILE, PCR Routine 07/13/2024 1:49 PM EDT Diarrhea, unspecified type documented in this encounter Results * GASTROINTESTINAL PATHOGEN PANEL CULTURE (07/13/2024 1:49 PM EDT) Culture Growth No Aeromonas species or Plesiomonas species isolated. 07/16/2024 11:34 AM EDT [facility] Stool Stool specimen / Unknown Non-blood Collection / Unknown 07/13/2024 1:49 PM EDT 07/13/2024 1:58 PM EDT us Olivia DWY[facility] LAB MICRO - GENERAL ORD ERABLES Final Result LAB[facility]AT[facility] [address] [place] [address] * GASTROINTESTINAL PATHOGEN PANEL PCR (07/13/2024 1:49 PM EDT) Campylobacter group by PCR Negative Negative 07/14/2024 10:01 AM EDT [facility] Salmonella species by PCR Negative Negative 07/14/2024 10:01 AM EDT [facility] Shigella species by PCR Negative Negative 07/14/2024 10:01 AM EDT [facility] Vibrio group by PCR Negative Negative 07/14/2024 10:01 AM EDT [facility] Yersinia enterocolitica by PCR Negative Negative 07/14/2024 10:01 AM EDT [facility] Shiga Toxin 1 Gene by PCR Negative Negative 07/14/2024 10:01 AM EDT LABORATORY [facility] Shiga Toxin 2 Gene by PCR Negative Negative 07/14/2024 10:01 AM EDT LABORATORY [facility] Norovirus by PCR Negative Negative 07/14/20 10:01 AM EDT LABORATORY [facility] Rotavirus by PCR Negative Negative 07/14/20 10:01 AM EDT LABORATORY [facility] Stool Stool specimen / Unknown Non-blood Collection / Unknown 07/13/2024 1:49 PM EDT 07/13/2024 1:58 PM EDT Olivia [facility] LAB MICRO - GENERAL ORD ERABLES Final Result Performing Organization Address City/[facility] Co de Phone Number LABORATORY [address] [address] * CLOSTRIDIUM DIFFICILE, PCR (07/13/2024 1:49 PM EDT) Stool Consistency Liquid 07/13/2024 11:25 PM EDT LABORATORY [facility] Clostridium difficile Result Negative. No C. difficile toxin B gene DNA detected by PCR (Amplified Probe). Negative 07/13/2024 11:25 PM EDT LABORATORY [facility] Stool Stool specimen / Unknown Non-blood Collection / Unknown 07/13/2024 1:49 PM EDT 07/13/2024 1:58 PM EDT Olivia DWYER LAB MICRO - GENERAL ORD ERABLES Final Result Performing Organization Address City/[facility] Co de Phone Number LABORATORY [address] [address] documented in this encounter Visit Diagnoses Diagnosis Hereditary hemochromatosis (HCC)- Primary Hereditary hemochromatosis Dehydration Diarrhea, unspecified type documented in this encounter Administered Medications Inactive Administered Medications - up to 3 most recent administrations Medication Order MAR Action Action Date Dose Rate Site NSS infusion 500 mL, Intravenous, at 1,000 mL/hr Administer over 30 Minutes, PRN, Starting on Fri07/13/24 at 1232, Until Fri07/13/24 at 1810, HypotensionIndications:Hered itary hemochromatosis (HCC) Start Infusion 07/13/2024 12:35 PM EDT 500 mL 1000 mL/hr documented in this encounter Additional Health Concerns Infection Onset Date Last Indicated Resolved Time Gastrointestinal Rule-Out 07/13/2024 07/13/2024 10:01 AM EDT C. difficile Rule-Out 07/13/2024 07/13/20242023 11:25 PM EDT documented as of this encounter Care Teams Mri Manager Relationship Specialty Start Date End Date Selina Miller MD [address] [place] [address] PCP - General Internal Medicine 08/22/16 documented as of this encounter
--- OUTSIDE RECORDS SUMMARY | 2024-09-12 21:44 | External Medical Summary ---
Author Name Unknown Address Unknown Organization K09:[facility] [place] [address] Laboratory Report Ordering Provider Test Date Status KIP HARDING 08/09/2024 10:36:25 Final Observation Date Value Abnormality Reference (Units ) Status SYNC LEUKOCYTES IN BLOOD BY AUTOMATED COUNT 08/09/2024 10:36:25 5.28 4.00-10.80 (K/uL) Final Segs 08/09/2024 10:36:25 54.0 40.0-75.0 (%) Final Lymphs % 08/09/2024 10:36:25 32.0 18.0-42.0 (%) Final Monos 08/09/2024 10:36:25 12.3 Above high normal 1.0-11.0 (%) Final Eosinophils 08/09/2024 10:36:25 0.9 0.0-6.0 (%) Final Basos 08/09/2024 10:36:25 0.8 0.0-2.0 (%) Final Absolute Segs 08/09/2024 10:36:25 2.85 1.80-7.70 (K/uL) Final Lymphs, absolute 08/09/2024 10:36:25 1.69 1.00-4.80 (K/ul) Final Monos, Abs 08/09/2024 10:36:25 0.65 0.00-1.10 (K/uL) Final Eos, Abs 08/09/2024 10:36:25 0.05 0.00-0.70 (K/uL) Final Basos, Abs 08/09/2024 10:36:25 0.04 0.00-0.20 (K/uL) Final Performing Location [facility] [place] [address]
--- OUTSIDE RECORDS SUMMARY | 2024-09-12 21:44 | External Medical Summary | Summary of Care ---
Author Name Unknown Organization [facility] Address [address] [place] [address] Phone [phone] Care Team Providers Care Spring Inspector Name Role Phone Selina Miller MD Primary Care Provider [phone] Reason for Visit * Reason Comments Procedure Phlebotomy Encounter Details Date Type Department Care Team (Latest Contact Info) Description 08/10/2024 11:15 AM EST Hem/Onc Treatment Hematology/Oncolog y Treatment, [place] [address] [place] [address] Darcie, Chair 8 Hem Onc [facility] [address] [place] [address] Hereditary hemochromatosis (HCC)* Allergies No known active allergiesdocumented as of this encounter (statuses as of 08/10/2024) Medications Medication Sig Dispensed Refills Start Date [...] as of this encounter (statuses as of 08/10/2024) Active Problems Problem Noted Date Diagnosed Date [...] to 3-6 beers 2/wk-is getting counseling at [facility] 05/21, had DUI 02/18 documented as of this encounter (statuses as of 08/10/2024) Immunizations Name Administration Dates Next Due Hepatitis [...] Sign Reading Time Taken Comments Blood Pressure 122/80 08/10/2024 3:31 PM EST VS at start of procedure, 1120 Pulse 96 08/10/2024 3:31 PM EST Temperature 36.8 C (98.2 F) 08/10/2024 3 :31 PM EST Respiratory Rate 16 08/10/2024 12:2 0 PM EST Oxygen Saturation 98% 08/10/2024 12: 20 PM EST Inhaled Oxygen Concentration - - Weight - - Height - - Body Mass Index - - documented in this encounter Nursing Notes * Nallely Lopez RN - 08/10/2024 4:00 PM EST #18G apheresis needle inserted into the L-AC without difficulty. Therapeutic phlebotomy performed per order. Patient tolerated procedure well. VS stable post procedure. Drank cup of fluid post procedure. Encouraged to increase fluid intake. Safety and Risk for Injury Patient will [...] guerra while using the heat function. Goals: Patient will remain free from injury. Possible barriers to meeting goals:post-tx AEs r/t phlebotomy; risk of syncope. Stability of the patient: Moderately stable - low risk of patient condition declining or worsening Summary regarding today's goals: Met: Patient remained free from injury. IV discontinued intact and patient discharged in stable condition. documented in this encounter Plan of Treatment Upcoming Encounters Date Type Department Care Team (Late st Contact Info) Description 08/16/2024 11:00 AM EST Laboratory Laboratory [address] [place] [address] [place] [phone] Darcie, Lab [address] [place] [address] 08/17/2024 11:45 AM EST Hem/Onc Treatment Hematology/Oncology [address], [address] [address] Darcie, Chair 8 Hem Onc [place] [address] [place] [address] 08/23/2024 11:00 AM EST Laboratory Laboratory [facility] [place] [address] [place] [address] Darcie, Lab [address] [facility] [place] [address] 08/24/2024 11:00 AM EST Hem/Onc Treatment Hematology/Oncology Treatment, [address] [place] [address] Darcie, Chair 6 Hem Onc [place] [address] [place] [address] 08/30/2024 11:00 AM EST Laboratory Laboratory [address] [place] [address] [place] [address] Darcie, Lab [place] [place] [address] 08/31/2024 11:00 AM EST Hem/Onc Treatment Hematology/Oncology Treatment, [place] [address] [place] [address] [place], Chair 10 Hem Onc [facility] 200 [facility] [place] [address] 10/12/2024 3:00 PM EST Office Visit Hematology/Oncology [facility] 200 [facility] [place] [address] Olivia Fontenot CRNP [address] [place] [phone] 10/27/2024 1:00 PM EST Office Visit General Internal Medicine [facility] 200 [facility] [place] [address] Selina Miller MD 200 [facility] [place] [address] 11/16/2024 3:00 PM EST Office Visit Hepatology, [facility] 132 [facility] [place] [address] Nicci Langston MD [address] [place] [address] [place] [address] Scheduled Procedures Name Priority [...] hemochromatosis documented in this encounter Care Teams Spring Inspector Relationship Specialty Start Date End Date Selina Miller MD [address] [place] [address] PCP - General Internal Medicine 08/22/16 documented as of this encounter
--- OUTSIDE RECORDS SUMMARY | 2024-09-12 21:44 | External Medical Summary ---
Author Name Unknown Address Unknown Organization K01:[facility] [place] [address] [facility] [address] [facility] [address] Laboratory Report Ordering Provider Test Date Status KIP HARDING 09/06/2024 10:36:55 Final Observation Date Value Abnormality Reference (Units ) Status WBC, Total 09/06/2024 10:36:55 3.90 Below low normal 4.00-10.80 (K/uL) Final RBC 09/06/2024 10:36:55 3.88 4.50-5.25 (M/uL) Final Hemoglobin 09/06/2024 10:36:55 13.3 Below low normal 14.0-16.8 (g/dL) Final HCT 09/06/2024 10:36:55 39.1 Below low normal 40.0-48.4 (%) Final MCV 09/06/2024 10:36:55 100.8 82.0-99.5 (fL) Final MCH 09/06/2024 10:36:55 34.3 27.0-34.0 (pg) Final MCHC 09/06/2024 10:36:55 34.0 32.0-36.0 (g/dL) Final RDW 09/06/2024 10:36:55 12.9 11.5-15.5 (%) Final Platelets 09/06/2024 10:36:55 361 140-400 (K/uL) Final MPV 09/06/2024 10:36:55 8.9 6.6-11.1 (fL) Final Nucleated erythrocytes/100 leukocytes [Ratio] in Blood by Automated count 09/06/2024 10:36:55 0 <=0 (/100 WBCs) Final Performing Location [facility] [place] [address] [place] [address]
--- OUTSIDE RECORDS SUMMARY | 2024-09-12 21:44 | External Medical Summary | Summary of Care ---
Author Name Unknown Organization [facility] Address [address] [place] [address] Phone [phone] Care Team Providers Care Structural Design Engineer Name Role Phone Selina Miller MD Primary Care Provider [phone] Reason for Visit * Reason Onset Date Comments Test Results Lab 08/23/2024 Encounter Details Date Type Department Care Team (Late st Contact Info) Description 08/23/2024 Telephone Hematology/Oncology [facility] [place] [address] [place] [address] Olivia Fontenot CRNP [address] [place] [address] Test Results Lab Allergies No [...] to 3-6 beers 2/wk-is getting counseling at [email or web address] [facility] 05/21, had DUI 02/18 documented as [...] Telephone Encounter - Bettye Roman LPN - 08/23/2024 1:30 PM EST Left voicemail on patient's spouse's voicemail, return phone number provided. My G sent. Phlebotomy appointment for 08/24/2024 cancelled. * Telephone Encounter - Bettye Roman LPN - 08/23/2024 1:22 PM EST ----- Message from Olivia Fontenot sent at 08/23/2024 1:15 PM EST ----- Cancel phlebotomy and reschedule for one week d/t Hgb of 10.4 documented in this encounter Plan of Treatment Upcoming Encounters Date Type Department Care Team (Late st Contact Info) Description 08/30/2024 11:00 AM EST Laboratory Laboratory [facility] [place] [address] [place] [phone] Darcie, Lab [facility] 200 [facility] [place] [address] 08/31/2024 11:00 AM EST Hem/Onc Treatment Hematology/Oncology Treatment, [place] [address] [place], [place] [phone] Darcie, Chair 10 Hem Onc [facility] 200 [facility] [place], [place] [address] 10/12/2024 3:00 PM EST Office Visit Hematology/Oncology [facility] [place] 200 [facility] [place], [place] [phone] Olivia Fontenot CRNP 400 [facility] [place] [address] 10/27/2024 1:00 PM EST Office Visit General Internal Medicine [facility] [address] [place], [place] [address] Selina Miller MD 200 [facility] [place] [address] 11/16/2024 3:00 PM EST Office Visit Hepatology, [facility] 132 [facility] [place] [address] Nicci Langston MD [address] [place] [address] [address] [place] [id number] Scheduled Procedures Name Priority Associated Diagnoses Date/Ti [...] filedocumented as of this encounter Care Teams Structural Design Engineer Relationship Specialty Start Date End Date Selina Miller MD [address] [facility] [address] PCP - General Internal Medicine 08/22/16 documented as of this encounter
--- OUTSIDE RECORDS SUMMARY | 2024-09-12 21:44 | External Medical Summary | Summary of Care ---
Author Name Unknown Organization [facility] Address [address] [place] [address] Phone [phone] Care Team Providers Care Ditching Machine Operating Engineer Name Role Phone Selina Miller MD Primary Care Provider [phone] Encounter Details Date Type Department Care Team (Late st Contact Info) Description 08/20/2024 Orders Only Hematology/Oncology [facility] [place] [address] [facility] [place] [address] Olivia Fontenot CRNP [address] [place] [address] Allergies No known active allergiesdocumented as of this encounter (statuses as of 08/20/2024) Medications Thiamine HCl 100 MG Oral Tablet [...] as of this encounter (statuses as of 08/20/2024) Active Problems Problem Noted Date Diagnosed Date [...] to 3-6 beers 2/wk-is getting counseling at [facility] 05/21, had DUI 02/18 documented as of this encounter (statuses as of 08/20/2024) Immunizations Name Administration Dates Next Due Hepatitis [...] Description 08/23/2024 11:00 AM EST Laboratory Laboratory [facility] [place] [address] [place] [phone] Darcie Lab [address] [place] [address] 08/24/2024 11:00 AM EST Hem/Onc Treatment Hematology/Oncology Treatment, [address] [address] Darcie, Chair [address] [facility] [address] [place] [address] 08/30/2024 11:00 AM EST Laboratory Laboratory [facility] [place] [address] [place] [phone] Darcie Lab [place] [address] [place] [address] 08/31/2024 11:00 AM EST Hem/Onc Treatment Hematology/Oncology Treatment, [place] 200 [facility] [place] [phone] Darcie, Chair [address] [facility] 200 [facility] [place], [place] [address] 10/12/2024 3:00 PM EST Office Visit Hematology/Oncology [facility] [address] [place] [phone] Olivia Fontenot CRNP [address] [place] [phone] 10/27/2024 1:00 PM EST Office Visit General Internal Medicine [facility] 200 [facility] [place] [address] Selina Miller MD 200 [facility] [place] [address] 11/16/2024 3:00 PM EST Office Visit Hepatology, [facility] 132 [facility] [place] [address] Nicci Langston MD 310 [facility] [place] [phone] Scheduled Procedures Name Priority Associated Diagnoses Date/Ti [...] filedocumented as of this encounter Care Teams Ditching Machine Operating Engineer Relationship Specialty Start Date End Date Selina Miller MD [address] [facility] [place] [address] PCP - General Internal Medicine 08/22/16 documented as of this encounter
--- OUTSIDE RECORDS SUMMARY | 2024-09-12 21:44 | External Medical Summary ---
Author Name Unknown Address Unknown Organization [id number]:LABORATORY [facility] [place] - [address] [place] [address] Laboratory Report Ordering Provider Test Date Status MEHDIKIP 08/16/2024 10:38:42 Final Observation Date Value Abnormality Reference (Units ) Status Ferritin 08/16/2024 10:38:42 2775 Above high normal 30 -400 (ng/mL) Final Performing Location [facility]ORY [facility] [place] - [address] [place] [address]
--- OUTSIDE RECORDS SUMMARY | 2024-09-12 21:44 | External Medical Summary ---
Author Name Unknown Address Unknown Organization [id number]:[facility]ATORY [facility] [place] - [address] [place] [address] Laboratory Report Ordering Provider Test Date Status JORGE CAMPO 08/30/2024 10:24:43 Final Observation Date Value Abnormality Reference (Units ) Status Potassium 08/30/2024 10:24:43 4.6 3.5-5.1 (m mol/L) Final Performing Location [facility]ATORY [facility] [place] - [address] [place] [address]
--- OUTSIDE RECORDS SUMMARY | 2024-09-12 21:44 | External Medical Summary | Summary of Care ---
Author Name Unknown Organization [facility] Address [address] [place] [address] Phone [phone] Care Team Providers Care Regional Sales Executive Name Role Phone Selina Miller MD Primary Care Provider [phone] Encounter Details Date Type Department Care Team (Late st Contact Info) Description 05/11/2024 Telephone Hematology/Oncology [facility] [place] [address] [facility] [place] [address] Olivia Fontenot CRNP [address] [place] [address] Allergies No known active allergiesdocumented as of this encounter (statuses as of 08/10/2024) Medications Medication Sig Dispensed Refills Start Date End Date Status Thiamine HCl 100 MG Oral Tablet (vitamin B-1)Indications:Alcoh ol use disorder,Macrocytosis without anemia Take 1 Tablet by mouth in the morning. 90 Tablet 1 05/05/2024 Active documented as of this [...] 08/16/2024 11:00 AM EST Laboratory Laboratory Scenery [facility] [address] [place], [place] [phone] Darcie, Lab Scenery [address] [place], [place] [address] 08/17/2024 11:45 AM EST Hem/Onc Treatment Hematology/Oncology Treatment, [place] [address] [facility], [place] [phone] Darcie, Chair 8 Hem Onc Scenery [address] [place], [place] [address] 08/23/2024 11:00 AM EST Laboratory Laboratory [facility] [place] [address] [place], [place] [address] Darcie, Lab Scenery [address] [place] [address] 08/24/2024 11:00 AM EST Hem/Onc Treatment Hematology/Oncology Treatment, [place] 200 [facility] [place], [place] [phone] Darcie, Chair 6 Hem Onc Scenery [address] [place], [place] [address] 08/30/2024 11:00 AM EST Laboratory Laboratory [facility] [place] [address] [place], [place] [address] Darcie, Lab Scenery [address] [place] [address] 08/31/2024 11:00 AM EST Hem/Onc Treatment Hematology/Oncology Treatment, [place] [address] [facility], [place] [phone] Darcie, Chair 10 Hem Onc [facility] 200 [facility] [place] [address] 10/12/2024 3:00 PM EST Office Visit Hematology/Oncology [facility] [address] [place] [phone] Olivia Fontenot CRNP [address] [place] [address] 10/27/2024 1:00 PM EST Office Visit General Internal Medicine [facility] 200 [facility] [place] [address] Selina Miller MD 200 [facility] [place] [address] 11/16/2024 3:00 PM EST Office Visit Hepatology, [facility] [address] [place] [address] Nicci Langston MD [address] [facility] [place] [id number] Scheduled Procedures Name Priority Associated Diagnoses Date/Ti [...] Not on filedocumented as of this encounter Additional Health Concerns Infection Onset Date Last Indicated Resolved Time Gastrointestinal Rule-Out 07/13/2024 07/13/2024 10:01 AM EDT C. difficile Rule-Out 07/13/2024 07/13/20242023 11:25 PM EDT documented as of this encounter Care Teams Regional Sales Executive Relationship Specialty Start Date End Date Selina Miller MD 200 [facility] [place] [address] PCP - General Internal Medicine 08/22/16 documented as of this encounter
--- OUTSIDE RECORDS SUMMARY | 2024-09-12 21:44 | External Medical Summary ---
Author Name Unknown Address Unknown Organization K09:[facility] [place] [address] Laboratory Report Ordering Provider Test Date Status KIP HARDING 08/23/2024 10:41:04 Final Observation Date Value Abnormality Reference (Units ) Status WBC, Total 08/23/2024 10:41:04 4.60 4.00-10.8 0 (K/uL) Final RBC 08/23/2024 10:41:04 3.10 4.50-5.25 (M/uL) Final Hemoglobin 08/23/2024 10:41:04 10.4 Below low normal 14 .0-16.8 (g/dL) Final HCT 08/23/2024 10:41:04 33.0 Below low normal 40. 0-48.4 (%) Final MCV 08/23/2024 10:41:04 106.5 82.0-99.5 (fL) Final MCH 08/23/2024 10:41:04 33.5 27.0-34.0 (pg) Final MCHC 08/23/2024 10:41:04 31.5 32.0-36.0 (g/dL) Final RDW 08/23/2024 10:41:04 13.5 11.5-15.5 (%) Final Platelets 08/23/2024 10:41:04 262 140-400 (K /uL) Final MPV 08/23/2024 10:41:04 8.4 6.6-11.1 ( fL) Final Performing Location [facility] [place] [address]
--- OUTSIDE RECORDS SUMMARY | 2024-09-12 21:44 | External Medical Summary | Summary of Care ---
Author Name Unknown Organization [facility] Address [address] [place] [address] Phone [phone] Care Team Providers Care Leak Operator [employer] Name Role Phone Selina Miller MD Primary Care Provider [phone] Reason for Visit * Reason Onset Date Comments Appointment 07/13/2024 Encounter Details Date Type Department Care Team (Late st Contact Info) Description 07/13/2024 Telephone Hematology/Oncology [facility] [place] [address] [facility] [place] [address] Olivia Fontenot CRNP [address] [place] [address] Appointment Allergies No known active allergiesdocumented as of this encounter (statuses as of 08/12/2024) Medications Medication Sig Dispensed Refills Start Date End Date Status Thiamine HCl 100 MG Oral Tablet (vitamin B-1)Indications:A lcohol use disorder,Macrocyt osis without anemia Take 1 Tablet by mouth in the morning. 90 Tablet 1 05/05/2024 Active Pantoprazole Sodium 20 MG Oral Tablet Delayed Release (Protonix)Indicat ions:History of gastric ulcer,Alcohol use disorder Take 1 Tablet by mouth in the morning. 90 Tablet 06/14/2024 Active Selenium Sulfide 2.25 % External ShampooIndication s:Tinea versicolor Apply to affected areas , leave on for 10 minutes then rinse off , use daily x 7 days, then as needed 180 mL 1 05/05/2024 2024 Discontinued (Patient preference/d iscontinuati on) documented as of this encounter (statuses as of 08/12/2024) Active Problems Problem Noted Date Diagnosed Date [...] to 3-6 beers 2/wk-is getting counseling at [facility] 05/21, had DUI 02/18 documented as of this encounter (statuses as of 08/12/2024) Immunizations Name Administration Dates Next Due Hepatitis [...] encounter Miscellaneous Notes * Telephone Encounter - Lorene Aj OSA - 08/12/2024 12:02 PM EST Pt scheduled on 11/16/[address] Langston and on move up list. * Telephone Encounter - Paul Myers OSA - 07/13/2024 11:41 AM EDT Pt needs to schedule Hepatology Associated Diagnoses Hereditary hemochromatosis (HCC) [E83.110] - Primary Please contact patient to schedule. documented in this encounter Plan of Treatment Upcoming Encounters Date Type Department Care Team (Late st Contact Info) Description 08/16/2024 11:00 AM EST Laboratory Laboratory Scenery [place] [address] [place] [phone] [place], Lab Scenery [address] [place] [address] 08/17/2024 11:45 AM EST Hem/Onc Treatment Hematology/Oncology Treatment, [place] 200 [facility], [place] [phone] Darcie, Chair 8 Hem Onc Scenery [address] [place], [place] [address] 08/23/2024 11:00 AM EST Laboratory Laboratory Scenery [place] [address] [place], [place] [address] Darcie, Lab Scenery [address] [place], [place] [address] 08/24/2024 11:00 AM EST Hem/Onc Treatment Hematology/Oncology Treatment, [place] [address] [facility], [place] [address] Darcie, Chair 6 Hem Onc Scenery [address] [place], [place] [address] 08/30/2024 11:00 AM EST Laboratory Laboratory [facility] [address] [place], [place] [address] Darcie, Lab Scenery [address] [place], [place] [address] 08/31/2024 11:00 AM EST Hem/Onc Treatment Hematology/Oncology Treatment, [place] 200 [facility], [place] [address] Darcie, Chair 10 Hem Onc Scenery [address] [place], [place] [address] 10/12/2024 3:00 PM EST Office Visit Hematology/Oncology [facility] [place] [address] [place], [place] [phone] Olivia Fontenot CRNP [address] [facility] [place] [address] 10/27/2024 1:00 PM EST Office Visit General Internal Medicine [facility] [place] [address] [place] [address] Selina Miller MD [address] [place] [address] 11/16/2024 3:00 PM EST Office Visit Hepatology, [facility] [address] [place] [place] [address] Nicci Langston MD [address] [place] [...] documented as of this encounter Care Teams Leak Operator Paraffin Plant Relationship Specialty Start Date End Date Selina Miller MD [address] [place], [place] [phone] PCP - General Internal Medicine 08/22/16 documented as of this encounter
--- OUTSIDE RECORDS SUMMARY | 2024-09-12 21:44 | External Medical Summary ---
Author Name Unknown Address Unknown Organization K01:[facility] [place] [address] [place] [address] Laboratory Report Ordering Provider Test Date Status MEHDIKIP 09/06/2024 10:36:55 Final Observation Date Value Abnormality Reference (Units ) Status Ferritin 09/06/2024 10:36:55 2339 Above high normal 30 -400 (ng/mL) Final Performing Location [facility] [place] [address] [place] [address]
--- OUTSIDE RECORDS SUMMARY | 2024-09-12 21:45 | External Medical Summary | Summary of Care ---
Author Name Unknown Organization [facility] Address [address] [place] [address] Phone [phone] Care Team Providers Care Scale Tank Operator Name Role Phone Selina Miller MD Primary Care Provider [phone] Reason for Referral * Social Care (Within 10 days (routine)) - Pending Review Specialty Diagnoses / Procedures Referred By Ric sloan Referred To Contact Neurology Technologist Diagnoses Hospital discharge follow-up Alcoholism, chronic (HCC) Hereditary hemochromatosis (HCC) Abnormal AST and ALT Selina Miller MD [address] [facility] [place] [address] Referral ID Status Reason Start Date Expiration Date Visits Requested Visits Authorized [id number] Pending Review Specialty Services Required 4 [phone] Question Answer Role Behavioral Health Neurology TechnologistGlobal Compensation Manager Health Neurology Technologist Referral Reason Active Substance Abuse Referral Priority Within 10 days (routine) Where should this appointment be scheduled? [facility] Is patient being transitioned from [facility] to Complex Case Management? No Reason for Visit * Reason Onset Date Comments Hospital Follow-Up Medication Administration 2024 Flu an d/or Pneumo Inj Encounter Details Date Type Department Care Team (Latest Contact Info) Description 2024 10:40 AM EDT Office Visit General Internal Medicine [facility] [address] [place] [address] Selina Miller MD [address] [place] [address] Hospital discharge follow-up*; Need for prophylactic vaccination and inoculation against influenza; Campylobacter diarrhea; Hyponatremia; Hypomagnesemia; Hypophosphatemia; Hypokalemia; Alcoholism, chronic (HCC); Hereditary hemochromatosis (HCC); Abnormal AST and ALT; Tobacco use disorder; Hepatitis B vaccination status unknown; Dermatitis of face; Prediabetes Allergies No known active allergiesdocumented as of this encounter (statuses as of 2024) Medications Medication Sig Dispensed Refills Start Date [...] 20 MEQ Oral Tablet Extended Release 20 Milliequivalent . 07/20/2024 Active Folic Acid 1 MG Oral Tablet Take 1 Tablet by mouth in the morning. Active Selenium Sulfide 2.25 % External ShampooIndication s:Tinea versicolor Apply to affected areas , leave on for 10 minutes then rinse off , use daily x 7 days, then as needed 180 mL 1 05/05/2024 2024 Discontinued (Patient preference/d iscontinuati on) Thiamine HCl 100 MG Oral Tablet (vitamin B-1) 1 Tablet. 07/20/2024 2024 Discontinue d (Medication List Clean Up) documented as of this encounter (statuses as of 2024) Active Problems Problem Noted Date Diagnosed Date [...] as of this encounter (statuses as of 2024) Immunizations Name Administration Dates Next Due Hepatitis [...] Smoking Tobacco: Former Smokeless Tobacco: Current Chew Tobacco Cessation:Ready to Q uit: No; Counseling Given: No Comments:11/22-1.5c/d;07/21-smoked 1p q2wks x 1yr, chews 2 can/d [...] Sign Reading Time Taken Comments Blood Pressure 110/78 2024 10:36 AM EDT Pulse 117 2024 10:36 AM EDT Temperature 35.9 C (96.6 F) 2024 10:36 AM E DT Respiratory Rate 20 2024 10:36 AM EDT Oxygen Saturation 94% 2024 10:36 AM EDT Inhaled Oxygen Concentration - - Weight 69.5 kg (153 lb 4.8 oz) 2024 10:36 AM EDT Height 172.7 cm (5' 8") 2024 10:36 AM EDT Body Mass Index 23.31 2024 10:36 AM EDT documented in this encounter Progress Notes * Selina Miller MD - 2024 10:51 AM EDT SUBJECTIVE: Johnathon Warner is a 54 year old male. Chief Complaint Patient presents with Hospital Follow-Up Medication Administration Flu and/or Pneumo Inj HPI: Patient presents today for hospital follow-up appointment. Wt Readings from Last 6 Encounters: 07/23/24 69.5 kg (153 lb 4.8 oz) 07/13/24 67.4 kg (148 lb 11.2 oz) 05/05/24 73 kg (161 lb) 04/01/24 79.4 kg (175 lb) 01/28/24 73.3 kg (161 lb 8 oz) 09/22/18 68.2 kg (150 lb 6.4 oz) BP Readings from Last 6 Encounters: 07/23/24 110/78 07/13/24 145/99 07/13/24 137/97 05/05/24 118/78 04/14/24 126/84 01/28/24 130/80 Reviewed available hospital records including history and physical, labs, imaging and discharge summary. Wished him Happy B day Patient with FH and personal h/o hemochromatosis with noncompliance to f/u, alcohol abuse disorder,tobacco use disorder, history of hypertriglyceridemia. --[facility] adm12/13/2023-12/16/2023 for alcohol intoxication, GI bleed 01/28/24 --Hosp f/u -Presented to the hospital with 2 days of [...] colon,-TAP- internal hemorrhoids, repeat in 5 years 04/14/2443-ULV-uxfrah, may reduce Protonix to 20 mg daily 04/13/24- ferritin 2037, saturation iron 100%, abnormal AST/ALT 118/102,- appointment with Hematology Oncology was canceled in February, reschedule COURTNEY and schedule phlebotomy. Normal CBC with MCV 100.9,nml B12, folate, lipids, - BMP with sodium 134 Was in rehab in 2019 and had followed up with [facility], advised to reschedule appointment there Now admitted 07/16/2024-07/20/2024 for inc lft, alcoholism, alcohol withdrawal, infectious diarrhea, hyponatremia and electrolyte abnormalities. -had Hematology appointment 07/13/2024 after no show to Aug appointments , Underwent phlebotomy 07/13/2024 and set up for weekly for 4 weeks -sent to hospital as labs showed Hb 11.8, ferritin 7776, AST 559, ALT of 224 alk-phos of 189., sodium 125 -had admitted to symptoms of diarrhea (after his also had similar symptoms )for 6 weeks with having bowel movements 10 times a day with abdominal cramping, no blood in the stool or black tarry stool nausea, occasional vomiting. -stool for C diff and cultures were negative on 07/13/2024. ;Repeated at the hospital and positive for Campylobacter and E coli, treated with azithromycin. -he had also been drinking 6-8 beers a day per patient but had called that he was drinking about 12 beers per day. Alcohol level 159, AST gradually decreased 376-131, ALT 178-100, alk-phos 193, total bilirubin 1.3-1, INR 1.2, hemoglobin at discharge 11.8, sodium 135, potassium 3.7, phosphorus improved 3-3.4 magnesium from 1.6-1.9. A1c 6.3% EKG 07/16/24- NSR at 95 beats per minute, incomplete right bundle branch block, 07/18/24-STat 116. 07/16/2024 CT abdomen and pelvis-with IV contrast-no acute findings, hepatomegaly with severe hepatic steatosis, bladder wall thickening with partial distention, correlate with UA-was normal --received IV fluids, potassium, magnesium supplements, seen by GI releases vaginally and Dr. Khanh zhu of who advised him to avoid raw shellfish and follow up with Hepatology as outpatient. Patient had received hepatitis-B vaccine in January by nurse before I saw him and before he had hepatitis-B surface antibody levels done, he defers vaccine today. States he has not drank any alcohol since he was discharged, states having regular bowel movements 1 to 2 times a day. No nausea or vomiting. 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 Has not scheduled appointment at the [facility] yet. Will refer to behavioral health Case Management if he qualifies. He is scheduled for phlebotomy 07/27, 08/03, 08/10 with labs a day prior. He did not complete my labs in May and advised to have them done on 07/26/2024 . Rash of tinea versicolor has resolved. Now complains of a rash on his forehead and in the crockett area, no itching, no dandruff. Discharge medications-probiotic daily,potassium 20 mEq use for 7 days, folic acid 1 mg daily, ct -thiamine 100 mg daily, Protonix 40 mg, he is continuing the 20 mg dose dec after egd 04/14/24 AST Results: Lab Results Component Value Date/Time AST - [facility] 559 (H) 07/13/2024 10:30 AM AST - [facility] 118 (H) 04/13/2024 11:38 AM AST - [facility] 20 09/22/2018 01:43 PM AST - [facility] 42 08/01/2016 04:00 PM ALT Results: Lab Results Component Value Date/Time ALT - [facility] 224 (H) 07/13/2024 10:30 AM ALT - [facility] 102 (H) 04/13/2024 11:38 AM ALT - [facility] 9 (L) 09/22/2018 01:43 PM ALT - [facility] 31 08/01/2016 04:00 PM Hemoglobin Results: Lab Results Component Value Date/Time HGB 11.8 (A) 07/20/2024 12:00 AM HGB 16.1 07/13/2024 10:30 AM HGB 16.5 05/19/2024 01:01 PM HGB 15.2 04/13/2024 11:38 AM HGB 15.3 09/22/2018 01:43 PM HGB 14.6 09/16/2017 03:22 PM HGB 14.1 08/19/2017 03:29 PM Had flu vac today, to get shingles vaccine anytime-defers chai Immunization History Administered Date(s) Administered Hepatitis B, 20+ yrs 01/28/2024 Pneumococcal Conjugate Vaccine, 20-valent ([id number]) 05/05/2024 Seasonal Influenza Virus Vaccine, Unspecified Formulation 07/06/2015 Seasonal Influenza, Quadrivalent, No Preserve, IM 08/20/2016 TDAP (age 10 and older)(Boostrix) 01/28/2024 TDAP, Age 7 and older, IM (Adacel) 08/22/2015 Zoster Vaccine Recombinant (Shingrix) 05/05/2024 Patient Active Problem List Diagnosis FH: hemochromatosis Tobacco use disorder Alcohol use disorder Hereditary hemochromatosis (HCC) FH: prostate cancer Screening for prostate cancer Tinea versicolor Macrocytosis without anemia Abnormal AST and ALT Current Outpatient Medications Medication Sig Dispense Refill Thiamine HCl 100 MG Oral Tablet (vitamin B-1) Take 1 Tablet by mouth in the morning. 90 Tablet 1 Pantoprazole Sodium 20 MG Oral Tablet Delayed Release (Protonix) Take 1 Tablet by mouth in the morning. 90 Tablet 0 Folic Acid 1 MG Oral Tablet Take 1 Tablet by mouth in the morning. Advanced Probiotic Oral Capsule 1 Capsule. Potassium Chloride ER 20 MEQ Oral Tablet Extended Release 20 Milliequivalent. No current facility-administered medications for this visit. Review of patient's allergies indicates: No Known Allergies Immunization History Administered Date(s) Administered Hepatitis B, 20+ yrs 01/28/2024 Pneumococcal Conjugate Vaccine, 20-valent ([id number]) 05/05/2024 Seasonal Influenza Virus Vaccine, Unspecified Formulation 07/06/2015 Seasonal Influenza, Quadrivalent, No Preserve, IM 08/20/2016 TDAP (age 10 and older)(Boostrix) 01/28/2024 TDAP, Age 7 and older, IM (Adacel) 08/22/2015 Zoster Vaccine Recombinant (Shingrix) 05/05/2024 OBJECTIVE: BP 110/78 (BP Site: Left Arm, BP Position: Sitting, BP Cuff Size: Regular) | Pulse 117 | Temp 35.9 C (96.6 F) (Tympanic) | Resp 20 | Ht 1.727 m (5' 8") | Wt 69.5 kg (153 lb 4.8 oz) | SpO2 94% | BMI 23.31 kg/m | BSA 1.83 m PHYSICAL EXAM: General: alert, healthy, no [...] Skin: skin color, texture, turgor are normal, Resolved Rash c/w TV upper back, mid chest, cubital fossa Dry flaky skin forehead,crockett area ASSESSMENT/PLAN: Hospital discharge follow-up (Primary) - MAGNESIUM; Future; Expected date: 07/26/2024 - PHOSPHORUS; Future; Expected date: 07/26/2024 - POPULATION HEALTH REFERRAL OP Need for prophylactic vaccination and inoculation against influenza - INFLUENZA VAC, TRIVALENT, (IIV3), PF, 0.5 ML (FLUZONE) Campylobacter diarrhea - MAGNESIUM; Future; Expected date: 07/26/2024 - PHOSPHORUS; Future; Expected date: 07/26/2024 Hyponatremia Hypomagnesemia - MAGNESIUM; Future; Expected date: 07/26/2024 Hypophosphatemia - PHOSPHORUS; Future; Expected date: 07/26/2024 Hypokalemia Alcoholism, chronic (HCC) - MAGNESIUM; Future; Expected date: 07/26/2024 - PHOSPHORUS; Future; Expected date: 07/26/2024 - POPULATION HEALTH REFERRAL OP Hereditary hemochromatosis (HCC) - POPULATION HEALTH REFERRAL OP Abnormal AST and ALT - POPULATION HEALTH REFERRAL OP Tobacco use disorder Hepatitis B vaccination status unknown Dermatitis of face Prediabetes --continue current medications, labs on Friday for me and for Hematology. Advised to stay away from alcohol, to join alcoholics anonymous and [facility] referral done. Advised smoking cessation. Advised moisturizing cream to the face and crockett area and use an [id number]-hkzuqey antidandruff shampoo to the face and his scalp 2 to 3 times a week. Aware to follow low carb diet for prediabetes, family history of diabetes. Defers shingles vaccine today, will hold off hepatitis-B vaccine until titers on Friday Follow Up: Return in about 3 months (around 10/23/2024), or if symptoms worsen or fail to improve, for Return with Physician. | For: Return with Physician | Check-out note: Cancel appt with me 08/10/24and shan in 3 mths All labs for me 07/26/24 with hematology labs Nohelia hepatology appt (This note was completed using the dictation [...] with plan of care. Selina Miller MD 2024 * Yumi Booth MED ASSIST - 2024 10:35 AM EDT PRE - ADMINISTRATION DOCUMENTATION Are you experiencing any cold symptoms or fever? No Have you had Guillain-Northbrook Syndrome (an illness that causes paralysis) within the last 6 weeks? No Have you had the flu shot in the past? YES Have you ever had a reaction to the flu shot? No MARIO Martins, 2024 10:35 AM Immunization Administration Documentation Time Out Procedure Performed: Yes Patient Identified (Ask Name/Date of ): Yes Does the patient have a fever greater than 101 degrees today? No Patient allergic to latex? No [facility] Stock: No Immunization(s) verified: Yes, Immunization Name: Flu, VIS Sheet(s) given: Yes Verified Side and Site: Yes Verified Shot(s) with Parent(s)/Patient: Yes documented in this encounter Nursing Notes * Yumi Booth MED ASSIST - 2024 10:28 AM EDT Johnathon Warner presents for hospital follow up. He would like to hold off on Shingles and Hep B vaccines today but would like his flu vaccine. He states he is feeling much better. Medications & HM reviewed. documented in this encounter Plan of Treatment Upcoming Encounters Date Type Department Care Team (Late st Contact Info) Description 07/26/2024 11:00 AM EDT Laboratory Laboratory [facility] Darcie [place] [address] [place] [address] Darcie, Lab Scenery [address] [place] [address] 07/27/2024 11:00 AM EDT Hem/Onc Treatment Hematology/Oncology Treatment, [place] [address] [facility] [place], [place] [address] Darcie, Chair 11 Hem Onc Scenery [address] [place] [address] 08/02/2024 11:00 AM EDT Laboratory Laboratory [facility] Darcie [place] [address] [place], [place] [address] Darcie, Lab Scenery [address] [facility] [place], [place] [address] 08/03/2024 11:00 AM EDT Hem/Onc Treatment Hematology/Oncology Treatment, [place] [address] [facility] [place] [address] Darcie, Chair 5 Hem Onc Scenery [address] [place], [place] [address] 08/09/2024 11:00 AM EST Laboratory Laboratory [facility] Darcie [place] [address] [place] [address] Darcie, Lab Scenery [address] [facility] [place] [address] 08/10/2024 11:15 AM EST Hem/Onc Treatment Hematology/Oncology Treatment, [place] [address] [facility] [place] [address] [place], Chair 8 Hem Onc [facility] [address] [facility] [place] [address] 10/12/2024 3:00 PM EST Office Visit Hematology/Oncology [facility] [address] [facility] [place] [phone] Olivia Fontenot CRNP [address] [place] [id number] 10/27/2024 1:00 PM EST Office Visit General Internal Medicine [facility] [address] [facility] [place] [address] Selina Miller MD [address] [facility] [place] [address] 11/16/2024 3:00 PM EST Office Visit Hepatology, [facility] [address] [facility] [place] [address] Nicci Langston MD [address] [facility] [place] [address] Scheduled Orders Name Type Priority Associated Diagnoses Orde r Schedule MAGNESIUM Lab Routine Hospital discharge follow-up Campylobacter diarrhea Hypomagnesemia Alcoholism, chronic (HCC) Expected: 07/26/2024, Expires: 2025 PHOSPHORUS Lab Routine Hospital discharge follow-up Campylobacter diarrhea Hypophosphatemia Alcoholism, chronic (HCC) Expected: 07/26/2024, Expires: 2025 Scheduled Procedures Name Priority Associated Diagnoses Date/Ti me COLONOSCOPY FLEXIBLE PROXIMA L DIAGNOSTIC Recall History of colonic polyps Scheduled Referrals Name Type Priority Associated Diagnoses Orde r Schedule POPULATION HEALTH REFERRAL OP Referral Within 10 days (routine) Hospital discharge follow-up Alcoholism, chronic (HCC) Hereditary hemochromatosis (HCC) Abnormal AST and ALT Ordered: 2024 Health Maintenance Due Date Last Done Comments Cologuard 2015 Fecal Occult Blood Test 2015 Sigmoidoscopy 2015 Hepatitis B Vaccine (2 of 3 - 19+ 3-dose series) 02/25/2024 01/28/2024 Zoster Vaccines (2 of 2) 06/30/2024 05/05/2024 COVID-19 Vaccine (1 - 2023-2 5 season) 2024 Postponed from 06/06/2024 (Unavailable) Depression Screening 2025 2024 Lipid Panel 04/13/2029 [...] as of this encounter Visit Diagnoses Diagnosis Hospital discharge follow-up- Primary Other follow-up examination Need for prophylactic vaccination and inoculation against influenza Campylobacter diarrhea Intestinal infection due to campylobacter Hyponatremia Hyposmolality and/or hyponatremia Hypomagnesemia Disorders of magnesium metabolism Hypophosphatemia Disorders of phosphorus metabolism Hypokalemia Hypopotassemia Alcoholism, chronic (HCC) Other and unspecified alcohol dependence, unspecified drinking behavior Hereditary hemochromatosis (HCC) Hereditary hemochromatosis Abnormal AST and ALT Nonspecific elevation of levels of transaminase or lactic acid dehydrogenase (LDH) Tobacco use disorder Hepatitis B vaccination status unknown Dermatitis of face Contact dermatitis and other eczema, due to unspecified cause Prediabetes Other abnormal glucose documented in this encounter Care Teams Scale Tank Operator Relationship Specialty Start Date End Date Selina Miller MD [address] [place] [address] [place] [address] PCP - General Internal Medicine 08/22/16 documented as of this encounter
--- OUTSIDE RECORDS SUMMARY | 2024-09-12 21:45 | External Medical Summary ---
Author Name Unknown Address Unknown Organization [id number]:LAB[facility]ORY [facility] [place] - [address] [place] [address] Laboratory Report Ordering Provider Test Date Status MEHDIKIP 08/09/2024 10:36:25 Final Observation Date Value Abnormality Reference (Units ) Status Ferritin 08/09/2024 10:36:25 969 Above high normal 30 -400 (ng/mL) Final Performing Location [facility] [place] - [address] [place] [address]
--- OUTSIDE RECORDS SUMMARY | 2024-09-12 21:45 | External Medical Summary ---
Author Name Unknown Address Unknown Organization [id number]:[facility]ORY [facility] [place] [address] Laboratory Report Ordering Provider Test Date Status KIP HARDING 08/02/2024 10:44:51 Final Observation Date Value Abnormality Reference (Units ) Status WBC, Total 08/02/2024 10:44:51 5.11 4.00-10.8 0 (K/uL) Final RBC 08/02/2024 10:44:51 3.72 4.50-5.25 (M/uL) Final Hemoglobin 08/02/2024 10:44:51 12.6 Below low normal 14 .0-16.8 (g/dL) Final HCT 08/02/2024 10:44:51 38.3 Below low normal 40. 0-48.4 (%) Final MCV 08/02/2024 10:44:51 103.0 82.0-99.5 (fL) Final MCH 08/02/2024 10:44:51 33.9 27.0-34.0 (pg) Final MCHC 08/02/2024 10:44:51 32.9 32.0-36.0 (g/dL) Final RDW 08/02/2024 10:44:51 13.7 11.5-15.5 (%) Final Platelets 08/02/2024 10:44:51 464 Above high normal 14 0-400 (K/uL) Final MPV 08/02/2024 10:44:51 8.7 6.6-11.1 ( fL) Final Performing Location [facility] [address]
--- OUTSIDE RECORDS SUMMARY | 2024-09-12 21:45 | External Medical Summary ---
Author Name Unknown Address Unknown Organization [id number]:[facility] [place] [address] [facility] [address] Laboratory Report Ordering Provider Test Date Status KIP HARDING 08/02/2024 10:44:51 Final Observation Date Value Abnormality Reference (Units ) Status Iron 08/02/2024 10:44:51 161 45-176 (ug/dL) Final Iron-binding capacity 08/02/2024 10:44:51 241 Below low normal 250-425 (ug/dL) Final Transferrin Sat % 08/02/2024 10:44:51 67 Above high normal 15-55 (%) Final Performing Location [facility] [place] [address] [facility] [address]
--- OUTSIDE RECORDS SUMMARY | 2024-09-12 21:45 | External Medical Summary | Summary of Care ---
Author Name Unknown Organization [facility] Address [address] [place] [address] Phone [phone] Care Team Providers Care Discovery Manager Name Role Phone Selina Miller MD Primary Care Provider [phone] Reason for Visit * Reason Onset Date Comments Referral 2024 EPIC 178 Referra l Encounter Details Date Type Department Care Team (Late st Contact Info) Description 2024 Telephone Care Coordination and Integration [address] [place] [address] Vero Frazier BSW [address], [place] [id number] Referral (EPIC 178 Referral ) Allergies No known active allergiesdocumented as [...] to 3-6 beers 2/wk-is getting counseling at [facility] 05/21 Utilities Answer Date Recorded Do [...] encounter Miscellaneous Notes * Telephone Encounter - Vero Frazier BSW - 2024 1:25 PM EDT Referring Provider: Selina Phillips [facility] Reason for referral: DX Hospital discharge FU, Alcoholism, Hemochromatosis, Abnormal AST and ALT. Reviewed notes further, had been hospitalized for alcohol consumption and medical effects. Member needing resources for MIKIE treatment. Outcome of referral: Member is not eligible for [facility] referral, sent referring staff message. Can be provided [facility]: [phone] and directed to his insurance for further supports. Contacted member at: [phone], was his , she stated that she has permission to speak on behalf of the member, was unable to find consent within [facility]. I requested member's direct to get permission to speak with her due to MIKIE concerns being topic, call was disconnected, she stated she was atwork and couldn't talk at this time. I will send member a MyG with our contact information due to being unable to connect with him via phone. Closing outreach at this time. Member can be directed to [facility] M- F 8a to 5p at [phone]. Ultimately member needs directed to his [facility] Medicaid insurance for assistance. documented in this encounter Plan of Treatment Upcoming Encounters Date Type Department Care Team (Late st Contact Info) Description 07/26/2024 11:00 AM EDT Laboratory Laboratory [facility] [place] [address] [place], [place] [address] Darcie, Lab [address]en[address] [facility] [place] [address] 07/27/2024 11:00 AM EDT Hem/Onc Treatment Hematology/Oncology Treatment, [place] 200 [facility], [place] [address] Darcie, Chair 11 Hem Onc [address] [place] [address] 08/02/2024 11:00 AM EDT Laboratory Laboratory [facility] [place] [address] [place] [address] Darcie, Lab [address] [facility] [place] [address] 08/03/2024 11:00 AM EDT Hem/Onc Treatment Hematology/Oncology Treatment, [place] [address] [facility], [place] [address] Darcie, Chair 5 Hem Onc [address] [place], [place] [address] 08/09/2024 11:00 AM EST Laboratory Laboratory [facility] Darcie [place] [address] [place] [address] Darcie, Lab [address] [place] [address] 08/10/2024 11:15 AM EST Hem/Onc Treatment Hematology/Oncology Treatment, [place] [address] [facility], [place] [address] Darcie, Chair 8 Hem Onc [place] [place], [place] [address] 10/12/2024 3:00 PM EST Office Visit Hematology/Oncology [facility] 200 [facility] [place] [address] Olivia Fontenot CRNP [address] [place] [id number] 10/27/2024 1:00 PM EST Office Visit General Internal Medicine [facility] 200 [facility] [place] [address] Selina Miller MD 200 [facility] [place] [address] 11/16/2024 3:00 PM EST Office Visit Hepatology, [facility] [address] [facility] [place] [address] Nicci Langston MD 310 [facility] [place] [id number] Scheduled Procedures Name Priority Associated Diagnoses Date/Ti me COLONOSCOPY FLEXIBLE PROXIMA L DIAGNOSTIC Recall History of colonic polyps Health Maintenance Due Date Last Done Comments Cologuard 2015 Fecal Occult Blood Test 2015 Sigmoidoscopy 2015 Hepatitis B Vaccine (2 of 3 - 19+ 3-dose series) 02/25/2024 01/28/2024 Influenza Vaccine (FLU shot) (#1) 2024 2024, 08/20/2016, 07/06/2015 Zoster Vaccines (2 of 2) 06/30/2024 05/05/2024 [...] this topic Hepatitis C Screening Completed 07/13/2024 HIV Screening Discontinued HPV (Gardasil) Vaccine Aged Out No lo nger eligible based on patient's age to complete this topic MENINGOCOCCAL (MENACTRA/MENVEO) Aged Out No longer eligible b ased on patient's age to complete this topic documented as of this encounter Medical Devices Not on filedocumented as of this encounter Care Teams Discovery Manager Relationship Specialty Start Date End Date Selina Miller MD 200 [place] [address] PCP - General Internal Medicine 08/22/16 documented as of this encounter
--- OUTSIDE RECORDS SUMMARY | 2024-09-12 21:45 | External Medical Summary ---
Author Name Unknown Address Unknown Organization K09:[facility] [place] [address] Laboratory Report Ordering Provider Test Date Status KIP HARDING 07/26/2024 10:48:08 Final Observation Date Value Abnormality Reference (Units ) Status WBC, Total 07/26/2024 10:48:08 3.51 Below low normal 4. 00-10.80 (K/uL) Final RBC 07/26/2024 10:48:08 3.58 4.50-5.25 (M/uL) Final Hemoglobin 07/26/2024 10:48:08 12.0 Below low normal 14 .0-16.8 (g/dL) Final HCT 07/26/2024 10:48:08 36.7 Below low normal 40. 0-48.4 (%) Final MCV 07/26/2024 10:48:08 102.5 82.0-99.5 (fL) Final MCH 07/26/2024 10:48:08 33.5 27.0-34.0 (pg) Final MCHC 07/26/2024 10:48:08 32.7 32.0-36.0 (g/dL) Final RDW 07/26/2024 10:48:08 13.8 11.5-15.5 (%) Final Platelets 07/26/2024 10:48:08 380 140-400 (K /uL) Final MPV 07/26/2024 10:48:08 8.5 6.6-11.1 ( fL) Final Performing Location [facility] [place] [address]
--- OUTSIDE RECORDS SUMMARY | 2024-09-12 21:45 | External Medical Summary ---
Author Name Unknown Address Unknown Organization K09:[facility] [address] [place] [address] Laboratory Report Ordering Provider Test Date Status KIP HARDING 07/26/2024 10:48:08 Final Observation Date Value Abnormality Reference (Units ) Status BUN 07/26/2024 10:48:08 7 6-20 (mg/dL) Final Creatinine 07/26/2024 10:48:08 0.8 0.6-1.2 (mg/dL) Final Glomerular filtration rate/1.73 sq M.predicted [Volume Rate/Area] in Serum, Plasma or Blood by Creatinine-based formula (CKD-EPI) 07/26/2024 10:48:08 >90 >=60 (mL/min) Final eGFR is calculated based on the CKD-EPI 2020 equation. Sodium 07/26/2024 10:48:08 139 135-146 (m mol/L) Final Potassium 07/26/2024 10:48:08 3.7 3.5-5.1 (m mol/L) Final Cl 07/26/2024 10:48:08 103 98-107 (mm ol/L) Final CO2 07/26/2024 10:48:08 24 22-32 (mmo l/L) Final Anion gap 07/26/2024 10:48:08 12 7-15 (mmol /L) Final Glucose 07/26/2024 10:48:08 102 70-120 (mg /dL) Final Albumin 07/26/2024 10:48:08 3.6 Below low normal 3.8 -5.0 (g/dL) Final AST (Aspartate aminotransferase) 07/26/2024 10:48:08 46 10-50 (U/L) Fin al Alk Phos 07/26/2024 10:48:08 147 Above high normal 35 -130 (U/L) Final Bilirubin, Total 07/26/2024 10:48:08 0.5 <=1 .2 (mg/dL) Final Calcium 07/26/2024 10:48:08 8.9 8.4-10.2 ( mg/dL) Final Protein 07/26/2024 10:48:08 6.1 6.0-8.3 (g /dL) Final ALT (Alanine aminotransferase) 07/26/2024 10:48:08 44 10-50 (U/L) Scott everett Performing Location [facility] [address] [place] [address]
--- OUTSIDE RECORDS SUMMARY | 2024-09-12 21:45 | External Medical Summary ---
Author Name Unknown Address Unknown Organization K09:[facility] [address] [place] [address] Laboratory Report Ordering Provider Test Date Status KIP HARDING 07/26/2024 10:48:08 Final Observation Date Value Abnormality Reference (Units ) Status SYNC LEUKOCYTES IN BLOOD BY AUTOMATED COUNT 07/26/2024 10:48:08 3.51 Below low normal 4.00-10.80 (K/uL) Final Neutrophils/100 leukocytes in Blood by Manual count 07/26/2024 10:48:08 53.0 40.0-75.0 (%) Final Lymphocytes/100 leukocytes in Blood by Manual count 07/26/2024 10:48:08 30.0 18.0-42.0 (%) Final Monocytes/100 leukocytes in Blood by Manual count 07/26/2024 10:48:08 15.0 Above high normal 1.0-11.0 (%) Final Eosinophils/100 leukocytes in Blood by Manual count 07/26/2024 10:48:08 1.0 0.0-6.0 (%) Final Metamyelocytes/100 leukocytes in Blood by Manual count 07/26/2024 10:48:08 1.0 Above high normal <=0.0 (%) Final Neutrophils [#/volume] in Blood by Manual count 07/26/2024 10:48:08 1.86 1.80-7.70 (K/uL) Final Lymphocytes [#/volume] in Blood by Manual count 07/26/2024 10:48:08 1.05 1.00-4.80 (K/uL) Final Monocytes [#/volume] in Blood by Manual count 07/26/2024 10:48:08 0.53 0.00-1.10 (K/uL) Final Eosinophils [#/volume] in Blood by Manual count 07/26/2024 10:48:08 0.04 0.00-0.70 (K/uL) Final Metamyelocytes [#/volume] in Blood by Manual count 07/26/2024 10:48:08 0.04 Above high normal <=0.00 (K/uL) Final Nucleated erythrocytes/100 leukocytes [Ratio] in Blood by Automated count 07/26/2024 10:48:08 Final Performing Location [facility] [address] [place] [address]
--- OUTSIDE RECORDS SUMMARY | 2024-09-12 21:45 | External Medical Summary | Summary of Care ---
Author Name Unknown Organization [facility] Address [address] [place] [address] Phone [phone] Care Team Providers Care Lamp Inspector Name Role Phone Selina Miller MD Primary Care Provider [phone] Reason for Visit * Reason Onset Date Comments Advice 07/20/2024 RIMA Encounter Details Date Type Department Care Team (Late st Contact Info) Description 07/20/2024 Telephone Hematology/Oncology Treatment, [place] [address] [place] [address] Services, Scheduling [address] [place] [address] Advice (RIMA) Allergies No known active allergiesdocumented as of this encounter (statuses as of 07/21/2024) Medications Medication Sig Dispensed Refills Start Date [...] as of this encounter (statuses as of 07/21/2024) Active Problems Problem Noted Date Diagnosed Date [...] as of this encounter (statuses as of 07/21/2024) Immunizations Name Administration Dates Next Due Hepatitis [...] Telephone Encounter - Sandy Arenas OSA - 07/21/2024 10:09 AM EDT Giselle torres returning call in regards to phlebotomy Please give her a return call Thank you * Telephone Encounter - Sherita Moreira OSA - 07/21/2024 8:43 AM EDT Called unable to leave VM * Telephone Encounter - Joy Carter RN - 07/20/2024 5:01 PM EDT Per Moe Fontenot, pt can be scheduled in 1 week (around 07/27/24) for labs and phlebotomy. Pt cannot receive a phlebotomy this week due to Hgb<12. Attempted to call pt to relay information; unable to LMOM due to voicemail inbox being full. Scheduling: please follow up with pt to schedule phlebotomy 1 hour treatment) and labs prior (CBCD,Ferritin). * Telephone Encounter - Raman [place] RN - 07/20/2024 3:11 PM EDT Report received and given to provider to review. * Telephone Encounter - Sherita Moreira OSA - 07/20/2024 2:55 PM EDT Called [facility] they are sending report over now.. Tx room said they would need to talk to moe to see if pt would need to see moe before tx orIf he could to the tx * Telephone Encounter - Nemo Thompson OSA - 07/20/2024 2:44 PM EDT Pts Ama states patient missed [place]le[place] app[place] today at 9[place]. Per Sherita Moreira she is checking with a nurse to see if pt can be added on - she states the nurse will be touching base with a provider before patient can be scheduled. I relayed this to Ama. documented in this encounter Plan of Treatment Upcoming Encounters Date Type Department Care Team (Late st Contact Info) Description 2024 10:40 AM EDT Office Visit General Internal Medicine [facility] Darcie [place] [address] [place] [address] [address] Selina Miller MD [address] [facility] [place] [address] 07/26/2024 11:00 AM EDT Laboratory Laboratory [facility] Darcie [place] [address] [place] [phone] Darcie, Lab [facility] [address] [facility] [place] [address] 07/27/2024 11:00 AM EDT Hem/Onc Treatment Hematology/Oncology Treatment, [place] [address] [place] [phone] Darcie, Chair 11 Hem Onc [facility] [address] [place] [address] 08/02/2024 11:00 AM EDT Laboratory Laboratory [facility] [address] [place], [place] [address] Darcie, Lab [facility] [address] [place], [place] [address] 08/03/2024 11:00 AM EDT [facility] 200 [facility], [place] [address] Darcie, Chair 5 Hem Onc [facility] 200 [facility] [place], [place] [address] 08/09/2024 11:00 AM EST Laboratory Laboratory [facility] [place] [address] [place], [place] [address] Darcie, Lab [address] [facility] [place] [address] 08/10/2024 11:15 AM EST [facility] 200 [facility], [place] [address] Darcie, Chair 8 Hem Onc [address] [place], [place] [address] 08/10/2024 4:00 PM EST Office Visit General Internal Medicine [facility] [place] [address] [place], [place] [address] Selina Miller MD 200 [facility] [place] [address] 10/12/2024 3:00 PM EST Office Visit Hematology/Oncology [facility] [place] [address] [place], [place] [phone] Moe Fontenot CRNP 400 [facility] [place] [id number] Scheduled Procedures Name Priority Associated Diagnoses Date/Ti [...] filedocumented as of this encounter Care Teams Lamp Inspector Relationship Specialty Start Date End Date Selina Miller MD [address] [place] [address] PCP - General Internal Medicine 08/22/16 documented as of this encounter
--- OUTSIDE RECORDS SUMMARY | 2024-09-12 21:45 | External Medical Summary | Summary of Care ---
Author Name Unknown Organization [facility] Address [address] [place] [address] Phone [phone] Care Team Providers Care Courtesy Clerk Name Role Phone Selina Miller MD Primary Care Provider [phone] Reason for Visit * Reason Onset Date Comments Test Results Lab 08/04/2024 Encounter Details Date Type Department Care Team (Late st Contact Info) Description 08/04/2024 Telephone General Internal Medicine [facility] 200 [facility] [place] [address] Selina Miller MD [address] [place] [address] Test Results Lab Allergies No known active allergiesdocumented as of this encounter (statuses as of 08/04/2024) Medications Medication Sig Dispensed Refills Start Date [...] as of this encounter (statuses as of 08/04/2024) Active Problems Problem Noted Date Diagnosed Date [...] as of this encounter (statuses as of 08/04/2024) Immunizations Name Administration Dates Next Due Hepatitis [...] encounter Miscellaneous Notes * Telephone Encounter - Nehla Booth CMA - 08/04/2024 10:43 AM EDT Spoke to patient's and she verbalized understanding. * Telephone Encounter - Nehal Booth CMA - 08/04/2024 10:43 AM EDT ----- Message from Selina Miller MD sent at 08/01/2024 10:56 PM EDT ----- Normal magnesium, phosphorus, PSAs low, CMP showing improving liver enzymes, potassium 3.7; still not immune to hepatitis-B, recommend to complete the hepatitis-B vaccine , 2 more doses months apart--schedule with nurse with next phlebotomy --continue to have labs as ordered by Heme-Onc documented in this encounter Plan of Treatment Upcoming Encounters Date Type Department Care Team (Late st Contact Info) Description 08/09/2024 11:00 AM EST Laboratory Laboratory [facility] [place] [address] [place] [address] Rosalba Sprague [facility] [place], [place] [address] 08/10/2024 11:15 AM EST [facility] [address] [place] [phone] Darcie, Chair 8 Hem Onc [facility] 200 [facility] [place] [address] 10/12/2024 3:00 PM EST Office Visit Hematology/Oncology [facility] [address] [place], [place] [phone] Olivia Fontenot CRNP 400 [facility] [place] [address] 10/27/2024 1:00 PM EST Office Visit General Internal Medicine [facility] [address] [place] [address] Selina Miller MD 200 [facility] [place] [address] 11/16/2024 3:00 PM EST Office Visit Hepatology, [facility] [address] [place] [address] Nicci Langston MD [address] [place], [place] [address] [phone] Scheduled Procedures Name Priority Associated Diagnoses Date/Ti [...] filedocumented as of this encounter Care Teams Courtesy Clerk Relationship Specialty Start Date End Date Selina Miller MD 200 [facility] [place] [address] PCP - General Internal Medicine 08/22/16 documented as of this encounter
--- OUTSIDE RECORDS SUMMARY | 2024-09-12 21:45 | External Medical Summary ---
Author Name Unknown Address Unknown Organization K01:[facility] [address] [place] [address] Laboratory Report Ordering Provider Test Date Status KIP HARDING 07/26/2024 10:48:08 Final Observation Date Value Abnormality Reference (Units ) Status Ferritin 07/26/2024 10:48:08 1777 Above high normal 30 -400 (ng/mL) Final Performing Location [facility] [place] [address] [place] [address]
--- OUTSIDE RECORDS SUMMARY | 2024-09-12 21:45 | External Medical Summary | Summary of Care ---
Author Name Unknown Organization [facility] Address [address] [place] [address] Phone [phone] Care Team Providers Care [employer] Officer Name Role Phone Selina Miller MD Primary Care Provider [phone] Reason for Visit * Reason Comments Outpatient Testing Encounter Details Date Type Department Care Team (Latest Contact Info) Description 08/02/2024 11:00 AM EDT Laboratory Laboratory [facility] [address] [place] [address] [facility] 200 [facility] [place] [address] Hereditary hemochromatosis (HCC) Allergies No known active allergiesdocumented as of this encounter (statuses as of 08/02/2024) Medications Medication Sig Dispensed Refills Start Date [...] as of this encounter (statuses as of 08/02/2024) Active Problems Problem Noted Date Diagnosed Date [...] as of this encounter (statuses as of 08/02/2024) Immunizations Name Administration Dates Next Due Hepatitis [...] Care Team (Late st Contact Info) Description 08/03/2024 11:00 AM EDT [facility] [phone] Darcie, Chair 5 Hem Onc [place] [address] [place] [address] 08/09/2024 11:00 AM EST Laboratory Laboratory [facility] Darcie [place] [address] [place] [phone] Darcie, Lab [facility] 200 [facility] [place] [address] 08/10/2024 11:15 AM EST Hem[facility] [phone] Darcie, Chair 8 Hem Onc [facility] [address] [place] [address] 10/12/2024 3:00 PM EST Office Visit Hematology/Oncology [facility] [place] [address] [place] [phone] Olivia Fontenot CRNP [address] [place] [address] 10/27/2024 1:00 PM EST Office Visit [facility] Internal Medicine [facility] 200 [place] [address] Selina Miller MD 200 [facility] [place] [address] 11/16/2024 3:00 PM EST Office Visit Hepatology, [facility] [address] [facility] [place] [address] Nicci Langston MD 310 [facility] [place] [address] Pending Results Name Type Priority Associated Diagnoses Date /Time CBC WITH WBC DIFFERENTIAL Lab STAT Hereditary hemochromatosis (HCC) 08/02/2024 10:44 AM EDT FERRITIN Lab STAT Hereditary hemochromatosis (HCC) 08/02/2024 10:44 AM EDT IRON SCREEN, INCLUDING TIBC Lab STAT Hereditary hemochromatosis (HCC) 08/02/2024 10:44 AM EDT CBC Lab STAT Hereditary hemochromatosis (HCC) 08/02/2024 10:44 AM EDT DIFFERENTIAL, AUTOMATED Lab STAT Hereditary hemochromatosis (HCC) 08/02/2024 10:44 AM EDT Scheduled Procedures Name Priority Associated [...] hemochromatosis documented in this encounter Care Teams [employer] Officer Relationship Specialty Start Date End Date Selina Miller MD [address] [place] [address] PCP - General Internal Medicine 08/22/16 documented as of this encounter
--- OUTSIDE RECORDS SUMMARY | 2024-09-12 21:45 | External Medical Summary ---
Author Name Unknown Address Unknown Organization K01:[facility] - [address] [facility] [place] [address] Laboratory Report Ordering Provider Test Date Status JORGE CAMPO 07/26/2024 10:48:08 Final Observation Date Value Abnormality Reference (Units ) Status PSA 07/26/2024 10:48:08 0.47 <3.10 (ng/ mL) Final Performing Location [facility] [address] [facility] [place] [address]
--- OUTSIDE RECORDS SUMMARY | 2024-09-12 21:45 | External Medical Summary | Summary of Care ---
Author Name Unknown Organization [facility] Address [address] [place] [address] Phone [phone] Care Team Providers Care Calciner Feeder Name Role Phone Selina Miller MD Primary Care Provider [phone] Reason for Visit * Reason Comments Outpatient Testing Encounter Details Date Type Department Care Team (Latest Contact Info) Description 07/26/2024 11:00 AM EDT Laboratory Laboratory [facility] [place] [address] [place] [phone] [facility] [address] [facility] [place] [address] Hereditary hemochromatosis (HCC); Alcohol use disorder; Hyponatremia; Abnormal AST and ALT; FH: prostate cancer; Screening for prostate cancer; Hepatitis B vaccination status unknown; Hospital discharge follow-up; Campylobacter diarrhea; Hypomagnesemia; Alcoholism, chronic (HCC); Hypophosphatemia Allergies No known active allergiesdocumented as of this encounter (statuses as of 07/26/2024) Medications Medication Sig Dispensed Refills Start Date [...] as of this encounter (statuses as of 07/26/2024) Active Problems Problem Noted Date Diagnosed Date [...] to 3-6 beers 2/wk-is getting counseling at [facility] 05/21, had DUI 02/18 documented as of this encounter (statuses as of 07/26/2024) Immunizations Name Administration Dates Next Due Hepatitis [...] Care Team (Late st Contact Info) Description 07/27/2024 11:00 AM EDT [facility] [phone] Darcie, Chair [address] [place] [address] 08/02/2024 11:00 AM EDT Laboratory Laboratory [facility] [place] [address] [place] [phone] Darcie, Lab [facility] [address] [place] [address] 08/03/2024 11:00 AM EDT [facility] [phone] Darcie, Chair 5 Hem On[address] [place] [address] 08/09/2024 11:00 AM EST Laboratory Laboratory [facility] [address] [place], [place] [phone] Darcie, Lab [facility] [address] [facility] [place] [address] 08/10/2024 11:15 AM EST [facility] [address] [place], [place] [phone] Darcie, Chair 8 Hem Onc [facility] 200 [facility] [place] [address] 10/12/2024 3:00 PM EST Office Visit Hematology/Oncology [facility] [address] [place], [place] [phone] Olivia Fontenot CRNP [address] [facility] [place] [id number] 10/27/2024 1:00 PM EST Office Visit General Internal Medicine [facility] [address] [facility] [place], [place] [address] Selina Miller MD 200 [facility] [place] [address] 11/16/2024 3:00 PM EST Office Visit Hepatology, [facility] [address] [facility] [place] [address] Nicci Langston MD [address] [place], [place] [address] [address] Pending Results Name Type Priority Associated Diagnoses Date /Time CBC WITH WBC DIFFERENTIAL Lab STAT Hereditary hemochromatosis (HCC) 07/26/2024 10:48 AM EDT FERRITIN Lab STAT Hereditary hemochromatosis (HCC) 07/26/2024 10:48 AM EDT PSA Lab Routine FH: prostate cancer Screening for prostate cancer 07/26/2024 10:48 AM EDT HEPATITIS B SURFACE ANTIBODY Lab Routine Alcohol use disorder Hepatitis B vaccination status unknown 07/26/2024 10:48 AM EDT MAGNESIUM Lab Routine Hospital discharge follow-up Campylobacter diarrhea Hypomagnesemia Alcoholism, chronic (HCC) 07/26/2024 10:48 AM EDT PHOSPHORUS Lab Routine Hospital discharge follow-up Campylobacter diarrhea Hypophosphatemia Alcoholism, chronic (HCC) 07/26/2024 10:48 AM EDT COMPREHENSIVE METABOLIC PANEL Lab STAT Hereditary hemochromatosis (HCC) 07/26/2024 10:48 AM EDT IRON SCREEN, INCLUDING TIBC Lab STAT Hereditary hemochromatosis (HCC) 07/26/2024 10:48 AM EDT CBC Lab STAT Hereditary hemochromatosis (HCC) 07/26/2024 10:48 AM EDT DIFFERENTIAL, AUTOMATED Lab STAT Hereditary hemochromatosis (HCC) 07/26/2024 10:48 AM EDT Scheduled Procedures Name Priority Associated [...] Diagnoses Diagnosis Hereditary hemochromatosis (HCC) Hereditary hemochromatosis Alcohol use disorder Hyponatremia Hyposmolality and/or hyponatremia Abnormal AST and ALT Nonspecific elevation of levels of transaminase or lactic acid dehydrogenase (LDH) FH: prostate cancer Family history of malignant neoplasm of prostate Screening for prostate cancer Special screening for malignant neoplasm of prostate Hepatitis B vaccination status unknown Hospital discharge follow-up Other follow-up examination Campylobacter diarrhea Intestinal infection due to campylobacter Hypomagnesemia Disorders of magnesium metabolism Alcoholism, chronic (HCC) Other and unspecified alcohol dependence, unspecified drinking behavior Hypophosphatemia Disorders of phosphorus metabolism documented in this encounter Care Teams Calciner Feeder Relationship Specialty Start Date End Date Selina Miller MD [address] [facility] [place] [address] PCP - General Internal Medicine 08/22/16 documented as of this encounter
--- OUTSIDE RECORDS SUMMARY | 2024-09-12 21:45 | External Medical Summary ---
Author Name Unknown Address Unknown Organization K[facility] [place] [place] [address] Laboratory Report Ordering Provider Test Date Status [id number] 08/02/2024 10:44:51 Final Observation Date Value Abnormality Reference (Units ) Status Nucleated erythrocytes/100 leukocytes [Ratio] in Blood by Automated count 08/02/2024 10:44:51 Final Performing Location [facility] [place] [place] [address]
--- OUTSIDE RECORDS SUMMARY | 2024-09-12 21:45 | External Medical Summary | Summary of Care ---
Author Name Unknown Organization [facility] Address [address] [place] [address] Phone [phone] Care Team Providers Care Drain Tile Press Operator Name Role Phone Selina Miller MD Primary Care Provider [phone] Encounter Details Date Type Department Care Team (Late st Contact Info) Description 07/20/2024 Result Scan Unspecified Department <No scans attached> Allergies No known active allergiesdocumented as of [...] AM EDT Office Visit General Internal Medicine [facility] [place] [address] [place] [address] Selina Miller MD [address] [place] [address] 07/26/2024 11:00 AM EDT Laboratory Laboratory [facility] [place] [address] [place] [address] Darcie, Lab [facility] [address] [facility] [place] [address] 07/27/2024 11:00 AM EDT [facility] [address] [facility] [place], [place] [phone] Darcie, Chair 11 Hem Onc [facility] [address] [place], [place] [address] 08/02/2024 11:00 AM EDT Laboratory Laboratory [facility] [place] [address] [place] [phone] Darcie, Lab [address] [facility] [place] [address] 08/03/2024 11:00 AM EDT Hem/Onc Treatment Hematology/Oncology Treatment, [place] [address] [facility] [place] [phone] Darcie, Chair 5 Hem Onc [address] [place] [address] 08/09/2024 11:00 AM EST Laboratory Laboratory [facility] [place] [address] [place] [phone] Darcie, Lab [address] [facility] [place] [address] 08/10/2024 11:15 AM EST Hem/Onc Treatment Hematology/Oncology Treatment, [place] [address] [place] [phone] Darcie, Chair 8 Hem Onc [facility] [address] [facility] [place] [address] 08/10/2024 4:00 PM EST Office Visit General Internal Medicine [facility] [place] [address] [facility] [place] [address] Selina Miller MD 200 [facility] [place] [address] 10/12/2024 3:00 PM EST Office Visit Hematology/Oncology [facility] 200 [facility] [place] [phone] Olivia Fontenot CRNP [address] [place] [address] Scheduled Procedures Name Priority Associated Diagnoses Date/Ti [...] Procedure Name Priority Date/Time Associated Diagnosis Comments EKG SCANNED RESULT 07/20/2024 documented in this encounter Results * EKG SCANNED RESULT (07/20/2024) 07/20/2024 No Physician Data Unknown EKG documented in this encounter Care Teams Drain Tile Press Operator Relationship Specialty Start Date End Date Selina Miller MD 200 [place] [address] PCP - General Internal Medicine 08/22/16 documented as of this encounter
--- OUTSIDE RECORDS SUMMARY | 2024-09-12 21:45 | External Medical Summary | Summary of Care ---
Author Name Unknown Organization [facility] Address [address] [place] [address] Phone [phone] Care Team Providers Care Office Services Assistant Name Role Phone Selina Miller MD Primary Care Provider [phone] Reason for Referral * Evaluate & Treat - Unlimited Visits (Within 10 days (routine)) - Pending Review Specialty Diagnoses / Procedures Referred By Ric sloan Referred To Contact Gastroenterology Diagnoses Hereditary hemochromatosis (HCC) Alcohol use disorder Olivia Fontenot CRNP [address] [place] [address] Referral ID Status Reason Start Date Expiration Date Visits Requested Visits Authorized [id number] Pending Review Specialty Services Required 07/13/[phone] Question Answer Referral Priority Within 10 days (routine) Where should this appointment be scheduled? [facility] For what condition is the patient being referred? Liver conditions Comments Hereditary hemochromatosis and alcohol abuse. Elevated LFTs. Assist with management. Reason for Visit * Reason Comments NEW PATIENT Encounter Details Date Type Department Care Team (Late st Contact Info) Description 07/13/2024 10:00 AM EDT Office Visit Hematology/Oncology [facility] [place] [place] [address] [place] [phone] Olivia Fontenot CRNP [address] [place] [address] Hereditary hemochromatosis (HCC)*; Elevated LFTs; Alcohol use disorder; Diarrhea, unspecified type Allergies No known active allergiesdocumented as of this encounter (statuses as of 07/25/2024) Medications Medication Sig Dispensed Refills Start Date [...] as of this encounter (statuses as of 07/25/2024) Active Problems Problem Noted Date Diagnosed Date [...] as of this encounter (statuses as of 07/25/2024) Immunizations Name Administration Dates Next Due Hepatitis [...] Sign Reading Time Taken Comments Blood Pressure 137/97 07/13/2024 10:50 AM EDT Pulse 101 07/13/2024 10:50 AM EDT Temperature 36.2 C (97.2 F) 07/13/2024 1 0:50 AM EDT Respiratory Rate - - Oxygen Saturation 97% 07/13/2024 10: 50 AM EDT Inhaled Oxygen Concentration - - Weight 67.4 kg (148 lb 11.2 oz) 024 10:50 AM EDT Height 172.7 cm (5' 8") 07/13/2024 10:5 0 AM EDT Body Mass Index 22.61 07/13/2024 10:50 AM EDT documented in this encounter Progress Notes * Olivia Fontenot CRNP - 07/13/2024 10:09 AM EDT Hematology Consult Note Referring Physician : Selina Miller MD Reason for Consult: 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 1. 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 Initial ferritin was 2165. Most recent LFTs were elevated. Lab Results Component Value Date WBC 4.41 05/19/2024 HGB 16.5 05/19/2024 HCT 46.7 05/19/2024 PLT 275 05/19/2024 Component Latest Ref Rng 05/19/2024 Ferritin 30 - 400 ng/mL 4,394 (H) Component Latest Ref Rn 04/13/2024 Iron 45 - 176 ug/dL 249 (H) Iron Binding Capacity 250 - 425 ug/dL 249 (L) Transferrin Saturation Percent 15 - 55 % 100 (H) Component Latest Ref Rn 04/13/2024 BUN 6 - 20 mg/dL 5 (L) CREATININE 0.6 - 1.2 mg/dL 0.8 EGFR >=60 mL/min >90 SODIUM 135 - 146 mmol/L 134 (L) POTASSIUM 3.5 - 5.1 mmol/L 4.5 CHLORIDE 98 - 107 mmol/L 94 (L) CO2 22 - 32 mmol/L 24 ANION GAP 7 - 15 mmol/L 16 (H) GLUCOSE 70 - 120 mg/dL 93 Albumin 3.8 - 5.0 g/dL 4.8 AST 10 - 50 U/L 118 (H) Alkaline Phosphatase 35 - 130 U/L 103 Bilirubin, Total <=1.2 mg/dL 1.0 CALCIUM 8.4 - 10.2 mg/dL 9.9 Protein 6.0 - 8.3 g/dL 7.3 ALT 10 - 50 U/L 102 (H) Plan: - Labs today: CBCd, CMP, iron screen, ferritin, AFP and acute hepatitis panel. Due to reports of severe diarrhea also ordered stool cultures to be completed today. - Plan for therapeutic phlebotomy today and weekly. Goal ferritin <30. D/T reports of severe diarrhea will replace with IVF today. - Dietary recommendations and avoidance of raw seafood discussed today. - Ramifications of ongoing alcohol intake thoroughly discussed with patient - Hepatology referral placed. . - Follow-up in in three months with provider with cbc/diff, cmp, iron screen and ferritin. HISTORY OF PRESENT ILLNESS Johnathon Warner is a 53 year old male who we are seeing in consultation at the request of Dr. Saavedra for further evaluation of hereditary hemochromatosis. Previous patient of Dr. Sargent. 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 Lastseen in 2018. Patient is currently drinking 6-8 beers or hard teas daily. Has been avoiding both tylenol and ibuprofen. Has not been feeling well for the last six weeks. Has had abdominal cramping and diarrhea, moving bowels 10-15 times a day. Has been slowly getting better but not much. Denies blood in the stool. also had a stomach bug so believes he caught it from her. Denies vomiting. Not eating well and losing weight. Admitted to [facility] in December for alcohol intoxication and GI bleed. Presented with 2 days of coffee-ground emesis, melena, and abdominal pain. Along with drinking heavy amounts of alcohol had also taking ibuprofen for some back pain. Initial presenting hemoglobin was 11.8 but dropped to 7 during inpatient stay, CT abdomen and pelvis showed no acute findings, tiny gallbladder polyp unchanged from prior. Also had hyponatremia which resolved at the time of leaving the hospital,he left AMA. EGD 12/15/2023 showing esophagus was normal, evidence of gastritis which was biopsied, nonbleeding gastric ulcer and erythema of the duodenum. Has not had a phlebotomy in the last 5 years Currently taking Protonix once a day and thiamine 100 mg daily. Colonoscopy in April unremarkable. Repeat in five years. Is experiencing increasing joint pains in his hands, knees and feet. Does get SOB on exertion. Denies lower extremity edema. Is not following a low iron diet. No past medical history on file. Surgical History: Past Surgical History: Procedure Laterality Date COLONOSCOPY, DIAGNOSTIC (RECTUM) 04/14/2024 hemorrhoids/biopsies show adenomatous polyps/recall 5 years/COLONOSCOPY FLEXIBLE PROXIMAL DIAGNOSTIC performed by Nakia Clements DO at [facility] DENTAL SURGERY PROCEDURE NEC EGD, FLEXIBLE, DIAGNOSTIC N/A 12/15/2023 gastritis/non-bleeding ulcer/erythematous duodenpathy/biopsies normal, repeat 12 weeks/EGD/[place] EGD, FLEXIBLE, DIAGNOSTIC N/A 04/14/2024 normal/ESOPHAGOGASTRODUODENOSCOPY (EGD), FLEXIBLE, TRANSORAL, DIAGNOSTIC performed by Nakia Clements DO at [facility] Medications: Current Outpatient Medications Medication Sig Dispense Refill Thiamine HCl 100 MG Oral Tablet (vitamin B-1) Take 1 Tablet by mouth in the morning. 90 Tablet 1 Selenium Sulfide 2.25 % External Shampoo Apply to affected areas , leave on for 10 minutes then rinse off , use daily x 7 days, then as needed (Patient not taking: Reported on 07/13/2024) 180 mL 1 Pantoprazole Sodium 20 MG Oral Tablet Delayed Release (Protonix) Take 1 Tablet by mouth in the morning. 90 Tablet 0 No current facility-administered medications for this visit. Allergies: Patient has no known allergies. Social History: Social History Socioeconomic History Marital status: Tobacco Use Smoking status: Former Smokeless tobacco: Current Types: Chew Tobacco comments: 11/22-1.5c/d;07/21-smoked 1p q2wks x 1yr, chews 2 can/d x 34 yrs Substance and Sexual Activity Alcohol use: Yes Alcohol/week: 20.0 standard drinks of alcohol Types: 20 12 oz of beer per week Comment: quit mid aug 2016>07/21--4-6 beers daily x 15 yrs, cut back to 3-6 beers 2/wk-is getting counseling at [facility] 05/21 Drug use: No Sexual activity: Yes Partners: Female Social Determinants of Health Social Connections Family History: family history includes Blood Disorder (age of onset: 46) in his brother; Blood Disorder (age of onset: 48) in his brother; Brain cancer in his father; Cancer in his aunt (paternal), father, and mother; Cancer (age of onset: 70) in his uncle (unspecified); Prostate cancer in his uncle (unspecified); Thyroid cancer in his mother. Review of Systems: As per HPI, otherwise negative x 12 systems. Objective : Filed Vitals: 07/13/24 1050 BP: 137/97 Pulse: 101 Temp: 36.2 C (97.2 F) TempSrc: Tympanic SpO2: 97% Weight: 67.4 kg (148 lb 11.2 oz) Height: 1.727 m (5' 8") Wt Readings from Last 5 Encounters: 07/13/24 67.4 kg (148 lb 11.2 oz) 05/05/24 73 kg (161 lb) 04/01/24 79.4 kg (175 lb) 01/28/24 73.3 kg (161 lb 8 oz) 09/22/18 68.2 kg (150 lb 6.4 oz) Physical Exam: GEN: Well-appearing male in no acute distress. HEENT: Moist mucous membranes, normocephalic, no conjunctival injection, sclera anicteric. LYMPH: No palpable cervical, submandibular, axillary, or supraclavicular LAD. CV: RRR, No murmurs, rubs, or gallops. MATTHEW: CTAB, breathing unlabored, no wheezes, rhonchi. AB: Abdomen soft, round, nondistended, nontender to palpation. No palpable hepatomegaly or splenomegaly. NEURO: A&Ox3, CNII-XII grossly intact. PSY: Appropriate affect, reasonable insight and judgment. Extremities: Bilateral extremities without swelling or edema, equal in size, without erythema. Skin: Dry, warm, no rashes. Test Results Results for orders placed or performed in visit on 05/19/24 FERRITIN Result Value Ref Range Ferritin 4,394 (H) 30 - 400 ng/mL CBC Result Value Ref Range WBC 4.41 4.00 - 10.80 K/uL RBC 4.70 4.50 - 5.25 M/uL HGB 16.5 14.0 - 16.8 g/dL HCT 46.7 40.0 - 48.4 % MCV 99.4 82.0 - 99.5 fL MCH 35.1 27.0 - 34.0 pg MCHC 35.3 32.0 - 36.0 g/dL RDW 12.3 11.5 - 15.5 % PLT 275 140 - 400 K/uL MPV 8.6 6.6 - 11.1 fL DIFFERENTIAL, AUTOMATED Result Value Ref Range WBC 4.41 4.00 - 10.80 K/uL Neutrophils % 55.3 40.0 - 75.0 % Lymphocytes % 25.2 18.0 - 42.0 % Monocytes % 18.1 (H) 1.0 - 11.0 % Eosinophils % 0.5 0.0 - 6.0 % Basophils % 0.9 0.0 - 2.0 % Absolute Neutrophils 2.44 1.80 - 7.70 K/uL Absolute Lymphocytes 1.11 1.00 - 4.80 K/ul Absolute Monocytes 0.80 0.00 - 1.10 K/uL Absolute Eosinophils 0.02 0.00 - 0.70 K/uL Absolute Basophils 0.04 0.00 - 0.20 K/uL documented in this encounter Nursing Notes * Brenda Lopez MED ASSIST - 07/13/2024 10:53 AM EDT Patient identifed by name and birthdate Do you have any concerns about pain management for today's visit? Yes. Patient instructed to discuss pain concerns with provider during the visit today Living Will or Advance Directive for Health Care as noted on the problem list. [facility] is a way you can talk to your provider on line through e-mail. Would you like to sign up? I can activate it for you? ALREADY ACTIVE Filed Vitals: 07/13/24 1050 BP: 137/97 Pulse: 101 Temp: 36.2 C (97.2 F) TempSrc: Tympanic SpO2: 97% Weight: 67.4 kg (148 lb 11.2 oz) Height: 1.727 m (5' 8") Patient was instructed to not get up on the exam table/exam chair until directed and assisted by their provider; patient is to remain seated in the chair/ wheelchair/ exam table/ exam chair for fall prevention and safety reasons. Patient is aware to have assistance to step down off exam table/exam chair with personnel. Patient voiced full comprehension of instructions. documented in this encounter Plan of Treatment Upcoming Encounters Date Type Department Care Team (Late st Contact Info) Description 07/26/2024 11:00 AM EDT Laboratory Laboratory [facility] [place] [address] [place], [place] [address] Darcie, Lab [place] [address] [place] [address] 07/27/2024 11:00 AM EDT Hem/Onc Treatment Hematology/Oncology Treatment, [place] [address] [facility], [place] [address] Darcie, Chair 11 Hem Onc [place] [address] [place], [place] [address] 08/02/2024 11:00 AM EDT Laboratory Laboratory [facility] [place] [address] [place], [place] [address] Darcie, Lab [place] [facility] [place] [address] 08/03/2024 11:00 AM EDT Hem/Onc Treatment Hematology/Oncology Treatment, [place] [address] [facility], [place] [address] Darcie, Chair 5 Hem Onc [place] [address] [place], [place] [address] 08/09/2024 11:00 AM EST Laboratory Laboratory [facility] [place] [address] [place], [place] [address] Darcie, Lab [address] [place] [address] 08/10/2024 11:15 AM EST Hem/Onc Treatment Hematology/Oncology Treatment, [place] [address] [facility], [place] [address] Darcie, Chair 8 Hem Onc [place] [address] [place], [place] [address] 10/12/2024 3:00 PM EST Office Visit Hematology/Oncology [place] [address] [place] [address] Olivia Fontenot CRNP [address] [place] [id number] 10/27/2024 1:00 PM EST Office Visit General Internal Medicine [facility] [address] [facility] [place] [address] Selina Miller MD [address] [facility] [place] [address] 11/16/2024 3:00 PM EST Office Visit Hepatology, [facility] [address] [facility] [place] [address] Nicci Langston MD [address] [facility] [place] [id number] Scheduled Orders Name Type Priority Associated Diagnoses Orde r Schedule COMPREHENSIVE METABOLIC PANEL Lab STAT Hereditary hemochromatosis (HCC) Every 3 Months for 4 Occurrences starting 07/25/2024 until 08/12/2025 IRON SCREEN, INCLUDING TIBC Lab STAT Hereditary hemochromatosis (HCC) Every 3 Months for 4 Occurrences starting 07/25/2024 until 08/12/2025 Scheduled Procedures Name Priority Associated Diagnoses Date/Ti me COLONOSCOPY FLEXIBLE PROXIMA L DIAGNOSTIC Recall History of colonic polyps Scheduled Referrals Name Type Priority Associated Diagnoses Orde r Schedule HEPATOLOGY REFERRAL OP Referral Within 10 days (routine) Hereditary hemochromatosis (HCC) Alcohol use disorder Ordered: 07/13/2024 Health Maintenance Due Date Last Done Comments [...] Procedure Name Priority Date/Time Associated Diagnosis Comments ACUTE HEPATITIS PANEL Routine 07/13/2024 10:30 AM EDT Elevated LFTs COMPREHENSIVE METABOLIC PANEL Routine 07/13/2024 10:30 AM EDT Hereditary hemochromatosis (HCC) IRON SCREEN, INCLUDING TIBC Routine 07/13/2024 10:30 AM EDT Hereditary hemochromatosis (HCC) ALPHA-FETOPROTEIN TUMOR MARKER Routine 07/13/2024 10:30 AM EDT Hereditary hemochromatosis (HCC) documented in this encounter Results * CLOSTRIDIUM DIFFICILE, PCR (07/13/2024 1:49 PM EDT) Stool Consistency Liquid 07/13/2024 11:25 PM EDT [facility] Clostridium difficile Result Negative. No C. difficile toxin B gene DNA detected by PCR (Amplified Probe). Negative 07/13/2024 11:25 PM EDT [facility] Stool Stool specimen / Unknown Non-blood Collection / Unknown 07/13/2024 1:49 PM EDT 07/13/2024 1:58 PM EDT Olivia DWYER LAB MICRO - GEN ERAL ORDERABLES Performing Organization Address City/[facility]/ZIP Co de Phone Number [facility] [address] [place] [address] * ACUTE HEPATITIS PANEL (07/13/2024 10:30 AM EDT) [facility] Hepatitis A Antibody IgM Negative Negative 07/13/2024 10:06 PM EDT [facility] Hepatitis B Core Antibody IgM Negative Negative 07/13/2024 10:06 PM EDT [facility] Hepatitis B Surface Antigen Negative Negative 07/13/2024 10:06 PM EDT [facility] Hepatitis C Antibody Negative Negative 07/13/2024 10:06 PM EDT [facility] Blood Venous blood specimen / Unknown Venipuncture / Unknown 07/13/2024 10:30 AM EDT 07/13/2024 10:30 AM EDT Olivia DWYER LAB BLOOD ORDER MAX Performing Organization Address City/[facility] Co de Phone Number [facility] [address] [place] [address] * ALPHA-FETOPROTEIN TUMOR MARKER (07/13/2024 10:30 AM EDT) [facility] Alpha-Fetoprot ein Tumor Marker 6.7 0.0 - 8.3 ng/mL 07/13/2024 10:30 PM EDT [facility] Blood Venous blood specimen / Unknown Venipuncture / Unknown 07/13/2024 10:30 AM EDT 07/13/2024 10:30 AM EDT Olivia DWYER LAB BLOOD ORDER MAX Performing Organization Address City/[facility]/ZIP Co de Phone Number [facility] [address] [place] [address] * (ABNORMAL) IRON SCREEN, INCLUDING TIBC (07/13/2024 10:30 AM EDT) [facility] Iron 147 45 - 176 ug/dL 07/13/2024 9:51 PM EDT LABORATORY [facility] Iron Binding Capacity 188(L) 250 - 425 ug/dL 07/13/2024 9:51 PM EDT LABORATORY C Transferrin Saturation Percent 78(H) 15 - 55 % 07/13/2024 9:51 PM EDT [facility] Blood Venous blood specimen / Unknown Venipuncture / Unknown 07/13/2024 10:30 AM EDT 07/13/2024 10:30 AM EDT Olivia DWYER LAB BLOOD ORDER MAX [facility] [address] [place] [address] * (ABNORMAL) COMPREHENSIVE METABOLIC PANEL (07/13/2024 10:30 AM EDT) BUN 9 6 - 20 mg/dL 07/13/2024 10:30 PM EDT LABORATORY C CREATININE 0.9 0.6 - 1.2 mg/dL 07/13/2024 10:30 PM EDT LABORATORY C EGFR >90 >=60 mL/min 07/13/2024 10:30 PM EDT LABORATORY C Comment:eGFR is calculated b ased on the CKD-EPI 2020 equation. SODIUM 125(L) 135 - 146 mmol/L 07/13/2024 10:30 PM EDT LABORATORY [facility] POTASSIUM 3.7 3.5 - 5.1 mmol/L 07/13/2024 10:30 PM EDT LABORATORY C Comment:Results may be false ly elevated due to hemolysis. CHLORIDE 86(L) 98 - 107 mmol/L 07/13/2024 10:30 PM EDT LABORATORY [facility] CO2 26 22 - 32 mmol/L 07/13/2024 10:30 PM EDT LAB[facility]ATORY [facility] ANION GAP 13 7 - 15 mmol/L 07/13/2024 10:30 PM EDT LAB[facility]ORY [facility] GLUCOSE 110 70 - 120 mg/dL 07/13/2024 10:30 PM EDT LABORATORY [facility] Albumin 3.6(L) 3.8 - 5.0 g/dL 07/13/2024 10:30 PM EDT [facility] AST 559(H) 10 - 50 U/L 07/13/2024 10:30 PM EDT LABORATORY [facility] Comment:Results may be false ly elevated due to hemolysis. Alkaline Phosphatase 189(H) 35 - 130 U/L 07/13/2024 10:30 PM EDT LABORATORY [facility] Bilirubin, Total 1.3(H) <=1.2 mg/dL 07/13/2024 10:30 PM EDT LABORATORY [facility] CALCIUM 8.4 8.4 - 10.2 mg/dL 07/13/2024 10:30 PM EDT LABORATORY [facility] Protein 6.2 6.0 - 8.3 g/dL 07/13/2024 10:30 PM EDT LAB[facility]ORY [facility] ALT 224(H) 10 - 50 U/L 07/13/2024 10:30 PM EDT LABORATORY [facility] Comment:Results may be false ly elevated due to hemolysis. Blood Venous blood specimen / Unknown Venipuncture / Unknown 07/13/2024 10:30 AM EDT 07/13/2024 10:30 AM EDT Olivia DWYER LAB BLOOD ORDER MAX [facility] [address] [place] [address] documented in this encounter Visit Diagnoses Diagnosis Hereditary hemochromatosis (HCC)- Primary Hereditary hemochromatosis Elevated LFTs Other abnormal blood chemistry Alcohol use disorder Diarrhea, unspecified type documented in this encounter Care Teams Office Services Assistant Relationship Specialty Start Date End Date Selina Miller MD [address] [place] [id number] PCP - General Internal Medicine 08/22/16 documented as of this encounter
--- OUTSIDE RECORDS SUMMARY | 2024-09-12 21:45 | External Medical Summary | Summary of Care ---
Author Name Unknown Organization [facility] Address [address] [place] [address] Phone [phone] Care Team Providers Care Surgical Elastic Knitter Hand Frame Name Role Phone Selina Miller MD Primary Care Provider [phone] Reason for Visit * Reason Comments Procedure Phlebotomy Encounter Details Date Type Department Care Team (Latest Contact Info) Description 07/27/2024 11:00 AM EDT Hem/Onc Treatment Hematology/Oncolog y Treatment, [place] [address] [place] [address] Darcie, Chair 11 Hem Onc [facility] [address] [place] [address] Hereditary hemochromatosis (HCC)* Allergies No known active allergiesdocumented as of this encounter (statuses as of 07/27/2024) Medications Medication Sig Dispensed Refills Start Date [...] as of this encounter (statuses as of 07/27/2024) Active Problems Problem Noted Date Diagnosed Date [...] to 3-6 beers 2/wk-is getting counseling at [facility] 05/21, had DUI 02/18 documented as of this encounter (statuses as of 07/27/2024) Immunizations Name Administration Dates Next Due Hepatitis [...] Sign Reading Time Taken Comments Blood Pressure 123/81 07/27/2024 12:25 PM EDT Post Phlebotomy VS check Pulse 101 07/27/2024 12:25 PM EDT Temperature 36.7 C (98.1 F) 07/27/2024 1 1:11 AM EDT Respiratory Rate 16 07/27/2024 12:2 5 PM EDT Oxygen Saturation 96% 07/27/2024 12: 25 PM EDT Inhaled Oxygen Concentration - - Weight 70 kg (154 lb 6.4 oz) 07/27/2024 11:11 AM EDT Height - - Body Mass Index 23.48 2024 10:36 AM EDT documented in this encounter Nursing Notes * Nallely Lopez, VICKEY - 07/27/2024 11:12 AM EDT Chair 5 Pt presents for weekly Phlebotomy per supportive care plan. Hgb 12; Ferritin 1777 Per Olivia, 300 ml phlebotomy today depending on pt status. Pt denies SOB, dizziness, wishes to undergo phlebotomy. Per Olivia, Ok to proceed with phlebotomy for total volume 300 mL. Safety and Risk for Injury Patient will [...] potential guerra while using the heat function. #18G Instye with t-extension inserted into the L-AC without difficulty. Therapeutic phlebotomy performed per order. Patient tolerated procedure well. Drank cup of fluid post procedure. Encouraged to increase fluid intake. Goals: Patient will remain free from injury. Possible barriers to meeting goals: phlebotomy aphoresis needle, collection bag; phlebotomy. Stability of the patient: Moderately stable - low risk of patient condition declining or worsening Summary regarding today's goals: Met: Patient remained free from injury. IV discontinued intact and patient discharged in stable condition. VS stable post phlebotomy, pt instructed to remove Coban dressing at 1400. Scheduled for weekly labs and phlebotomy through 08/10/24; scheduled to Olivia Fontenot NP 10/12/2024. documented in this encounter Plan of Treatment Upcoming Encounters Date Type Department Care Team (Late st Contact Info) Description 08/02/2024 11:00 AM EDT Laboratory Laboratory [facility] [place] [address] [place] [phone] Darcie, Lab [facility] [address] [facility] [place] [address] 08/03/2024 11:00 AM EDT Hem/Onc Treatment Hematology/Oncology Treatment [place] [address] [place] [address] Darcie, Chair 5 Hem Onc [place] [address] [facility] [place] [address] 08/09/2024 11:00 AM EST Laboratory Laboratory [facility] [place] [address] [place] [address] Darcie, Lab [facility] [address] [facility] [place] [address] 08/10/2024 11:15 AM EST Hem/Onc Treatment Hematology/Oncology Treatment, [place] [address] [place], [place] [address] [place], Chair 8 Hem Onc [facility] [address] [facility] [place] [address] 10/12/2024 3:00 PM EST Office Visit Hematology/Oncology [facility] [address] [facility] [place] [phone] Olivia Fontenot CRNP [address] [place] [id number] 10/27/2024 1:00 PM EST Office Visit General Internal Medicine [facility] [address] [facility] [place] [address] Selina Miller MD [address] [facility] [place] [address] 11/16/2024 3:00 PM EST Office Visit Hepatology, [facility] [address] [facility] [place] [address] Nicci Langston MD [address] [place] [address] [place] [phone] Scheduled Procedures Name Priority Associated Diagnoses Date/Ti [...] Administer over 30 Minutes, PRN, Starting on Fri07/27/24 at 1204, Until Discontinued, Hypotension documented in this encounter Care Teams Surgical Elastic Knitter Hand Frame Relationship Specialty Start Date End Date Selina Miller MD [address] [place] [address] PCP - General Internal Medicine 08/22/16 documented as of this encounter
--- OUTSIDE RECORDS SUMMARY | 2024-09-12 21:45 | External Medical Summary ---
Author Name Unknown Address Unknown Organization K01:LABORATORY [facility] [place] - [address] [place] [id number] Laboratory Report Ordering Provider Test Date Status KIP HARDING 07/26/2024 10:48:08 Final Observation Date Value Abnormality Reference (Units ) Status Iron 07/26/2024 10:48:08 204 Above high normal 45-176 (ug/dL) Final Iron-binding capacity 07/26/2024 10:48:08 204 Below low normal 250-425 (ug/dL) Final Transferrin Sat % 07/26/2024 10:48:08 100 Above high normal 15-55 (%) Final Performing Location LABORATORY [facility] [place] - [address] [place] [id number]
--- OUTSIDE RECORDS SUMMARY | 2024-09-12 21:45 | External Medical Summary | Summary of Care ---
Author Name Unknown Organization [facility] Address [address] [place] [address] Phone [phone] Care Team Providers Care S3B Multi Sensor Operator Name Role Phone Jahaira Miller MD Primary Care Provider [phone] Reason for Referral * Social Care (Within 10 days (routine)) - Pending Review Specialty Diagnoses / Procedures Referred By Ric sloan Referred To Contact Drawbridge Tender Diagnoses Hospital discharge follow-up Alcoholism, chronic (HCC) Hereditary hemochromatosis (HCC) Abnormal AST and ALT Jahaira Miller MD [address] [facility] [place] [address] Referral ID Status Reason Start Date Expiration Date Visits Requested Visits Authorized [id number] Pending Review Specialty Services Required 4 [phone] Question Answer Role Behavioral Health [facility] Drawbridge Tender Referral Reason Active Substance Abuse Referral Priority [...] Medicine State [place] [address] [place] [id number] Jahaira Miller MD [address] [place] [address] Hospital discharge follow-up*; Need for prophylactic vaccination and inoculation against influenza; Campylobacter diarrhea; Hyponatremia; Hypomagnesemia; Hypophosphatemia; Hypokalemia; Alcoholism, chronic (HCC); Hereditary hemochromatosis (HCC); Abnormal AST and ALT; Tobacco use disorder; Hepatitis B vaccination status unknown; Dermatitis of face; Prediabetes; Need for hepatitis B vaccination Allergies No known active allergiesdocumented as of this encounter (statuses as of 08/01/2024) Medications Medication Sig Dispensed Refills Start Date [...] as of this encounter (statuses as of 08/01/2024) Active Problems Problem Noted Date Diagnosed Date [...] 3-6 beers 2/wk-is getting counseling at [facility] [employer] 05/21, had DUI 02/18 documented as of this encounter (statuses as of 08/01/2024) Immunizations Name Administration Dates Next Due Hepatitis [...] to 3-6 beers 2/wk-is getting counseling at [facility] 05/21 PHQ-2 Answer Date Recorded PHQ Adult [...] documented in this encounter Progress Notes * Jahaira Miller MD - 2024 10:51 AM EDT [...] 110/78 07/13/24 145/99 07/13/24 137/97 05/05/24 118/78 07/10/24 126/84 01/28/24 130/80 Reviewed available hospital records including history and physical, labs, imaging and discharge summary. Wished him Happy B day Patient with FH and personal h/o hemochromatosis with noncompliance to f/u, alcohol abuse disorder,tobacco use disorder, history of hypertriglyceridemia. --[facility] adm12/13/2023-12/16/2023 for alcohol intoxication, GI bleed 01/28/24 [...] colon,-TAP- internal hemorrhoids, repeat in 5 years 04/14/2433-PJD-lmayze, may reduce Protonix to 20 mg daily [...] or vomiting. 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 [facility]. Will refer to behavioral health Case [...] 20+ yrs 01/28/2024 Pneumococcal Conjugate Vaccine, 20-valent ([id number]) 05/05/2024 Seasonal Influenza Virus Vaccine, Unspecified Formulation [...] 20+ yrs 01/28/2024 Pneumococcal Conjugate Vaccine, 20-valent ([id number]) 05/05/2024 Seasonal Influenza Virus Vaccine, Unspecified Formulation [...] alcoholics anonymous and follow up with the [place] [facility] Case Management referral done. Advised smoking cessation. Advised moisturizing cream to the face and crockett area and use an tppi-ysh-lnralnn antidandruff shampoo to the face and his [...] instructions and agrees with plan of care. Jahaira Miller MD 2024 * Yumi Booth MED ASSIST - 2024 10:35 AM EDT PRE - ADMINISTRATION DOCUMENTATION Are you experiencing any cold symptoms or fever? No Have you had Guillain-[place] Syndrome (an illness that causes paralysis) within [...] today? No Patient allergic to latex? No VFC Stock: No Immunization(s) verified: Yes, Immunization Name: [...] & HM reviewed. documented in this encounter Miscellaneous Notes * Addendum Note - Jahaira Miller MD - 08/01/2024 10:56 PM EDTAddended by: JAHAIRA MILLER on: 08/01/2024 10:56 PM Modules accepted: Orders documented in this encounter Plan of Treatment Upcoming Encounters Date Type Department Care Team (Late st Contact Info) Description 08/02/2024 11:00 AM EDT Laboratory Laboratory [facility] [place] [address] [place] [phone] Darcie Lab [facility] [address] [facility] [place] [address] 08/03/2024 11:00 AM EDT Hem/Onc Treatment Hematology/Oncology Treatment, [place] [address] [facility] [place] [phone] Darcie, Chair 5 Hem Onc [address] [place] [address] 08/09/2024 11:00 AM EST Laboratory Laboratory [facility] [place] [address] [place] [address] Darcie Lab Scenery [address] [place], [place] [address] 08/10/2024 11:15 AM EST Hem/Onc Treatment Hematology/Oncology Treatment, [place] [address] [place] [phone] Darcie, Chair 8 Hem Onc Scenery [address] [place] [address] 10/12/2024 3:00 PM EST Office Visit Hematology/Oncology [facility] [address] [place] [phone] Olivia Fontenot CRNP [address] [place] [id number] 10/27/2024 1:00 PM EST Office Visit General Internal Medicine [facility] [address] [facility] [place] [address] Jahaira Miller MD [address] [facility] [place] [address] 11/16/2024 3:00 PM EST Office Visit Hepatology, [facility] [address] [facility] [place] [address] Nicci Langston MD [address] [facility] [place] [phone] Scheduled Procedures Name Priority Associated Diagnoses Date/Ti [...] filedocumented as of this encounter Results * PHOSPHORUS (07/26/2024 10:48 AM EDT) Phosphorus 3.9 2.5 - 4.8 mg/dL 07/26/2024 11:18 AM EDT [place] [address] Blood Venous blood specimen / Unknown Venipuncture / Unknown 07/26/2024 10:48 AM EDT 07/26/2024 10:48 AM EDT Jahaira Miller MD LAB BLOOD ORDERABLES [place] [address] [address] [place] [address] * MAGNESIUM (07/26/2024 10:48 AM EDT) Magnesium 2.2 1.5 - 2.6 mg/dL 07/26/2024 11:18 AM EDT [facility] [address] Blood Venous blood specimen / Unknown Venipuncture / Unknown 07/26/2024 10:48 AM EDT 07/26/2024 10:48 AM EDT Jahaira Miller MD LAB BLOOD ORDERABLES [place] [address] [address] [place] [address] documented in this encounter Visit Diagnoses Diagnosis Hospital discharge [...] to unspecified cause Prediabetes Other abnormal glucose Need for hepatitis B vaccination Need for prophylactic vaccination and inoculation against viral hepatitis documented in this encounter Care Teams S3B Multi Sensor Operator Relationship Specialty Start Date End Date Jahaira Miller MD [address] [place] [address] PCP - General Internal Medicine 08/22/16 documented as of this encounter
--- OUTSIDE RECORDS SUMMARY | 2024-09-12 21:45 | External Medical Summary ---
Author Name Unknown Address Unknown Organization K09:[facility]ORY [facility] [place] [address] Laboratory Report Ordering Provider Test Date Status JORGE CAMPO 07/26/2024 10:48:08 Final Observation Date Value Abnormality Reference (Units ) Status Phosphate 07/26/2024 10:48:08 3.9 2.5-4.8 (m g/dL) Final Performing Location [facility] [address]
--- OUTSIDE RECORDS SUMMARY | 2024-09-12 21:45 | External Medical Summary ---
Author Name Unknown Address Unknown Organization K01:LABORATORY [facility] - [address] [place] [place] [address] Laboratory Report Ordering Provider Test Date Status KIP HARDING 08/02/2024 10:44:51 Final Observation Date Value Abnormality Reference (Units ) Status Ferritin 08/02/2024 10:44:51 1443 Above high normal 30 -400 (ng/mL) Final Performing Location LABORATORY [facility] - [address] [place] [address]
--- OUTSIDE RECORDS SUMMARY | 2024-09-12 21:45 | External Medical Summary ---
Author Name Unknown Address Unknown Organization K01:LABORATORY [address] [place] [address] Laboratory Report Ordering Provider Test Date Status JORGE CAMPO 07/26/2024 10:48:08 Final Observation Date Value Abnormality Reference (Units) Status Hepatitis B virus surface Ab [Units/volume] in Serum or Plasma by Immunoassay 07/26/2024 10:48:08 <3.5 (mIU/mL) Final Hepatitis B virus surface Ab [Presence] in Serum by Immunoassay 07/26/2024 10:48:08 Negative Final HEPATITIS B SURFACE ANTIBODY, INTERPRETATION 07/26/2024 10:48:08 NOT immune to Hepatitis B Virus Final POSITIVE: >=11.5 mIU/mL
INDETERMINATE: 8.5-<11.5 mIU/mL
NEGATIVE: <8.5 mIU/mL Performing Location LABORATORY [place] [address] [facility] [address]
--- OUTSIDE RECORDS SUMMARY | 2024-09-12 21:45 | External Medical Summary | Summary of Care ---
Author Name Unknown Organization [facility] Address [address] [place] [address] Phone [phone] Care Team Providers Care Tune Up Mechanic Name Role Phone Selina Miller MD Primary Care Provider [phone] Reason for Visit * Reason Comments Procedure Phlebotomy Encounter Details Date Type Department Care Team (Latest Contact Info) Description 08/03/2024 11:00 AM EDT Hem/Onc Treatment Hematology/Oncolog y Treatment, [place] [address] [place] [address] Darcie, Chair 5 Hem Onc [facility] 200 [place] [address] Hereditary hemochromatosis (HCC)* Allergies No known active allergiesdocumented as of this encounter (statuses as of 08/03/2024) Medications Medication Sig Dispensed Refills Start Date [...] as of this encounter (statuses as of 08/03/2024) Active Problems Problem Noted Date Diagnosed Date [...] as of this encounter (statuses as of 08/03/2024) Immunizations Name Administration Dates Next Due Hepatitis [...] Sign Reading Time Taken Comments Blood Pressure 102/74 08/03/2024 12:50 PM EDT Pulse 123 08/03/2024 12:50 PM EDT Temperature 36.8 C (98.2 F) 08/03/2024 11:05 AM E DT Respiratory Rate 16 08/03/2024 12:50 PM EDT Oxygen Saturation 96% 08/03/2024 12:50 PM EDT Inhaled Oxygen Concentration - - Weight - - Height - - Body Mass Index - - documented in this encounter Nursing Notes * Nallely Lopez RN - 08/03/2024 4:10 PM EDT Pt here for phlebotomy. Hgb 12.6, Ferritin 1443, goal < 30. Safety and Risk for Injury Patient will [...] with t-extension inserted into the L-AC without difficulty with positive flashback, however bloodflow stopped. Attempted to reposition with temporary success. Phlebotomy acces with #18G InStye established in R-AC with positive flashback; blood flow temporarily stopped but continued withneedle repositioning. Therapeutic phlebotomy performed per order. Patient tolerated procedure well.Drank cup of fluid post procedure. Encouraged to increase fluid intake. Post-phlebotomy VS stable, HR elevated compared to baseline today, however pt denied any symptoms Goals: Patient will remain free from injury. Possible barriers to meeting goals: phlebotomy procedure? #18G Instye needle in place. Stability of the patient: Moderately stable - low risk of patient condition declining or worsening Summary regarding today's goals: Met: Patient remained free from injury. IV discontinued intact and patient discharged in stable condition, scheduled for labs, phlebotomy in 1 wk. documented in this encounter Plan of Treatment Upcoming Encounters Date Type Department Care Team (Late st Contact Info) Description 08/09/2024 11:00 AM EST Laboratory Laboratory [address] [place] [phone] Darcie, Lab [address] [facility] [place] [address] 08/10/2024 11:15 AM EST Hem/Onc Treatment Hematology/Oncology Treatment[address] [place] [phone] Darcie, Chair 8 Hem Onc [address] [place] [address] 10/12/2024 3:00 PM EST Office Visit Hematology/Oncology [address] [place] [address] Olivia Fontenot CRNP [address] [place], [place] [address] [address] 10/27/2024 1:00 PM EST Office Visit General Internal Medicine [address] [place] [address] Selina Miller MD [address] [place] [address] [facility] [place] [address] 11/16/2024 3:00 PM EST Office Visit Hepatology, [facility] 132 [facility] [place] [address] Nicci Langston MD [address] [place] [address] Scheduled Procedures Name Priority Associated Diagnoses [...] Administer over 30 Minutes, PRN, Starting on Fri08/03/24 at 1121, Until Discontinued, Hypotension documented in this encounter Care Teams Tune Up Mechanic Relationship Specialty Start Date End Date Selina Miller MD 200 [place] [address] PCP - General Internal Medicine 08/22/16 documented as of this encounter
--- OUTSIDE RECORDS SUMMARY | 2024-09-12 21:45 | External Medical Summary | Summary of Care ---
Author Name Unknown Organization [facility] Address [address] [place] [address] Phone [phone] Care Team Providers Care It Systems Administrator Name Role Phone Selina Miller MD Primary Care Provider [phone] Reason for Visit * Reason Onset Date Comments Advice 07/20/2024 RIMA Encounter Details Date Type Department Care Team (Late st Contact Info) Description 07/20/2024 Telephone Hematology/Oncology Treatment, [place] [address] [place] [address] Services, Scheduling [address] [place] [address] Advice (RIMA) Allergies No known active allergiesdocumented [...] Encounter - Sherita Moreira OSA - 07/21/2024 10:32 AM EDT Called them back made them aware of Moe's note and they said they wanted to keep the apt that is already scheduled for next week * Telephone Encounter - Sandy Arenas OSA - 07/21/2024 10:09 AM EDT Giselle torres returning call in regards to phlebotomy Please give her a return call Thank you * Telephone Encounter - Sherita Moreira OSA - 07/21/2024 8:43 AM EDT Called unable to leave * Telephone Encounter - Joy Carter RN [...] OSA - 07/20/2024 2:55 PM EDT Called [facility] they are sending report over now.. Tx room said they would need to talk to moe to see if pt would need to see moe before tx orIf he could to the tx * Telephone Encounter - Nemo Thompson OSA - 07/20/2024 2:44 PM EDT Pts Ama states patient missed phlebotomy appt today at 9am [place] [facility] [place] Per Sherita [...] General Internal Medicine [place] [address] [place] [address] [address] Selina Miller MD [address] [place] [address] 07/26/2024 11:00 AM EDT Laboratory Laboratory [place] [address] [place] [address] [phone] Rosalba Sprague [address] [place] [address] [address] 07/27/2024 11:00 AM EDT Hem/Onc Treatment Hematology/Oncology Treatment, [place] [address] [place] [address] Park, Chair 11 Hem Onc Sc[address] [place], [place] [address] 08/02/2024 11:00 AM EDT Laboratory Laboratory [facility] [place] [address] [place], [place] [address] Darcie, Lab [address]enery [address] [facility] [place] [place] [address] 08/03/2024 11:00 AM EDT [facility] [address] [place] [address] Darcie, Chair 5 Hem Onc [address] [place], [place] [address] 08/09/2024 11:00 AM EST Laboratory Laboratory [facility] [place] [address] [place], [place] [address] Darcie, Lab Scen[address] [place] [address] 08/10/2024 11:15 AM EST Hem/Onc Treatment Hematology/Oncology Treatment [place] [address] [facility] [place] [address] Darcie, Chair 8 Hem Onc [address] [place] [address] 08/10/2024 4:00 PM EST Office Visit General Internal Medicine [facility] [address] [place] [address] Selina Miller MD [address] [place] [address] 10/12/2024 3:00 PM EST Office Visit Hematology/Oncology [place] 200 [facility] [place] [address] Moe Fontenot CRNP 400 [facility] [place] [address] Scheduled Procedures Name Priority Associated Diagnoses Date/Ti [...] filedocumented as of this encounter Care Teams It Systems Administrator Relationship Specialty Start Date End Date Selina Miller MD [address] [facility] [place] [address] PCP - General Internal Medicine 08/22/16 documented as of this encounter
--- OUTSIDE RECORDS SUMMARY | 2024-09-12 21:45 | External Medical Summary ---
Author Name Unknown Address Unknown Organization K09:[facility] [place] [address] Laboratory Report Ordering Provider Test Date Status KIP HARDING 08/02/2024 10:44:51 Final Observation Date Value Abnormality Reference (Units ) Status SYNC LEUKOCYTES IN BLOOD BY AUTOMATED COUNT 08/02/2024 10:44:51 5.11 4.00-10.80 (K/uL) Final Segs 08/02/2024 10:44:51 58.6 40.0-75.0 (%) Final Lymphs % 08/02/2024 10:44:51 28.8 18.0-42.0 (%) Final Monos 08/02/2024 10:44:51 10.6 1.0-11.0 (%) Final Eosinophils 08/02/2024 10:44:51 0.8 0.0-6.0 (%) Final Basos 08/02/2024 10:44:51 1.2 0.0-2.0 (%) Final Absolute Segs 08/02/2024 10:44:51 3.00 1.80-7.70 (K/uL) Final Lymphs, absolute 08/02/2024 10:44:51 1.47 1.00-4.80 (K/ul) Final Monos, Abs 08/02/2024 10:44:51 0.54 0.00-1.10 (K/uL) Final Eos, Abs 08/02/2024 10:44:51 0.04 0.00-0.70 (K/uL) Final Basos, Abs 08/02/2024 10:44:51 0.06 0.00-0.20 (K/uL) Final Performing Location [facility] [place] [address]
--- OUTSIDE RECORDS SUMMARY | 2024-09-12 21:45 | External Medical Summary | Summary of Care ---
Author Name Unknown Organization [facility] Address [address] [place] [address] Phone [phone] Care Team Providers Care Field Underwriter Name Role Phone Selina Miller MD Primary Care Provider [phone] Reason for Visit * Reason Onset Date Comments Hospital Follow-Up 07/21/2024 Encounter Details Date Type Department Care Team (Late st Contact Info) Description 07/21/2024 Telephone General Internal Medicine [facility] [place] [address] [place] [address] Arabella [place]obedo, VICKEY Hospital Follow-Up Allergies No known active allergiesdocumented as of [...] Extended Release 20 Milliequivalent . 07/20/2024 Active Selenium Sulfide 2.25 % External ShampooIndication [...] to 3-6 beers 2/wk-[facility] 05/[facility], had DUI 02/18 documented as [...] encounter Miscellaneous Notes * Telephone Encounter - Arabella Escobedo RN - 07/21/2024 8:26 AM EDT Transitions of Care Note Reason for Referral:Recent Admission Phone visit for follow up: VANCE Admitted to: [facility], Date: 07/13 Discharged to: Home, Date: 07/20 Diagnosis driving hospitalization: hyponatremia, infectious diarrhea, alcohol withdrawal Source/Contact: Spouse, Viola (who is a visiting nurse) SUBJECTIVE Consent: Verbal consent for review of hospital discharge: Yes REVIEW OF SYSTEMS Patient/Other Reports: Current patient/caregiver problems or concerns: patient is feeling much better CV: Denies problems Pulmonary: Denies problems Chills/Sweats/Fever:Denies chills/sweats Denies fever Appetite:Denies problems such as nausea, vomiting, burning, decreased appetite Current diet: regular Bowel: denies problems Bladder: denies problems Wound (If applicable): N/A Pain:Denies Sleep:Denies problems FUNCTIONAL STATUS: ADL'S: Needs Assistance With:N/A as pt is independent IADL'S: Needs Assistance With:N/A as pt is independent Cognitive and Mental Health: denies problems MEDICATION RECONCILIATION Medications: Discharge med list reviewed with patient or caregiver New medication(s) filled since hospitalization- potassium chloride, probiotic, OBJECTIVE ASSESSMENT Medication Risk Assessment: No risks identified Did patient fail outpatient treatment? No Discharge instructions available for review? Yes PLAN Symptom Monitoring Interventions:Member/caregiver education - signs and symptoms to contact PrimaryCare (DO NOT DELETE-Three mcallister symptoms patient is to report to PCP) 1. Worsening diarrhea 2. weakness 3. hematuria [facility]ician [facility] Physician of Care interventions/Action Plan: 5 - 7 day follow-up with PCP in place - Date: 07/23 Educated on role of VANCE completed with patient/caregiver. Educated patient/caregiver on patient right to have input on VANCE plan of care. Verification of Home Health/DME if indicated: NO n/a Identified Care Gaps: Yes Care Gaps closed this call: Appointment made or confirmed, Medication optimization, and Transition of Care follow-up communication Re-evaluation of Plan of Care and progress towards goals achievement: Patient education this visit: Verbal, see above Plan to instructed to call Primary Care Provider with change in symptoms or as needed before next follow-up, discharge needs met, verbalizes understanding and agrees with plan. Arabella Escobedo RN documented in this encounter Plan of Treatment Upcoming Encounters Date Type Department Care Team (Late st Contact Info) Description 07/26/2024 11:00 AM EDT Laboratory Laboratory [facility] [place] [address] [place] [phone] Darcie, Lab [address]en[address] [place] [address] 07/27/2024 11:00 AM EDT Hem/Onc Treatment Hematology/Oncology Treatment, [place] [address] [place] [phone] Darcie, Chair 11 Hem Onc [address] [place] [address] 08/02/2024 11:00 AM EDT Laboratory Laboratory [facility] Darcie [place] [address] [place] [address] Park, Lab Scenery [address] [place] [address] 08/03/2024 11:00 AM EDT Hem/Onc Treatment Hematology/Oncology Treatment, [place] 200 [facility], [place] [phone] Darcie, Chair 5 Hem Onc [facility] 200 [facility] [place], [place] [address] 08/09/2024 11:00 AM EST Laboratory Laboratory [facility] [place] 200 [facility] [place] [address] Darcie, Lab [facility] 200 [facility] [place] [address] 08/10/2024 11:15 AM EST [facility] 200 [facility], [place] [address] Darcie, Chair 8 Hem On[address] [place], [place] [address] 10/12/2024 3:00 PM EST Office Visit Hematology/Oncology [facility] 200 [facility] [place], [place] [phone] Olivia Fontenot CRNP [address] [place] [phone] 10/27/2024 1:00 PM EST Office Visit General Internal Medicine [facility] 200 [facility] [place], [place] [address] Selina Miller MD 200 [facility] [place] [address] 11/16/2024 3:00 PM EST Office Visit Hepatology, [facility] 132 [facility] [place] [address] Nicci Langston MD [address] [place] [address] [place] [address] Scheduled Procedures Name Priority [...] filedocumented as of this encounter Care Teams Field Underwriter Relationship Specialty Start Date End Date Selina Miller MD 200 [place] [address] PCP - General Internal Medicine 08/22/16 documented as of this encounter
--- OUTSIDE RECORDS SUMMARY | 2024-09-12 21:45 | External Medical Summary ---
Author Name Unknown Address Unknown Organization K09[facility] [place] [address] Laboratory Report Ordering Provider Test Date Status JORGE CAMPO 07/26/2024 10:48:08 Final Observation Date Value Abnormality Reference (Units ) Status Magnesium 07/26/2024 10:48:08 2.2 1.5-2.6 (m g/dL) Final Performing Location [facility] [place] [address]
--- OUTSIDE RECORDS SUMMARY | 2024-09-12 21:46 | External Medical Summary | Summary of Care ---
Author Name Unknown Organization [facility] Address [address] [place] [address] Phone [phone] Care Team Providers Care Legal Adviser Name Role Phone Selina Miller MD Primary Care Provider [phone] Encounter Details Date Type Department Care Team [...] AM EDT Office Visit General Internal Medicine [facility] [place] [address] [place] [address] Selina Miller MD [address] [place] [address] 07/26/2024 11:00 AM EDT Laboratory Laboratory [facility] [place] [address] [place] [address] Darcie, Lab [facility] [address] [facility] [place] [address] 07/27/2024 11:00 AM EDT Hem[facility] [address] [facility] [address] [place], [place] [address] Darcie, Chair 11 Hem Onc [facility] [address] [place], [place] [address] 08/02/2024 11:00 AM EDT Laboratory Laboratory [facility] [place] [address] [place] [address] Darcie, Lab Scenery [address] [facility] [place] [address] 08/03/2024 11:00 AM EDT Hem/Onc Treatment Hematology/Oncology Treatment, [place] [address] [facility] [address] [place] [address] Darcie, Chair 5 Hem Onc Scenery [address] [place] [address] 08/09/2024 11:00 AM EST Laboratory Laboratory [facility] [place] [address] [place] [address] Darcie, Lab [address] [facility] [place] [address] 08/10/2024 11:15 AM EST Hem/Onc Treatment Hematology/Oncology Treatment, [place] [address] [place] [phone] Darcie, Chair 8 Hem Onc [facility] [address] [place] [address] 08/10/2024 4:00 PM EST Office Visit General Internal Medicine [facility] [place] [address] [place] [address] Selina Miller MD [address] [facility] [place] [address] 10/12/2024 3:00 PM EST Office Visit Hematology/Oncology [facility] [address] [facility] [place] [phone] Olivia Fontenot CRNP [address] [place] [address] Scheduled Procedures Name Priority Associated Diagnoses Date/Ti [...] Procedure Name Priority Date/Time Associated Diagnosis Comments OUTSIDE LAB RESULTS 07/20/2024 documented in this encounter Results * OUTSIDE LAB RESULTS (07/20/2024) 07/20/2024 No Physician Data Unknown LABORATORY documented in this encounter Care Teams Legal Adviser Relationship Specialty Start Date End Date Selina Miller MD 200 [facility] [place] [address] PCP - General Internal Medicine 08/22/16 documented as of this encounter
--- OUTSIDE RECORDS SUMMARY | 2024-09-12 21:46 | External Medical Summary | Summary of Care ---
Author Name Unknown Organization [facility] Address [address] [place] [address] Phone [phone] Care Team Providers Care Associate Producer Name Role Phone Selina Miller MD Primary Care Provider [phone] Encounter Details Date Type Department Care Team (Late st Contact Info) Description 07/16/2024 Result Scan Unspecified Department <No scans attached> [...] EDT Office Visit General Internal Medicine [facility] [place] [address] [place] [address] Selina Miller MD [address] [place] [address] 07/26/2024 11:00 AM EDT Laboratory Laboratory [facility] [place] [address] [place] [address] Darcie, Lab [facility] [address] [facility] [place] [address] 07/27/2024 11:00 AM EDT [facility] 200 [facility] [address] [place], [place] [address] Darcie, Chair 11 Hem Onc [facility] [address] [place], [place] [address] 08/02/2024 11:00 AM EDT Laboratory Laboratory [facility] [place] [address] [place] [address] Darcie, Lab Sc[address]ery [address] [facility] [place], [place] [address] 08/03/2024 11:00 AM EDT Hem/Onc Treatment Hematology/Oncology Treatment, [place] [address] [facility] [address] [place] [address] Darcie, Chair 5 Hem Onc Scenery [address] [place] [address] 08/09/2024 11:00 AM EST Laboratory Laboratory [facility] [place] [address] [place] [address] Darcie, Lab Scenery 200 [facility] [place] [address] 08/10/2024 11:15 AM EST Hem/Onc Treatment Hematology/Oncology Treatment, [place] [address] [place] [address] Darcie, Chair 8 Hem Onc [facility] 200 [facility] [place] [address] 08/10/2024 4:00 PM EST Office Visit General Internal Medicine [facility] [place] [address] [facility] [place] [address] Selina Miller MD 200 [facility] [place] [address] 10/12/2024 3:00 PM EST Office Visit Hematology/Oncology [facility] [address] [facility] [place] [phone] Olivia Fontenot CRNP [address] [place] [address] Scheduled Procedures Name Priority Associated Diagnoses Date/Ti [...] Date/Time Associated Diagnosis Comments EKG SCANNED RESULT 07/18/2024 EKG SCANNED RESULT 07/16/2024 RADIOLOGY SCANNED RESULT 07/16/2024 documented in this encounter Results * EKG SCANNED RESULT (07/18/2024) 07/18/2024 No Physician Data Unknown EKG * RADIOLOGY SCANNED RESULT (07/16/2024) 07/16/2024 No Physician Data Unknown DIAGNOSTIC RAD IOLOGY SERVICES * EKG SCANNED RESULT (07/16/2024) 07/16/2024 No Physician Data Unknown EKG documented in this encounter Care Teams Associate Producer Relationship Specialty Start Date End Date Selina Miller MD 200 [facility] [place] [address] PCP - General Internal Medicine 08/22/16 documented as of this encounter
--- OUTSIDE RECORDS SUMMARY | 2024-09-12 21:46 | External Medical Summary | Summary of Care ---
Author Name Unknown Organization [facility] Address [address] [place] [address] Phone [phone] Care Team Providers Care Organic Search Lead Name Role Phone Selina Miller MD Primary Care Provider [phone] Encounter Details Date Type Department Care Team (Late st Contact Info) Description 07/21/2024 Orders Only Hematology/Oncology, [facility] [address] [place] [address] Olivia Fontenot CRNP [address] [place], [place] [phone] Allergies No known active allergiesdocumented as of [...] AM EDT Office Visit General Internal Medicine [facility] [place] [address] [place] [address] [address] Selina Miller MD [address] [facility] [place] [address] 07/26/2024 11:00 AM EDT Laboratory Laboratory [facility] [place] [address] [place] [address] [phone] Darcie Lab [address] [facility] [place] [address] 07/27/2024 11:00 AM EDT Hem/Onc Treatment Hematology/Oncology Treatment [place] [address] [place] [address] Darcie, Chair 11 [facility] [place] [address] 08/02/2024 11:00 AM EDT Laboratory Laboratory [facility] [place] [address] [phone] Darcie, Lab [address] [facility] [place] [address] 08/03/2024 11:00 AM EDT Hem/Onc Treatment Hematology/Oncology Treatment, [place] [facility] [place] [address] Darcie, Chair 5 Hem Onc [address] [place], [place] [address] 08/09/2024 11:00 AM EST Laboratory Laboratory [facility] [place] [address] [place] [phone] Darcie, Lab [address] [facility] [place] [address] 08/10/2024 11:15 AM EST Hem/Onc Treatment Hematology/Oncology Treatment, [place] [address] [place], [place] [address] Darcie, Chair 8 Hem Onc [place] [address] [place] [address] 08/10/2024 4:00 PM EST Office Visit General Internal Medicine [facility] [place] [address] [place] [address] Selina Miller MD [address] [facility] [place] [address] 10/12/2024 3:00 PM EST Office Visit Hematology/Oncology [facility] [place] [address] [place] [phone] Olivia Fontenot, REYMUNDO [address] [place], [place] [phone] Scheduled Procedures Name Priority Associated Diagnoses Date/Ti [...] Procedure Name Priority Date/Time Associated Diagnosis Comments CHEMISTRY-OUTSIDE Routine 07/20/2024 HEMOGLOBIN A1C Routine 07/17/2024 documented in this encounter Results * (ABNORMAL) CHEMISTRY-OUTSIDE (07/20/2024) Not all results display below - see scan for full detail OUTSIDE LAB (SEE SCANNED REPORT) Comment:SCAN INCLUDES - INPT LABS: CBCD, CMP, PHOS, MG CREATININE 0.82 0.6 - 1.4 MG/DL OUTSIDE LAB (SEE SCANNED REPORT) EGFR 105.04 OUTSIDE LA B (SEE SCANNED REPORT) POTASSIUM 3.7 3.5 - 5.1 MMOL/L OUTSIDE LAB (SEE SCANNED REPORT) GLUCOSE 93 70 - 99 MG/DL OUTSIDE LAB (SEE SCANNED REPORT) HOURS FASTING OUTSID E LAB (SEE SCANNED REPORT) TRIGLYCERIDES-OUT SIDE LAB OUTSIDE LAB (SEE SCANNED REPORT) CHOLESTEROL-OUTSI DE LAB OUTSIDE LAB (SEE SCANNED REPORT) HDL-OUTSIDE LAB OUTS REVA LAB (SEE SCANNED REPORT) CHOL/HDL RATIO-OUTSIDE LAB OUTSIDE LA B (SEE SCANNED REPORT) LDL (CALCULATED)-OUTS REVA LAB OUTSIDE LAB (SEE SCANNED REPORT) LDL (DIRECT MEASURE)-OUTSIDE LAB OUTSIDE LAB (SEE SCANNED REPORT) HEMOGLOBIN, Z2C-XUOZPUY LAB OUTSIDE LAB (SEE SCANNED REPORT) PHOSPHORUS-OUTSID E LAB 3.4 2.5 - 4.9 MG/DL OUTSIDE LAB (SEE SCANNED REPORT) PTH-OUTSIDE LAB OUTS REVA LAB (SEE SCANNED REPORT) MICROALBUMIN RATIO-OUTSIDE LAB OUTSIDE LA B (SEE SCANNED REPORT) PROTEIN, UA-OUTSIDE LAB OUTSIDE LAB (SEE SCANNED REPORT) HGB 11.8(A) 14.0 - 18.0 G/DL OUTSIDE LAB (SEE SCANNED REPORT) 07/20/2024 History Per Patient LABORATORY OUTSIDE LAB (SEE SCANNED REPORT) * (ABNORMAL) HEMOGLOBIN A1C (07/17/2024) HEMOGLOBIN, W8E-[id number] LAB 6.3(A) 4.5 - 5.6 % OUTSIDE LAB (SEE SCANNED REPORT) Blood Venous blood specimen / Unknown 07/17/2024 History Per Patient LAB BLOOD ORDERABLES OUTSIDE LAB (SEE SCANNED REPORT) documented in this encounter Care Teams Organic Search Lead Relationship Specialty Start Date End Date Selina Miller MD [address] [place] [address] PCP - General Internal Medicine 08/22/16 documented as of this encounter
--- OUTSIDE RECORDS SUMMARY | 2024-09-12 21:46 | External Medical Summary | Summary of Care ---
Author Name Unknown Organization [facility] Address [address] [place] [address] Phone [phone] Care Team Providers Care Strike Planning Applications Name Role Phone Selina Miller MD Primary Care Provider [phone] Reason for Visit * Reason Onset Date Comments Advice 07/20/2024 RIMA Encounter Details Date Type Department Care Team (Late st Contact Info) Description 07/20/2024 Telephone Hematology/Oncology Treatment, [place] [address] [place] [address] Services, Scheduling [address] [place] [address] Advice (RIMA) Allergies No known active allergiesdocumented [...] OSA - 07/20/2024 2:55 PM EDT Called [facility] they are sending report over now.. Tx room said they would need to talk to moe to see if pt would need to see moe before tx orIf he could to the tx * Telephone Encounter - Nemo Thompson OSA - 07/20/2024 2:44 PM EDT Pts Ama states patient missed phlebotomy appt today at 9am [place]. Per Sherita [...] AM EDT Office Visit General Internal Medicine [facility] [place] [address] [place] [address] Selina Miller MD [address] [facility] [place] [address] 07/26/2024 11:00 AM EDT Laboratory Laboratory [facility] [place] [address] [place] [address] [address] Darcie, Lab [address] [facility] [place] [address] 07/27/2024 11:00 AM EDT Hem/Onc Treatment Hematology/Oncology Treatment, [place] [address] [place] [address] Darcie, Chair 11 Hem Onc [facility] [address] [place] [address] 08/02/2024 11:00 AM EDT Laboratory Laboratory [facility] [place] [address] [place] [address] Darcie, Lab [address] [address] 08/03/2024 11:00 AM EDT Hem/Onc Treatment Hematology/Oncology Treatment, [place] 200 [facility], [place] [phone] Darcie, Chair 5 Hem Onc [address] [place] [address] 08/09/2024 11:00 AM EST Laboratory Laboratory [facility] [place] 200 [facility] [place] [phone] Darcie, Lab [facility] 200 [facility] [place] [address] 08/10/2024 11:15 AM EST Hem[facility] 200 [facility], [place] [phone] Darcie, Chair 8 Hem Onc [address] [place] [address] 08/10/2024 4:00 PM EST Office Visit General Internal Medicine [address] [place] [address] Selina Miller MD 200 [facility] [place] [address] 10/12/2024 3:00 PM EST Office Visit Hematology/Oncology [address] [place] [phone] Moe Fontenot CRNP [address] [place] [address] [place] [address] Scheduled Procedures Name Priority Associated Diagnoses Date/Ti [...] filedocumented as of this encounter Care Teams Strike Planning Applications Relationship Specialty Start Date End Date Selina Miller MD 200 [facility] [place] [address] PCP - General Internal Medicine 08/22/16 documented as of this encounter
--- OUTSIDE RECORDS SUMMARY | 2024-09-12 21:46 | External Medical Summary | Summary of Care ---
Author Name Unknown Organization [facility] Address [address] [place] [address] Phone [phone] Care Team Providers Care Optician Manager Name Role Phone Selina Miller MD Primary Care Provider [phone] Reason for Visit * Reason Onset Date Comments Advice 07/20/2024 RIMA Encounter Details Date Type Department Care Team (Late st Contact Info) Description 07/20/2024 Telephone Hematology/Oncology Treatment, [place] [address] [place] [address] Services, Scheduling [address] [place] [address] Advice (RIMA) Allergies No known active allergiesdocumented as of this encounter (statuses as of 07/20/2024) Medications Medication Sig Dispensed Refills Start Date [...] as of this encounter (statuses as of 07/20/2024) Active Problems Problem Noted Date Diagnosed Date [...] as of this encounter (statuses as of 07/20/2024) Immunizations Name Administration Dates Next Due Hepatitis [...] OSA - 07/20/2024 2:55 PM EDT Called [facility] they are sending report over now.. Tx room said they would need to talk to moe to see if pt would need to see moe before tx orIf he could to the tx * Telephone Encounter - Nemo Thompson OSA - 07/20/2024 2:44 PM EDT Pts Ama states patient missed phlebotomy appt today at 9am [place]. Per Sherita [...] AM EDT Office Visit General Internal Medicine [address]en [address] [place] [address] [place] [address] Selina Miller MD [address] [place] [address] [address] 07/26/2024 11:00 AM EDT Laboratory Laboratory [facility] [place] [address] [place], [place] [address] Park, Lab Scenery [address] [place] [address] 07/27/2024 11:00 AM EDT Hem/Onc Treatment Hematology/Oncology Treatment, [place] 200 [place] [address] Park, Chair 11 Hem Onc [place] [address] [place], [place] [address] 08/02/2024 11:00 AM EDT Laboratory [facility] [place] [address] [place], [place] [address] Darcie, Lab Scenery [address] [facility] [place] [place] [address] 08/03/2024 11:00 AM EDT Hem/Onc Treatment Hematology/Oncology Treatment, [place] 200 [facility], [place] [address] Darcie, Chair 5 Hem Onc [place] [place], [place] [address] 08/09/2024 11:00 AM EST Laboratory Laboratory [facility] [address] [place], [place] [address] Darcie, Lab Scenery [address] [place] [address] 08/10/2024 11:15 AM EST Hem[facility]Onc [facility] 200 [facility] [place] [address] Darcie, Chair 8 Hem Onc [address] [place] [address] 08/10/2024 4:00 PM EST Office Visit General Internal Medicine [facility] [address] [place] [address] Selina Miller MD [address] [place] [address] 10/12/2024 3:00 PM EST Office Visit Hematology/Oncology [facility] [place] [address] [place] [address] Moe Fontenot CRNP 400 [facility] [place] [phone] Scheduled Procedures Name Priority Associated Diagnoses Date/Ti [...] filedocumented as of this encounter Care Teams Optician Manager Relationship Specialty Start Date End Date Selina Miller MD [address] [place] [address] PCP - General Internal Medicine 08/22/16 documented as of this encounter
--- OUTSIDE RECORDS SUMMARY | 2024-09-12 21:46 | External Medical Summary | Summary of Care ---
Author Name Unknown Organization [facility] Address [address] [place] [address] Phone [phone] Care Team Providers Care Telegraph Printer Mechanic Name Role Phone Selina Miller MD Primary Care Provider [phone] Reason for Visit * Reason Onset Date Comments Advice 07/20/2024 RIMA Encounter Details Date Type Department Care Team (Late st Contact Info) Description 07/20/2024 Telephone Hematology/Oncology Treatment, [place] [address] [place] [address] Services, Scheduling [address] [place] [address] Advice (RIMA) Allergies No known active allergiesdocumented [...] OSA - 07/20/2024 2:55 PM EDT Called [facility] they are sending report over now.. Tx room said they would need to talk to moe to see if pt would need to see moe before tx orIf he could to the tx * Telephone Encounter - Nemo Thompson OSA - 07/20/2024 2:44 PM EDT Pts Ama states patient missed phlebotomy appt today at 9am [place]. Per Sherita [...] Office Visit General Internal Medicine Carmen Spr[address] [place] [address] [place] [address] Selina Miller MD [address] [place] [address] 07/26/2024 11:00 AM EDT Laboratory Laboratory Scenery [facility] [address] [place] [address] Park, Lab Scenery [address] [place] [address] 07/27/2024 11:00 AM EDT Hem/Onc Treatment Hematology/Oncology Treatment, [place] 200 [place] [address] Darcie, Chair 11 Hem Onc [address] [place] [address] 08/02/2024 11:00 AM EDT Laboratory Laboratory Scenery [place] [address] [place] [address] Darcie, Lab Scenery [address] [place] [address] 08/03/2024 11:00 AM EDT Hem/Onc Treatment Hematology/Oncology Treatment, [place] 200 [place] [address] Darcie, Chair 5 Hem Onc [address]ery [address] [place] [address] 08/09/2024 11:00 AM EST Laboratory Laboratory Scenery [facility] [address] [place] [address] Darcie, Lab Scenery [address] [place] [address] 08/10/2024 11:15 AM EST Hem[facility] [address] [place] [address] Darcie, Chair 8 Hem Onc [address] [place] [address] 08/10/2024 4:00 PM EST Office Visit General Internal Medicine [facility] 200 [facility] [place] [address] Selina Miller MD 200 [facility] [place] [address] 10/12/2024 3:00 PM EST Office Visit Hematology/Oncology [facility] 200 [facility] [place] [address] Moe Fontenot CRNP 400 [facility] [place] [address] Scheduled Procedures Name Priority Associated Diagnoses [...] filedocumented as of this encounter Care Teams Telegraph Printer Mechanic Relationship Specialty Start Date End Date Selina Miller MD 200 [facility] [place] [address] PCP - General Internal Medicine 08/22/16 documented as of this encounter
--- OUTSIDE RECORDS SUMMARY | 2024-09-12 21:46 | External Medical Summary | Summary of Care ---
Author Name Unknown Organization [facility] Address [address] [place] [address] Phone [phone] Care Team Providers Care Dedicated Driver Name Role Phone Selina Miller MD Primary Care Provider [phone] Reason for Visit * Reason Onset Date Comments Advice 07/20/2024 RIMA Encounter Details Date Type Department Care Team (Late st Contact Info) Description 07/20/2024 Telephone Hematology/Oncology Treatment, [place] [address] [place] [address] Services, Scheduling [address] [place] [address] Advice (RIMA) Allergies No known active allergiesdocumented [...] RN - 07/20/2024 5:01 PM EDT Per oMe Fontenot, pt can be scheduled in 1 [...] OSA - 07/20/2024 2:55 PM EDT Called [facility] they are sending report over now.. Tx room said they would need to talk to moe to see if pt would need to see moe before tx orIf he could to the tx * Telephone Encounter - Nemo Thompson OSA - 07/20/2024 2:44 PM EDT Pts Ama states patient missed phlebotomy appt today at 9am [place]. Per Sherita [...] AM EDT Office Visit General Internal Medicine [facility] [place] [address] [place] [address] Selina Millre MD [address] [place] [address] 07/26/2024 11:00 AM EDT Laboratory Laboratory [facility] [place] [address] [place] [address] Darcie, Lab [facility] [address] [facility] [place] [address] 07/27/2024 11:00 AM EDT Hem/Onc Treatment Hematology/Oncology Treatment, [place] 200 [facility] [place] [address] Darcie, Chair 11 Hem Onc [facility] [address] [place] [address] 08/02/2024 11:00 AM EDT Laboratory Laboratory [facility] [place] [address] [place] [address] Darcie, Lab [address] [facility] [place] [address] 08/03/2024 11:00 AM EDT Hem/Onc Treatment Hematology/Oncology Treatment, [place] 200 [facility] [place] [address] Darcie, Chair 5 Hem Onc [facility] [address] [place] [address] 08/09/2024 11:00 AM EST Laboratory Laboratory [facility] [address] [place] [phone] Darcie, Lab [facility] 200 [facility] [place] [address] 08/10/2024 11:15 AM EST Hem/Onc Treatment Hematology/Oncology Treatment, [place] [address] [place] [phone] Darcie, Chair 8 Hem Onc [facility] 200 [facility] [place] [address] 08/10/2024 4:00 PM EST Office Visit General Internal Medicine [facility] [address] [place] [address] Selina Miller MD 200 [facility] [place] [address] 10/12/2024 3:00 PM EST Office Visit Hematology/Oncology [facility] 200 [facility] [place] [phone] Moe Fontenot CRNP [facility] [id number] Scheduled Procedures Name Priority Associated Diagnoses Date/Ti [...] filedocumented as of this encounter Care Teams Dedicated Driver Relationship Specialty Start Date End Date Selina Miller MD 200 [facility] [place] [address] PCP - General Internal Medicine 08/22/16 documented as of this encounter
--- OUTSIDE RECORDS SUMMARY | 2024-09-12 23:26 | External Medical Summary | Summary of Care ---
Author Name Unknown Organization [facility] Address [address] [facility] [place] [address] Phone [phone] Care Team Providers Care Tap Puller Name Role Phone Selina Miller MD Primary Care Provider [phone] Reason for Visit * Reason Onset Date Comments Test Results Lab 09/10/2024 Encounter Details Date Type Department Care Team (Late st Contact Info) Description 09/10/2024 Telephone Hepatology, [facility] [address] [place] [address] Sherita Gardner DO [address] [place] [address] Test Results Lab Allergies No known active [...] 2/wk-is getting counseling at [facility] 05/21, had DUI 02/18 documented as [...] encounter Miscellaneous Notes * Telephone Encounter - Anitha Bustamante RN - 09/10/2024 1:49 PM EST Attempted to call pt again, only number listed is pt . VM is full, will send MyG message but will continue to try to call the only number in the chart. * Telephone Encounter - Christina Astorga RN - 09/10/2024 1:05 PM EST Attempted to reach patient, no answer. Mailbox is full, unable to leave a message on phone. * Telephone Encounter - Sherita Gardner DO - 09/10/2024 12:48 PM EST Please call patient and advise him to go to the ER. Sodium is very low at 122. Likely from alcohol abuse. Needs ER evaluation. Sherita Gardner DO documented in this encounter Plan of Treatment Upcoming Encounters Date Type Department Care Team (Late st Contact Info) Description 09/10/2024 2:10 PM EST Laboratory Laboratory [facility] [place] [address] [place] [phone] Darcie, Lab [facility] [address] [facility] [place] [address] 09/10/2024 2:45 PM EST Hem/Onc Treatment Hematology/Oncology Treatment, [place] [address] [place] [phone] Darcie Chair 2 Hem Onc [address] [place] [address] 09/15/2024 12:00 PM EST Imaging Radiology [facility] 132 [facility] [address] 09/16/2024 1:00 PM EST Nurse Only Gastroenterology, [address], [place] [address] [place] [address] [place], Nurse Gastro [address] [place] [address] 09/16/2024 1:45 PM EST Telemedicine Addiction Medicine, [place] 21 [place] [address] Ritu Crenshaw MD [address] [place] [address] Cart, Telemed [place] [facility] 21 [place] [address] 10/12/2024 3:00 PM EST Office Visit Hematology/Oncology [facility] 200 [facility] [place] [phone] Olivia Fontenot, REYMUNDO 400 [place] [address] 10/27/2024 1:00 PM EST Office Visit General Internal Medicine [facility] 200 [facility] [place] [address] Selina Miller MD 200 [facility] [place] [address] 01/20/2025 12:40 PM EDT Office Visit Hepatology, [facility] 132 [facility] [place] [address] Sherita Gardner DO 132 [facility] [place] [address] Scheduled Procedures Name Priority Associated Diagnoses Date/Ti [...] filedocumented as of this encounter Care Teams Tap Puller Relationship Specialty Start Date End Date Selina Miller MD 200 [facility] [place] [address] PCP - General Internal Medicine 08/22/16 documented as of this encounter
--- OUTSIDE RECORDS SUMMARY | 2024-09-12 23:26 | External Medical Summary | Summary of Care ---
Author Name Unknown Organization [facility] Address [address] [place] [address] Phone [phone] Care Team Providers Care Senior Information Security Architect Name Role Phone Selina Miller MD Primary Care Provider [phone] Reason for Visit * Reason Comments Outpatient Testing Encounter Details Date Type Department Care Team (Latest Contact Info) Description 09/10/2024 2:10 PM EST Laboratory Laboratory [facility] [address] [place] [phone] [facility] 200 [facility] [place] [address] Hereditary hemochromatosis (HCC) Allergies No known active [...] to 3-6 beers 2/wk-is getting counseling at [facility] 05/21, had DUI 02/18 documented as [...] 2:45 PM EST Hem/Onc Treatment Hematology/Oncology Treatment, [place] [address] [place] [phone] Darcie, Chair 2 Hem Onc [address] [place] [address] Arrived 09/15/2024 12:00 PM EST Imaging Radiology [facility] [address] [facility] [place] [address] 09/16/2024 1:00 PM EST Nurse Only Gastroenterology, [address], [place] [address] [place] [address] [place], Nurse Gastro [address] 100 [place] [address] 09/16/2024 1:45 PM EST Telemedicine Addiction Medicine, [place] 21 [facility] [place] [address] Ritu Crenshaw MD [address] [place] [address] Cart, Telemed [place] [facility] 21 [facility] [place] [address] 10/12/2024 3:00 PM EST Office Visit Hematology/Oncology [facility] [place] 200 [facility] [place] [phone] Olivia Fontenot CRNP 400 [facility] [place] [address] 10/27/2024 1:00 PM EST Office Visit General Internal Medicine [facility] [place] [address] [place] [address] Selina Miller MD 200 [facility] [place] [address] 01/20/2025 12:40 PM EDT Office Visit Hepatology, [facility] [address] [place] [address] Sherita Gardner DO [address] [place] [address] Pending Results Name Type Priority Associated Diagnoses Date /Time CBC WITH WBC DIFFERENTIAL Lab STAT Hereditary hemochromatosis (HCC) 09/10/2024 2:15 PM EST CBC Lab STAT Hereditary hemochromatosis (HCC) 09/10/2024 2:15 PM EST DIFFERENTIAL, AUTOMATED Lab STAT Hereditary hemochromatosis (HCC) 09/10/2024 2:15 PM EST Scheduled Procedures Name Priority Associated Diagnoses [...] hemochromatosis documented in this encounter Care Teams Senior Information Security Architect Relationship Specialty Start Date End Date Selina Miller MD 200 [facility] [place] [address] PCP - General Internal Medicine 08/22/16 documented as of this encounter
--- OUTSIDE RECORDS SUMMARY | 2024-09-12 23:26 | External Medical Summary | Summary of Care ---
Author Name Unknown Organization [facility] Address [address] [facility] [place] [address] Phone [phone] Care Team Providers Care Industrial Aerial Installer Name Role Phone Selina Miller MD Primary Care Provider [phone] Reason for Visit * Reason Onset Date Comments Test Results Lab 09/10/2024 Encounter Details Date Type Department Care Team (Late st Contact Info) Description 09/10/2024 Telephone Hepatology, [facility] [address] [place] [address] Sherita Gardner DO [address] [place] [address] Test Results Lab Allergies No known active [...] beers 2/wk-is getting counseling at [facility] 05/21, had DUI 02/18 documented as [...] encounter Miscellaneous Notes * Telephone Encounter - Christina Astorga RN [...] Description 09/10/2024 2:10 PM EST Laboratory Laboratory [facility] 200 [facility] [place] [address] Darcie, Lab [facility] 200 [facility] [place] [address] 09/10/2024 2:45 PM EST Hem/Onc Treatment Hematology/Oncology Treatment, [place] [address] [facility] [address] Darcie, Chair 2 Hem Onc [facility] 200 [facility] [place] [address] 09/15/2024 12:00 PM EST Imaging Radiology [facility] 132 [facility] [place] [address] 09/16/2024 1:00 PM EST Nurse Only Gastroenterology, Chad Castañeda [address] [place] [address] Nurse Chad [address] 100 [place] [address] 09/16/2024 1:45 PM EST Telemedicine Addiction Medicine, [place] 21 [facility] [place] [address] Ritu Crenshaw MD [address] [place] [address] Cart, Telemed [place] [facility] 21 [place] [address] 10/12/2024 3:00 PM EST Office Visit Hematology/Oncology [facility] 200 [place] [address] Olivia Fontenot CRNP 400 [facility] [place] [address] 10/27/2024 1:00 PM EST Office Visit General Internal Medicine [facility] 200 [place] [address] Selina Miller MD 200 [place] [address] 01/20/2025 12:40 PM EDT Office Visit Hepatology, [facility] 132 [facility] [place] [address] Sherita Gardner DO [facility] [place] [address] Scheduled Procedures Name Priority Associated Diagnoses Date/Ti me COLONOSCOPY FLEXIBLE PROXIMA L DIAGNOSTIC Recall History of colonic polyps Health Maintenance Due Date Last Done Comments Cologuard 2015 Fecal Occult Blood Test 2015 Sigmoidoscopy 2015 Hepatitis B Vaccine (2 of 3 - 19+ 3-dose series) 02/25/2024 01/28/2024 COVID-19 Vaccine (2023-2 5 season) 2024 Zoster Vaccines (2 of [...] filedocumented as of this encounter Care Teams Industrial Aerial Installer Relationship Specialty Start Date End Date Selina Miller MD 200 [place] [address] PCP - General Internal Medicine 08/22/16 documented as of this encounter
--- OUTSIDE RECORDS SUMMARY | 2024-09-12 23:26 | External Medical Summary | Summary of Care ---
Author Name Unknown Organization [facility] Address [address] [facility] [place] [address] Phone [phone] Care Team Providers Care Vocational Training Teacher Name Role Phone Selina Miller MD Primary Care Provider [phone] Reason for Visit * Reason Onset Date Comments Test Results Lab 09/10/2024 Encounter Details Date Type Department Care Team (Late st Contact Info) Description 09/10/2024 Telephone Hepatology, [facility] [address] [place] [address] Sherita Gardner DO [address] [place] [address] Test Results Lab Allergies No known active [...] to 3-6 beers 2/wk-is getting counseling at [facility] 05/21, had DUI 02/18 documented [...] Encounter - Anitha Bustamante RN - 09/10/2024 2:50 PM EST Received TT from Raman Angeles RN in hematology/oncology that he saw our message and labs and sent pt to the ED now. * Telephone Encounter - Anitha Bustamante RN [...] Care Team (Late st Contact Info) Description 09/15/2024 12:00 PM EST Imaging Radiology [address] [place] [address] 09/16/2024 1:00 PM EST Nurse Only Gastroenterology, Chad Castañeda [address] [place] [address] [place] [address] [place], Nurse Gastro [facility] 310 [facility] [address] 100 [place] [address] 09/16/2024 1:45 PM EST [facility] 21 [place] [address] Ritu Crenshaw MD [address] [place] [address] Cart, Telemed [place] [facility] 21 [place] [address] 10/12/2024 3:00 PM EST Office Visit Hematology/Oncology [facility] 200 [facility] [place] [address] Olivia Fontenot, REYMUNDO 400 [place] [address] 10/27/2024 1:00 PM EST Office Visit General Internal Medicine [facility] 200 [facility] [place] [address] Selina Miller MD 200 [place] [address] 01/20/2025 12:40 PM EDT Office Visit Hepatology, [facility] 132 [facility] [place] [address] Sherita Gardner DO 132 [facility] [place] [address] Scheduled Procedures Name Priority Associated Diagnoses Date/Ti [...] filedocumented as of this encounter Care Teams Vocational Training Teacher Relationship Specialty Start Date End Date Selina Miller MD [address] [place] [address] PCP - General Internal Medicine 08/22/16 documented as of this encounter
--- OUTSIDE RECORDS SUMMARY | 2024-09-12 23:26 | External Medical Summary | Summary of Care ---
Author Name Unknown Organization [facility] Address [address] [facility] [place] [address] Phone [phone] Care Team Providers Care Odd Shoe Examiner Name Role Phone Selina Miller MD Primary Care Provider [phone] Encounter Details Date Type Department Care Team (Late st Contact Info) Description 09/10/2024 Telephone Hepatology, [facility] [address] [place] [address] Sherita Gardner DO [address] [place] [address] Allergies No known active allergiesdocumented as of [...] to 3-6 beers 2/wk-is getting counseling at [facility] 05/21, had DUI 02/18 documented as [...] Miscellaneous Notes * Telephone Encounter - Sherita Gardner DO [...] Description 09/10/2024 2:10 PM EST Laboratory Laboratory [facility] [address] [place] [phone] Darcie, Lab [address] [place] [address] 09/10/2024 2:45 PM EST Hem/Onc Treatment Hematology/Oncology Treatment, [place] [address] [place] [phone] Darcie, Chair 2 Hem Onc [address] [place] [address] 09/15/2024 12:00 PM EST Imaging Radiology [facility] 132 [place] [address] 09/16/2024 1:00 PM EST Nurse Only Gastroenterology, [address], [place] [address] [place] [address] [place], Nurse Gastro [address] 100 [place] [address] 09/16/2024 1:45 PM EST Telemedicine Addiction Medicine, [place] 21 [place] [address] Ritu Crenshaw MD [address] [place] [address] Johny, Telemed [place] [facility] 21 [facility] [place] [address] 10/12/2024 3:00 PM EST Office Visit Hematology/Oncology [facility] [address] [place] [address] Olivia Fontenot CRNP 400 [facility] [place] [address] 10/27/2024 1:00 PM EST Office Visit General Internal Medicine [facility] [address] [place] [address] Selina Miller MD [address] [place] [address] 01/20/2025 12:40 PM EDT Office Visit Hepatology, [facility] 132 [facility] [place] [address] Sherita Gardner DO [facility] [place] [address] Scheduled Procedures Name Priority Associated Diagnoses Date/Ti [...] filedocumented as of this encounter Care Teams Odd Shoe Examiner Relationship Specialty Start Date End Date Selina Miller MD 200 [facility] [place] [address] PCP - General Internal Medicine 08/22/16 documented as of this encounter
--- OUTSIDE RECORDS SUMMARY | 2024-09-12 23:26 | External Medical Summary | Summary of Care ---
Author Name Unknown Organization [facility] Address [address] [facility] [place] [address] Phone [phone] Care Team Providers Care Key Account Coordinator Name Role Phone Selina Miller MD Primary Care Provider [phone] Reason for Visit * Reason Onset Date Comments Test Results Lab 09/10/2024 Encounter Details Date Type Department Care Team (Late st Contact Info) Description 09/10/2024 Telephone Hepatology, [facility] [address] [place] [address] Sherita Gardner DO [address] [place] [address] Test Results Lab Allergies No known active [...] beers 2/wk-is getting [facility] 05/21, had DUI 02/18 documented as [...] Description 09/15/2024 12:00 PM EST Imaging Radiology [address] [place] [address] 09/16/2024 1:00 PM EST Nurse Only Gastroenterology, Chad Castañeda [address] [place] [address] [place] [address] [place], Nurse Gastro [facility] [address] [facility] [address] 100 [place] [address] 09/16/2024 1:45 PM EST [facility] 21 [place] [address] Ritu Crenshaw MD [address] [place] [address] Cart, Telemed [place] [facility] 21 [place] [address] 10/12/2024 3:00 PM EST Office Visit Hematology/Oncology [facility] 200 [facility] [place] [address] Olivia Fontenot, REYMUNDO 400 [place] [address] 10/27/2024 1:00 PM EST Office Visit General Internal Medicine [facility] 200 [facility] [place] [address] Selina Miller MD 200 [place] [address] 01/20/2025 12:40 PM EDT Office Visit Hepatology, [facility] 132 [facility] [place] [address] Sherita Gardner DO 132 [facility] [place] [address] Scheduled Procedures Name Priority Associated Diagnoses Date/Ti [...] filedocumented as of this encounter Care Teams Key Account Coordinator Relationship Specialty Start Date End Date Selina Miller MD [address] [place] [address] PCP - General Internal Medicine 08/22/16 documented as of this encounter
== END 2024-09-11 17:35 | disposition home or self-care (01) | DRG 641 ==
LOC: ED 16:11 → 3E 18:38 → INTOOBSV 18:38 → 3E 20:57

== ENCOUNTER 2024-09-28 04:01 | Observation (INO) ==
--- NOTE | 2024-09-28 04:30 | Emergency Department Note ---
Impression & Plan Fall, Alcohol intoxication, Altered mental status ED Provider Note CHIEF COMPLAINT: Fall, head injury, altered mental status HISTORY OF PRESENT ILLNESS: This 54-year-old male patient presents to the emergency department via private vehicle for evaluation of altered mental status. The patient has been more more confused over the past few days. He did suffer a fall this evening out of bed and struck his head he believes on the bedside table. The patient does not recall this fall. He states he does drink 6-10 beers per day and has for many years. He was recently admitted to the hospital here for hyponatremia. He is being worked up as an outpatient for possible Dyllan's disease. The patient reports a mild headache. He denies any neck pain. No numbness or tingling. He states he was able to stand and ambulate after the fall. He states that there is no visual disturbances. No chest pain or shortness of breath. Patient denies any recent fever or illness. He is complaining of chills. I did contact the patient's shortly after his presentation to the emergency department. She provides additional history. The patient has been declining over the past 6 months. He is an alcoholic and has not been eating much. Patient's states that he has missed several doctors appointments over the past few weeks. He normally has labs drawn and gets phlebotomy weekly and then follows up with his primary care provider hematology. He has missed all of these appointments recently. Patient has been refusing meals. Yesterday morning, the patient's was sleeping in a different room. She heard a crash and there 12-year-old daughter ran out to find the patient laying on the ground after falling. She is uncertain whether he tripped or had a random fall. There was no obvious injury and the patient refused to be seen in the emergency department at that time. Yesterday later in the day, Dr. Gardner called and refer the patient to the emergency department due to concerns for Dyllan's disease and further workup. The patient became argumentative and refused to come to the emergency department. At about 230 or 3 AM this morning, the patient's heard a crash and found him laying on the bathroom floor. He appeared to be bleeding and very confused. There did seem to be a trail of blood from the patient's bed to the bathroom. The patient's is uncertain if he fell out of bed, fell multiple times, or what the specific trauma was. She notes that they often sleep in separate bedrooms. She states that she contacted EMS and his blood pressure was 60/40 in addition to the altered mental status. The patient's notes that he has been more unstable and altered over the past several weeks. He was recently admitted due to hyponatremia and hypokalemia. He does have a history of hemochromatosis and alcohol use disorder. She states he was to have a scan of his liver completed to evaluate for cirrhosis, but missed this appointment about 2 weeks ago. Per the patient's , the patient has not had any recent illness or fever that she is aware of. She states that he does spend most of his time in bed. He has not complained of any chest pain or shortness of breath. History provided by: Patient REVIEW OF SYSTEMS: A 10 system review of systems was performed with positives and pertinent negatives listed in the history of present illness. All other systems were reviewed and are negative. ALLERGIES: NKDA PHYSICAL EXAM: VITALS: Vitals are noted on the nurse's note and reviewed by myself. Patient was tachycardic. He is not hypotensive. GENERAL: This is a 54-year-old male, in no acute distress, nondiaphoretic, well- developed well-nourished. SKIN: The skin was without rashes, erythema, edema, or bruising. There is no tenting of the skin. Capillary refill less than 2 seconds. HEAD: Normocephalic atraumatic. EARS: External auditory canals clear, tympanic membranes pearly pena without erythema or effusion bilaterally. No hemotympanum. Negative higgins sign EYES: Pupils equal round and reactive to light and accommodation. Conjunctivae without injection, sclerae without icterus. Extraocular movements intact. NOSE: Dried blood from the right naris, but no active bleeding. Patent, turbinates without inflammation or discharge. No sinus tenderness. MOUTH: Mucous membranes moist. Tonsils are not enlarged. Pharynx without erythema or exudate. Uvula midline. Airway patent. Tongue does not deviate. NECK: Supple without nuchal rigidity. No lymphadenopathy. Cervical spine is nontender. No JVD. HEART: Regular rate and rhythm without murmurs gallops or rubs. LUNGS: Clear to auscultation bilaterally without wheezes, rales or rhonchi. No retractions or accessory muscle use. ABDOMEN: Positive bowel sounds x 4. Soft, nontender, without masses or organomegaly. Palma sign negative. No guarding or rebound tenderness. MUSCULOSKELETAL: No muscle atrophy, erythema, or edema noted. Full range of motion without joint tenderness in all extremities. No tenderness to palpation. Normal gait. Strength 5/5 throughout. NEURO: Patient was alert and oriented to person place and time. No focal neurological deficits. 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 The monitor showed a sinus tachycardia at a ventricular rate of 115 bpm, per my interpretation. EKG was reviewed by myself and found to be normal sinus rhythm at a rate of 99 beats per minute and per my interpretation reveals no ST elevation or depression. No T wave inversion. No prior EKG available for comparison. Imaging as interpreted by myself and the radiologist revealed nasal bone fracture, no ICH, and possible subluxation of the dens, with radiologist interpretation as above. EMERGENCY DEPARTMENT COURSE: The patient was seen and evaluated as above. The patient is altered. He admits to drinking beer throughout the evening and does not recall the fall. Per EMS report, the patient was hypotensive and confused upon their arrival. There was blood coming from his nose. The patient has no recollection of the fall. IV access was obtained, labs were drawn. Per my interpretation, there was no leukocytosis. Hemoglobin is 13.6, hematocrit 38.1. Platelet count is low at 100,000. INR 1.2. Patient is mildly hyponatremic at 130, anion gap elevated at 14, creatinine is 1. ALT and alkaline phosphatase are elevated. AST was not performed due to hemolysis. Troponin is 11.2. Lipase is 45. Urinalysis negative for blood or evidence of infection. Alcohol is elevated at 107.2. CT imaging of the head, face, cervical spine, as well as x-ray of the chest and pelvis were completed and reviewed by myself radiologist as noted. Radiologist notes concern for a nasal bone fracture as well as possible subluxation of the dens. At this time, I did contact the patient's and spoke with her regarding the history. Please see HPI regarding this. MRI was ordered to further evaluate the cervical spine injury. The patient remained in a cervical collar. The patient was signed out to REYMUNDO Lopez at shift change pending MRI. Biofire testing is pending as well, given the patient's complaint of chills. Please see Maria D's dictation regarding final disposition and plan. Case was discussed with the attending physician. I attest that I have personally reviewed the patient medication list. I attest that I have reviewed the patient's blood pressure and it was found to be normal GCS: 15 In the evaluation and treatment of this patient the following differential diagnoses were entertained: Fracture, dislocation, contusion, intra-abdominal, pneumothorax, electrolyte abnormality, metabolic abnormality, intrathoracic, intracranial, neurologic, compartment syndrome, rhabdomyolysis, as well as other pathologies. The chart was completed utilizing [employer] Speech voice recognition software. Grammatical errors, random word insertions, pronoun errors, and incomplete sentences are an occasional consequence of this system due to software limitations, ambient noise, and hardware issues. Any formal questions or concerns about the content, text, or information contained within the body of this dictation should be directly addressed to the provider for clarification. Past Med/Surg History Problem List (Updated 09/28/24 @ 06:58 by Charisse Vuong PA-C) Altered mental status (Acute) Alcohol intoxication (Acute) Fall (Acute) Medical History Hypokalemia Hyponatremia Alcohol use disorder Hemochromatosis Social History Smoking Status: Former smoker Feels Safe at Home: Yes Results & Data (ED) Vital Signs Vital Signs - 24 hr 09/28/24 04:05 09/28/24 04:10 09/28/24 05:00 Temperature 36.5 C Temperature Source Oral Pulse Rate 115 H 115 H 96 H Respiratory Rate 20 18 Blood Pressure 126/88 124/86 Blood Pressure Mean 100 97 Pulse Oximetry 100 97 Oxygen Delivery Method Room Air Sepsis Recent Fever Within 48 Hours No Sepsis New/Unexplained Change in Mental Status N/A Sepsis Action Taken by Nursing No Action Required 09/28/24 06:00 Temperature Temperature Source Pulse Rate 106 H Respiratory Rate 18 Blood Pressure 109/84 Blood Pressure Mean 92 Pulse Oximetry 95 Oxygen Delivery Method Sepsis Recent Fever Within 48 Hours Sepsis New/Unexplained Change in Mental Status Sepsis Action Taken by Nursing Laboratory Data 09/28/24 04:16 09/28/24 04:16 Lab Results 09/28/24 09/28/24 09/28/24 Range/Units 04:16 04:18 04:25 WBC 3.68 L (4.8-10.8) K/ul RBC 4.21 L (4.70-6.10) M/uL Hgb 13.6 L (14.0-18.0) g/dl POC Hgb 16.0 (14.0-18.0) g/dl Hct 38.1 L (42.0-52.0) % POC Hct 47 (42-52) % MCV 90.5 (80.0-100.0) fL MCH 32.3 (25.0-34.0) pg MCHC 35.7 (32.0-36.0) g/dL RDW Std Deviation 43.0 (36.4-46.3) fL RDW Coeff of Edith 13.0 (11.5-14.5) % Plt Count 100 L (130-400) K/uL MPV 10.5 (9.4-12.4) fL Immature Gran % (Auto) 0.5 % Neut % (Auto) 53.0 % Lymph % (Auto) 39.4 % [place] % (Auto) 6.8 % Eos % (Auto) 0.0 % Baso % (Auto) 0.3 % Neut # (Auto) 1.95 (1.40-6.50) K/uL Lymph # (Auto) 1.45 (1.20-3.40) K/uL [place] # (Auto) 0.25 (0.11-0.59) K/uL Eos # (Auto) 0.00 (0.00-0.50) K/uL Baso # (Auto) 0.01 (0.00-0.20) K/uL Immature Gran # (Auto) 0.02 (0.01-0.20) K/uL PT 12.7 H (9.0-12.0) Seconds INR 1.2 H (0.9-1.1) APTT 23 (21-31) Seconds PTT Ratio 0.9 POC Sodium 130 L (135-144) mmol/L Sodium 130 L (136-145) mmol/L POC Potassium 3.8 (3.3-5.0) mmol/L Potassium TNP POC Chloride 90 L (101-112) mmol/L Chloride 89 L (98-107) mmol/L Carbon Dioxide 27 (21-32) mmol/L POC Total CO2 31 (24-31) mmol/L Anion Gap 14 H (3-11) POC Anion Gap 14.0 L (16-25) mmol/L POC BUN < 3 L (7-18) mg/dl BUN 2 L (6-23) mg/dl Creatinine 1.00 (0.6-1.4) mg/dl POC Creatinine 1.3 (0.6-1.3) mg/dl Est Cr Clr Drug Dosing 79.0 ml/min eGFR 89.44 BUN/Creatinine Ratio 2.0 L (10-20) Glucose 99 (70-99(Fasting)) mg/dl POC Glucose (other) 146 H (70-99) mg/dl Calcium 8.7 (8.6-10.3) mg/dl POC Ioniz Calcium Yo 1.02 L (1.12-1.32) mmol/l Total Bilirubin 1.3 H (0.2-1.0) mg/dl AST TNP ALT 128 H (7-52) U/L Alkaline Phosphatase 252 H (34-104) U/L Ammonia Troponin I High Sens 11.2 (0-20) pg/ml Total Protein 6.1 (6.0-8.3) gm/dl Albumin 3.3 L (3.4-5.0) gm/dl Globulin 2.8 (2.5-4.0) gm/dl Albumin/Globulin Ratio 1.2 (0.9-2) Lipase 45 (11-82) U/L Urine Color Urine Appearance (Clear) Urine pH (4.5-7.5) Ur Specific [place] (1.000-1.030) Urine Protein (Negative) Urine Glucose (UA) (Negative) Urine Ketones (Negative) Urine Blood (Negative) Urine Nitrite (Negative) Urine Bilirubin (Negative) Urine Urobilinogen (Negative) Ur Leukocyte Esterase (Negative) Urine Opiates Screen (Neg) Ur Methadone, Qual (Neg) Urine Fentanyl Screen (Neg) Urine Barbiturates (Neg) Ur Phencyclidine (PCP) (Neg) U Amphetamin/Meth Scrn (Neg) MDMA (Ecstasy) Screen (Neg) U Benzodiazepines Scrn (Neg) Ur Cocaine Metabolite (Neg) U Marijuana (THC) Screen (Neg) Ethyl Alcohol mg/dL 107.2 H (<10.0) mg/dl Blood Type Antibody Screen 09/28/24 09/28/24 09/28/24 Range/Units 04:30 06:15 06:22 WBC (4.8-10.8) K/ul RBC (4.70-6.10) M/uL Hgb (14.0-18.0) g/dl POC Hgb (14.0-18.0) g/dl Hct (42.0-52.0) % POC Hct (42-52) % MCV (80.0-100.0) fL MCH (25.0-34.0) pg MCHC (32.0-36.0) g/dL RDW Std Deviation (36.4-46.3) fL RDW Coeff of Edith (11.5-14.5) % Plt Count (130-400) K/uL MPV (9.4-12.4) fL Immature Gran % (Auto) % Neut % (Auto) % Lymph % (Auto) % [place] % (Auto) % Eos % (Auto) % Baso % (Auto) % Neut # (Auto) (1.40-6.50) K/uL Lymph # (Auto) (1.20-3.40) K/uL [place] # (Auto) (0.11-0.59) K/uL Eos # (Auto) (0.00-0.50) K/uL Baso # (Auto) (0.00-0.20) K/uL Immature Gran # (Auto) (0.01-0.20) K/uL PT (9.0-12.0) Seconds INR (0.9-1.1) APTT (21-31) Seconds PTT Ratio POC Sodium (135-144) mmol/L Sodium (136-145) mmol/L POC Potassium (3.3-5.0) mmol/L Potassium POC Chloride (101-112) mmol/L Chloride (98-107) mmol/L Carbon Dioxide (21-32) mmol/L POC Total CO2 (24-31) mmol/L Anion Gap (3-11) POC Anion Gap (16-25) mmol/L POC BUN (7-18) mg/dl BUN (6-23) mg/dl Creatinine (0.6-1.4) mg/dl POC Creatinine (0.6-1.3) mg/dl Est Cr Clr Drug Dosing ml/min eGFR BUN/Creatinine Ratio (10-20) Glucose (70-99(Fasting)) mg/dl POC Glucose (other) (70-99) mg/dl Calcium (8.6-10.3) mg/dl POC Ioniz Calcium Yo (1.12-1.32) mmol/l Total Bilirubin (0.2-1.0) mg/dl AST ALT (7-52) U/L Alkaline Phosphatase (34-104) U/L Ammonia TNP Troponin I High Sens (0-20) pg/ml Total Protein (6.0-8.3) gm/dl Albumin (3.4-5.0) gm/dl Globulin (2.5-4.0) gm/dl Albumin/Globulin Ratio (0.9-2) Lipase (11-82) U/L Urine Color Yellow Urine Appearance Clear (Clear) Urine pH 7.5 (4.5-7.5) Ur Specific [place] 1.012 (1.000-1.030) Urine Protein Negative (Negative) Urine Glucose (UA) Negative (Negative) Urine Ketones Negative (Negative) Urine Blood Negative (Negative) Urine Nitrite Negative (Negative) Urine Bilirubin Negative (Negative) Urine Urobilinogen Negative (Negative) Ur Leukocyte Esterase Negative (Negative) Urine Opiates Screen Neg (Neg) Ur Methadone, Qual Neg (Neg) Urine Fentanyl Screen Neg (Neg) Urine Barbiturates Neg (Neg) Ur Phencyclidine (PCP) Neg (Neg) U Amphetamin/Meth Scrn Neg (Neg) MDMA (Ecstasy) Screen Pos H (Neg) U Benzodiazepines Scrn Neg (Neg) Ur Cocaine Metabolite Neg (Neg) U Marijuana (THC) Screen Neg (Neg) Ethyl Alcohol mg/dL (<10.0) mg/dl Blood Type O Negative Antibody Screen NEGATIVE Administered Medications Discontinued Medications Sodium Chloride (Nss) 1,000 mls @ 999 mls/hr IV .[id number] ONE Stop: 09/28/24 05:50 Last Infusion: 09/28/24 05:58 Dose: Infused Documented By: Admin: 09/28/24 04:57 Dose: 999 mls/hr Documented By: REENA Imaging Data Radiologist's Impression: Chest X-Ray 09/28/24 04:16 EXAM: XR chest 1V portable CLINICAL HISTORY: TRAUMA. FALL OUT OF BED. TECHNIQUE: An X-ray image of the chest is obtained in AP projection. COMPARISON: No prior studies are available for comparison. FINDINGS: Pulmonary Parenchyma: Bilateral mild prominent broncho vascular markings. No evidence of consolidation, collapse, or focal opacities. No pulmonary nodules are identified. No evidence of pleural effusion or pleural thickening. No pneumothorax. Heart and Mediastinum: Heart size and shape are normal. No mediastinal widening or masses. No hilar or mediastinal lymphadenopathy. Bony Thorax: Bony thorax appears intact without fractures or deformities. Soft Tissues: Soft tissues overlying the chest wall are unremarkable. IMPRESSION: 1. Bilateral mild prominent broncho vascular markings. No acute cardiopulmonary abnormalities are identified. Electronically signed by Josephine Solo 09-28-2024 05:43 AM Pelvis X-Ray 09/28/24 04:16 EXAM: XR pelvis 1-2V routine CLINICAL HISTORY: TRAUMA. FALL OUT OF BED. TECHNIQUE: X-ray image of the pelvis was obtained in anteroposterior (AP) projection. COMPARISON: No prior studies are available for comparison. FINDINGS: Bone Structure: Pelvic bones, including the iliac wings, ischium, pubis, and sacrum, are normal and intact. No evidence of fractures, dislocations, or significant osseous lesions. Hip Joints: Hip joints are normal with preserved joint spaces. No evidence of hip dislocation, subluxation, or significant degenerative changes. Acetabulum: Acetabular structures appear normal and intact. No signs of acetabular fracture or dysplasia. Symphysis Pubis: Symphysis pubis is normal and intact. No evidence of separation or widening. Sacroiliac Joints: Sacroiliac joints appear normal and unremarkable. No evidence of sacroiliitis or significant degenerative changes. Soft Tissues: Visualized soft tissues are normal and unremarkable. No soft tissue swelling, calcifications, or masses. Additional Findings: No other significant abnormalities were noted. IMPRESSION: 1. Normal X-ray of the pelvis. 2. No evidence of acute fractures, dislocations, or significant degenerative changes. Disclaimer: A subtle bone abnormality or fracture may not be readily apparent on X-rays, thus clinical correlation and further imaging including follow-up CT, MRI, or follow-up X-rays are advised as needed. Electronically signed by Josephine Solo 09-28-2024 05:[address] 09/28/24 04:17 EXAM: CT cervical spine wo con CLINICAL HISTORY: Altered mental status, n/v, dizziness, and a nosebleed. On arrival at his house, pt was unable to answer any questions but "has greatly improved since then." Pt believed to have fallen out of bed, and dry blood noted around the nose. Denies use of blood thinners. TECHNIQUE: A CT scan of the cervical spine was performed without the administration of intravenous contrast. Contiguous axial images were obtained from the skull base to the upper thoracic spine. Coronal and sagittal reformatted images were also reviewed. One of the following dose-reduction techniques was utilized for this exam. Automated exposure control, adjustment of the mA and/or kV according to patient size, and use of iterative reconstruction. COMPARISON: None. FINDINGS: No fractures were noted. Slight narrowing of the distance between the dens and right lateral mass of C1 compared to the distance of the dens and the left lateral mass of C1, suggestive of right rotatory subluxation of the dens of C2 or non-centralized head position in relation to spine during image acquisition. C3 small sclerotic bone lesion; possibly bone island. Straightened cervical lordosis suggesting muscle spasm. Degenerative changes in the cervical spine as evidenced by marginal osteophytosis with reduced intervertebral disc spaces at multiple levels of the cervical spine. No vertebral wedging or collapse. A small calcific focus is noted along the posterior aspect of C4/5. C4-C5, C5-C6, and C6-C7 posterior disc bulge osteophyte complexes are seen indenting the thecal sac and encroaching upon corresponding neural exit foramina and exiting nerve roots bilaterally. Degenerative changes at multiple facets and uncovertebral joints bilaterally. Reduced bone density. Prevertebral Soft Tissues: The prevertebral soft tissues are normal in thickness without evidence of mass or abnormal fluid collection. IMPRESSION: 1. No definite fractures were noted. 2. Slight narrowing of the distance between the dens and right lateral mass of C1 compared to the distance of the dens and the left lateral mass of C1, either representing a non-centralized head position in relation to the spine during image acquisition or right rotatory subluxation of the dens of C2. 3. Straightened cervical lordosis suggesting muscle spasm. 4. C4-C5, C5-C6, and C6-C7 posterior disc bulge osteophyte complexes 5. Degenerative changes at multiple facets and uncovertebral joints bilaterally. Electronically signed by Josephine Solo 09-28-2024 06:[address] 09/28/24 04:17 EXAM: CT facial bones wo con CLINICAL HISTORY: c/o altered mental status, n/v, dizziness, and a nosebleed. On arrival to his house, pt was unable to answerany questions but "has greatly improved since then." Pt believed to have fallen out of bed, dry blood noted around nose. Denies use of blood thinners. TECHNIQUE: Non-Contrast CT scan of the maxillofacial bones was performed, with sagittal and coronal multiplanar reconstruction. One of the following dose reduction techniques were utilized for this exam: Automated exposure control, adjustment of the mA and/or kV according to patient size, and use of iterative reconstruction. COMPARISON: None. FINDINGS: There is subtle lucency noted in right nasal bone this may represent prominent suture however considering the history of patient possibility of small undisplaced fracture cannot be excluded, would recommend local examination. No other fracture is noted No significant soft tissue injury seen Sinuses: Bilateral maxillary sinusitis. The rest of the paranasal sinuses are clear. Osteomeatal complexes are patent. Nasal Cavity: Nasal cavity is unremarkable. No masses or polyps. Deviated nasal septum to the left. Orbits: Orbits are normal in size and shape. Extraocular muscles and optic nerves are normal. No evidence of orbital masses or proptosis. Maxilla and Mandible: Normal appearance of the maxillary and mandibular bones. No fractures, lytic or sclerotic lesions. Facial Bones: No fractures or deformities. Zygomatic arches, nasal bones, and other facial structures are intact. Soft Tissues: Soft tissues of the face are normal. No abnormal masses, swelling, or lymphadenopathy. Temporomandibular Joints (TMJ): Normal appearance of the TMJ bilaterally. No evidence of joint effusion, degenerative changes, or dislocation. IMPRESSION: 1. Subtle lucency noted in right nasal bone this may represent prominent suture, however considering the history of patient possibility of small undisplaced fracture cannot be excluded, would recommend local examination. 2. No other fracture is noted. 3. No significant soft tissue injury seen. Electronically signed by Josephine Solo 09-28-2024 06:[address] 09/28/24 04:17 EXAM: CT head/brain wo con CLINICAL HISTORY: C/o altered mental status, N/V, dizziness, and a nosebleed. Fallen out of bed. TECHNIQUE: Axial non-contrast CT scan of the brain was performed from the skull base to the high parietal region with coronal and sagittal reformats. One of the following dose reduction techniques were utilized for this exam: Automated exposure control, adjustment of the mA and/or kV according to patient size, use of iterative reconstruction. COMPARISON: None. FINDINGS: Brain Parenchyma: Normal attenuation of the cerebral hemispheres, cerebellum, and brainstem. No evidence of hemorrhage, or mass effect. No abnormal areas of hypo- or hyperattenuation. Ventricular System: Prominent ventricular system and extra-axial CSF spaces. Subarachnoid Spaces: No evidence of subarachnoid hemorrhage or extra-axial fluid collections. Mastoid Air Cells: Clear mastoid air cells. No evidence of mastoiditis. Skull: Normal skull morphology. IMPRESSION: 1. No acute cerebral abnormality. 2. Mild brain involutional changes. Electronically signed by Josephine Solo 09-28-2024 05:53 AM Discharge Plan Visit Data Chief Complaint: Fall Stated Complaint: FELL OUT OF BED, ALTERED, HYPOTENSION ED Provider: Melissa Barros ED Midlevel Provider: Charisse Vuong Discharge Problem: Fall, Alcohol intoxication, Altered mental status Patient Disposition: Still a Patient Forms Stand Alone Forms: [facility] Referrals Referrals: PCP,NO [Physician] -
[2024-09-28 04:37] LABS: iSTAT Blood Urea Nitrogen < 3 mg/dl (7-18); iSTAT Carbon Dioxide 31 mmol/L (24-31); iSTAT Chloride 90 mmol/L (101-112); iSTAT Creatinine 1.3 mg/dl (0.6-1.3); iSTAT Glucose 146 mg/dl (70-99); iSTAT Hematocrit 47 % (42-52); iSTAT Ionized Calcium 1.02 mmol/l (1.12-1.32); iSTAT Potassium 3.8 mmol/L (3.3-5.0); iSTAT Sodium 130 mmol/L (135-144)
[2024-09-28 04:39] LABS: Basophils # (auto) 0.01 K/uL (0.00-0.20); Basophils % (auto) 0.3 %; Hematocrit (blood only) 38.1 % (42.0-52.0); Hemoglobin 13.6 g/dl (14.0-18.0); Immature Granulocytes # (auto) 0.02 K/uL (0.01-0.20); Immature Granulocytes % (auto) 0.5 %; Lymphocytes # (auto) 1.45 K/uL (1.20-3.40); Lymphocytes % (auto) 39.4 %; Mean Corpuscular Hemoglobin 32.3 pg (25.0-34.0); Mean Corpuscular Hgb Conc 35.7 g/dL (32.0-36.0); Mean Corpuscular Volume 90.5 fL (80.0-100.0); Mean Platelet Volume 10.5 fL (9.4-12.4); Monocytes # (auto) 0.25 K/uL (0.11-0.59); Monocytes % (auto) 6.8 %; Neutrophils # (auto) 1.95 K/uL (1.40-6.50); Platelet Count 100 K/uL (130-400); Red Blood Count 4.21 M/uL (4.70-6.10); White Blood Count 3.68 K/ul (4.8-10.8)
[2024-09-28] MEDS: SODIUM CHLORIDE 0.9% 1,000 ML IV ONE (04:57)
[2024-09-28 05:14] LABS: INR 1.2 (0.9-1.1); Partial Thromboplastin Ratio 0.9; Partial Thromboplastin Time 23 Seconds (21-31); Prothrombin Time 12.7 Seconds (9.0-12.0)
[2024-09-28 05:21] LABS: Alanine Aminotransferase 128 U/L (7-52); Albumin Globulin Ratio 1.2 (0.9-2); Albumin Level 3.3 gm/dl (3.4-5.0); Alkaline Phosphatase 252 U/L (34-104); Anion Gap 14 (3-11); Bilirubin,Total 1.3 mg/dl (0.2-1.0); Blood Urea Nitrogen 2 mg/dl (6-23); Calcium 8.7 mg/dl (8.6-10.3); Carbon Dioxide 27 mmol/L (21-32); Chloride 89 mmol/L (98-107); Globulin 2.8 gm/dl (2.5-4.0); Glucose 99 mg/dl (70-99(Fasting)); Lipase 45 U/L (11-82); Sodium 130 mmol/L (136-145); Total Protein 6.1 gm/dl (6.0-8.3); Troponin I High Sensitivity 11.2 pg/ml (0-20)
--- NOTE | 2024-09-28 05:40 | XRay Report ---
EXAM: XR pelvis 1-2V routine CLINICAL HISTORY: TRAUMA. FALL OUT OF BED. TECHNIQUE: X-ray image of the pelvis was obtained in anteroposterior (AP) projection. COMPARISON: No prior studies are available for comparison. FINDINGS: Bone Structure: Pelvic bones, including the iliac wings, ischium, pubis, and sacrum, are normal and intact. No evidence of fractures, dislocations, or significant osseous lesions. Hip Joints: Hip joints are normal with preserved joint spaces. No evidence of hip dislocation, subluxation, or significant degenerative changes. Acetabulum: Acetabular structures appear normal and intact. No signs of acetabular fracture or dysplasia. Symphysis Pubis: Symphysis pubis is normal and intact. No evidence of separation or widening. Sacroiliac Joints: Sacroiliac joints appear normal and unremarkable. No evidence of sacroiliitis or significant degenerative changes. Soft Tissues: Visualized soft tissues are normal and unremarkable. No soft tissue swelling, calcifications, or masses. Additional Findings: No other significant abnormalities were noted. IMPRESSION: 1. Normal X-ray of the pelvis. 2. No evidence of acute fractures, dislocations, or significant degenerative changes. Disclaimer: A subtle bone abnormality or fracture may not be readily apparent on X-rays, thus clinical correlation and further imaging including follow-up CT, MRI, or follow-up X-rays are advised as needed. Electronically signed by Josephine Solo 09-28-2024 05:39 AM
--- NOTE | 2024-09-28 05:44 | XRay Report ---
EXAM: XR chest 1V portable CLINICAL HISTORY: TRAUMA. FALL OUT OF BED. TECHNIQUE: An X-ray image of the chest is obtained in AP projection. COMPARISON: No prior studies are available for comparison. FINDINGS: Pulmonary Parenchyma: Bilateral mild prominent broncho vascular markings. No evidence of consolidation, collapse, or focal opacities. No pulmonary nodules are identified. No evidence of pleural effusion or pleural thickening. No pneumothorax. Heart and Mediastinum: Heart size and shape are normal. No mediastinal widening or masses. No hilar or mediastinal lymphadenopathy. Bony Thorax: Bony thorax appears intact without fractures or deformities. Soft Tissues: Soft tissues overlying the chest wall are unremarkable. IMPRESSION: 1. Bilateral mild prominent broncho vascular markings. No acute cardiopulmonary abnormalities are identified. Electronically signed by Josephine Solo 09-28-2024 05:43 AM
--- NOTE | 2024-09-28 05:53 | CT Scan Report ---
EXAM: CT head/brain wo con CLINICAL HISTORY: C/o altered mental status, N/V, dizziness, and a nosebleed. Fallen out of bed. TECHNIQUE: Axial non-contrast CT scan of the brain was performed from the skull base to the high parietal region with coronal and sagittal reformats. One of the following dose reduction techniques were utilized for this exam: Automated exposure control, adjustment of the mA and/or kV according to patient size, use of iterative reconstruction. COMPARISON: None. FINDINGS: Brain Parenchyma: Normal attenuation of the cerebral hemispheres, cerebellum, and brainstem. No evidence of hemorrhage, or mass effect. No abnormal areas of hypo- or hyperattenuation. Ventricular System: Prominent ventricular system and extra-axial CSF spaces. Subarachnoid Spaces: No evidence of subarachnoid hemorrhage or extra-axial fluid collections. Mastoid Air Cells: Clear mastoid air cells. No evidence of mastoiditis. Skull: Normal skull morphology. IMPRESSION: 1. No acute cerebral abnormality. 2. Mild brain involutional changes. Electronically signed by Josephine Solo 09-28-2024 05:53 AM
[2024-09-28 06:32] LABS: Appearance Urine Clear (Clear); Bilirubin Urine Negative (Negative); Blood Urine Negative (Negative); Color Urine Yellow; Glucose Urine UA Negative (Negative); Ketones Urine Negative (Negative); Leukocyte Esterase Urine Negative (Negative); Nitrite Urine Negative (Negative); Protein Urine Negative (Negative); Specific Gravity Urine 1.012 (1.000-1.030); Urobilinogen Urine Negative (Negative); pH Urine 7.5 (4.5-7.5)
--- NOTE | 2024-09-28 06:33 | CT Scan Report ---
EXAM: CT facial bones wo con CLINICAL HISTORY: c/o altered mental status, n/v, dizziness, and a nosebleed. On arrival to his house, pt was unable to answerany questions but "has greatly improved since then." Pt believed to have fallen out of bed, dry blood noted around nose. Denies use of blood thinners. TECHNIQUE: Non-Contrast CT scan of the maxillofacial bones was performed, with sagittal and coronal multiplanar reconstruction. One of the following dose reduction techniques were utilized for this exam: Automated exposure control, adjustment of the mA and/or kV according to patient size, and use of iterative reconstruction. COMPARISON: None. FINDINGS: There is subtle lucency noted in right nasal bone this may represent prominent suture however considering the history of patient possibility of small undisplaced fracture cannot be excluded, would recommend local examination. No other fracture is noted No significant soft tissue injury seen Sinuses: Bilateral maxillary sinusitis. The rest of the paranasal sinuses are clear. Osteomeatal complexes are patent. Nasal Cavity: Nasal cavity is unremarkable. No masses or polyps. Deviated nasal septum to the left. Orbits: Orbits are normal in size and shape. Extraocular muscles and optic nerves are normal. No evidence of orbital masses or proptosis. Maxilla and Mandible: Normal appearance of the maxillary and mandibular bones. No fractures, lytic or sclerotic lesions. Facial Bones: No fractures or deformities. Zygomatic arches, nasal bones, and other facial structures are intact. Soft Tissues: Soft tissues of the face are normal. No abnormal masses, swelling, or lymphadenopathy. Temporomandibular Joints (TMJ): Normal appearance of the TMJ bilaterally. No evidence of joint effusion, degenerative changes, or dislocation. IMPRESSION: 1. Subtle lucency noted in right nasal bone this may represent prominent suture, however considering the history of patient possibility of small undisplaced fracture cannot be excluded, would recommend local examination. 2. No other fracture is noted. 3. No significant soft tissue injury seen. Electronically signed by Josephine Solo 09-28-2024 06:32 AM
--- NOTE | 2024-09-28 06:33 | CT Scan Report ---
EXAM: CT cervical spine wo con CLINICAL HISTORY: Altered mental status, n/v, dizziness, and a nosebleed. On arrival at his house, pt was unable to answer any questions but "has greatly improved since then." Pt believed to have fallen out of bed, and dry blood noted around the nose. Denies use of blood thinners. TECHNIQUE: A CT scan of the cervical spine was performed without the administration of intravenous contrast. Contiguous axial images were obtained from the skull base to the upper thoracic spine. Coronal and sagittal reformatted images were also reviewed. One of the following dose-reduction techniques was utilized for this exam. Automated exposure control, adjustment of the mA and/or kV according to patient size, and use of iterative reconstruction. COMPARISON: None. FINDINGS: No fractures were noted. Slight narrowing of the distance between the dens and right lateral mass of C1 compared to the distance of the dens and the left lateral mass of C1, suggestive of right rotatory subluxation of the dens of C2 or non-centralized head position in relation to spine during image acquisition. C3 small sclerotic bone lesion; possibly bone island. Straightened cervical lordosis suggesting muscle spasm. Degenerative changes in the cervical spine as evidenced by marginal osteophytosis with reduced intervertebral disc spaces at multiple levels of the cervical spine. No vertebral wedging or collapse. A small calcific focus is noted along the posterior aspect of C4/5. C4-C5, C5-C6, and C6-C7 posterior disc bulge osteophyte complexes are seen indenting the thecal sac and encroaching upon corresponding neural exit foramina and exiting nerve roots bilaterally. Degenerative changes at multiple facets and uncovertebral joints bilaterally. Reduced bone density. Prevertebral Soft Tissues: The prevertebral soft tissues are normal in thickness without evidence of mass or abnormal fluid collection. IMPRESSION: 1. No definite fractures were noted. 2. Slight narrowing of the distance between the dens and right lateral mass of C1 compared to the distance of the dens and the left lateral mass of C1, either representing a non-centralized head position in relation to the spine during image acquisition or right rotatory subluxation of the dens of C2. 3. Straightened cervical lordosis suggesting muscle spasm. 4. C4-C5, C5-C6, and C6-C7 posterior disc bulge osteophyte complexes 5. Degenerative changes at multiple facets and uncovertebral joints bilaterally. Electronically signed by Josephine Solo 09-28-2024 06:32 AM
[2024-09-28 06:52] LABS: Amphetamines+Metham, Urine Neg (Neg); Barbiturates, Urine Neg (Neg); Benzodiazepine, Urine Neg (Neg); Cocaine, Urine Neg (Neg); Fentanyl, Urine Neg (Neg); MDMA (Ecstacy), Urine Pos (Neg); Marijuana, Urine Neg (Neg); Methadone, Urine Neg (Neg); Opiate, Urine Neg (Neg); Phencyclidine, Urine Neg (Neg)
--- NOTE | 2024-09-28 08:08 | Magnetic Resonance Report ---
CLINICAL HISTORY: abn CT, fall, possible subluxation of dens TECHNIQUE: MRI of the cervical spine is performed utilizing various T1 and T2 sequences in the axial and sagittal planes. IV contrast was not administered for this examination. Comparison: Comparison is made to CT cervical spine 09/28/2024 FINDINGS: The alignment is anatomical. C2-C3: Unremarkable. C3-C4: Broad-based posterior disc bulge is seen with mild canal stenosis and moderate bilateral neuro foraminal stenosis. C4-C5: Broad-based posterior disc bulge is seen with mild bilateral neuroforaminal stenosis. C5-C6: Broad-based posterior disc bulge is seen with moderate bilateral neuroforaminal stenosis. C6-C7: Unremarkable. C7-T1: Unremarkable. The spinal ligaments are intact, without evidence of disruption or abnormal signal intensity. The spi nal cord is normal in signal intensity and there is no evidence of cord edema. There is no evidence o f an extradural, intradural, extramedullary or intramedullary lesion. Visualized soft tissues are nor mal. Visualized brain parenchyma is normal. IMPRESSION: 1. Multilevel degenerative changes with up to mild canal stenosis and moderate bilateral neuroforami nal stenosis. 2. No subluxation of the dens or other acute abnormality ACT 112: Negative or not required by law. Electronically signed by: Niko Orona M.D. 09/28/2024 8:06 AM
--- NOTE | 2024-09-28 08:52 | Emergency Department Note ---
ED Visit Note The patient was signed out to me at shift change from Charisse Vuong PA-C pending MRI results. MRI results show no significant abnormality, and spec ifically no subluxation of the dens. I spoke with the patient regarding admission for alcohol withdrawal, treatment, and multiple falls. He was agreeable to admission to the hospital. [facility]. [facility] provided to the [facility] hospitalist, regarding the patient, who agreed to accept the patient for admission. Please refer to their documentation for further patient workup and care. .
--- NOTE | 2024-09-28 09:02 | History & Physical Report ---
Date of Service September 28, 2024 Assessment & Plan (1) Altered mental status: (2) Fall: (3) Hyponatremia: (4) Hereditary hemochromatosis: Plan This is a 54 y/o male with hereditary hemochromatosis, alcohol abuse, and tobacco use disorder who presented to the ED today with recurrent falls and increased confusion. #Altered mental status - increased confusion per family with associated falls #Alcohol abuse/alcohol withdrawal - Admit to PCU - Librium protocol for alcohol withdrawal, prn lorazepam - Seizure precautions, aspiration precautions - Thiamine/folic acid #Hyponatremia - ongoing issue, attributed to beer potomania last admission. 130 today, was 134 at d/c earlier this month Follow labs while admitted and not drinking EtOH Received 1L of IVF (NSS) in the ED - holding additional IVF for now. 2000 ml fluid restriction Repeat BMP at 1600 and in AM #Dehydration/poor oral intake Check orthostatics #Recurrent falls Fall precautions Eventual PT/OT evaluations Pt seen and reviewed with attending physician, Dr. Bella, Plan of care discussed and as outlined above. Code status: full code DVT prophylaxis: Gen Walsh PA-C History of Present Illness Chief Complaint: falls, increased confusion Primary Care Provider: Selina Miller MD This is a 54 y/o male with hereditary hemochromatosis, alcohol abuse, and tobacco use disorder who presented to the ED today with recurrent falls and increased confusion. History is obtained from the patient and review of his chart, which contains additional history from his spouse. His family reports that pt has been more confused than usual the last few days. Pt was admitted to this facility 09/10-09/11 for hyponatremia thought secondary to beer potomania co rrected to 134 on discharge. Since discharge, pt has missed multiple appointments. He reports multiple falls over the last few days, most recently having fallen out of bed early this morning. He does not recall what caused this to happen. He reports another fall yesterday but again is unsure what occured - his 12 year old daughter reportedly found him on the floor. He has apparently not been eating much but does continue to drink 3-7 alcoholic drinks per day (cocktails, beer). His last drink was last night. He has a history of mild alcohol withdrawal symptoms but denies history of seizures. He denies hematemesis or melena. He does report some hematochezia related to a hemorrhoid but not significant. He complains of HAs, dizziness at times. Urine has been darker than usual but no dysuria or hematuria. He has a history of hereditary hemochromatosis for which he follows with hematology - last phlebotomy was a couple weeks ago. Allergies Allergy/AdvReac Type Severity Reaction Status Date / Time No Known Allergies Allergy Verified 09/28/24 07:21 Home Medications Medication Instructions Recorded Confirmed Type L.acidop,casei,lactis,rham-B.lact,gaviota 1 cap PO DAILY #7 caps 07/20/24 09/28/24 Rx 625 mg (10 billion cell) capsule (Advanced Probiotic) folic acid 1 mg tablet 1 mg PO QAM #30 tabs 07/20/24 09/28/24 Rx thiamine HCl (vitamin B1) 100 mg 100 mg PO DAILY #30 tabs 07/20/24 09/28/24 Rx tablet pantoprazole 20 mg tablet,delayed 20 mg PO QAM 09/10/24 09/28/24 History release Past Med/Surg History Problem List (Updated 09/28/24 @ 09:34 by Adenike Walsh PA-C) Altered mental status (Acute) Alcohol intoxication (Acute) Fall (Acute) Elevated LFTs Hyponatremia (Acute) Anemia (Acute) Abdominal pain (Acute) Acute upper GI bleed (Acute) UGIB (upper gastrointestinal bleed) Open fracture of left toe (Acute) Toe fracture, left (Acute) Medical History (Updated 09/28/24 @ 09:34 by Adenike Walsh PA-C) Hypokalemia Hyponatremia Alcohol use disorder Hemochromatosis Transaminitis Elevated transaminase level Alcoholism Hereditary hemochromatosis Hemochromatosis Surgical History History of dental surgery History of colonoscopy History of esophagogastroduodenoscopy Family History Father Brain cancer Mother Thyroid cancer Brother Hemochromatosis Uncle Prostate cancer Other Kidney stones Social History Smoking Status: Never smoker Tobacco Type: Smokeless Tobacco (Dip or Chew) Second Hand Exposure: No; Do You Dip or Chew Tobacco: Yes; Tobacco Cessation Education Requested by Patient: No Hx Alcohol Use: Yes Alcohol type: hard liquor and other Hx Substance Use: No Preferred Language: [place] Communication Ability: Effective Meteorological Engineer Required: No Beliefs That Will Affect Care: None marital status: Current Living Situation: Spouse Current Living Situation Comment: lives at home with current occupational status: employed Other Information That Helps Us Care for You: No Feels Safe at Home: Yes Safety Concerns: Feels Safe At This Time Assistive Devices: None Review of Systems Review of Systems: All systems reviewed & are unremarkable except as noted in Subjective Physical Exam Physical Exam: Please see physician note for details of the physical exam. Results & Data Results & Data Vital Signs (Past 12 Hours) Vital Signs Temp Pulse Resp BP Pulse Ox O2 Del Method 09/28/24 06:00 106 H 18 109/84 95 09/28/24 05:00 96 H 18 124/86 97 09/28/24 04:10 115 H 09/28/24 04:05 36.5 C 115 H 20 126/88 100 Room Air Laboratory Results Lab Results 09/28/24 09/28/24 09/28/24 Range/Units 04:16 04:18 04:25 WBC 3.68 L (4.8-10.8) K/ul RBC 4.21 L (4.70-6.10) M/uL Hgb 13.6 L (14.0-18.0) g/dl POC Hgb 16.0 (14.0-18.0) g/dl Hct 38.1 L (42.0-52.0) % POC Hct 47 (42-52) % MCV 90.5 (80.0-100.0) fL MCH 32.3 (25.0-34.0) pg MCHC 35.7 (32.0-36.0) g/dL RDW Std Deviation 43.0 (36.4-46.3) fL RDW Coeff of Edith 13.0 (11.5-14.5) % Plt Count 100 L (130-400) K/uL MPV 10.5 (9.4-12.4) fL Immature Gran % (Auto) 0.5 % Neut % (Auto) 53.0 % Lymph % (Auto) 39.4 % Hill % (Auto) 6.8 % Eos % (Auto) 0.0 % Baso % (Auto) 0.3 % Neut # (Auto) 1.95 (1.40-6.50) K/uL Lymph # (Auto) 1.45 (1.20-3.40) K/uL Hill # (Auto) 0.25 (0.11-0.59) K/uL Eos # (Auto) 0.00 (0.00-0.50) K/uL Baso # (Auto) 0.01 (0.00-0.20) K/uL Immature Gran # (Auto) 0.02 (0.01-0.20) K/uL PT 12.7 H (9.0-12.0) Seconds INR 1.2 H (0.9-1.1) APTT 23 (21-31) Seconds PTT Ratio 0.9 POC Sodium 130 L (135-144) mmol/L Sodium 130 L (136-145) mmol/L POC Potassium 3.8 (3.3-5.0) mmol/L Potassium TNP POC Chloride 90 L (101-112) mmol/L Chloride 89 L (98-107) mmol/L Carbon Dioxide 27 (21-32) mmol/L POC Total CO2 31 (24-31) mmol/L Anion Gap 14 H (3-11) POC Anion Gap 14.0 L (16-25) mmol/L POC BUN < 3 L (7-18) mg/dl BUN 2 L (6-23) mg/dl Creatinine 1.00 (0.6-1.4) mg/dl POC Creatinine 1.3 (0.6-1.3) mg/dl Est Cr Clr Drug Dosing 79.0 ml/min eGFR 89.44 BUN/Creatinine Ratio 2.0 L (10-20) Glucose 99 (70-99(Fasting)) mg/dl POC Glucose (other) 146 H (70-99) mg/dl Calcium 8.7 (8.6-10.3) mg/dl POC Ioniz Calcium Yo 1.02 L (1.12-1.32) mmol/l Total Bilirubin 1.3 H (0.2-1.0) mg/dl AST TNP ALT 128 H (7-52) U/L Alkaline Phosphatase 252 H (34-104) U/L Ammonia Troponin I High Sens 11.2 (0-20) pg/ml Total Protein 6.1 (6.0-8.3) gm/dl Albumin 3.3 L (3.4-5.0) gm/dl Globulin 2.8 (2.5-4.0) gm/dl Albumin/Globulin Ratio 1.2 (0.9-2) Lipase 45 (11-82) U/L Urine Color Urine Appearance (Clear) Urine pH (4.5-7.5) Ur Specific [place] (1.000-1.030) Urine Protein (Negative) Urine Glucose (UA) (Negative) Urine Ketones (Negative) Urine Blood (Negative) Urine Nitrite (Negative) Urine Bilirubin (Negative) Urine Urobilinogen (Negative) Ur Leukocyte Esterase (Negative) Urine Opiates Screen (Neg) Ur Methadone, Qual (Neg) Urine Fentanyl Screen (Neg) Urine Barbiturates (Neg) Ur Phencyclidine (PCP) (Neg) U Amphetamin/Meth Scrn (Neg) MDMA (Ecstasy) Screen (Neg) U Benzodiazepines Scrn (Neg) Ur Cocaine Metabolite (Neg) U Marijuana (THC) Screen (Neg) Ethyl Alcohol mg/dL 107.2 H (<10.0) mg/dl Blood Type Antibody Screen 09/28/24 09/28/24 09/28/24 Range/Units 04:30 06:15 06:22 WBC (4.8-10.8) K/ul RBC (4.70-6.10) M/uL Hgb (14.0-18.0) g/dl POC Hgb (14.0-18.0) g/dl Hct (42.0-52.0) % POC Hct (42-52) % MCV (80.0-100.0) fL MCH (25.0-34.0) pg MCHC (32.0-36.0) g/dL RDW Std Deviation (36.4-46.3) fL RDW Coeff of Edith (11.5-14.5) % Plt Count (130-400) K/uL MPV (9.4-12.4) fL Immature Gran % (Auto) % Neut % (Auto) % Lymph % (Auto) % Hill % (Auto) % Eos % (Auto) % Baso % (Auto) % Neut # (Auto) (1.40-6.50) K/uL Lymph # (Auto) (1.20-3.40) K/uL Hill # (Auto) (0.11-0.59) K/uL Eos # (Auto) (0.00-0.50) K/uL Baso # (Auto) (0.00-0.20) K/uL Immature Gran # (Auto) (0.01-0.20) K/uL PT (9.0-12.0) Seconds INR (0.9-1.1) APTT (21-31) Seconds PTT Ratio POC Sodium (135-144) mmol/L Sodium (136-145) mmol/L POC Potassium (3.3-5.0) mmol/L Potassium POC Chloride (101-112) mmol/L Chloride (98-107) mmol/L Carbon Dioxide (21-32) mmol/L POC Total CO2 (24-31) mmol/L Anion Gap (3-11) POC Anion Gap (16-25) mmol/L POC BUN (7-18) mg/dl BUN (6-23) mg/dl Creatinine (0.6-1.4) mg/dl POC Creatinine (0.6-1.3) mg/dl Est Cr Clr Drug Dosing ml/min eGFR BUN/Creatinine Ratio (10-20) Glucose (70-99(Fasting)) mg/dl POC Glucose (other) (70-99) mg/dl Calcium (8.6-10.3) mg/dl POC Ioniz Calcium Yo (1.12-1.32) mmol/l Total Bilirubin (0.2-1.0) mg/dl AST ALT (7-52) U/L Alkaline Phosphatase (34-104) U/L Ammonia TNP Troponin I High Sens (0-20) pg/ml Total Protein (6.0-8.3) gm/dl Albumin (3.4-5.0) gm/dl Globulin (2.5-4.0) gm/dl Albumin/Globulin Ratio (0.9-2) Lipase (11-82) U/L Urine Color Yellow Urine Appearance Clear (Clear) Urine pH 7.5 (4.5-7.5) Ur Specific [place] 1.012 (1.000-1.030) Urine Protein Negative (Negative) Urine Glucose (UA) Negative (Negative) Urine Ketones Negative (Negative) Urine Blood Negative (Negative) Urine Nitrite Negative (Negative) Urine Bilirubin Negative (Negative) Urine Urobilinogen Negative (Negative) Ur Leukocyte Esterase Negative (Negative) Urine Opiates Screen Neg (Neg) Ur Methadone, Qual Neg (Neg) Urine Fentanyl Screen Neg (Neg) Urine Barbiturates Neg (Neg) Ur Phencyclidine (PCP) Neg (Neg) U Amphetamin/Meth Scrn Neg (Neg) MDMA (Ecstasy) Screen Pos H (Neg) U Benzodiazepines Scrn Neg (Neg) Ur Cocaine Metabolite Neg (Neg) U Marijuana (THC) Screen Neg (Neg) Ethyl Alcohol mg/dL (<10.0) mg/dl Blood Type O Negative Antibody Screen NEGATIVE 09/28/24 Range/Units 06:49 WBC (4.8-10.8) K/ul RBC (4.70-6.10) M/uL Hgb (14.0-18.0) g/dl POC Hgb (14.0-18.0) g/dl Hct (42.0-52.0) % POC Hct (42-52) % MCV (80.0-100.0) fL MCH (25.0-34.0) pg MCHC (32.0-36.0) g/dL RDW Std Deviation (36.4-46.3) fL RDW Coeff of Edith (11.5-14.5) % Plt Count (130-400) K/uL MPV (9.4-12.4) fL Immature Gran % (Auto) % Neut % (Auto) % Lymph % (Auto) % Hill % (Auto) % Eos % (Auto) % Baso % (Auto) % Neut # (Auto) (1.40-6.50) K/uL Lymph # (Auto) (1.20-3.40) K/uL Hill # (Auto) (0.11-0.59) K/uL Eos # (Auto) (0.00-0.50) K/uL Baso # (Auto) (0.00-0.20) K/uL Immature Gran # (Auto) (0.01-0.20) K/uL PT (9.0-12.0) Seconds INR (0.9-1.1) APTT (21-31) Seconds PTT Ratio POC Sodium (135-144) mmol/L Sodium (136-145) mmol/L POC Potassium (3.3-5.0) mmol/L Potassium POC Chloride (101-112) mmol/L Chloride (98-107) mmol/L Carbon Dioxide (21-32) mmol/L POC Total CO2 (24-31) mmol/L Anion Gap (3-11) POC Anion Gap (16-25) mmol/L POC BUN (7-18) mg/dl BUN (6-23) mg/dl Creatinine (0.6-1.4) mg/dl POC Creatinine (0.6-1.3) mg/dl Est Cr Clr Drug Dosing ml/min eGFR BUN/Creatinine Ratio (10-20) Glucose (70-99(Fasting)) mg/dl POC Glucose (other) (70-99) mg/dl Calcium (8.6-10.3) mg/dl POC Ioniz Calcium Yo (1.12-1.32) mmol/l Total Bilirubin (0.2-1.0) mg/dl AST ALT (7-52) U/L Alkaline Phosphatase (34-104) U/L Ammonia TNP Troponin I High Sens (0-20) pg/ml Total Protein (6.0-8.3) gm/dl Albumin (3.4-5.0) gm/dl Globulin (2.5-4.0) gm/dl Albumin/Globulin Ratio (0.9-2) Lipase (11-82) U/L Urine Color Urine Appearance (Clear) Urine pH (4.5-7.5) Ur Specific [place] (1.000-1.030) Urine Protein (Negative) Urine Glucose (UA) (Negative) Urine Ketones (Negative) Urine Blood (Negative) Urine Nitrite (Negative) Urine Bilirubin (Negative) Urine Urobilinogen (Negative) Ur Leukocyte Esterase (Negative) Urine Opiates Screen (Neg) Ur Methadone, Qual (Neg) Urine Fentanyl Screen (Neg) Urine Barbiturates (Neg) Ur Phencyclidine (PCP) (Neg) U Amphetamin/Meth Scrn (Neg) MDMA (Ecstasy) Screen (Neg) U Benzodiazepines Scrn (Neg) Ur Cocaine Metabolite (Neg) U Marijuana (THC) Screen (Neg) Ethyl Alcohol mg/dL (<10.0) mg/dl Blood Type Antibody Screen Diagnostic Findings Chest X-Ray 09/28/24 04:16 EXAM: XR chest 1V portable CLINICAL HISTORY: TRAUMA. FALL OUT OF BED. TECHNIQUE: An X-ray image of the chest is obtained in AP projection. COMPARISON: No prior studies are available for comparison. FINDINGS: Pulmonary Parenchyma: Bilateral mild prominent broncho vascular markings. No evidence of consolidation, collapse, or focal opacities. No pulmonary nodules are identified. No evidence of pleural effusion or pleural thickening. No pneumothorax. Heart and Mediastinum: Heart size and shape are normal. No mediastinal widening or masses. No hilar or mediastinal lymphadenopathy. Bony Thorax: Bony thorax appears intact without fractures or deformities. Soft Tissues: Soft tissues overlying the chest wall are unremarkable. IMPRESSION: 1. Bilateral mild prominent broncho vascular markings. No acute cardiopulmonary abnormalities are identified. Electronically signed by Josephine Solo 09-28-2024 05:43 AM Pelvis X-Ray 09/28/24 04:16 EXAM: XR pelvis 1-2V routine CLINICAL HISTORY: TRAUMA. FALL OUT OF BED. TECHNIQUE: X-ray image of the pelvis was obtained in anteroposterior (AP) projection. COMPARISON: No prior studies are available for comparison. FINDINGS: Bone Structure: Pelvic bones, including the iliac wings, ischium, pubis, and sacrum, are normal and intact. No evidence of fractures, dislocations, or significant osseous lesions. Hip Joints: Hip joints are normal with preserved joint spaces. No evidence of hip dislocation, subluxation, or significant degenerative changes. Acetabulum: Acetabular structures appear normal and intact. No signs of acetabular fracture or dysplasia. Symphysis Pubis: Symphysis pubis is normal and intact. No evidence of separation or widening. Sacroiliac Joints: Sacroiliac joints appear normal and unremarkable. No evidence of sacroiliitis or significant degenerative changes. Soft Tissues: Visualized soft tissues are normal and unremarkable. No soft tissue swelling, calcifications, or masses. Additional Findings: No other significant abnormalities were noted. IMPRESSION: 1. Normal X-ray of the pelvis. 2. No evidence of acute fractures, dislocations, or significant degenerative changes. Disclaimer: A subtle bone abnormality or fracture may not be readily apparent on X-rays, thus clinical correlation and further imaging including follow-up CT, MRI, or follow-up X-rays are advised as needed. Electronically signed by Josephine Solo 09-28-2024 05:[address] 09/28/24 04:17 EXAM: CT cervical spine wo con CLINICAL HISTORY: Altered mental status, n/v, dizziness, and a nosebleed. On arrival at his house, pt was unable to answer any questions but "has greatly improved since then." Pt believed to have fallen out of bed, and dry blood noted around the nose. Denies use of blood thinners. TECHNIQUE: A CT scan of the cervical spine was performed without the administration of intravenous contrast. Contiguous axial images were obtained from the skull base to the upper thoracic spine. Coronal and sagittal reformatted images were also reviewed. One of the following dose-reduction techniques was utilized for this exam. Automated exposure control, adjustment of the mA and/or kV according to patient size, and use of iterative reconstruction. COMPARISON: None. FINDINGS: No fractures were noted. Slight narrowing of the distance between the dens and right lateral mass of C1 compared to the distance of the dens and the left lateral mass of C1, suggestive of right rotatory subluxation of the dens of C2 or non-centralized head position in relation to spine during image acquisition. C3 small sclerotic bone lesion; possibly bone island. Straightened cervical lordosis suggesting muscle spasm. Degenerative changes in the cervical spine as evidenced by marginal osteophytosis with reduced intervertebral disc spaces at multiple levels of the cervical spine. No vertebral wedging or collapse. A small calcific focus is noted along the posterior aspect of C4/5. C4-C5, C5-C6, and C6-C7 posterior disc bulge osteophyte complexes are seen indenting the thecal sac and encroaching upon corresponding neural exit foramina and exiting nerve roots bilaterally. Degenerative changes at multiple facets and uncovertebral joints bilaterally. Reduced bone density. Prevertebral Soft Tissues: The prevertebral soft tissues are normal in thickness without evidence of mass or abnormal fluid collection. IMPRESSION: 1. No definite fractures were noted. 2. Slight narrowing of the distance between the dens and right lateral mass of C1 compared to the distance of the dens and the left lateral mass of C1, either representing a non-centralized head position in relation to the spine during image acquisition or right rotatory subluxation of the dens of C2. 3. Straightened cervical lordosis suggesting muscle spasm. 4. C4-C5, C5-C6, and C6-C7 posterior disc bulge osteophyte complexes 5. Degenerative changes at multiple facets and uncovertebral joints bilaterally. Electronically signed by Josephine Solo 09-28-2024 06:[address] 09/28/24 04:17 EXAM: CT facial bones wo con CLINICAL HISTORY: c/o altered mental status, n/v, dizziness, and a nosebleed. On arrival to his house, pt was unable to answerany questions but "has greatly improved since then." Pt believed to have fallen out of bed, dry blood noted around nose. Denies use of blood thinners. TECHNIQUE: Non-Contrast CT scan of the maxillofacial bones was performed, with sagittal and coronal multiplanar reconstruction. One of the following dose reduction techniques were utilized for this exam: Automated exposure control, adjustment of the mA and/or kV according to patient size, and use of iterative reconstruction. COMPARISON: None. FINDINGS: There is subtle lucency noted in right nasal bone this may represent prominent suture however considering the history of patient possibility of small undisplaced fracture cannot be excluded, would recommend local examination. No other fracture is noted No significant soft tissue injury seen Sinuses: Bilateral maxillary sinusitis. The rest of the paranasal sinuses are clear. Osteomeatal complexes are patent. Nasal Cavity: Nasal cavity is unremarkable. No masses or polyps. Deviated nasal septum to the left. Orbits: Orbits are normal in size and shape. Extraocular muscles and optic nerves are normal. No evidence of orbital masses or proptosis. Maxilla and Mandible: Normal appearance of the maxillary and mandibular bones. No fractures, lytic or sclerotic lesions. Facial Bones: No fractures or deformities. Zygomatic arches, nasal bones, and other facial structures are intact. Soft Tissues: Soft tissues of the face are normal. No abnormal masses, swelling, or lymphadenopathy. Temporomandibular Joints (TMJ): Normal appearance of the TMJ bilaterally. No evidence of joint effusion, degenerative changes, or dislocation. IMPRESSION: 1. Subtle lucency noted in right nasal bone this may represent prominent suture, however considering the history of patient possibility of small undisplaced fracture cannot be excluded, would recommend local examination. 2. No other fracture is noted. 3. No significant soft tissue injury seen. Electronically signed by Josephine Solo 09-28-2024 06:[address] 09/28/24 04:17 EXAM: CT head/brain wo con CLINICAL HISTORY: C/o altered mental status, N/V, dizziness, and a nosebleed. Fallen out of bed. TECHNIQUE: Axial non-contrast CT scan of the brain was performed from the skull base to the high parietal region with coronal and sagittal reformats. One of the following dose reduction techniques were utilized for this exam: Automated exposure control, adjustment of the mA and/or kV according to patient size, use of iterative reconstruction. COMPARISON: None. FINDINGS: Brain Parenchyma: Normal attenuation of the cerebral hemispheres, cerebellum, and brainstem. No evidence of hemorrhage, or mass effect. No abnormal areas of hypo- or hyperattenuation. Ventricular System: Prominent ventricular system and extra-axial CSF spaces. Subarachnoid Spaces: No evidence of subarachnoid hemorrhage or extra-axial fluid collections. Mastoid Air Cells: Clear mastoid air cells. No evidence of mastoiditis. Skull: Normal skull morphology. IMPRESSION: 1. No acute cerebral abnormality. 2. Mild brain involutional changes. Electronically signed by Josephine Solo 09-28-2024 05:53 AM Cervical Spine MRI 09/28/24 06:37 CLINICAL HISTORY: abn CT, fall, possible subluxation of dens TECHNIQUE: MRI of the cervical spine is performed utilizing various T1 and T2 sequences in the axial and sagittal planes. IV contrast was not administered for this examination. Comparison: Comparison is made to CT cervical spine 09/28/2024 FINDINGS: The alignment is anatomical. C2-C3: Unremarkable. C3-C4: Broad-based posterior disc bulge is seen with mild canal stenosis and moderate bilateral neuroforaminal stenosis. C4-C5: Broad-based posterior disc bulge is seen with mild bilateral neuroforaminal stenosis. C5-C6: Broad-based posterior disc bulge is seen with moderate bilateral neuroforaminal stenosis. C6-C7: Unremarkable. C7-T1: Unremarkable. The spinal ligaments are intact, without evidence of disruption or abnormal signal intensity. The spinal cord is normal in signal intensity and there is no evidence of cord edema. There is no evidence of an extradural, intradural, extramedullary or intramedullary lesion. Visualized soft tissues are normal. Visualized brain parenchyma is normal. IMPRESSION: 1. Multilevel degenerative changes with up to mild canal stenosis and moderate bilateral neuroforaminal stenosis. 2. No subluxation of the dens or other acute abnormality ACT 112: Negative or not required by law. Electronically signed by: Niko Orona M.D. 09/28/2024 8:06 AM Medications Administered Discontinued Medications Sodium Chloride (Nss) 1,000 mls @ 999 mls/hr IV .Q1H1M ONE Stop: 09/28/24 05:50 Last Infusion: 09/28/24 05:58 Dose: Infused Documented By: Admin: 09/28/24 04:57 Dose: 999 mls/hr Documented By: REENA Supervising Physician Co-Signing Physician Notes I have seen and discussed the case with the collaborating advanced practitioner. I agree with the above H&P. I have reviewed and confirmed the patients medical history, the findings on physical examination, and the patients diagnosis and treatment plan with Nico GOULD and agree with the information documented. In short, Mr. Warner with history of hereditary hemochromatosis, alcohol abuse, and tobacco use disorder who presented to the ED today with recurrent falls and increased confusion. Patient continues with Etoh intake, last drink last evening; however, reported poor po intake overall. Patient examined and does not endorses specific concerns--reports falls simply b eing "accidental" noting he just "fell on the ground from [his] bed" labs reviewed with pancytopenia (newer thrombocytopenia), hyponatremia to 130 (uptrending to 132), gap acidosis iso intoxication , mild lft elevation, MDMA on screen (declines elicit use) and etoh 107.2 EXAM with nonfocal neurologic exam, however weak to sit up therefore gait not examined #Metabolic encephalopathy at home, c/f [place] #Mechanical Falls given notable history of alcohol consumption and poor intake will start thiamine 500mg q8 x 3 days PT/OT Fall precautions #Pancytopenia #History of hemochromatosis last phlebotomy "months ago" Will check b12 and folate for potential contributor to pancytopenia, however, likely iso progressive alcohol missuse #Alcohol withdrawal #AUD last drink 09/27, etoh on admission 107.2 start libirum taper with ativan prn ctm #transaminitis, acute on chronic Mateusz discriminant function: 4.5 points continue to trend LFTs #hyponatremia likely iso beer potomania 2L FR encourage po, high protein rest of plan per hp I spent a total of 40 minutes coordinating, documenting, and providing care for this patient excluding time spent in the performance of separately billed services. All of the aforementioned completed outside of collaborating with the assigned advanced practitioner for a full treatment plan. I have reviewed the advanced practitioner's documentation, and I agree with, and take responsibility for the plan of care (1) Altered mental status Altered mental status type: unspecified Qualified Code(s): R41.82 - Altered mental status, unspecified (2) Fall Encounter type: initial encounter Qualified Code(s): W19.XXXA - Unspecified fall, initial encounter
[2024-09-28] MEDS: THIAMINE HCL 100 MG in SYRINGE 9 ML IV STA (09:52)
[2024-09-28] MEDS: FOLIC ACID 1 MG in SYRINGE 9.8 ML IV STA (10:30)
[2024-09-28] MEDS ORDERED: Ativan IV Alcohol Withdrawal--Active Protocol IV PRN (11:56)
[2024-09-28] MEDS ORDERED: POLYETHYLENE (MIRALAX) 17 GM PACK PO PRN (11:56)
[2024-09-28] MEDS ORDERED: ONDANSETRON INJ 2 MG/ML 2 ML VIAL IV PRN (11:56)
[2024-09-28] MEDS ORDERED: chlordiazePOXIDE ALCOHOL WITHDRAWL 50MG PO STA (11:56)
[2024-09-28] MEDS ORDERED: LORazepam 2 MG/1 ML VIAL IV PRN ×3 (11:56)
[2024-09-28] MEDS ORDERED: ACETAMINOPHEN 325 MG TAB PO PRN (11:56)
[2024-09-28] MEDS: THIAMINE HCL 500 MG in SODIUM CHLORIDE 0.9% 50 ML IV SCH (12:46)
[2024-09-28] MEDS: chlordiazePOXIDE HCl 25 MG CAP PO SCH ×2 (12:46→23:06)
[2024-09-28 14:02] LABS: Adenovirus PCR Not Detected (NotDetected); Bordetella parapertussis PCR Not Detected (NotDetected); Bordetella pertussis PCR Not Detected (NotDetected); Chlamydia pneumoniae PCR Not Detected (NotDetected); Coronavirus 229E PCR Not Detected (NotDetected); Coronavirus CoV-2 (COVID19)PCR Not Detected (NotDetected); Coronavirus HKU1 PCR Not Detected (NotDetected); Coronavirus NL63 PCR Not Detected (NotDetected); Coronavirus OC43PCR Not Detected (NotDetected); Human Metapneumovirus PCR Not Detected (NotDetected); Influenza A PCR Not Detected (NotDetected); Influenza B PCR Not Detected (NotDetected); Mycoplasma pneumoniae PCR Not Detected (NotDetected); Parainfluenza Virus 1 PCR Not Detected (NotDetected); Parainfluenza Virus 2 PCR Not Detected (NotDetected); Parainfluenza Virus 3 PCR Not Detected (NotDetected); Parainfluenza Virus 4 PCR Not Detected (NotDetected); Respiratory Syncytial VirusPCR Not Detected (NotDetected); Rhinovirus/Enterovirus PCR Not Detected (NotDetected)
--- OUTSIDE RECORDS SUMMARY | 2024-09-28 14:20 | External Medical Summary | Summary of Care ---
Author Name Unknown Organization [facility] Address [address] [place] [facility] [place] [place] [address] Phone [phone] Care Team Providers Care Director Of Slot Operations Name Role Phone Selina Miller MD Primary Care Provider [phone] Reason for Visit * Reason Onset Date Comments Hospital Follow-Up 09/13/2024 Encounter Details Date Type Department Care Team (Late st Contact Info) Description 09/13/2024 Telephone General Internal Medicine [facility] [place] [address] [place] [address] Arabella Escobedo, RN Hospital Follow-Up Allergies No known active allergiesdocumented as of this encounter (statuses as of 09/14/2024) Medications Advanced Probiotic Oral Capsule 1 Capsule. [...] as of this encounter (statuses as of 09/14/2024) Active Problems Problem Noted Date Diagnosed Date [...] to 3-6 beers 2/wk-is getting counseling at [facility] 05/21, had DUI 02/18 documented as of this encounter (statuses as of 09/14/2024) Immunizations Name Administration Dates Next Due Hepatitis [...] Telephone Encounter - Arabella Escobedo RN - 09/13/2024 3:34 PM EST Transitions of Care Note Reason for Referral:Recent Admission Phone visit for follow up: VANCE Admitted to: [facility], Date: 09/10 Discharged to: home, Date: 09/11 Diagnosis driving hospitalization: hyponatremia Attempted Phone Call First Attempt Call Outcome Left Voicemail/Message documented in this encounter Plan of Treatment Upcoming Encounters Date Type Department Care Team (Late st Contact Info) Description 09/16/2024 1:00 PM EST Nurse Only Gastroenterology, [address], [place] [address] [place] [address] [place], Nurse Gastro [address] [place] [address] 09/16/2024 1:45 PM EST Telemedicine Addiction Medicine, [place] [address] [place] [address] Ritu Crenshaw MD [address] [place] [address] [place], Telemed [place] [facility] [address] [place] [address] 10/12/2024 3:00 PM EST Office Visit Hematology/Oncology [facility] [address] [facility] [place] [address] Olivia Fontenot CRNP [address] [place] [address] 10/27/2024 1:00 PM EST Office Visit General Internal Medicine [facility] [address] [facility] [place] [address] Selina Miller MD [address] [facility] [place] [address] 01/20/2025 12:40 PM EDT Office Visit Hepatology, [facility] [address] [place] [address] Jj Sherita HebertDO [address] [place] [address] Scheduled Procedures Name Priority Associated Diagnoses Date/Ti [...] filedocumented as of this encounter Care Teams Director Of Slot Operations Relationship Specialty Start Date End Date Selina Miller MD [address] [facility] [place] [address] PCP - General Internal Medicine 08/22/16 documented as of this encounter
--- OUTSIDE RECORDS SUMMARY | 2024-09-28 14:20 | External Medical Summary | Summary of Care ---
Author Name Unknown Organization [facility] Address [address] [place] [address] Phone [phone] Care Team Providers Care Type Mapper Name Role Phone Selina Miller MD Primary Care Provider [phone] Reason for Visit * Reason Onset Date Comments Advice 09/21/2024 Encounter Details Date Type Department Care Team (Late st Contact Info) Description 09/21/2024 Telephone Hepatology, [facility] 132 [facility] [place] [phone] Services, Scheduling [address] [place] [address] Advice Allergies No known active allergiesdocumented as of this encounter (statuses as of 09/23/2024) Medications Advanced Probiotic Oral Capsule 1 Capsule. [...] as of this encounter (statuses as of 09/23/2024) Active Problems Problem Noted Date Diagnosed Date [...] to 3-6 beers 2/wk-is getting counseling at [facility] [employer] 05/21, had DUI 02/18 documented as of this encounter (statuses as of 09/23/2024) Immunizations Name Administration Dates Next Due Hepatitis [...] encounter Miscellaneous Notes * Telephone Encounter - Taryn Beltran LPN - 09/22/2024 2:31 PM EST Spouse has still not called back. MyG message sent * Telephone Encounter - Taryn Beltran LPN - 09/22/2024 2:31 PM EST Images from the original note were not included. Sherita Gardnere, DO [facility] Nurse [place]/Class5 hours ago (9:19 AM) If she calls back and he is not doing well I would advise ER evaluation. Sherita Gardner DO * Telephone Encounter - Kesha Portillo CMA - 09/22/2024 9:08 AM EST Attempted to call Spouse Ama. No answer. Mailbox full. * Telephone Encounter - Paradise Stallings OSA - 09/21/2024 4:28 PM EST Patients calling out of concern for her . Patient has been very lethargic, not eating and has been vomiting when he does eat. He has not gone for testing ordered and his last BW was 09/09/24. She is going to try and get him to reschedule the Ultrasound and Fibroscan but she wanted Dr [place]ton that he is not doing well. She also believes he has been drinking lately as well. documented in this encounter Plan of Treatment Upcoming Encounters Date Type Department Care Team (Late st Contact Info) Description 10/12/2024 3:00 PM EST Office Visit Hematology/Oncology [facility] [place] [address] [place] [address] Olivia Mary CRNP [address] [place] [address] 10/27/2024 1:00 PM EST Office Visit General Internal Medicine [facility] [address] [facility] [place] [address] Selina Miller MD [address] [facility] [place] [address] 01/20/2025 12:40 PM EDT Office Visit Hepatology, [facility] [address] [place] [address] Sherita Gardner DO [address] [place] [address] Scheduled Procedures Name Priority Associated Diagnoses Date/Ti [...] filedocumented as of this encounter Care Teams Type Mapper Relationship Specialty Start Date End Date Selina Miller MD [address] [place] [address] PCP - General Internal Medicine 08/22/16 documented as of this encounter
--- OUTSIDE RECORDS SUMMARY | 2024-09-28 14:20 | External Medical Summary | Summary of Care ---
Author Name Unknown Organization [facility] Address [address] [place] [address] Phone [phone] Care Team Providers Care Nail Polish Brush Machine Feeder Name Role Phone Selina Miller MD Primary Care Provider [phone] Reason for Visit * Reason Onset Date Comments Advice 09/21/2024 Encounter Details Date Type Department Care Team (Late st Contact Info) Description 09/21/2024 Telephone Hepatology, [facility] 132 [facility] [place] [phone] Services, Scheduling [address] [place] [address] Advice Allergies No known active allergiesdocumented as of this encounter (statuses as of 09/24/2024) Medications Advanced Probiotic Oral Capsule 1 Capsule. [...] as of this encounter (statuses as of 09/24/2024) Active Problems Problem Noted Date Diagnosed Date [...] to 3-6 beers 2/wk-is getting counseling at [facility] 05/21, had DUI 02/18 documented as of this encounter (statuses as of 09/24/2024) Immunizations Name Administration Dates Next Due Hepatitis [...] encounter Miscellaneous Notes * Telephone Encounter - Michelle Bañuelos RN - 09/24/2024 11:19 AM EST Nurses: note there are 2 Delores on this pt that should be addressed. * Telephone Encounter - Taryn Beltran LPN - 09/22/2024 2:31 PM EST Spouse has still not called back. Pie Digital[employer] message sent * Telephone Encounter - Taryn Beltran LPN - 09/22/2024 2:31 PM EST Images from the original note were not included. Sherita Gardner, [facility] Nurse [place]/Class5 hours ago (9:19 AM) If she calls [...] 10/12/2024 3:00 PM EST Office Visit Hematology/Oncology [facility] [address] [place] [address] Olivia Fontenot CRNP [address] [facility] [place] [address] 10/27/2024 1:00 PM EST Office Visit General Internal Medicine [facility] [address] [place] [address] Selina Miller MD [address] [place] [address] 01/20/2025 12:40 PM EDT Office Visit Hepatology, [facility] [address] [place] [address] Sherita Gardner DO [address] [place] [address] Scheduled Procedures Name Priority Associated Diagnoses Date/Ti [...] filedocumented as of this encounter Care Teams Nail Polish Brush Machine Feeder Relationship Specialty Start Date End Date Selina Miller MD 200 [place] [address] PCP - General Internal Medicine 08/22/16 documented as of this encounter
--- OUTSIDE RECORDS SUMMARY | 2024-09-28 14:20 | External Medical Summary | Summary of Care ---
Author Name Unknown Organization [facility] Address [address] [facility] [place] [address] Phone [phone] Care Team Providers Care Idea Worker Name Role Phone Selina Miller MD Primary Care Provider [phone] Encounter Details Date Type Department Care Team (Late st Contact Info) Description 09/17/2024 Telephone Hepatology, [facility] [address] [place] [address] Sherita Gardner DO [address] [place] [address] Allergies No known active allergiesdocumented as of this encounter (statuses as of 09/17/2024) Medications Advanced Probiotic Oral Capsule 1 Capsule. 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 For this we need to further evaluate with a 24 hour urinary copper collection to rule out a rare disease called wilsons. Please ask him to get the 24 hr urinary collection done. This has been ordered. Sherita Gardner DO documented in this encounter Plan of Treatment Upcoming Encounters Date Type Department Care Team (Late st Contact Info) Description 10/12/2024 3:00 PM EST Office Visit Hematology/Oncology [facility] 200 [facility] [place] [address] Olivia Fontenot CRNP 400 [facility] [place] [address] 10/27/2024 1:00 PM EST Office Visit General Internal Medicine [facility] 200 [facility] [place] [address] Selina Miller MD 200 [facility] [place] [address] 01/20/2025 12:40 PM EDT Office Visit Hepatology, [facility] 132 [facility] [place] [address] Sherita Gardner DO [address] [place] [address] Scheduled Orders Name Type Priority Associated Diagnoses Orde r Schedule COPPER, 24 HOUR URINE WITH CREATININE Lab Routine Low ceruloplasmin level Expected: 09/17/2024, Expires: 09/17/2025 Scheduled Procedures Name Priority Associated Diagnoses Date/Ti [...] as of this encounter Visit Diagnoses Diagnosis 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
--- OUTSIDE RECORDS SUMMARY | 2024-09-28 14:20 | External Medical Summary | Summary of Care ---
Author Name Unknown Organization [facility] Address [address] [facility] [place] [address] Phone [phone] Care Team Providers Care Director Graphics Name Role Phone Selina Miller MD Primary Care Provider [phone] Reason for Visit * Reason Onset Date Comments Test Results Lab 09/17/2024 Encounter Details Date Type Department Care Team (Late st Contact Info) Description 09/17/2024 Telephone Hepatology, [facility] [address] [place] [address] Sherita Gardner DO [address] [place] [address] Test Results Lab Allergies No known active [...] to 3-6 beers 2/wk-is getting counseling at [facility] 05/21, had DUI 02/18 documented as [...] Encounter - Michelle Bañuelos RN - 09/24/2024 11:13 AM EST Called [phone]. Female who answered the phone said "I will give you his home number" [phone]. Attempted to contact pt at this number. No answer. Left message requesting return call. Nurses-Please note there is another encounter re: ER recommendation. * Telephone Encounter - Christina Astorga RN - 09/21/2024 12:46 PM EST No answer and mailbox is full. Cannot accept messages at this time. * Telephone Encounter - Taryn Beltran LPN - 09/17/2024 12:23 PM EST LMTRC * Telephone Encounter - Sherita Gardner DO [...] PM EST Office Visit Hematology/Oncology [facility] [place] 200 [facility] [place] [address] Olivia Fontenot CRNP [address] [place] [address] 10/27/2024 1:00 PM EST Office Visit General Internal Medicine [facility] 200 [facility] [place] [address] Selina Miller MD 200 [facility] [place] [address] 01/20/2025 12:40 PM EDT Office Visit Hepatology, [facility] [address] [place] [address] Sherita Gardner DO [address] [place] [address] Scheduled Orders Name Type Priority Associated Diagnoses [...] metabolism documented in this encounter Care Teams Director Graphics Relationship Specialty Start Date End Date Selina Miller MD [address] [place] [address] PCP - General Internal Medicine 08/22/16 documented as of this encounter
--- OUTSIDE RECORDS SUMMARY | 2024-09-28 14:20 | External Medical Summary | Summary of Care ---
Author Name Unknown Organization [facility] Address [address] [place] [address] Phone [phone] Care Team Providers Care Pharmacy Account Director Name Role Phone Selina Miller MD Primary Care Provider [phone] Reason for Visit * Reason Onset Date Comments Advice 09/21/2024 Encounter Details Date Type Department Care Team (Late st Contact Info) Description 09/21/2024 Telephone Hepatology, [facility] 132 [facility] [place] [phone] Services, Scheduling [address] [place] [address] Advice Allergies No known active allergiesdocumented as of this encounter (statuses as of 09/22/2024) Medications Advanced Probiotic Oral Capsule 1 Capsule. [...] as of this encounter (statuses as of 09/22/2024) Active Problems Problem Noted Date Diagnosed Date [...] to 3-6 beers 2/wk-is getting counseling at [facility] 05/21, had DUI 02/18 documented as of this encounter (statuses as of 09/22/2024) Immunizations Name Administration Dates Next Due Hepatitis [...] Sherita Gardnere, DO [facility] Nurse Painter/Class5 hours ago (9:19 AM) If she calls [...] PM EST Office Visit Hematology/Oncology [facility] [place] [address] [place] [address] Olivia Mary CRNP [address] [place] [address] 10/27/2024 1:00 PM EST Office Visit General Internal Medicine [facility] 200 [facility] [place] [address] Selina Miller MD 200 [facility] [place] [address] 01/20/2025 12:40 PM EDT Office Visit Hepatology, [facility] [address] [place] [address] Sherita Gardner DO [address] [place] [address] Scheduled Procedures Name Priority Associated Diagnoses Date/Ti [...] filedocumented as of this encounter Care Teams Pharmacy Account Director Relationship Specialty Start Date End Date Selina Miller MD [address] [facility] [place] [address] PCP - General Internal Medicine 08/22/16 documented as of this encounter
--- OUTSIDE RECORDS SUMMARY | 2024-09-28 14:20 | External Medical Summary | Summary of Care ---
Author Name Unknown Organization [facility] Address [address] [place] [address] Phone [phone] Care Team Providers Care Home Housekeeper Name Role Phone Selina Miller MD Primary Care Provider [phone] Reason for Visit * Reason Onset Date Comments Advice 09/21/2024 Encounter Details Date Type Department Care Team (Late st Contact Info) Description 09/21/2024 Telephone Hepatology, [facility] 132 [facility] [place] [phone] Services, Scheduling [address] [place] [address] Advice Allergies No known active allergiesdocumented as [...] to 3-6 beers 2/wk-is getting counseling at [facility] [employer] 05/21, had DUI 02/18 documented as of [...] encounter Miscellaneous Notes * Telephone Encounter - Kesha Portillo CMA - 09/22/2024 9:08 AM EST Attempted to call Spouse Ama. No answer. Mailbox full. * Telephone Encounter - Paradise tSallings OSA - 09/21/2024 4:28 PM EST Patients [...] 10/12/2024 3:00 PM EST Office Visit Hematology/Oncology [facility] 200 [facility] [place] [phone] Olivia [facility]ot CRNP [facility] [place] [address] 10/27/2024 1:00 PM EST Office Visit General Internal Medicine [facility] 200 [facility] [place] [address] Selina Miller MD 200 [facility] [place] [address] 01/20/2025 12:40 PM EDT Office Visit Hepatology, [facility] 132 [facility] [place] [address] Sherita Gardner DO [address] [place] [address] Scheduled Procedures Name Priority Associated Diagnoses Date/Ti [...] filedocumented as of this encounter Care Teams Home Housekeeper Relationship Specialty Start Date End Date Selina Miller MD 200 [place] [address] PCP - General Internal Medicine 08/22/16 documented as of this encounter
--- OUTSIDE RECORDS SUMMARY | 2024-09-28 14:20 | External Medical Summary | Summary of Care ---
Author Name Unknown Organization [facility] Address [address] [place] [address] Phone [phone] Care Team Providers Care Able Bodied Watchman Name Role Phone Selina Miller MD Primary Care Provider [phone] Reason for Visit * Reason Onset Date Comments Advice 09/21/2024 Encounter Details Date Type Department Care Team (Late st Contact Info) Description 09/21/2024 Telephone Hepatology, [facility] 132 [facility] [place] [phone] Services, Scheduling [address] [place] [address] Advice Allergies No known active allergiesdocumented as of this encounter (statuses as of 09/27/2024) Medications Advanced Probiotic Oral Capsule 1 Capsule. [...] as of this encounter (statuses as of 09/27/2024) Active Problems Problem Noted Date Diagnosed Date [...] to 3-6 beers 2/wk-is getting counseling at [facility] [employer] 05/21, had DUI 02/18 documented as of this encounter (statuses as of 09/27/2024) Immunizations Name Administration Dates Next Due Hepatitis [...] Telephone Encounter - Anitha Bustamante RN - 09/27/2024 3:58 PM EST Spoke to pt . She states pt is disoriented, fell this morning while she was work. Vomits when he drinks, not eating much, tolerated wonton soup yesterday. Mostly sleeping and watches some TV. Recommended that pt go to ED as that was the recommendation for pt from Dr Gardner on 09/21/24. She said she will be home shortly and try to get pt to agree for evaluation. They just closed on a house and moved to [place]. Addressed other TE regarding 24 hour urine, she will try and get the container today. * Telephone Encounter - Michelle Bañuelos RN [...] original note were not included. Sherita Gardner, [facility] Nurse [place]/Class5 hours ago (9:19 AM) If she calls [...] 10/12/2024 3:00 PM EST Office Visit Hematology/Oncology [facility] 200 [facility] [place] [phone] Olivia Fontenot CRNP [facility] [place] [address] 10/27/2024 1:00 PM EST Office Visit General Internal Medicine [facility] 200 [facility] [place] [address] Selina Miller MD 200 [facility] [place] [address] 01/20/2025 12:40 PM EDT Office Visit Hepatology, [facility] 132 [facility] [place] [address] Sherita Gardner DO [address] [place] [address] Scheduled Procedures Name Priority Associated Diagnoses Date/Ti [...] filedocumented as of this encounter Care Teams Able Bodied Watchman Relationship Specialty Start Date End Date Selina Miller MD 200 [place] [address] PCP - General Internal Medicine 08/22/16 documented as of this encounter
--- OUTSIDE RECORDS SUMMARY | 2024-09-28 14:20 | External Medical Summary | Summary of Care ---
Author Name Unknown Organization [facility] Address [address] [facility] [place] [address] Phone [phone] Care Team Providers Care Body Die Maker Name Role Phone Selina Miller MD Primary Care Provider [phone] Reason for Visit * Reason Onset Date Comments Test Results Lab 09/17/2024 Encounter Details Date Type Department Care Team (Late st Contact Info) Description 09/17/2024 Telephone Hepatology, [facility] [address] [place] [address] Sherita Gardner DO [address] [place] [address] Test Results Lab Allergies No known active allergiesdocumented as of this encounter (statuses as of 09/21/2024) Medications Advanced Probiotic Oral Capsule 1 Capsule. [...] as of this encounter (statuses as of 09/21/2024) Active Problems Problem Noted Date Diagnosed Date [...] beers 2/wk-is getting counseling at [facility] 05/21, had DUI 02/18 documented as of this encounter (statuses as of 09/21/2024) Immunizations Name Administration Dates Next Due Hepatitis [...] 10/12/2024 3:00 PM EST Office Visit Hematology/Oncology [place] [address] [place] [address] Olivia Fontenot CRNP 400 [facility] [place] [address] 10/27/2024 1:00 PM EST Office Visit General Internal Medicine [facility] [address] [place] [address] [address] Selina Miller MD 200 [facility] [place] [address] 01/20/2025 12:40 PM EDT Office Visit Hepatology, [facility] [address] [place] [address] Sherita Gardner DO [address] [place] [address] Scheduled Orders Name Type Priority Associated Diagnoses [...] metabolism documented in this encounter Care Teams Body Die Maker Relationship Specialty Start Date End Date Selina Miller MD [address] [place] [address], [place] [address] PCP - General Internal Medicine 08/22/16 documented as of this encounter
--- OUTSIDE RECORDS SUMMARY | 2024-09-28 14:20 | External Medical Summary | Summary of Care ---
Author Name Unknown Organization [facility] Address [address] [facility] [place] [address] Phone [phone] Care Team Providers Care Greenkeeper Name Role Phone Selina Miller MD Primary Care Provider [phone] Reason for Visit * Reason Onset Date Comments Test Results Lab 09/17/2024 Encounter Details Date Type Department Care Team (Late st Contact Info) Description 09/17/2024 Telephone Hepatology, [facility] [address] [place] [address] Sherita Gardner DO [address] [place] [address] Test Results Lab Allergies No known active [...] getting counseling at [facility] 05/21, had DUI 02/18 documented as [...] 10/12/2024 3:00 PM EST Office Visit Hematology/Oncology [address] [place] [address] Olivia Fontenot CRNP 400 [facility] [place] [address] 10/27/2024 1:00 PM EST Office Visit General Internal Medicine [facility] [place] 200 [facility] [place] [address] Selina Miller MD 200 [facility] [place] [address] 01/20/2025 12:40 PM EDT Office Visit Hepatology, [facility] 132 [facility] [place] [address] Sherita Gardner DO 132 [facility] [place] [address] Scheduled Orders Name Type Priority Associated Diagnoses [...] metabolism documented in this encounter Care Teams Greenkeeper Relationship Specialty Start Date End Date Selina Miller MD 200 [place] [address] PCP - General Internal Medicine 08/22/16 documented as of this encounter
--- OUTSIDE RECORDS SUMMARY | 2024-09-28 14:20 | External Medical Summary | Summary of Care ---
Author Name Unknown Organization [facility] Address [address] [facility] [place] [address] Phone [phone] Care Team Prov[address] Care [address] Mechanical Engineer Name Role Phone Selina Miller MD Primary Care Provider [phone] Reason for Visit * Reason Onset Date Comments Test Results Lab 09/17/2024 Encounter Details Date Type Department Care Team (Late st Contact Info) Description 09/17/2024 Telephone Hepatology, [facility] [address] [place] [address] Sherita Gardner DO [address] [place] [address] Test Results Lab Allergies No known active [...] Encounter - Anitha Bustamante RN - 09/27/2024 4:04 PM EST Spoke to pt and made aware of 24 hour urine ordered and why, along with ED recommendation in other TE * Telephone Encounter - Michelle Bañuelos RN - 09/24/2024 11:13 AM EST Called [phone]. Female who answered the phone said "I will give you his home number" [phone]. Attempted to contact pt at this number. [...] 10/12/2024 3:00 PM EST Office Visit Hematology/Oncology [facility] 200 [facility] [place] [address] Olivia Fontenot CRNP 400 [facility] [place] [address] 10/27/2024 1:00 PM EST Office Visit General Internal Medicine [facility] 200 [facility] [place] [address] Selina Miller MD 200 [facility] [place] [address] 01/20/2025 12:40 PM EDT Office Visit Hepatology, [facility] [address] [place] [address] Sherita Gardner DO [address] [place] [address] Scheduled Orders Name Type Priority Associated Diagnoses [...] metabolism documented in this encounter Care Teams Rd Mechanical Engineer Relationship Specialty Start Date End Date Selina Miller MD 200 [place] [address] PCP - General Internal Medicine 08/22/16 documented as of this encounter
--- OUTSIDE RECORDS SUMMARY | 2024-09-28 14:20 | External Medical Summary | Summary of Care ---
Author Name Unknown Organization [facility] Address [address] [place] [address] Phone [phone] Care Team Providers Care Eviscerator Name Role Phone Selina Miller MD Primary Care Provider [phone] Reason for Visit * Reason Onset Date Comments Advice 09/21/2024 Encounter Details Date Type Department Care Team (Late st Contact Info) Description 09/21/2024 Telephone Hepatology, [facility] 132 [facility] [place] [phone] Services, Scheduling [address] [place] [address] Advice Allergies No known active allergiesdocumented as [...] to 3-6 beers 2/wk-is getting counseling at [facility] 05/21, had DUI 02/18 documented as of [...] Miscellaneous Notes * Telephone Encounter - Kesha Poritllo CMA - 09/22/2024 9:08 AM EST Attempted to call Spouse Ama. No answer. Mailbox full. * Telephone Encounter - Pardaise Stallings OSA - 09/21/2024 4:28 PM EST [...] EST Office Visit Hematology/Oncology [facility] 200 [facility] [place] [phone] Olivia Fontenot CRNP 400 [facility] [place] [address] 10/27/2024 1:00 PM EST Office Visit General Internal Medicine [facility] 200 [facility] [place] [address] Selina Miller MD 200 [facility] [place] [address] 01/20/2025 12:40 PM EDT Office Visit Hepatology, [facility] 132 [facility] [place] [address] Sherita Gardner DO [address] [place] [address] Scheduled Procedures Name Priority Associated Diagnoses Date/Ti [...] filedocumented as of this encounter Care Teams Eviscerator Relationship Specialty Start Date End Date Selina Miller MD 200 [place] [address] PCP - General Internal Medicine 08/22/16 documented as of this encounter
--- OUTSIDE RECORDS SUMMARY | 2024-09-28 14:20 | External Medical Summary | Summary of Care ---
Author Name Unknown Organization [facility] Address [address] [place] [address] Phone [phone] Care Team Providers Care Package Drier Name Role Phone Selina Miller MD Primary Care Provider [phone] Reason for Visit * Reason Onset Date Comments Test Results Lab 09/10/2024 Encounter Details Date Type Department Care Team (Late st Contact Info) Description 09/10/2024 Telephone Hematology/Oncology Treatment, [place] [address] [place] [address] Olivia Fontenot CRNP 400 [place], [place] [phone] Test Results Lab Allergies No known active [...] 3-6 beers 2/wk-is getting counseling at [facility] 05/21, had DUI 02/18 documented as [...] Encounter - Raman [place] RN - 09/10/2024 3:51 PM EST Called patients back, explained everything in detail with her and she is agreeable for her to be seen in the ER. She plans to take him today as they are in the process of moving currently. She appreciated the call back. * Telephone Encounter - Rita Reyes OSA - 09/10/2024 3:37 PM EST Pt Returning call about what is going on with her , asking for someone to give her a call about what is going on. * Telephone Encounter - Raman [place] RN - 09/10/2024 2:44 PM EST See telephone encounter from Dr. Gardner today-- Patient sodium level 122. Spoke with patient as he came for his phlebotomy today. Advised patient of his sodium level and whyits important to be evaluated for this in the ER as low sodium can cause seizures, blurred vision, etc. Pt verbalized understanding of this. Advised patient this may be caused by excessive urination from drinking and from fluid volume overload from drinking large amounts. Pt states he only drank 1 beer today. Had patient stick out both arms/hands, visible shaking noted. Advised patient that if heis going through withdrawal, he needs to be monitored in the hospital as this may also cause seizures. Pt aware. Pt refused ambulance to ER, he will drive himself. He denied any visual disturbances and or recent alcohol consumption. He did give permission for this RN to call his and update her. Called patients Ama to inform her. No answer, unable to leave VM as box is full. Scheduling- please cancel phlebotomy appointment for today, this will need rescheduled for next week once we have an update on inpatient status. documented in this encounter Plan of Treatment Upcoming Encounters Date Type Department Care Team (Late st Contact Info) Description 09/15/2024 12:00 PM EST Imaging Radiology [facility] 132 [facility] [place] [address] 09/16/2024 1:00 PM EST Nurse Only Gastroenterology, [address], [place] [address] [place] [address] [place], Nurse Gastro [address] [place] 100 [place] [address] 09/16/2024 1:45 PM EST Telemedicine Addiction Medicine, [place] 21 [place] [address] Ritu Crenshaw MD [address] [place] [address] Cart, Telemed [place] [facility] 21 [place] [address] 10/12/2024 3:00 PM EST Office Visit Hematology/Oncology [facility] [place] 200 [facility] [place] [phone] Olivia Fontenot CRNP 400 [place] [address] 10/27/2024 1:00 PM EST Office Visit General Internal Medicine [facility] [place]ie [place] 200 [facility] [place] [address] Selina Miller MD [address] [place] [address] [place] [address] 01/20/2025 12:40 PM EDT Office Visit Hepatology, [facility] 132 [facility] [place] [address] Aubrey Gardnerpippa Hebert, DO [address] [place] [address] Scheduled Procedures Name Priority Associated Diagnoses Date/Ti [...] filedocumented as of this encounter Care Teams Package Drier Relationship Specialty Start Date End Date Selina Miller MD 200 Carmen [place] [place] [address] PCP - General Internal Medicine 08/22/16 documented as of this encounter
--- OUTSIDE RECORDS SUMMARY | 2024-09-28 14:20 | External Medical Summary | Summary of Care ---
Author Name Unknown Organization [facility] Address [address] [place] [address] Phone [phone] Care Team Providers Care Automotive Sales Associate Name Role Phone Selina Milelr MD Primary Care Provider [phone] Reason for Visit * Reason Onset Date Comments Advice 09/21/2024 Encounter Details Date Type Department Care Team (Late st Contact Info) Description 09/21/2024 Telephone Hepatology, [facility] 132 [facility] [place] [phone] Services, Scheduling [address] [place] [address] Advice Allergies No known active allergiesdocumented as of this encounter (statuses as of 09/28/2024) Medications Advanced Probiotic Oral Capsule 1 Capsule. [...] as of this encounter (statuses as of 09/28/2024) Active Problems Problem Noted Date Diagnosed Date [...] to 3-6 beers 2/wk-is getting counseling at [facility] 05/21, had DUI 02/18 documented as of this encounter (statuses as of 09/28/2024) Immunizations Name Administration Dates Next Due Hepatitis [...] Telephone Encounter - Taryn Beltran LPN - 09/28/2024 9:38 AM EST Pt fell overnight and taken to [facility] ED via ambulance. * Telephone Encounter - Anitha Bustamante RN [...] closed on a house and moved to [place]. Addressed other TE regarding 24 hour urine, [...] the original note were not included. Sherita Gardner Emilee, DO [facility] Nurse [place]/Class5 hours ago (9:19 AM) If she calls [...] Office Visit Hematology/Oncology [facility] 200 [facility] [place] [phone] Olivia Fontenot CRNP 400 [facility] [place] [address] 10/27/2024 1:00 PM EST Office Visit General Internal Medicine [facility] 200 [facility] [place] [address] Selina Miller MD 200 [facility] [place] [address] 01/20/2025 12:40 PM EDT Office Visit Hepatology, [facility] [address] [place] [address] Sherita Gardner DO [address] [place] [address] Scheduled Procedures Name Priority Associated Diagnoses Date/Ti [...] filedocumented as of this encounter Care Teams Automotive Sales Associate Relationship Specialty Start Date End Date Selina Miller MD 200 [address] [place] [address] PCP - General Internal Medicine 08/22/16 documented as of this encounter
--- OUTSIDE RECORDS SUMMARY | 2024-09-28 14:20 | External Medical Summary | Summary of Care ---
Author Name Unknown Organization [facility] Address [address] [place] [address] Phone [phone] Care Team Providers Care Cash Applications Coordinator Name Role Phone Selina Miller MD Primary Care Provider [phone] Reason for Visit * Reason Onset Date Comments Advice 09/21/2024 Encounter Details Date Type Department Care Team (Late st Contact Info) Description 09/21/2024 Telephone Hepatology, [facility] 132 [facility] [place] [phone] Services, Scheduling [address] [place] [address] Advice Allergies No known active allergiesdocumented as [...] to 3-6 beers 2/wk-is getting counseling at [facility] 05/21, had DUI 02/18 documented as of [...] 10/12/2024 3:00 PM EST Office Visit Hematology/Oncology [facility] 200 [facility] [place] [phone] Olivia Fontenot CRNP 400 [facility] [place] [address] 10/27/2024 1:00 PM EST Office Visit General Internal Medicine [facility] 200 [facility] [place] [address] Selina Miller MD 200 [facility] [place] [address] 01/20/2025 12:40 PM EDT Office Visit Hepatology, [facility] 132 [facility] [place] [address] Sherita Gardner DO [address] [place] [address] Scheduled Procedures Name Priority Associated Diagnoses Date/Ti [...] filedocumented as of this encounter Care Teams Cash Applications Coordinator Relationship Specialty Start Date End Date Selina Miller MD 200 [place] [address] PCP - General Internal Medicine 08/22/16 documented as of this encounter
--- OUTSIDE RECORDS SUMMARY | 2024-09-28 14:21 | External Medical Summary ---
Author Name Unknown Address Unknown Organization : Laboratory Report Ordering Provider Test Date Status HARLEY MOON 09/09/2024 11:15:05 Final Observation Date Value Abnormality Reference (Units ) Status Alpha-1 antitrypsin 09/09/2024 11:15:05 118 83-199 (mg/dL) Final Test Performed at:
[facility]
[address] [facility] [place] [address]
Raman Wynn M.D., Ph.D.,Director of Laboratories Performing Location
--- OUTSIDE RECORDS SUMMARY | 2024-09-28 14:21 | External Medical Summary | Summary of Care ---
Author Name Unknown Organization [facility] Address [address] [place] [address] Phone [phone] Care Team Providers Care Wheel Assembler Name Role Phone Selina Miller MD Primary Care Provider [phone] Reason for Visit * Reason Onset Date Comments Test Results Lab 09/10/2024 Encounter Details Date Type Department Care Team (Late st Contact Info) Description 09/10/2024 Telephone Hematology/Oncology Treatment, [place] [address] [place] [address] Olivia Fontenot CRNP 400 [place], [place] [phone] Test Results Lab Allergies No known active [...] 3-6 beers 2/wk-is getting counseling at [facility] 05/21, had DUI 02/18 documented [...] encounter Miscellaneous Notes * Telephone Encounter - Rita Reyes OSA [...] Description 09/15/2024 12:00 PM EST Imaging Radiology [address] [place] [address] 09/16/2024 1:00 PM EST Nurse Only Gastroenterology, [place] [address] [place] [address] Nurse Chad Gastro [facility] 310 [facility] [place] 100 [place] [address] 09/16/2024 1:45 PM EST [facility] 21 [place] [address] Ritu Crenshaw MD [address] [place] [address] Cart, [facility] [place] [facility] 21 [place] [address] 10/12/2024 3:00 PM EST Office Visit Hematology/Oncology [facility] 200 [facility] [place] [phone] Olivia Fontenot CRNP 400 [place] [address] 10/27/2024 1:00 PM EST Office Visit General Internal Medicine [facility] 200 [facility] [place] [address] Selina Miller MD [facility] [address] 01/20/2025 12:40 PM EDT Office Visit Hepatology, [facility] 132 [facility] [place] [address] Sherita Gardner DO 132 [facility] [place] [address] Scheduled Procedures Name Priority Associated Diagnoses Date/Ti [...] filedocumented as of this encounter Care Teams Wheel Assembler Relationship Specialty Start Date End Date Selina Miller MD 200 [facility] [place] [address] PCP - General Internal Medicine 08/22/16 documented as of this encounter
--- OUTSIDE RECORDS SUMMARY | 2024-09-28 14:21 | External Medical Summary | Summary of Care ---
Author Name Unknown Organization [facility] Address [address] [place] [address] Phone [phone] Care Team Providers Care Financial Aid Manager Name Role Phone Selina Miller MD Primary Care Provider [phone] Reason for Visit * Reason Onset Date Comments Test Results Lab 09/10/2024 Encounter Details Date Type Department Care Team (Late st Contact Info) Description 09/10/2024 Telephone Hematology/Oncology Treatment, [place] [address] [place] [address] Olivia Fontenot CRNP 400 [place], [place] [phone] Test Results Lab Allergies No known active [...] beers 2/wk-is [facility] 05/21, had DUI 02/18 documented as [...] Description 09/15/2024 12:00 PM EST Imaging Radiology [address] [place] [address] 09/16/2024 1:00 PM EST Nurse Only Gastroenterology, [place] [address] [place] [address] Nurse Chad Gastro [facility] 310 [facility] [place] 100 [place] [address] 09/16/2024 1:45 PM EST [facility] 21 [place] [address] Ritu Crenshaw MD [address] [place] [address] Cart, Telemed [place] [facility] 21 [place] [address] 10/12/2024 3:00 PM EST Office Visit Hematology/Oncology [facility] 200 [facility] [place] [address] Olivia Fontenot CRNP 400 [place] [address] 10/27/2024 1:00 PM EST Office Visit General Internal Medicine [facility] 200 [facility] [place] [address] Selina Miller MD 200 [facility] [address] 01/20/2025 12:40 PM EDT Office Visit Hepatology, [facility] 132 [facility] [place] [address] Sherita Gardner DO 132 [facility] [place] [address] Scheduled Procedures Name Priority Associated Diagnoses Date/Ti [...] filedocumented as of this encounter Care Teams Financial Aid Manager Relationship Specialty Start Date End Date Selina Miller MD 200 [place] [address] PCP - General Internal Medicine 08/22/16 documented as of this encounter
--- OUTSIDE RECORDS SUMMARY | 2024-09-28 14:21 | External Medical Summary ---
Author Name Unknown Address Unknown Organization : Laboratory Report Ordering Provider Test Date Status HARLEY MOON 09/09/2024 11:15:05 Final Observation Date Value Abnormality Reference (Units ) Status Ceruloplasmin 09/09/2024 11:15:05 <3 Below low normal 14-30 (mg/dL) Final Test Performed at:
[facility]
[address] [facility]
[place] [address]
Raman Wynn M.D., Ph.D.,Director of Laboratories Performing Location
--- NOTE | 2024-09-28 16:22 | Electrocardiogram Report ---
Test Reason : Blood Pressure : */* mmHG Vent. Rate : 99 BPM Atrial Rate : * BPM P-R Int : * ms QRS Dur : 80 ms QT Int : 468 ms P-R-T Axes : * -14 37 degrees QTcB Int : 600 ms Sinus rhythm with 1st degree AV block Nonspecific ST abnormality Prolonged QT Abnormal ECG No previous ECGs available Confirmed by Sushil Moses ([id number]) on 09/28/2024 4:22:45 PM Referred By: Confirmed By: Sushil Moses
[2024-09-28 16:48] LABS: Anion Gap 15 (3-11); BUN Creatinine Ratio 2.5 (10-20); Blood Urea Nitrogen 3 mg/dl (6-23); Calcium 8.2 mg/dl (8.6-10.3); Carbon Dioxide 24 mmol/L (21-32); Chloride 93 mmol/L (98-107); Creatinine Clr Calc Pharmacy 65.3 ml/min; Glucose 63 mg/dl (70-99(Fasting)); Sodium 132 mmol/L (136-145)
[2024-09-29 07:27] LABS: Albumin Level 3.1 gm/dl (3.4-5.0); Bilirubin,Total 1.4 mg/dl (0.2-1.0); Magnesium 1.5 mg/dl (1.7-2.4); Potassium 3.5 mmol/L (3.5-5.1)
[2024-09-29 07:32] LABS: Hematocrit (blood only) 37.1 % (42.0-52.0); Hemoglobin 12.8 g/dl (14.0-18.0); Mean Corpuscular Hemoglobin 31.9 pg (25.0-34.0); Mean Corpuscular Hgb Conc 34.5 g/dL (32.0-36.0); Mean Corpuscular Volume 92.5 fL (80.0-100.0); Mean Platelet Volume 10.5 fL (9.4-12.4); Platelet Count 96 K/uL (130-400); Platelet Estimate Decreased (Normal); RDW Coefficient of Variation 13.3 % (11.5-14.5); RDW Standard Deviation 45.1 fL (36.4-46.3); Red Blood Count 4.01 M/uL (4.70-6.10); White Blood Count 4.33 K/ul (4.8-10.8)
[2024-09-29 07:34] LABS: Albumin Globulin Ratio 1.1 (0.9-2); BUN Creatinine Ratio 3.3 (10-20); Creatinine Clr Calc Pharmacy 65.8 ml/min; Globulin 2.7 gm/dl (2.5-4.0); Phosphorus 2.2 mg/dl (2.5-4.9); Total Protein 5.8 gm/dl (6.0-8.3)
[2024-09-29] MEDS ORDERED: cloNIDine HCL 0.1 MG TAB PO PRN (07:46)
[2024-09-29 07:59] LABS: Folate (Folic Acid),Ser orPlas 7.52 ng/ml (>5.38)
[2024-09-29] MEDS: FOLIC ACID 1 MG TAB PO SCH (08:16)
[2024-09-29] MEDS: MULTIVITAMIN TAB PO SCH (08:16)
[2024-09-29] MEDS: ADVANCED PROBIOTIC 625 MG CAPSULE PO SCH (08:16)
[2024-09-29] MEDS: POT PHOSPHATE MONOBASIC W/ SOD TAB PO SCH (08:16)
[2024-09-29] MEDS: PANTOprazole 40 MG TAB PO SCH (08:16)
[2024-09-29] MEDS: MAGNESIUM SULFATE / D5W 1 GM/100 ML BAG IV SCH (08:18)
[2024-09-29] MEDS ORDERED: PANTOprazole 40 MG TAB PO SCH (09:00)
--- NOTE | 2024-09-29 14:13 | Hospitalist Progress Note ---
Date of Service September 29, 2024 Assessment & Plan (1) Altered mental status: (2) Fall: (3) Hyponatremia: (4) Hereditary hemochromatosis: Plan Patient is a 54-year-old male with hereditary hemochromatosis, alcohol abuse, and tobacco use disorder who presented to the ED today with recurrent falls and increased confusion. Altered mental status - increased confusion per family with associated falls Alcohol abuse/alcohol withdrawal Mental status change likely secondary to alcohol use --CT Head: No acute cerebral abnormality. Mild brain involutional changes. Continue Librium protocol for alcohol withdrawal, prn lorazepam Seizure precautions, aspiration precautions Continue Thiamine/folic acid Currently not interested in rehab placement Hyponatremia Chronic likely due to beer potomania Sodium levels improved Monitor Dehydration/poor oral intake Received gentle IV fluids Monitor Recurrent falls Fall precautions PT/OT evaluations DVT Px: SCDs for now Code status: Full code Admission and Anticipated Discharge Date Admission Date: September 28, 2024 Subjective Patient is seen and examined at bedside States feeling tired Reports poor sleep overnight Denies any other complaints No significant alcohol withdrawal symptoms currently Review of Systems Review of Systems: All systems reviewed & are unremarkable except as noted in Subjective Physical Exam Physical Exam: Physical Exam: Vitals signs as noted above General Appearance:Moderately built and nourished, no apparent distress Head: normocephalic, Atraumatic Eyes: normal inspection, EOMI Neck: supple, Trachea midline Respiratory/Chest: Normal breath sounds, CTA, No accessory muscle use Cardiovascular: S1, S2, No murmur Abdomen/GI:Soft, Non tender, Bowel sounds present Extremities/Musculoskeletal:normal inspection, no edema Neurologic/Psych:AAOX3, grossly no focal neurological deficits Skin: normal color, warm Results & Data Results & Data Vital Signs (Past 12 Hours) Vital Signs Temp Pulse Pulse Resp BP Pulse Ox O2 Del Method 09/29/24 11:42 93 H 20 138/92 98 Room Air 09/29/24 10:09 95 H 09/29/24 07:59 36.6 C 88 20 115/68 97 Room Air 09/29/24 02:48 36.5 C 70 18 155/97 H 97 Room Air 09/29/24 02:28 110 H Laboratory Results Short CBC 09/29/24 Range/Units 06:30 WBC 4.33 L (4.8-10.8) K/ul Hgb 12.8 L (14.0-18.0) g/dl Hct 37.1 L (42.0-52.0) % Plt Count 96 L (130-400) K/uL BMP 09/28/24 09/28/24 09/28/24 16:04 17:20 18:32 Sodium 132 L Potassium TNP Cancelled Cancelled Chloride 93 L Carbon Dioxide 24 BUN 3 L Creatinine 1.21 Glucose 63 L Calcium 8.2 L 09/28/24 09/29/24 20:04 06:30 Sodium 136 Potassium 3.9 3.5 Chloride 97 L Carbon Dioxide 31 BUN 4 L Creatinine 1.20 Glucose 102 H Calcium 9.0 Liver Function 09/29/24 Range/Units 06:30 Total Bilirubin 1.4 H (0.2-1.0) mg/dl AST 134 H (13-39) U/L ALT 93 H (7-52) U/L Alkaline Phosphatase 231 H (34-104) U/L Albumin 3.1 L (3.4-5.0) gm/dl (1) Altered mental status Altered mental status type: unspecified Qualified Code(s): R41.82 - Altered mental status, unspecified (2) Fall Encounter type: initial encounter Qualified Code(s): W19.XXXA - Unspecified fall, initial encounter
[2024-09-29] MEDS: NICOTINE POLACRILEX 2 MG GUM MT PRN (17:32)
[2024-09-29] MEDS: NICOTINE 21 MG/24 HR TDSY TD SCH (18:38)
--- NOTE | 2024-09-29 18:39 | Communication Note ---
Date of Service: September 29, 2024 Received a call from RN that patient prefers to leave AMA. Discussed with patient at bedside and explained the risks and complications of leaving without appropriate treatment. Despite explaining in detail, patient prefers to sign out AGAINST MEDICAL ADVICE. He is oriented x 3 during my encounter and understands the risks and complications. I also informed patient's over the phone. Discussed with psychiatry, given the scenario patient currently does not meet 302 criteria. Patient continues to plan to leave AMA today.
[2024-09-29 19:57] VITALS: BP 120/87; PULSE 118; RESP 16; TEMP 97.5; O2SAT 94
[2024-09-29] MEDS ORDERED: MAGNESIUM CHLORIDE W/CALCIUM 64MG DELAYED REL TAB PO SCH (21:00)
--- NOTE | 2024-09-30 07:31 | Discharge Summary ---
Date of Service September 30, 2024 Admission HPI Per Admitting Provider This is a 54 y/o male with hereditary hemochromatosis, alcohol abuse, and tobacco use disorder who presented to the ED today with recurrent falls and increased confusion. History is obtained from the patient and review of his chart, which contains additional history from his spouse. His family reports that pt has been more confused than usual the last few days. Pt was admitted to this facility 09/10-09/11 for hyponatremia thought secondary to beer potomania corrected to 134 on discharge. Since discharge, pt has missed multiple appointments. He reports multiple falls over the last few days, most recently having fallen out of bed early this morning. He does not recall what caused this to happen. He reports another fall yesterday but again is unsure what occured - his 12 year old daughter reportedly found him on the floor. He has apparently not been eating much but does continue to drink 3-7 alcoholic drinks per day (cocktails, beer). His last drink was last night. He has a history of mild alcohol withdrawal symptoms but denies history of seizures. He denies hematemesis or melena. He does report some hematochezia related to a hemorrhoid but not significant. He complains of HAs, dizziness at times. Urine has been darker than usual but no dysuria or hematuria. He has a history of hereditary hemochromatosis for which he follows with hematology - last phlebotomy was a couple weeks ago. Principal Diagnosis Alcohol abuse/alcohol withdrawal Hyponatremia Tobacco use disorder Recurrent falls Discharge Data Allergies Allergy/AdvReac Type Severity Reaction Status Date / Time No Known Allergies Allergy Verified 09/28/24 07:21 Consultations 09/28/24 09:02 ED Decision to Admit Stat Procedures Performed Laboratory Results WBC 4.33 K/ul (4.8-10.8) L 09/29/24 06:30 RBC 4.01 M/uL (4.70-6.10) L 09/29/24 06:30 Hgb 12.8 g/dl (14.0-18.0) L 09/29/24 06:30 POC Hgb 16.0 g/dl (14.0-18.0) 09/28/24 04:25 Hct 37.1 % (42.0-52.0) L 09/29/24 06:30 POC Hct 47 % (42-52) 09/28/24 04:25 MCV 92.5 fL (80.0-100.0) 09/29/24 06:30 MCH 31.9 pg (25.0-34.0) 09/29/24 06:30 MCHC 34.5 g/dL (32.0-36.0) 09/29/24 06:30 RDW Std Deviation 45.1 fL (36.4-46.3) 09/29/24 06:30 RDW Coeff of Edith 13.3 % (11.5-14.5) 09/29/24 06:30 Plt Count 96 K/uL (130-400) L 09/29/24 06:30 MPV 10.5 fL (9.4-12.4) 09/29/24 06:30 Immature Gran % (Auto) 0.5 % 09/28/24 04:16 Neut % (Auto) 53.0 % 09/28/24 04:16 Lymph % (Auto) 39.4 % 09/28/24 04:16 Merrick % (Auto) 6.8 % 09/28/24 04:16 Eos % (Auto) 0.0 % 09/28/24 04:16 Baso % (Auto) 0.3 % 09/28/24 04:16 Neut # (Auto) 1.95 K/uL (1.40-6.50) 09/28/24 04:16 Lymph # (Auto) 1.45 K/uL (1.20-3.40) 09/28/24 04:16 Merrick # (Auto) 0.25 K/uL (0.11-0.59) 09/28/24 04:16 Eos # (Auto) 0.00 K/uL (0.00-0.50) 09/28/24 04:16 Baso # (Auto) 0.01 K/uL (0.00-0.20) 09/28/24 04:16 Immature Gran # (Auto) 0.02 K/uL (0.01-0.20) 09/28/24 04:16 Platelet Estimate Decreased (Normal) L 09/29/24 06:30 PT 12.7 Seconds (9.0-12.0) H 09/28/24 04:16 INR 1.2 (0.9-1.1) H 09/28/24 04:16 APTT 23 Seconds (21-31) 09/28/24 04:16 PTT Ratio 0.9 09/28/24 04:16 POC Sodium 130 mmol/L (135-144) L 09/28/24 04:25 Sodium 136 mmol/L (136-145) 09/29/24 06:30 POC Potassium 3.8 mmol/L (3.3-5.0) 09/28/24 04:25 Potassium 3.5 mmol/L (3.5-5.1) 09/29/24 06:30 POC Chloride 90 mmol/L (101-112) L 09/28/24 04:25 Chloride 97 mmol/L (98-107) L 09/29/24 06:30 Carbon Dioxide 31 mmol/L (21-32) 09/29/24 06:30 POC Total CO2 31 mmol/L (24-31) 09/28/24 04:25 Anion Gap 8 (3-11) 09/29/24 06:30 POC Anion Gap 14.0 mmol/L (16-25) L 09/28/24 04:25 POC BUN < 3 mg/dl (7-18) L 09/28/24 04:25 BUN 4 mg/dl (6-23) L 09/29/24 06:30 Creatinine 1.20 mg/dl (0.6-1.4) 09/29/24 06:30 POC Creatinine 1.3 mg/dl (0.6-1.3) 09/28/24 04:25 Est Cr Clr Drug Dosing 65.8 ml/min 09/29/24 06:30 eGFR 71.86 09/29/24 06:30 BUN/Creatinine Ratio 3.3 (10-20) L 09/29/24 06:30 Glucose 102 mg/dl (70-99(Fasting)) H 09/29/24 06:30 POC Glucose (other) 146 mg/dl (70-99) H 09/28/24 04:25 Calcium 9.0 mg/dl (8.6-10.3) 09/29/24 06:30 POC Ioniz Calcium Yo 1.02 mmol/l (1.12-1.32) L 09/28/24 04:25 Phosphorus 2.2 mg/dl (2.5-4.9) L 09/29/24 06:30 Magnesium 1.5 mg/dl (1.7-2.4) L 09/29/24 06:30 Total Bilirubin 1.4 mg/dl (0.2-1.0) H 09/29/24 06:30 AST 134 U/L (13-39) H 09/29/24 06:30 ALT 93 U/L (7-52) H 09/29/24 06:30 Alkaline Phosphatase 231 U/L (34-104) H 09/29/24 06:30 Ammonia 47.0 umol/L (18-72) 09/28/24 08:49 Troponin I High Sens 11.2 pg/ml (0-20) 09/28/24 04:16 Total Protein 5.8 gm/dl (6.0-8.3) L 09/29/24 06:30 Albumin 3.1 gm/dl (3.4-5.0) L 09/29/24 06:30 Globulin 2.7 gm/dl (2.5-4.0) 09/29/24 06:30 Albumin/Globulin Ratio 1.1 (0.9-2) 09/29/24 06:30 Lipase 45 U/L (11-82) 09/28/24 04:16 Vitamin B12 1191 pg/ml (180-914) H 09/29/24 06:30 Folate 7.52 ng/ml (>5.38) 09/29/24 06:30 Urine Color Yellow 09/28/24 06:22 Urine Appearance Clear (Clear) 09/28/24 06:22 Urine pH 7.5 (4.5-7.5) 09/28/24 06:22 Ur Specific Tulia 1.012 (1.000-1.030) 09/28/24 06:22 Urine Protein Negative (Negative) 09/28/24 06:22 Urine Glucose (UA) Negative (Negative) 09/28/24 06:22 Urine Ketones Negative (Negative) 09/28/24 06:22 Urine Blood Negative (Negative) 09/28/24 06:22 Urine Nitrite Negative (Negative) 09/28/24 06:22 Urine Bilirubin Negative (Negative) 09/28/24 06:22 Urine Urobilinogen Negative (Negative) 09/28/24 06:22 Ur Leukocyte Esterase Negative (Negative) 09/28/24 06:22 Urine Opiates Screen Neg (Neg) 09/28/24 06:22 Ur Methadone, Qual Neg (Neg) 09/28/24 06:22 Urine Fentanyl Screen Neg (Neg) 09/28/24 06:22 Urine Barbiturates Neg (Neg) 09/28/24 06:22 Ur Phencyclidine (PCP) Neg (Neg) 09/28/24 06:22 U Amphetamin/Meth Scrn Neg (Neg) 09/28/24 06:22 MDMA (Ecstasy) Screen Pos (Neg) H 09/28/24 06:22 U Benzodiazepines Scrn Neg (Neg) 09/28/24 06:22 Ur Cocaine Metabolite Neg (Neg) 09/28/24 06:22 U Marijuana (THC) Screen Neg (Neg) 09/28/24 06:22 Ethyl Alcohol mg/dL 107.2 mg/dl (<10.0) H 09/28/24 04:18 Adenovirus (PCR) Not Detected (NotDetected) 09/28/24 12:55 B. pertussis DNA (PCR) Not Detected (NotDetected) 09/28/24 12:55 B.parapertussis DNA PCR Not Detected (NotDetected) 09/28/24 12:55 C. pneumoniae DNA (PCR) Not Detected (NotDetected) 09/28/24 12:55 Coronavirus OC43 (PCR) Not Detected (NotDetected) 09/28/24 12:55 Coronavirus HKU1 (PCR) Not Detected (NotDetected) 09/28/24 12:55 Coronavirus 229E (PCR) Not Detected (NotDetected) 09/28/24 12:55 SARS-CoV-2 (PCR) Not Detected (NotDetected) 09/28/24 12:55 Coronavirus NL63 (PCR) Not Detected (NotDetected) 09/28/24 12:55 Human Metapneumovir PCR Not Detected (NotDetected) 09/28/24 12:55 Influenza Type A (PCR) Not Detected (NotDetected) 09/28/24 12:55 Influenza Type B (PCR) Not Detected (NotDetected) 09/28/24 12:55 M. pneumoniae (PCR) Not Detected (NotDetected) 09/28/24 12:55 Parainfluenza 1 (PCR) Not Detected (NotDetected) 09/28/24 12:55 Parainfluenza 2 (PCR) Not Detected (NotDetected) 09/28/24 12:55 Parainfluenza 3 (PCR) Not Detected (NotDetected) 09/28/24 12:55 Parainfluenza 4 (PCR) Not Detected (NotDetected) 09/28/24 12:55 RSV (PCR) Not Detected (NotDetected) 09/28/24 12:55 Entero/Rhino (PCR) Not Detected (NotDetected) 09/28/24 12:55 Blood Type O Negative 09/28/24 04:30 Antibody Screen NEGATIVE 09/28/24 04:30 Impressions Chest X-Ray 09/28/24 04:16 EXAM: XR chest 1V portable CLINICAL HISTORY: TRAUMA. FALL OUT OF BED. TECHNIQUE: An X-ray image of the chest is obtained in AP projection. COMPARISON: No prior studies are available for comparison. FINDINGS: Pulmonary Parenchyma: Bilateral mild prominent broncho vascular markings. No evidence of consolidation, collapse, or focal opacities. No pulmonary nodules are identified. No evidence of pleural effusion or pleural thickening. No pneumothorax. Heart and Mediastinum: Heart size and shape are normal. No mediastinal widening or masses. No hilar or mediastinal lymphadenopathy. Bony Thorax: Bony thorax appears intact without fractures or deformities. Soft Tissues: Soft tissues overlying the chest wall are unremarkable. IMPRESSION: 1. Bilateral mild prominent broncho vascular markings. No acute cardiopulmonary abnormalities are identified. Electronically signed by Josephine Solo 09-28-2024 05:43 AM Pelvis X-Ray 09/28/24 04:16 EXAM: XR pelvis 1-2V routine CLINICAL HISTORY: TRAUMA. FALL OUT OF BED. TECHNIQUE: X-ray image of the pelvis was obtained in anteroposterior (AP) projection. COMPARISON: No prior studies are available for comparison. FINDINGS: Bone Structure: Pelvic bones, including the iliac wings, ischium, pubis, and sacrum, are normal and intact. No evidence of fractures, dislocations, or significant osseous lesions. Hip Joints: Hip joints are normal with preserved joint spaces. No evidence of hip dislocation, subluxation, or significant degenerative changes. Acetabulum: Acetabular structures appear normal and intact. No signs of acetabular fracture or dysplasia. Symphysis Pubis: Symphysis pubis is normal and intact. No evidence of separation or widening. Sacroiliac Joints: Sacroiliac joints appear normal and unremarkable. No evidence of sacroiliitis or significant degenerative changes. Soft Tissues: Visualized soft tissues are normal and unremarkable. No soft tissue swelling, calcifications, or masses. Additional Findings: No other significant abnormalities were noted. IMPRESSION: 1. Normal X-ray of the pelvis. 2. No evidence of acute fractures, dislocations, or significant degenerative changes. Disclaimer: A subtle bone abnormality or fracture may not be readily apparent on X-rays, thus clinical correlation and further imaging including follow-up CT, MRI, or follow-up X-rays are advised as needed. Electronically signed by Josephine Solo 09-28-2024 05:[address] 09/28/24 04:17 EXAM: CT cervical spine wo con CLINICAL HISTORY: Altered mental status, n/v, dizziness, and a nosebleed. On arrival at his house, pt was unable to answer any questions but "has greatly improved since then." Pt believed to have fallen out of bed, and dry blood noted around the nose. Denies use of blood thinners. TECHNIQUE: A CT scan of the cervical spine was performed without the administration of intravenous contrast. Contiguous axial images were obtained from the skull base to the upper thoracic spine. Coronal and sagittal reformatted images were also reviewed. One of the following dose-reduction techniques was utilized for this exam. Automated exposure control, adjustment of the mA and/or kV according to patient size, and use of iterative reconstruction. COMPARISON: None. FINDINGS: No fractures were noted. Slight narrowing of the distance between the dens and right lateral mass of C1 compared to the distance of the dens and the left lateral mass of C1, suggestive of right rotatory subluxation of the dens of C2 or non-centralized head position in relation to spine during image acquisition. C3 small sclerotic bone lesion; possibly bone island. Straightened cervical lordosis suggesting muscle spasm. Degenerative changes in the cervical spine as evidenced by marginal osteophytosis with reduced intervertebral disc spaces at multiple levels of the cervical spine. No vertebral wedging or collapse. A small calcific focus is noted along the posterior aspect of C4/5. C4-C5, C5-C6, and C6-C7 posterior disc bulge osteophyte complexes are seen indenting the thecal sac and encroaching upon corresponding neural exit foramina and exiting nerve roots bilaterally. Degenerative changes at multiple facets and uncovertebral joints bilaterally. Reduced bone density. Prevertebral Soft Tissues: The prevertebral soft tissues are normal in thickness without evidence of mass or abnormal fluid collection. IMPRESSION: 1. No definite fractures were noted. 2. Slight narrowing of the distance between the dens and right lateral mass of C1 compared to the distance of the dens and the left lateral mass of C1, either representing a non-centralized head position in relation to the spine during image acquisition or right rotatory subluxation of the dens of C2. 3. Straightened cervical lordosis suggesting muscle spasm. 4. C4-C5, C5-C6, and C6-C7 posterior disc bulge osteophyte complexes 5. Degenerative changes at multiple facets and uncovertebral joints bilaterally. Electronically signed by Josephine Solo 09-28-2024 06:[address] 09/28/24 04:17 EXAM: CT facial bones wo con CLINICAL HISTORY: c/o altered mental status, n/v, dizziness, and a nosebleed. On arrival to his house, pt was unable to answerany questions but "has greatly improved since then." Pt believed to have fallen out of bed, dry blood noted around nose. Denies use of blood thinners. TECHNIQUE: Non-Contrast CT scan of the maxillofacial bones was performed, with sagittal and coronal multiplanar reconstruction. One of the following dose reduction techniques were utilized for this exam: Automated exposure control, adjustment of the mA and/or kV according to patient size, and use of iterative reconstruction. COMPARISON: None. FINDINGS: There is subtle lucency noted in right nasal bone this may represent prominent suture however considering the history of patient possibility of small undisplaced fracture cannot be excluded, would recommend local examination. No other fracture is noted No significant soft tissue injury seen Sinuses: Bilateral maxillary sinusitis. The rest of the paranasal sinuses are clear. Osteomeatal complexes are patent. Nasal Cavity: Nasal cavity is unremarkable. No masses or polyps. Deviated nasal septum to the left. Orbits: Orbits are normal in size and shape. Extraocular muscles and optic nerves are normal. No evidence of orbital masses or proptosis. Maxilla and Mandible: Normal appearance of the maxillary and mandibular bones. No fractures, lytic or sclerotic lesions. Facial Bones: No fractures or deformities. Zygomatic arches, nasal bones, and other facial structures are intact. Soft Tissues: Soft tissues of the face are normal. No abnormal masses, swelling, or lymphadenopathy. Temporomandibular Joints (TMJ): Normal appearance of the TMJ bilaterally. No evidence of joint effusion, degenerative changes, or dislocation. IMPRESSION: 1. Subtle lucency noted in right nasal bone this may represent prominent suture, however considering the history of patient possibility of small undisplaced fracture cannot be excluded, would recommend local examination. 2. No other fracture is noted. 3. No significant soft tissue injury seen. Electronically signed by Josephine Solo 09-28-2024 06:[address] 09/28/24 04:17 EXAM: CT head/brain wo con CLINICAL HISTORY: C/o altered mental status, N/V, dizziness, and a nosebleed. Fallen out of bed. TECHNIQUE: Axial non-contrast CT scan of the brain was performed from the skull base to the high parietal region with coronal and sagittal reformats. One of the following dose reduction techniques were utilized for this exam: Automated exposure control, adjustment of the mA and/or kV according to patient size, use of iterative reconstruction. COMPARISON: None. FINDINGS: Brain Parenchyma: Normal attenuation of the cerebral hemispheres, cerebellum, and brainstem. No evidence of hemorrhage, or mass effect. No abnormal areas of hypo- or hyperattenuation. Ventricular System: Prominent ventricular system and extra-axial CSF spaces. Subarachnoid Spaces: No evidence of subarachnoid hemorrhage or extra-axial fluid collections. Mastoid Air Cells: Clear mastoid air cells. No evidence of mastoiditis. Skull: Normal skull morphology. IMPRESSION: 1. No acute cerebral abnormality. 2. Mild brain involutional changes. Electronically signed by Josephine Solo 09-28-2024 05:53 AM Cervical Spine MRI 09/28/24 06:37 CLINICAL HISTORY: abn CT, fall, possible subluxation of dens TECHNIQUE: MRI of the cervical spine is performed utilizing various T1 and T2 sequences in the axial and sagittal planes. IV contrast was not administered for this examination. Comparison: Comparison is made to CT cervical spine 09/28/2024 FINDINGS: The alignment is anatomical. C2-C3: Unremarkable. C3-C4: Broad-based posterior disc bulge is seen with mild canal stenosis and moderate bilateral neuroforaminal stenosis. C4-C5: Broad-based posterior disc bulge is seen with mild bilateral neuroforaminal stenosis. C5-C6: Broad-based posterior disc bulge is seen with moderate bilateral neuroforaminal stenosis. C6-C7: Unremarkable. C7-T1: Unremarkable. The spinal ligaments are intact, without evidence of disruption or abnormal signal intensity. The spinal cord is normal in signal intensity and there is no evidence of cord edema. There is no evidence of an extradural, intradural, extramedullary or intramedullary lesion. Visualized soft tissues are normal. Visualized brain parenchyma is normal. IMPRESSION: 1. Multilevel degenerative changes with up to mild canal stenosis and moderate bilateral neuroforaminal stenosis. 2. No subluxation of the dens or other acute abnormality ACT 112: Negative or not required by law. Electronically signed by: Niko Orona M.D. 09/28/2024 8:06 AM Ordered Studies 09/28/24 04:17 CT cervical spine wo con Stat CT facial bones wo con Stat CT head/brain wo con Stat 09/28/24 06:37 MR cervical spine wo con Stat Hospital Course (1) Altered mental status: (2) Fall: (3) Hyponatremia: (4) Hereditary hemochromatosis: Plan Patient is a 54-year-old male with hereditary hemochromatosis, alcohol abuse, and tobacco use disorder who presented to the ED today with recurrent falls and increased confusion. Altered mental status - increased confusion per family with associated falls Alcohol abuse/alcohol withdrawal Mental status change likely secondary to alcohol use --CT Head: No acute cerebral abnormality. Mild brain involutional changes. Continue Librium protocol for alcohol withdrawal, prn lorazepam Seizure precautions, aspiration precautions Continue Thiamine/folic acid Currently not interested in rehab placement Received a call from RN that patient prefers to leave AMA. Discussed with patient at bedside and explained the risks and complications of leaving without appropriate treatment. Despite explaining in detail, patient prefers to sign out AGAINST MEDICAL ADVICE. He is oriented x 3 during my encounter and understands the risks and complications. I also informed patient's over the phone. Discussed with psychiatry, given the scenario patient currently does not meet 302 criteria. Patient signed out AGAINST MEDICAL ADVICE. Hyponatremia Chronic likely due to beer potomania Sodium levels improved Monitor Dehydration/poor oral intake Received gentle IV fluids Monitor Recurrent falls Fall precautions PT/OT evaluations DVT Px: SCDs for now Code status: Full code Total Time Total Time Spent Total Time Spent (In Minutes): 38 minutes Discharge Plan Discharge Items Patient Disposition: Against Medical Advice Reason For Visit: ALCOHOL INTOXICATION Activity: As commented below Non-emergency contact: Primary Care Provider Follow-up/Referrals: Selina Miller MD [Primary Care Provider] - Pending Studies at Discharge: No Medications and DC Order Prescriptions: Continued pantoprazole 20 mg tablet,delayed release (DR/EC) 20 mg PO QAM Advanced Probiotic 625 mg (10 billion cell) Capsule 1 cap PO DAILY Qty: 7 0RF folic acid 1 mg Tablet 1 mg PO QAM Qty: 30 0RF thiamine HCl (vitamin B1) 100 mg Tablet 100 mg PO DAILY Qty: 30 0RF Discharge Orders: Left Against Medical Advice (Routine); Ordered 09/30/24 Ordered By: Nilesh Perrin Admission Data Admit Date/Time: 09/28/24 09:17 Attending Provider: Nilesh Perrin Admit Provider: Leticia Bella Primary Care Provider: Selina Miller Other Providers: Leticia Bella
[2024-09-30] MEDS ORDERED: chlordiazePOXIDE HCl 25 MG CAP PO SCH (11:30)
[2024-10-01 13:17] LABS: MDA negative; MDEA negative; MDMA (Ecstasy) Urine, Confirm negative
== END 2024-09-29 19:45 | disposition left against medical advice (07) ==
LOC: MERGE 04:01 → ED 04:01 → EDINP 09:17 → SUATTDRO 09:17 → INTOOBSV 09:17 → 2S 11:44